=== PATIENT | male | born 1960 | race Caucasian/White ===

== ENCOUNTER 2018-09-11 10:45 | Outpatient (CLI) | payer OTHER, SELFPAY ==
[2018-09-11 13:36] LABS: Anion Gap 6.4 mmol/L (3-11); BUN 16 mg/dL (7-18); CO2 30.6 mmol/L (21.0-32.0); CREATININE 0.85 mg/dL (0.70-1.30); Calcium 8.9 mg/dL (8.5-10.1); Chloride 100 mmol/L (98-107); Cholesterol 222 mg/dL (50-200); Glucose 96 mg/dL (70-100); HDL Cholesterol 47 mg/dL (40-60); LDL CHOLESTEROL 156 mg/dL (<100); Potassium 4.9 mmol/L (3.5-5.1); Sodium 137 mmol/L (136-145); Triglyceride 143 mg/dL (30-150)
[2018-09-13 10:07] LABS: PSA, Screening 1.5 ng/ml (0-3.5)
== END 2018-09-11 11:05 ==
PROVIDERS: PCP Emergency Medicine; Visit Provider Emergency Medicine
DX: E78.5 Hyperlipidemia, unspecified (principal); J44.9 Chronic obstructive pulmonary disease, unspecified; Z12.5 Encounter for screening for malignant neoplasm of prostate; Z00.00 Encounter for general adult medical examination without abnormal findings
CPT/HCPCS: 36415; 80048; 80061; 83721; 84153

== ENCOUNTER 2019-11-11 07:00 | Outpatient (CLI) | payer SELFPAY ==
[2019-11-11 13:54] LABS: Anion Gap 7.2 mmol/L (3-11); BUN 18 mg/dL (7-18); CO2 30.8 mmol/L (21.0-32.0); CREATININE 0.81 mg/dL (0.70-1.30); Calcium 8.9 mg/dL (8.5-10.1); Calculated LDL 81 mg/dL (>130); Chloride 103 mmol/L (98-107); Cholesterol 152 mg/dL (<200); Glucose 99 mg/dL (74-106); HDL Cholesterol 47 mg/dL (40-60); Potassium 4.8 mmol/L (3.5-5.1); Sodium 141 mmol/L (136-145); Triglyceride 121 mg/dL (<150)
[2019-11-11 14:11] LABS: Hemoglobin A1C 5.9 % (3.8-5.6)
== END 2019-11-11 07:20 ==
PROVIDERS: PCP Emergency Medicine; Visit Provider Emergency Medicine
DX: I10 Essential (primary) hypertension (principal); E11.9 Type 2 diabetes mellitus without complications
CPT/HCPCS: 36415; 80048; 80061; 83036

== ENCOUNTER 2020-09-09 03:14 | Outpatient (CLI) | payer OTHER, SELFPAY ==
[2020-09-13 06:50] LABS: Patient Race White; SARS-CoV-2 RNA Undetected (Undetected); SARS-CoV-2 Specimen Source Nasal
== END 2020-09-09 03:34 ==
PROVIDERS: PCP Emergency Medicine; Visit Provider Nurse Practitioner Family
DX: Z11.59 Encounter for screening for other viral diseases (principal)
CPT/HCPCS: U0003

== ENCOUNTER 2022-01-13 03:36 | Outpatient (CLI) | payer OTHER, SELFPAY ==
[2022-01-13 14:48] LABS: ALT 30 U/L (16-63); AST 18 U/L (15-37); Albumin 4.3 g/dL (3.4-5.0); Alkaline Phosphatase 98 U/L (46-116); Anion Gap 8.1 mmol/L (3-11); BUN 18 mg/dL (7-18); Bilirubin, Total 0.4 mg/dL (0.2-1.0); CO2 28.9 mmol/L (21.0-32.0); CREATININE 0.9 mg/dL (0.70-1.30); Calculated LDL 88 mg/dL (<100); Chloride 104 mmol/L (98-107); Cholesterol 157 mg/dL (<200); Glucose 91 mg/dL (74-106); HDL Cholesterol 42 mg/dL (40-60); Potassium 4.8 mmol/L (3.5-5.1); Sodium 141 mmol/L (136-145); Total Protein 7.5 g/dL (6.4-8.2); Triglyceride 139 mg/dL (<150)
[2022-01-13 22:30] LABS: PSA, Screening 1.5 ng/mL (0.0-4.5)
[2022-01-16 10:28] LABS: HIV-1/2 Ag & Ab Screen Negative (Negative)
[2022-01-16 10:40] LABS: Hepatitis C Ab w Rflx HCV PCR Negative (Negative)
== END 2022-01-13 03:37 | disposition home or self-care (01) ==
LOC: LBO 03:36
PROVIDERS: PCP Family Medicine; Visit Provider Family Medicine
DX: E78.5 Hyperlipidemia, unspecified (principal); I10 Essential (primary) hypertension; Z11.59 Encounter for screening for other viral diseases; Z12.5 Encounter for screening for malignant neoplasm of prostate; Z11.4 Encounter for screening for human immunodeficiency virus [HIV]
CPT/HCPCS: 36415; 80053; 80061; 84153; 86803; 87389

== ENCOUNTER 2022-01-13 03:56 | Outpatient (CLI) | payer OTHER, SELFPAY ==
[2022-01-13] MEDS: Albuterol HFA 18 GM 200 PUFF INH IH (13:44)
[2022-01-13] MEDS: Inhaler, Assist Device 1 EACH MC (13:44)
== END 2022-01-13 03:57 | disposition home or self-care (01) ==
PROVIDERS: PCP Family Medicine; Visit Provider Family Medicine
DX: J44.9 Chronic obstructive pulmonary disease, unspecified (principal); F17.210 Nicotine dependence, cigarettes, uncomplicated; R94.2 Abnormal results of pulmonary function studies
CPT/HCPCS: 94060

== ENCOUNTER → 2022-03-10 01:10 | Outpatient (CLI) | payer OTHER, SELFPAY ==
--- NOTE | 2022-03-10 08:45 | DI.RAD_ITS ---
Exam(s) XR SHOULDER RT COMPLETE 2+V EXAM: XR SHOULDER RT COMPLETE 2+V CLINICAL HISTORY: right shoulder injury, work related, [id number], Y99.0. TECHNIQUE: 2D digital imaging was performed of the right shoulder. Five images were obtained. AP, Grashey, Y-view and axillary views were obtained. COMPARISON: No exams were available for comparison FINDINGS: BONES: No acute fracture is present. No bony destructive lesion is seen. JOINTS: No dislocation present. There are degenerative changes seen at the acromioclavicular joint. There is spurring of the inferior aspect of the acromion. This may impinge upon the rotator cuff. SOFT TISSUE: Normal. IMPRESSION: Degenerative changes of the right shoulder. No acute fracture or dislocation. DATA REPOSITORY: RADIATION DOSE DELIVERED:
== END ==
PROVIDERS: PCP Family Medicine; Visit Provider Family Medicine
DX: Y99.0 Civilian activity done for income or pay; M25.511 Pain in right shoulder; S49.80XA Other specified injuries of shoulder and upper arm, unspecified arm, initial encounter; M19.011 Primary osteoarthritis, right shoulder
CPT/HCPCS: 73030

== ENCOUNTER → 2022-04-28 00:13 | Outpatient (CLI) | payer OTHER, SELFPAY ==
--- OUTSIDE RECORDS SUMMARY | 2022-04-28 00:16 | XMS_ITS | Encounter Summary ---
:1960 Author Organization [facility] [place] [address] Care Team Providers Name Role Phone Chapincito Avalos DO Primary Care Provider Encounter Details Date Type Department Care Team Description 12/20/2020 External Results Internal Medicine at [facility] [address] [place] [address] Social History Tobacco Use Types Packs/Day Years Used Date Current Every Day Smoker 1 20 Smokeless Tobacco: Never Used Alcohol Use Standard Drinks/Week Comments Not Currently 0 (1 standard drink = 0.6 oz pure alcoho l) Sex Assigned at Date Recorded Not on file documented as of this encounter Plan of Treatment Not on filedocumented as of this encounter Procedures Procedure Name Priority Date/Time Associated Diagnosis Comme nts EXTERNAL LAB Routine 12/20/2020 Results for thi s HEMATOLOGY/COAG procedure ar e in the RESULTS PANEL results sectio n. documented in this encounter Results (ABNORMAL) Hematology / Coag External Results (12/20/2020) P athologist Signature POC INR 1.6 0.9 - 1.1 VISITING NURSE (EXTERNAL/A BN) Comment: [facility] Specimen (Source) Anatomical Location Collection Method / Collectio n Time Received Time / Laterality Volume 12/20/2020 Historical Provider HEMATOLOGY ORDERABLES Performing Organization Address City/State/ZIP Code Phon e Number VISITING NURSE documented in this encounter Visit Diagnoses Not on filedocumented in this encounter Care Teams Practice Director Relationship Specialty Start Date End Date Chapincito Avalos DO PCP - General Family Medicine 03/12/[address] [place] [address] documented as of this encounter
--- OUTSIDE RECORDS SUMMARY | 2022-04-28 00:16 | XMS_ITS | Encounter Summary ---
:1960 Author Organization [facility] Address [address] [place] [address] Care Team Providers Name Role Phone RobbieChapincito Primary Care Provider Encounter Details Date Type Department Care Team Description 01/10/2021 Hospital Encounter XRay at [facility] History of bilateral total h ip arthroplasty; [address] [place]; [place] [address] Pain of left lower extremity ; [phone] Polyethylene li ner wear following total hip arthroplasty requiring isolated polyethylene liner exchange, initial encounter Social History Tobacco Use Types Packs/Day Years Used Date Current Every Day Smoker 1 20 Smokeless Tobacco: Never Used Alcohol Use Standard Drinks/Week Comments Not Currently 0 (1 standard drink = 0.6 oz pure alcoho l) Sex Assigned at Date Recorded Not on file documented as of this encounter Medications at Time of Discharge Medication Sig Dispensed Refills Start Date End Date acetaminophen (Tylenol) 500 Take 2 tablets 0 11/22 mg Tablet by mouth every 8 hours. Continue the Tylenol around the clock for 10 days after surgery, (12/11/2020). Then may take if needed per package insert. Do not take more than 3,000 mg of Tylenol in 24 hours. hydroCHLOROthiazide Take 12.5 mg by 0 (Hydrodiuril) 12.5 mg Tablet mouth Daily at Noon. lisinopriL Take 10 mg by 0 (Prinivil;Zestril) 10 mg mouth Daily at Tablet Noon. pravastatin (Pravachol) 20 Take 20 mg by 0 2019 mg Tablet mouth daily. 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 amoxicillin-clavulanate Take 1 tablet by 4 tablet 0 2020 (Augmentin) 875-125 mg mouth 2 times Tablet daily. Take until gone. gabapentin (Neurontin) 300 Take 1 capsule 30 capsule 0 12/09 mg Capsule by mouth nightly. Take nightly before bed for sleep for 4 weeks after surgery. polyethylene glycoL Take 17 g by 0 12/09/2020 (Miralax) 17 gram Powder in mouth 2 times Packet daily. senna-docusate (Pericolace) Take 2 tablets 0 11/22 8.6-50 mg Tablet by mouth 2 times daily. Symbicort 160-4.5 INL 2 PFS PO BID 0 09/18/2020 mcg/actuation HFA Aerosol Inhaler albuteroL 90 mcg/actuation INL 1 TO 2 PFS 0 08/26 HFA Aerosol Inhaler PO Q 4 H PRN naproxen (EC NAPROSYN) 500 Take 1 tablet by 60 tablet 0 01/12/2021 mg Tablet, Delayed Release mouth 2 times (E.C.)Indications: Failure daily (with of left total hip meals) for 30 arthroplasty, sequela days. documented as of this encounter Plan of Treatment Not on filedocumented as of this encounter Procedures Procedure Name Priority Date/Time Associated Diagnosis Comme nts XR PELVIS AND HIP 2 Routine 01/10/2021 10:23 History of bilate ral Results for this VIEWS LEFT AM EDT total hip procedure are i n arthroplasty the results Debility section. 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 requiring isolated polyethylene liner exchange, initial encounter documented in this encounter Results XR Pelvis and Hip 2 Views Left (01/10/2021 10:23 AM EDT) Anatomical Region Laterality Modality Pelvis, Hip Left Digital Radiography Specimen (Source) Anatomical Location Collection Method / Collectio n Time Received Time / Laterality Volume Narrative 01/10/2021 1:05 PM EDT EXAMINATION: XR PELVIS AND HIP 2 VIEWS LEFT CLINICAL HISTORY: History of hip replace ment TECHNIQUE: 3 views of the pelvis and hips Lower pelvis and 2 views of left hip COMPARISON: Multiple radiographs since September 2020 . The most recent exam is December 01, 2020. FINDINGS: Bilateral total hip arthroplasties are p resent. The left is recently revised. Left Alignment: The prosthesis is unchanged i n alignment. Complication: There is no loosening or f racture. Right [included on one view] Alignment: The prosthesis is unchanged i n alignment. Complication: There is no loosening or f racture. Impression 1. ??Bilateral total hip arthroplasties. 2. ??The recently revised left total hip arthroplasty is unchanged and uncomplicated. Thank you for letting us participate in the care of this patient. For questions regarding this report, please contact e number below. ? Electronically signed by: Lainey Pena MD, [facility] ([phone]), at 01/10/2021 1:05 PM Procedure Note Lainey Pena MD - 01/10/2021Formatt ing of this note might be different from the original. EXAMINATION: XR PELVIS AND HIP 2 VIEWS L EFT CLINICAL HISTORY: History of hip replace ment TECHNIQUE: 3 views of the pelvis and hips Lower pelvis and 2 views of left hip COMPARISON: Multiple radiographs since September 2020 . The most recent exam is December 01, 2020. FINDINGS: Bilateral total hip arthroplasties are p resent. The left is recently revised. Left Alignment: The prosthesis is unchanged i n alignment. Complication: There is no loosening or f racture. Right [included on one view] Alignment: The prosthesis is unchanged i n alignment. Complication: There is no loosening or f racture. Impression 1. Bilateral total hip arthroplasties. 2. The recently revised left total hip a rthroplasty is unchanged and uncomplicated. Thank you for letting us participate in the care of this patient. For questions regarding this report, please contact e number below. 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
--- OUTSIDE RECORDS SUMMARY | 2022-04-28 00:16 | XMS_ITS | Encounter Summary ---
:1960 Author Organization [facility] [place] [address] Care Team Providers Name Role Phone Chapincito Avalos DO Primary Care Provider Encounter Details Date Type Department Care Team Description 12/23/2020 External Results Internal Medicine at [facility] [address] [place] [address] Social History Tobacco Use Types Packs/Day [...] Associated Diagnosis Comme nts EXTERNAL LAB Routine 12/23/2020 Results for thi s HEMATOLOGY/COAG procedure ar e in the RESULTS PANEL results sectio n. documented in this encounter Results (ABNORMAL) Hematology / Coag External Results (12/23/2020) P athologist Signature POC INR 2.4 0.9 - 1.1 VISITING NURSE (EXTERNAL/A BN) Comment: [facility] Specimen (Source) Anatomical Location Collection Method / Collectio n Time Received Time / Laterality Volume 12/23/2020 Historical Provider HEMATOLOGY ORDERABLES Performing Organization Address City/State/ZIP Code Phon e Number VISITING NURSE documented in this encounter Visit Diagnoses Not on filedocumented in this encounter Care Teams Gasoline Plant Operator Relationship Specialty Start Date End Date Chapincito Avalos DO PCP - General Family Medicine 03/12/[address] [place] [address] documented as of this encounter
--- OUTSIDE RECORDS SUMMARY | 2022-04-28 00:16 | XMS_ITS | Clinical Summary ---
:1960 Author Organization [facility] [place] [address] Care Team Providers Name Role Phone RobbieChapincito lin DO Primary Care Provider Allergies No known active allergies Medications Medication Sig Dispensed Refills Start Date End Date Status pravastatin (Pravachol) 20 Take 20 mg by 0 0 Active mg Tablet mouth daily. Symbicort 160-4.5 INL 2 PFS PO 0 09/18/2020 Active mcg/actuation HFA Aerosol BID Inhaler albuteroL 90 mcg/actuation INL 1 TO 2 0 08/26/2020 Active HFA Aerosol Inhaler PFS PO Q 4 H PRN hydroCHLOROthiazide Take 12.5 mg 0 Active (Hydrodiuril) 12.5 mg by mouth Tablet Daily at Noon. lisinopriL Take 10 mg by 0 Activ e (Prinivil;Zestril) 10 mg mouth Daily Tablet at Noon. amoxicillin-clavulanate Take 1 tablet 4 tablet 0 12/09/2020 Active (Augmentin) 875-125 mg by mouth 2 Tablet times daily. Take until gone. Additional Information Patient not taking. Reported on 12/30/2020 acetaminophen (Tylenol) 500 mg Take 2 tablets by mouth every 0 12/09/2020 Active Tablet 8 hours. Continue the Tylenol around the clock for 10 days after surgery, (12/11/2020). Then may take if needed per package insert. Do not take more than 3,000 mg of Tylenol in 24 hours. Additional Information Patient taking differently: 1,000 mg Oral EVERY 8 HOURS PRN, (No instructions reported), Reported on 01/10/2021 gabapentin (Neurontin) 300 Take 1 capsule by mouth 30 capsule 0 12/09/2020 Active mg Capsule nightly. Take nightly before bed for sleep for 4 weeks after surgery. Additional Information Patient not taking. Reported on 01/10/2021 polyethylene glycoL (Miralax) 17 Take 17 g by mouth 2 times 0 12/09/2020 Active gram Powder in Packet daily. Additional Information Patient not taking. Reported on 12/30/2020 senna-docusate (Pericolace) 8.6-50 Take 2 tablets by mouth 2 0 12/09/2020 Active mg Tablet times daily. Additional Information Patient not taking. Reported on 12/30/2020 HYDROmorphone (Dilaudid) 2 mg Take 1 tablet by 24 tablet 0 11/2020 Active TabletIndications: Failure of mouth every 6 hours left total hip arthroplasty, as needed for Pain sequela (acute post-op surgical pain). Additional Information Patient not taking. Reported on 01/10/2021 Active Problems Problem Noted Date DVT prophylaxis 12/09/2020 Postoperative anemia due to acute blood loss Aspiration pneumonia 12/08/2020 s/p left revision LISS (acetabular component revision) with Dr. Cedillo 12/01/2020 12/01/2020 Class 2 obesity with body mass index (BMI) of 37.0 to 37.9 in adult 11/26/2020 Overview: Body mass index is 37.11 kg/m??. HTN (hypertension) 11/26/2020 Smokes 11/26/2020 COPD (chronic obstructive pulmonary disease) Family History Medical History Relation Comments Diabetes Other Relation Status Comments Other Social History Tobacco Use Types Packs/Day Years Used Date Current Every Day Smoker 1 20 Smokeless Tobacco: Never Used Tobacco Cessation: Ready to Quit: Yes Alcohol Use Standard Drinks/Week Comments Not Currently 0 (1 standard drink = 0.6 oz pure alcoho l) Sex Assigned at Date Recorded Not on file Last Filed Vital Signs Vital Sign Reading Time Taken Comments Blood Pressure 124/57 01/10/2021 10:50 AM EDT Pulse 85 01/10/2021 10:50 AM EDT Temperature 36.7 ??C (98.1 ??F) 12/09/2020 8:05 AM EST Respiratory Rate 18 12/09/2020 8:05 AM EST Oxygen Saturation 97% 01/10/2021 10:50 AM EDT Inhaled Oxygen Concentration - - Weight 129.3 kg (285 lb) 01/10/2021 10:50 AM EDT report ed Height 188 cm (6' 2) 01/10/2021 10:50 AM EDT reported Body Mass Index 36.59 01/10/2021 10:50 AM EDT Plan of Treatment Health Maintenance Due Date Last Done Comments Covid-19 Vaccine (#1) 1965 Pneumococcal Vaccine: At-Risk 1966 5-64yrs (1 - PCV) HIV screen 1978 Hepatitis C Screening 1978 Tdap adult 1979 Tetanus vaccine 1979 Colonoscopy 2005 Zoster vaccine (1 of 2) 2010 Advance Directive 2015 Influenza (Flu) vaccine (1 of 1 - 06/22/2022 Influenza standard series) Diabetes Screening (HgbA1C or 12/04/2023 12/04/2020, 2020, Glucose) 12/02/2020, Additional history exists Medical Devices Implanted Type [facility] Device Shelf Model / Identifier Expiration Date Ser ial / Lot Boley C-Taper Head, +7.5 Offset Lfit Head, 28mm, +7.5 IMPLANTS Le ft: Hip 01/22/2023 [id number] / Implanted: Qty: 1 on 12/01/2020 by Alex Cedillo MD at [facility] / [id number] Advance Directives Latest Code Status on File Code Status Date Activated Date Inactivated Comments Attempt Cardiopulmonary Resuscitation - 12/01/2020 5:42 PM 021 1:31 PM Inpatient Code Status decision made by: Patient Care Teams Heating And Ventilating Worker Relationship Specialty Start Date End Date Chapincito Avalos DO PCP - General Family Medicine 03/12/[address] [place] [address]
--- OUTSIDE RECORDS SUMMARY | 2022-04-28 00:16 | XMS_ITS | Encounter Summary ---
:1960 Author Organization [facility] [place] [address] Care Team Providers Name Role Phone RobbieChapincito lin Primary Care Provider Reason for Referral Physical Therapy (Routine) - Specialty Diagnoses / Procedures Referred By Contact Refer red To Contact Physical Therapy Diagnoses History of total hip arthroplasty, left Alex Cedillo MD [facility] [place] [address] Referral ID Status Reason Start Date Expiration Date Visits V isits Requested Authorized [id number] Evaluate and 12/24/2020 06/22/2021 12 12 Treat Encounter Details Date Type Department Care Team Description 12/24/2020 Telephone Orthopaedics at [address] [address] Social History Tobacco Use Types Packs/Day Years Used Date Current Every Day Smoker 1 20 Smokeless Tobacco: Never Used Alcohol Use Standard Drinks/Week Comments Not Currently 0 (1 standard drink = 0.6 oz pure alcoho l) Sex Assigned at Date Recorded Not on file documented as of this encounter Miscellaneous Notes Telephone Encounter - Shayy Irizarry - 12/24/2020 2:11 PM EST Marisa called in from [facility] requesting an outpatient PT referral for Howard Perez. The pt would like the referral sent to [facility] in [place], [place] to start the scheduling process. Upon chart review it is noted the pt had a Left LISS revision with Dr. Cedillo on 12/01/20. The pt is on enhanced hip precautions. PT referral was generated and faxed to the requested location along with the operative note. Marisa Porras can be reached at [phone] ext. [phone] any questions or concerns. documented in this encounter Plan of Treatment Scheduled Referrals Name Type Priority Associated Diagnoses Order S chedule Referral to Outpatient Referral Routine s/p left revision Ord ered: Physical Therapy LISS (acetabular 12/25/19 21 component revision) with Dr. Cedillo 12/01/2020 documented as of this encounter Visit Diagnoses Diagnosis s/p left revision LSIS (acetabular compon ent revision) with Dr. Cedillo 12/01/2020 documented in this encounter Care Teams Logistics Specialist Relationship Specialty Start Date End Date Chapincito Avalos DO PCP - General Family Medicine 03/12/[address] [place] [address] [address] [place] [address] documented as of this encounter
--- OUTSIDE RECORDS SUMMARY | 2022-04-28 00:16 | XMS_ITS | Encounter Summary ---
:1960 Author Organization [facility] [place] [address] Care Team Providers Name Role Phone Chapincito Avalos DO Primary Care Provider Encounter Details Date Type Department Care Team Description 12/20/2020 Anti-Coag Telephone Internal Medicine at [facility] DVT prophylaxis Visit Silvana Sommers LPN [address] [place] [address] Social History Tobacco Use Types Packs/Day Years Used Date Current Every Day Smoker 1 20 Smokeless Tobacco: Never Used Alcohol Use Standard Drinks/Week Comments Not Currently 0 (1 standard drink = 0.6 oz pure alcoho l) Sex Assigned at Date Recorded Not on file documented as of this encounter Progress Notes Katie Reyes LPN - 12/20/2020 4:51 PM EST Anticoagulation Therapy Note: Indication: sp Left revision LISS (acetabular component revision) DVT prophylaxis Duration of treatment: 30 day therapy last dose 12/31/20 Range: 1.7-2.2 INR : 1.6 Monitored by: [facility]/ Mary Cedillo Drawn By: / [facility] [phone] Next INR Due:12/24 [facility] twice weekly INRs Ortho patient 12/20 INR slightly low today, spoke with Howard this afternoon, denies missed doses of warfarin this week. No changes in diet, health, or medications. Will give 4 % increase in warfarin dose . 12/16 INR in range today, spoke with this morning, denies missed doses of warfarin this week. No changes in diet, health, resumed Naproxen 500 mg Bid dosing per orthopedic dept yesterday. Will maintain current warfarin dose . 12/12 INR in range today but trending up , spoke with Howard this afternoon , denies missed doses of warfarin this week. No changes in diet, health, Reports currently taking 4000 mg total of Tylenol dailyalso reports taking Aleve, advised he should discontinue taking aleve until he has been jai by orthohe may resume this patient agrees with this . Will give 4 % current warfarin dose . 12/10 INR in range today, spoke with Howard this afternoon , denies missed doses of warfarin this week.No changes in diet, health, or medications. Will maintain current warfarin dose . Patient Contact Preference: [phone] (M) Message left on answering machine x E-Mail/fax [facility] [phone] x Spoke with patient / family member: Comment: Warfarin dose : x Increased Decreased Maintained Comment: Falls Risk Asseessment: Have you had any falls in the last month? NO How many times have you fallen? Conditions at time of fall? Refer to falls clinic for evaluation: Yes___ No___ Bleeding: Epistaxis Black tarry stools Gingival bleeding Abnormal bruising Hematuria Other: Hemoptysis x No bleeding / bruising reported Comment: Symptoms of recurring primary event: Chest Pain Dyspnea Palpitations Headache Dizziness Edema Confusion Slurred Speech Weakness Visual changes Tender / Red / Swollen Extremities x No symptoms reported Other: Comment: Recent medication changes: Include Prescription/OTC/Herbal Yes x No Comment Have you misssed any dose of Coumadin this past week? Yes x No Comment Dietary / Alcohol Changes: Yes x No Comment Any Illness/Cold Sx/ Diarrhea/ Constipation> 48 hours: Yes x No Comment: Any Significant Change Activity Level: Yes x No Comment: Upcoming Invasive Procedure Planned: Yes x No Comment: Travel Plans: Yes Travel precautions reviewed x No Comment: Patient understands and agrees with plan of care. documented in this encounter Plan of Treatment Not on filedocumented as of this encounter Visit Diagnoses Diagnosis DVT prophylaxis Encounter for long-term (current) use of anticoagulants documented in this encounter Care Teams Construction Driver Relationship Specialty Start Date End Date Chapincito Avalos DO PCP - General Family Medicine 03/12/[address] [place] [address] [address] [place] [address] documented as of this encounter
--- OUTSIDE RECORDS SUMMARY | 2022-04-28 00:16 | XMS_ITS | Encounter Summary ---
:1960 Author Organization [place] [address] Care Team Providers Name Role Phone RobbieChapincito Primary Care Provider Reason for Visit Reason Comments Post Op s/p left revision LISS (aceta bular component revision) with Dr. Cedillo 12/01/2020 Encounter Details Date Type Department Care Team Description 01/10/2021 Office Visit [place] [facility] Cedillo History of total hip [facility] MD Julio arthroplasty, [place] [address] CENTER [phone] ORTHOPAEDIC SURGERY [place] [address] Social History Tobacco Use Types Packs/Day Years Used Date Current Every Day Smoker 1 20 Smokeless Tobacco: Never Used Alcohol Use Standard Drinks/Week Comments Not Currently 0 (1 standard drink = 0.6 oz pure alcoho l) Sex Assigned at Date Recorded Not on file documented as of this encounter Last Filed Vital Signs Vital Sign Reading Time Taken Comments Blood Pressure 124/57 01/10/2021 10:50 AM EDT Pulse 85 01/10/2021 10:50 AM EDT Temperature - - Respiratory Rate - - Oxygen Saturation 97% 01/10/2021 10:50 AM EDT Inhaled Oxygen Concentration - - Weight 129.3 kg (285 lb) 01/10/2021 10:50 AM EDT report ed Height 188 cm (6' 2) 01/10/2021 10:50 AM EDT reported Body Mass Index 36.59 01/10/2021 10:50 AM EDT documented in this encounter Progress Notes Alex Cedillo MD - 01/10/2021 11:00 AM EDT Images from the original note were not included. Department of Orthopaedics Division of Adult Joint Reconstructive Surgery January 10, 2021 I had the pleasure of evaluating Howard Perez in clinic in conjunction with Dr. Vázquez. I have seen the patient and reviewed the history/physical and I agree with the details as written. The assessment andplan were formulated in discussion with me and I agree with them as documented. In brief is a pleasant 6-year-old gentleman seen in follow-up after a left hip revision. We converted a Sloan constrained liner to dual mobility. He still using a walker and ambulate. He still has some pain. I outlined that this was a pretty large surgery and he may have discomfort for quite some time. He also was not having significant preoperative pain he was just near catastrophic failure of his implant. At this juncture he talked about getting back to work over the next several months and I think this is reasonable. Once he feels comfortable returning to work I am okay with him returning. Otherwise we plan to see him back in a year with repeat x-rays. All questions were answered Alex Cedillo MD, MS [address] [facility], Division of Adult Reconstructive Industrial Tractor DriverSap Bw Architect of Orthopaedics Department of Orthopaedics [facility] [place] [id number] [email or web address] Rashi Vázquez MD - 01/10/2021 11:00 AM EDT Images from the original note were not included. Department of Orthopaedics Division of Adult Joint Reconstructive Surgery Chief Complaint: Chief Complaint Patient presents with ??? Post Op s/p left revision LISS (acetabular component revision) with Dr. Cedillo 12/01/2020 This patient was referred from [facility] Avalos Do [address] [place], [place] [address]y [address] [address] for evaluation of left hip arthroplasty. Previous office notes, operative reports, and any other available medical documentation were reviewed by me. ARTHROPLASTY HISTORY/PREVIOUS HIP SURGERY: 1. 12/01/20 L LISS acetabular revision ([place]tti) Subjective: Howard Perez is a 60 y.o. male who presents for f/u s/p L LISS acetabular revision. Patient reportshe has continued left buttock, thigh, groin pain, continues to ambulate with a walker. He is able toambulate short distances, furniture surfing when necessary. 1/2 weeks ago he stepped into a loaded, which concerned with the onset of his pain. He continues with working with physical therapy, havinghad [facility] come 2 times per week, starting outpatient therapy next week. 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 REVIEW OF SYSTEMS: Constitutional: Hedenies recent unintentional weight loss, fever, chills or malaise Eyes: He denies any recent changes in vision or dry eyes. ENT: He denies recent hearing loss, sore throat, or sinus pain. Cardiovascular: He denies any recent chest pain, palpitations, or shortness of breath. Respiratory: He denies any recent cough or wheezing. Gastrointestinal: He denies any recent difficulty swallowing, dyspepsia, constipation or diarrhea. Genitourinary: He denies any recent urinary incontinence. Skin: He denies any recent sores, wounds, or ulcers. Neurological: He denies any recent headaches, extremity numbness, or balance difficulty. Hematologic: He denies any recent easy bleeding or bruising. QUESTIONNAIRE RESPONSES: General Health, Prior Treatments, PreExisting Condition, Health Habits, About You 01/10/2021 PROMIS-10 General Health Fair PROMIS-10 Quality of Life Fair PROMIS-10 Physical Health Fair PROMIS-10 Mental Health Good PROMIS-10 Social Activity Good PROMIS-10 Everyday Activities A little PROMIS-10 Pain 4 PROMIS-10 Fatigue Mild PROMIS-10 Social Roles - PROMIS-10 Anxious or Depressed - PROMIS PHYSICAL SCORE (range 16-68) - PROMIS MENTAL SCORE (range 21-68) - HOOS JR Scores 49.86 LISS Grade 4 Alzheimers or dementia - Cirrohosis or liver disease - HIV/AIDS - Pain in more than one joint in legs - Back or neck pain - Heart attack - Heart failure - Unclog/bypass leg arteries - Stroke, blood clot, TIA - Asthma - Emphysema, chronic bronchities, or COPD - Take medication for lung disease - Stomach ulcers/peptic ulcer disease - Weight (lbs) - Height (feet) - Height (Inches) - BMI - Ever used tobacco products - Tobacco frequency - WHO - Tobacco Advice - Live Alone - Marital situation - Schooling - Combined Household Income - # People Supported - [place], , - Race - Health Literacy - Currently working - Not working because: - [facility] Response 01/10/2021 HOOS JR Scores 49.86 OSWESTRY DISABILITY INDEX - Spine [facility] Response 01/10/2021 Oswestry (LINDA) Score - HOOS JR Scores 49.86 ALLERGIES No Known Allergies SOCIAL HISTORY: reports that he has been smoking. He has a 20.00 pack-year smoking history. He has never used smokeless tobacco. He reports previous alcohol use. He reports previous drug use. 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 There is no significant family history of cardiac disease. SIGNIFICANT MEDICAL COMORBIDITIES: Patient Active Problem List Diagnosis Code ??? Class 2 obesity with body mass index (BMI) of 37.0 to 37.9 in adult E66.9, Z68.37 ??? HTN (hypertension) I10 ??? Smokes F17.200 ??? COPD (chronic obstructive pulmonary disease) J44.9 ??? s/p left revision LISS (acetabular component revision) with Dr. Cedillo 12/01/2020 Z96.642 ??? Postoperative anemia due to acute blood loss D62 ??? Aspiration pneumonia J69.0 ??? DVT prophylaxis Z29.9 Objective: BP 124/57 (BP Location (NBP): Right arm, Patient Position: Sitting, BP Cuff Sizes: Large Adult (32-43 cm)) Pulse 85 Ht 188 cm (6' 2) Comment: reported Wt 129.3 kg (285 lb) Comment: reported SpO2 97% BMI 36.59 kg/m?? General : alert, appears stated age and cooperative Gait: Antalgic. The patient is able to get up from a chair without the use of their arms. Eyes: Normal conjunctiva and eye lids. No jaundice noted. Respiratory: Normal respiratory effort. No audible wheezing or rhonchi. Abdomen: Pannus Skin: Well-healed posterior surgical scars. No open wounds, sores, ulcers, or plaques noted. I have made the following determinations: Hip Exam: Left Prior surgery on this joint:Yes Leg Length: Longer leg: equal Limb Length discrepancy: 0cm Motion: Flexion contracture: 0 Total degrees of Flexion: 115 Total degrees of Ext Rotation: 45 Total degrees of Internal Rotation: 25 Gait Abnormality: Antalgic Skin Integrity: Normal Pulses Palpable: Left PT: Yes Left DP: Yes Motor/Sensory: Left Distal Motor: Normal Distal Sensory: Normal Hip Abductors: 5 IMAGING: The following imaging studies were personally reviewed by me today. I reviewed these imaging studieswith the patient during their visit. When available, the official radiology reports were reviewed aswell. X-Ray: AP Pelvis and AP/Lat views of the left hip. The most recent images were compared to previous studies when available. Acetabular cup appears in similar position is in PACU comparison. 3 screws remain without areas of lucency surrounding them, no evidence of migration. Femoral component appears well fixed as well. LABORATORY: None new Assessment: Mr. Perez is a 60 y.o. year old male 1 month status post left acetabular component revision, with continued postoperative pain. Given the patient's's slowness to mobilize acutely postoperatively, thisis not to be unexpected. Plan: Okay to work February 03, patient will call if he needs a letter We will send email to [facility] regarding receipt of his implants. Follow-up 1 year with x-rays. Kalpesh Mane documented in this encounter Plan of Treatment Scheduled Orders Name Type Priority Associated Diagnoses Order S chedule XR Pelvis and Hip 2 Imaging Routine History of total hip Expected: 01/10/2022 Views Left arthroplasty, left (Approxim ate), Expires: 2021 documented as of this encounter Visit Diagnoses Diagnosis History of total hip arthroplasty, left documented in this encounter Care Teams Content Engineer Relationship Specialty Start Date End Date Chapincito Avalos DO PCP - General Family Medicine 03/12/[address] [place] [address] documented as of this encounter
--- OUTSIDE RECORDS SUMMARY | 2022-04-28 00:16 | XMS_ITS | Encounter Summary ---
:1960 Author Organization [facility] [place] [address] Care Team Providers Name Role Phone Robbie Chapincito KIM Primary Care Provider Encounter Details Date Type Department Care Team Description 12/23/2020 Anti-Coag Telephone Internal Medicine at [facility] DVT prophylaxis Visit Silvana Sommers LPN [address] [place] [address] Social History Tobacco Use Types Packs/Day Years Used Date Current Every Day Smoker 1 20 Smokeless Tobacco: Never Used Alcohol Use Standard Drinks/Week Comments Not Currently 0 (1 standard drink = 0.6 oz pure alcoho l) Sex Assigned at Date Recorded Not on file documented as of this encounter Progress Notes Katie Reyes LPN - 12/23/2020 2:21 PM EST Anticoagulation Therapy Note: Indication: sp Left revision LISS (acetabular component revision) DVT prophylaxis Duration of treatment: 30 day therapy last dose 12/31/20 Range: 1.7-2.2 INR : 2.4 Monitored by: [facility]/ Mary Cedillo Drawn By: / [facility] [phone] Next INR Due: Wednesday 12/27 Home health twice weekly INRs Ortho patient 12/23 INR elevated today, spoke with Howard this afternoon , denies missed doses of warfarin this week.No changes in diet, health, or medications. Will give 3.8 % decrease in warfarin dose . 12/20 INR slightly low today, spoke with [...] yesterday. Will maintain current warfarin dose . Patient Contact Preference: [phone] (M) Message left on answering machine x E-Mail/fax Home health [phone] x Spoke with patient / family member: Comment: Warfarin dose : Increased x Decreased Maintained Comment: Falls Risk Asseessment: Have [...] anticoagulants documented in this encounter Care Teams Museum Tour Guide Relationship Specialty Start Date End Date Chapincito Avalos DO PCP - General Family Medicine 03/12/19 [address] [place] [address] documented as of this encounter
--- OUTSIDE RECORDS SUMMARY | 2022-04-28 00:16 | XMS_ITS | Encounter Summary ---
:1960 Author Organization [facility] [place] [address] Care Team Providers Name Role Phone Robbie Chapincito KIM Primary Care Provider Encounter Details Date Type Department Care Team Description 01/03/2021 Anti-Coag Telephone Internal Medicine at [facility] DVT prophylaxis Visit Silvana Sommers LPN [address] [place] [address] Social History Tobacco Use Types Packs/Day Years Used Date Current Every Day Smoker 1 20 Smokeless Tobacco: Never Used Alcohol Use Standard Drinks/Week Comments Not Currently 0 (1 standard drink = 0.6 oz pure alcoho l) Sex Assigned at Date Recorded Not on file documented as of this encounter Progress Notes Katie Reyes LPN - 01/03/2021 1:11 PM EDT Anticoagulation Therapy Note: Indication: sp Left revision LISS (acetabular component revision) DVT prophylaxis Duration of treatment: 30 day therapy last dose 12/31/20 Range: 1.7-2.2 INR : 1.8 Monitored by: [facility]/ Ortho [facility]aritz[facility]tti Drawn By: / [facility] [phone] Next INR Due: Dc tracker 12/31 01/03 Tracker discontinued today therapy completed 12/31 12/30 INR in range today , spoke with Howard this afternoon , denies missed doses of warfarin this week. No changes in diet, health, or medications. Will maintain current warfarin dose with last dose to be taken tomorrow night patient understands and agrees with plan of care 12/27 INR in range today, spoke with Howard this afternoon , denies missed doses of warfarin this week.No changes in diet, health, or medications. Will maintain current warfarin dose . 3/ INR elevated today, spoke with Howard this afternoon , denies missed doses of warfarin this week.No changes in diet, health, or medications. Will give 3.8 % decrease in warfarin dose . Patient Contact Preference: [phone] (M) Message left on answering machine E-Mail/fax Spoke with patient / family member: Comment: Warfarin dose : Increased Decreased Maintained Comment: Falls Risk Asseessment: Have you had any falls in the last month? NO How many times have you fallen? Conditions at time of fall? Refer to falls clinic for evaluation: Yes___ No___ Bleeding: Epistaxis Black tarry stools Gingival bleeding Abnormal bruising Hematuria Other: Hemoptysis No bleeding / bruising reported Comment: Symptoms of recurring primary event: Chest Pain Dyspnea Palpitations Headache Dizziness Edema Confusion Slurred Speech Weakness Visual changes Tender / Red / Swollen Extremities No symptoms reported Other: Comment: Recent medication changes: Include Prescription/OTC/Herbal Yes No Comment Have you misssed any dose of Coumadin this past week? Yes No Comment Dietary / Alcohol Changes: Yes No Comment Any Illness/Cold Sx/ Diarrhea/ Constipation> 48 hours: Yes No Comment: Any Significant Change Activity Level: Yes No Comment: Upcoming Invasive Procedure Planned: Yes x No Comment: Travel Plans: Yes Travel precautions reviewed No Comment: documented in this encounter Plan of Treatment Not on filedocumented as of this encounter Visit Diagnoses Diagnosis DVT prophylaxis Encounter for long-term (current) use of anticoagulants documented in this encounter Care Teams Air Bag Stripper Relationship Specialty Start Date End Date Chapincito Avalos DO PCP - General Family Medicine 03/12/[address] [place] [address] documented as of this encounter
--- OUTSIDE RECORDS SUMMARY | 2022-04-28 00:16 | XMS_ITS | Encounter Summary ---
:1960 Author Organization [facility] [place] [address] Care Team Providers Name Role Phone Chap[facility] Avalos DO Primary Care Provider Encounter Details Date Type Department Care Team Description 12/27/2020 External Results Internal Medicine at [facility] [address] [place] [address] Social History Tobacco Use Types Packs/Day [...] Associated Diagnosis Comme nts EXTERNAL LAB Routine 12/27/2020 Results for thi s HEMATOLOGY/COAG procedure ar e in the RESULTS PANEL results sectio n. documented in this encounter Results Hematology / Coag External Results (12/27/2020) P athologist Signature POC INR 2.1 0.9 - 1.1 VISITING NURSE Comment: [facility] Specimen (Source) Anatomical Location Collection Method / Collectio n Time Received Time / Laterality Volume 12/27/2020 Historical Provider HEMATOLOGY ORDERABLES Performing Organization Address City/State/ZIP Code Phon e Number VISITING NURSE documented in this encounter Visit Diagnoses Not on filedocumented in this encounter Care Teams Community Development Officer Relationship Specialty Start Date End Date Chapincito Avalos DO PCP - General Family Medicine 03/12/[address] [place] [address] documented as of this encounter
--- OUTSIDE RECORDS SUMMARY | 2022-04-28 00:16 | XMS_ITS | Encounter Summary ---
:1960 Author Organization [facility] [place] [address] Care Team Providers Name Role Phone RobbieChapincito lin Primary Care Provider Reason for Visit Reason Onset Date Comments Medication Refill 12/13/2020 Encounter Details Date Type Department Care Team Description 12/13/2020 Refill Orthopaedics at [facility] Radha Crook Failure of left total [facility] Isabella Reynolds RN hip arthroplasty, [place] [address] sequela [phone] Social History Tobacco Use Types Packs/Day Years Used Date Current Every Day Smoker 1 20 Smokeless Tobacco: Never Used Alcohol Use Standard Drinks/Week Comments Not Currently 0 (1 standard drink = 0.6 oz pure alcoho l) Sex Assigned at Date Recorded Not on file documented as of this encounter Miscellaneous Notes Telephone Encounter - Radha Crook RN - 12/13/2020 3:54 PM EST Images from the original note were not included. Medication Refill Request Surgery/Injury/Provider: 12/01/20 Dr. Cedillo Left LISS Revision Medication being requested: hydromorphone 2mg Last refill or Original Rx: Query: Must be completed today: Yes Seen within 30 days (if no, than when): Follow Up: 01/10 Dr. Cedillo How is this medication being used currently: 2 tabs every 4 hours Pain level: 7/10 Bowel concerns: no concerns Other pain medications used and how: Tylenol 1000mg every 4 hours (He was informed that he needs to change this to every 8 hours for safety of his Liver) Gabapentin 300mg at bedtime Icing 3-4 times per day Medication Taper Plan: Patient is yet to achieve good pain control as he is still rating his pain above a 5/10. He was not sent home with any Naproxen (this will be discussed with Dr. Cedillo to see if he would like to add this medication). Otherwise, I am remise to push out his frequency too much at this time. Teaching done regarding: taking nonnarcotic pain medications, taking the least amount of opioid needed for the least amount of time for adequate pain management and tapering of opioids with verbalized understanding by the patient. New Prescription written for: Hydromorphone 2mg Requested Prescription to be sent electronically to [facility] [place], [place] (location). Prescription prepped and pended for Dr. Cedillo (provider) review. The patient knows how to contact orthopaedics if any further questions or concerns occur. documented in this encounter Plan of Treatment Not on filedocumented as of this encounter Visit Diagnoses Diagnosis Failure of left total hip arthroplasty, sequela documented in this encounter Care Teams Jewel Inserter Relationship Specialty Start Date End Date Chap[facility]ito Avalos DO PCP - General Family Medicine 03/12/[address] [place] [address] documented as of this encounter
--- OUTSIDE RECORDS SUMMARY | 2022-04-28 00:16 | XMS_ITS | Encounter Summary ---
:1960 Author Organization [facility] Address [address] [place] [address] Care Team Providers Name Role Phone [facility] Avalos DO Primary Care Provider Reason for Visit Reason Onset Date Comments Letter Request From Patient 01/11/2021 Encounter Details Date Type Department Care Team Description 01/11/2021 Telephone Orthopaedics at [facility] [place] Alex Coker Letter Request From [facility] [place] [address] [facility] [phone] ORTHOPAEDIC SURGERY [place], [place] [address] Social History Tobacco Use Types Packs/Day Years Used Date Current Every Day Smoker 1 20 Smokeless Tobacco: Never Used Alcohol Use Standard Drinks/Week Comments Not Currently 0 (1 standard drink = 0.6 oz pure alcoho l) Sex Assigned at Date Recorded Not on file documented as of this encounter Miscellaneous Notes Telephone Encounter - Sherry Grewal - 01/12/2021 6:30 AM EDT Letter created and faxed. Telephone Encounter - Nikki Hurley - 01/11/2021 2:01 PM EDT Provider last seen by? DR. ALEX COKER What type of letter is needed? 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 FEBRUARY 03, 2021 What restrictions do you need? NO RESTRICTIONS Would you like to sweet pickled fruit maker your letter, fax, mail, or myD-H? myD-H & fax to below To what address/fax#? [phone] To whose attention? DAVID HONEYCUTT Please also include time/date of appointments from Sunday, January 10, 2021 documented in this encounter Plan of Treatment Not on filedocumented as of this encounter Visit Diagnoses Not on filedocumented in this encounter Care Teams Leasing Property Manager Relationship Specialty Start Date End Date Chapincito Avalos DO PCP - General Family Medicine 03/12/19 [address] [place] [address] documented as of this encounter
--- OUTSIDE RECORDS SUMMARY | 2022-04-28 00:16 | XMS_ITS | Encounter Summary ---
:1960 Author Organization [facility] [place] [address] Care Team Providers Name Role Phone RobbieChapincito lin Primary Care Provider Reason for Visit Reason Onset Date Comments Letter for School/Work 12/13/2020 Encounter Details Date Type Department Care Team Description 12/13/2020 Telephone Orthopaedics at [facility] Alex Cedillo Letter for School/Work [facility] [place] [address] [facility] [phone] ORTHOPAEDIC SURGERY [place], [place] [address] Social History Tobacco Use Types Packs/Day Years Used Date Current Every Day Smoker 1 20 Smokeless Tobacco: Never Used Alcohol Use Standard Drinks/Week Comments Not Currently 0 (1 standard drink = 0.6 oz pure alcoho l) Sex Assigned at Date Recorded Not on file documented as of this encounter Miscellaneous Notes Telephone Encounter - Sherry Grewal - 12/14/2020 9:03 AM EST Letter created and faxed. Telephone Encounter - Melina Calvillo - 12/13/2020 3:25 PM EST Provider last seen by?JOHN PAUL What type of letter is needed? OUT OF WORK Return to work/school/sports, out of work/school/sports, other What do you want your start date to be?12/01/20 PT WOULD LIKE A LETTER CREATED SIMILAR TO THE ONE CREATED ON 11/11/20. HE WOULD LIKE IT STATING THAT HE HAD SURGERY ON 12/01/20 AND THAT HE IS TO BE OUT OF WORK UNTIL AT LEAST HIS NEXT APPT ON 01/10. Would you like to picket labor union your letter, fax, mail, or myD-H? FAXED no email please, only as a last option To what address/fax#?[phone] To whose attention?DAVID HONEYCUTT documented in this encounter Plan of Treatment Not on filedocumented as of this encounter Visit Diagnoses Not on filedocumented in this encounter Care Teams Multicultural Services Librarian Relationship Specialty Start Date End Date Chapincito Avalos DO PCP - General Family Medicine 03/12/[address] [place] [address] documented as of this encounter
--- OUTSIDE RECORDS SUMMARY | 2022-04-28 00:16 | XMS_ITS | Encounter Summary ---
:1960 Author Organization [facility] [place] [address] Care Team Providers Name Role Phone Robbie Chapnicito KIM Primary Care Provider Encounter Details Date Type Department Care Team Description 12/30/2020 Anti-Coag Telephone Internal Medicine at [facility] [address] [place] [address] Social History Tobacco Use Types Packs/Day Years Used Date Current Every Day Smoker 1 20 Smokeless Tobacco: Never Used Alcohol Use Standard Drinks/Week Comments Not Currently 0 (1 standard drink = 0.6 oz pure alcoho l) Sex Assigned at Date Recorded Not on file documented as of this encounter Progress Notes Katie Reyes LPN - 12/30/2020 1:34 PM EST Anticoagulation Therapy Note: Indication: sp Left revision LISS (acetabular component revision) DVT prophylaxis Duration of treatment: 30 day therapy last dose 12/31/20 Range: 1.7-2.2 INR : 1.8 Monitored by: [facility]/ Mary Cedillo [facility] [phone] Next INR Due: Dc tracker 12/31 Home health twice weekly INRs Ortho patient 12/30 INR in range today , spoke [...] in warfarin dose . Patient Contact Preference: [phone] (M) Message left on answering machine E-Mail/fax x Spoke with patient / family member: Comment: Warfarin dose : Increased Decreased x Maintained Comment: Falls Risk Asseessment: Have you [...] anticoagulants documented in this encounter Care Teams Career Guidance Counselor Relationship Specialty Start Date End Date Chapincito Avalos DO PCP - General Family Medicine 03/12/[address] [place] [address] documented as of this encounter
--- OUTSIDE RECORDS SUMMARY | 2022-04-28 00:16 | XMS_ITS | Encounter Summary ---
:1960 Author Organization [facility] [place] [address] Care Team Providers Name Role Phone RobbieChapincito lin Primary Care Provider Reason for Visit Reason Onset Date Comments Medication Refill 12/21/2020 Encounter Details Date Type Department Care Team Description 12/21/2020 Refill [facility]ed[facility] at [facility] Yaquelin Pryor, Failure of left total [facility] Isabella dietrich RN hip arthroplasty, [place] [address] sequela [phone] Social History Tobacco Use Types Packs/Day Years Used Date Current Every Day Smoker 1 20 Smokeless Tobacco: Never Used Alcohol Use Standard Drinks/Week Comments Not Currently 0 (1 standard drink = 0.6 oz pure alcoho l) Sex Assigned at Date Recorded Not on file documented as of this encounter Miscellaneous Notes Telephone Encounter - Yaquelin Pryor, RN - 12/21/2020 12:08 PM EST Medication Refill Request Surgery/Injury/Provider: s/p left revision LISS (acetabular component revision) with Dr. Cedillo 12/01/2020 Medication being requested: HYDROMORPHONE Last refill or Original Rx: 12/13/20 Query: Must be completed today: Filled Sold ID Written Drug QTY Days Prescriber Rx # Pharmacy * Refills Daily Dose Pymt Type BUFFET ATTENDANT 12/13/2020 1 12/13/2020 HYDROMORPHONE 2 MG TABLET 36.0 3 [place] MOS [id number] [facility] (1338) 0 Comm Ins [place] 12/09/2020 1 12/09/2020 HYDROMORPHONE 2 MG TABLET 40.0 Seen within 30 days (if no, than when): Follow Up: 01/10/21 How is this medication being used currently: Patient remains taking 2 tablets every 4 hours. Stated pain a level 6. Pain level: level 6 Patient states pain right now is directly at the hip. Pain in thigh has improved. Leg still swollen some but even that has gotten better. Bowel concerns: none Other pain medications used and how: Naprosyn 500mg bid added to regimen on 12/13/20 Tylenol patient had not been taking every 8 hours encouraged to do so. Medication Taper Plan: Patient will decrease to one tablet every 6 hours as needed for acute pain Teaching done regarding: taking nonnarcotic pain medications, taking the least amount of opioid needed for the least amount of time for adequate pain management and tapering of opioids with verbalized understanding by the patient. New Prescription written for: Hydromorphone 2mg tablet sig: one tablet every 6 hours as needed for acute pain dispense # 28 Requested Prescription to be sent electronically to [facility] Prescription prepped and pended for Teodoro UMAÑA review. The patient knows how to contact orthopaedics if any further questions or concerns occur. Yaquelin Pryor RN [facility] Ortho Team documented in this encounter Plan of Treatment Not on filedocumented as of this encounter Visit Diagnoses Diagnosis Failure of left total hip arthroplasty, sequela documented in this encounter Care Teams Carpenter Repairer Relationship Specialty Start Date End Date Chapincito Avalos DO PCP - General Family Medicine 03/12/[address] [place] [address] documented as of this encounter
--- OUTSIDE RECORDS SUMMARY | 2022-04-28 00:16 | XMS_ITS | Encounter Summary ---
:1960 Author Organization [facility] [place] [address] Care Team Providers Name Role Phone Chapincito Avalos DO Primary Care Provider Reason for Visit Reason Comments Medication Refill Encounter Details Date Type Department Care Team Description 01/09/2021 Refill Orthopaedics at [facility] Alex Cedillo, Failure of left total [facility] Isabella dietrich MD hip arthroplasty, [place] [address] [facility] sequela [phone] DR ORTHOPAEDIC SURG [place], [place] [address] (Wo rk) Social History Tobacco Use Types Packs/Day Years [...] sequela documented in this encounter Care Teams Joint Maker Machine Relationship Specialty Start Date End Date Chapincito Avalos DO PCP - General Family Medicine 03/12/[address] [place] [address] documented as of this encounter
--- OUTSIDE RECORDS SUMMARY | 2022-04-28 00:16 | XMS_ITS | Encounter Summary ---
:1960 Author Organization [facility] [place] [address] Care Team Providers Name Role Phone Robbie Chapincito KIM Primary Care Provider Encounter Details Date Type Department Care Team Description 12/27/2020 Anti-Coag Telephone Internal Medicine at [facility] [address] [place] [address] Social History Tobacco Use Types Packs/Day Years Used Date Current Every Day Smoker 1 20 Smokeless Tobacco: Never Used Alcohol Use Standard Drinks/Week Comments Not Currently 0 (1 standard drink = 0.6 oz pure alcoho l) Sex Assigned at Date Recorded Not on file documented as of this encounter Progress Notes Katie Reyes LPN - 12/27/2020 2:11 PM EST Anticoagulation Therapy Note: Indication: sp Left revision LISS (acetabular component revision) DVT prophylaxis Duration of treatment: 30 day therapy last dose 12/31/20 Range: 1.7-2.2 INR : 2.1 Monitored by: [facility]/ Mary Cedillo Drawn By: / Blaise [facility] [phone] Next INR Due: 12/30 Home health twice weekly INRs Ortho patient 12/27 INR in range today, spoke with Howard this afternoon , denies missed doses of warfarin this week.No changes in diet, health, or medications. Will maintain current warfarin dose . 12/23 INR elevated today, spoke with Howard [...] 4 % increase in warfarin dose . Patient Contact Preference: [phone] (M) Message left on answering machine x E-Mail/fax [facility] [phone] x Spoke with patient / family member: [...] anticoagulants documented in this encounter Care Teams Venetian Blind Tape Cutter Relationship Specialty Start Date End Date Chapincito Avalos DO PCP - General Family Medicine 03/12/[address] [place] [address] documented as of this encounter
--- OUTSIDE RECORDS SUMMARY | 2022-04-28 00:16 | XMS_ITS | Encounter Summary ---
:1960 Author Organization [facility] [place] [address] Care Team Providers Name Role Phone Chapincito Avalos DO Primary Care Provider Encounter Details Date Type Department Care Team Description 12/30/2020 External Results Internal Medicine at [facility] [address] [place] [address] Social History Tobacco Use Types Packs/Day [...] Associated Diagnosis Comme nts EXTERNAL LAB Routine 12/30/2020 Results for thi s HEMATOLOGY/COAG procedure ar e in the RESULTS PANEL results sectio n. documented in this encounter Results Hematology / Coag External Results (12/30/2020) P athologist Signature POC INR 1.8 0.9 - 1.1 VISITING NURSE Specimen (Source) Anatomical Location Collection Method / Collectio n Time Received Time / Laterality Volume 12/30/2020 Historical Provider HEMATOLOGY ORDERABLES Performing Organization Address City/State/ZIP Code Phon e Number VISITING NURSE documented in this encounter Visit Diagnoses Not on filedocumented in this encounter Care Teams Career Information Specialist Relationship Specialty Start Date End Date Chapincito Avalos DO PCP - General Family Medicine 03/12/[address] [place], [place] [id number] documented as of this encounter
--- OUTSIDE RECORDS SUMMARY | 2022-04-28 00:16 | XMS_ITS | Encounter Summary ---
:1960 Author Organization [facility] [place] [address] Care Team Providers Name Role Phone RobbieChapincito Primary Care Provider Reason for Visit Reason Comments Follow-up Encounter Details Date Type Department Care Team Description 12/31/2020 TH Visit Pain and Spine Paco Early, Low back p ain, non-specific; (TeleHealth) Center at [facility] Lumbar spondylosis; [facility] Medical History o f revision of total replacement of left hip joint [facility] [address] [place] [id number] [phone] Social History Tobacco Use Types Packs/Day Years Used Date Current Every Day Smoker 1 20 Smokeless Tobacco: Never Used Alcohol Use Standard Drinks/Week Comments Not Currently 0 (1 standard drink = 0.6 oz pure alcoho l) Sex Assigned at Date Recorded Not on file documented as of this encounter Last Filed Vital Signs Vital Sign Reading Time Taken Comments Blood Pressure - - Pulse - - Temperature - - Respiratory Rate - - Oxygen Saturation - - Inhaled Oxygen Concentration - - Weight 129.3 kg (285 lb) 12/30/2020 10:23 AM EST Height 188 cm (6' 2) 12/30/2020 10:23 AM EST Body Mass Index 36.59 12/30/2020 10:23 AM EST documented in this encounter Progress Notes Paco Early MD - 12/31/2020 11:00 AM EST Patient verbally consents to this telehealth visit and understands that it will be billed, similar to a clinic office visit. I provided care to the patient today via telehealth. The total time associated with this visit was 15 minutes. Chief Complaint Patient presents with ??? Follow-up Subjective: The patient returns for follow-up during PT treatment. He underwent revision left total hip arthroplasty on 12/01/2020. He has been making a good recovery from that procedure. He notes minimal left hip pain. He has been able to ambulate with a rolling walker and anticipates possible transition to cane or no device in the near future. Interestingly, since we last met in October, the primary symptoms of binding or ratcheting sensationin the right hip have resolved. He reports intermittent generalized low lumbosacral pain, but this has generally been at low level and has been well controlled. At present, the patient reports incisional left hip pain, 1/10 in intensity. He denies low back pain. I reviewed lumbosacral radiographic results with the patient. The study was completed after the lastvisit. It demonstrates disc space narrowing at L2-L3 and L4-L5, as well as multilevel degenerative facet arthropathy and endplate change. Clinical materials reviewed: 1. Operative note of Alex Cedillo MD, 12/01/2020. Patient underwent revision left total hip arthroplasty. Past Medical History: Diagnosis Date ??? COPD (chronic obstructive pulmonary disease) copd ??? High blood pressure ??? Motion sickness ??? Postoperative anemia due to acute blood loss 12/08/2020 Current Outpatient Medications on File Prior to Visit Medication Sig Dispense Refill ??? HYDROmorphone (Dilaudid) 2 mg Tablet Take 1 tablet by mouth every 6 hours as needed for Pain (acute post-op surgical pain). 24 tablet 0 ??? naproxen (EC NAPROSYN) 500 mg Tablet, Delayed Release (E.C.) Take 1 tablet by mouth 2 times daily (with meals) for 30 days. 60 tablet 0 ??? acetaminophen (Tylenol) 500 mg Tablet Take 2 tablets by mouth every 8 hours. Continue the Tylenol around the clock for 10 days after surgery, (12/11/2020). Then may take if needed per package insert. Do not take more than 3,000 mg of Tylenol in 24 hours. (Patient taking differently: Take 1,000 mg by mouth every 4 hours as needed. Continue the Tylenol around the clock for 10 days after surgery, (12/11/2020). Then may take if needed per package insert. Do not take more than 3,000 mg of Tylenol in 24hours.) ??? gabapentin (Neurontin) 300 mg Capsule Take 1 capsule by mouth nightly. Take nightly before bed for sleep for 4 weeks after surgery. 30 capsule 0 ??? warfarin (Coumadin) 5 mg Tablet Take 1 tablet by mouth daily for 30 days. You may need to break or combine pills to achieve the right dose. 45 tablet 0 ??? hydroCHLOROthiazide (Hydrodiuril) 12.5 mg Tablet Take 12.5 mg by mouth Daily at Noon. ??? lisinopriL (Prinivil;Zestril) 10 mg Tablet Take 10 mg by mouth Daily at Noon. ??? pravastatin (Pravachol) 20 mg Tablet Take 20 mg by mouth daily. ??? Symbicort 160-4.5 mcg/actuation HFA Aerosol Inhaler INL 2 PFS PO BID ??? albuteroL 90 mcg/actuation HFA Aerosol Inhaler INL 1 TO 2 PFS PO Q 4 H PRN ??? amoxicillin-clavulanate (Augmentin) 875-125 mg Tablet Take 1 tablet by mouth 2 times daily. Takeuntil gone. (Patient not taking: Reported on 12/30/2020) 4 tablet 0 ??? polyethylene glycoL (Miralax) 17 gram Powder in Packet Take 17 g by mouth 2 times daily. (Patient not taking: Reported on 12/30/2020) ??? senna-docusate (Pericolace) 8.6-50 mg Tablet Take 2 tablets by mouth 2 times daily. (Patient nottaking: Reported on 12/30/2020) No current facility-administered medications on file prior to visit. No Known Allergies Review of Systems: As above. Objective: Obese male in no apparent distress. Alert and oriented x3. Affect is appropriate. Assessment: Encounter Diagnoses Name Primary? Low back pain, non-specific ??? Lumbar spondylosis ??? History of revision of total replacement of left hip joint The patient is making an excellent recovery from revision left total hip arthroplasty just over one month ago. Low back pain symptoms are at low level and remain well controlled. The combination of PT treatment and revision total hip arthroplasty of the contralateral hip have led to resolution of right hip finding and ratcheting. The patient has been encouraged to continue to devote his energies to recovery from hip surgery. He may return for follow-up on an as-needed basis. Plan: 1. Follow-up here on an as-needed basis. Total time spent on date of encounter = 15 minutes. Paco Early MD, MS 12/31/2020 documented in this encounter Plan of Treatment Not on filedocumented as of this encounter Visit Diagnoses Diagnosis Low back pain, non-specific Lumbar spondylosis Lumbosacral spondylosis without myelopat hy History of revision of total replacement of left hip joint documented in this encounter Care Teams Machine Ii Cutter Relationship Specialty Start Date End Date Chapincito Avalos DO PCP - General Family Medicine 03/12/[address] [place] [address] documented as of this encounter
--- OUTSIDE RECORDS SUMMARY | 2022-04-28 00:16 | XMS_ITS | Encounter Summary ---
:1960 Author Organization [facility] [place] [address] Care Team Providers Name Role Phone Robbie Chapincito KIM Primary Care Provider Encounter Details Date Type Department Care Team Description 12/16/2020 Anti-Coag Telephone Internal Medicine at [facility] Reyes [facility] [address] [place] [address] Social History Tobacco Use Types Packs/Day Years Used Date Current Every Day Smoker 1 20 Smokeless Tobacco: Never Used Alcohol Use Standard Drinks/Week Comments Not Currently 0 (1 standard drink = 0.6 oz pure alcoho l) Sex Assigned at Date Recorded Not on file documented as of this encounter Progress Notes Katie Reyes LPN - 12/16/2020 12:46 PM EST Anticoagulation Therapy Note: Indication: sp Left revision LISS (acetabular component revision) DVT prophylaxis Duration of treatment: 30 day therapy last dose 12/31/20 Range: 1.7-2.2 INR : 2.1 Monitored by: [facility]/ Mary Cedillo Drawn By: / Blaise [facility] [phone] Next INR Due:12/16 [facility] twice weekly INRs Ortho patient 12/16 INR in range today, spoke with [...] medications. Will maintain current warfarin dose . 12/09 New patient referral today from orthopedic department for short term anticoagulation management. Was inpatient at [facility] from 12/01-12/09, sp Left revision LISS (acetabular component revision) on 12/01 . Patient required 02 therapy post op, Chest Xray revealed possible pneumonia/aspiration pneumonia. spital Medicine was consulted and a 5 day course of Augmentin was recommended. New medications on discharge; Augmentin 875-125 1 tablet BID ,x 2 days, Gabapentin 300 mg at Hs x 4 weeks, Dilaudid 2 mg tablet 1-2 tabs every 4 hr as needed for pain, Pericolace 2 tablets Bid as needed, Warfarin 5 mg as directed x 30 days, Tylenol 1000 mr every 8 hr round the clock x 10 days then as needed NTE 3000 mg as needed in 24 hr. Discontinued meds on discharge, Anaprox 220 mg Called and introduced patient to clinic, reviewed medication list, reports minimal Vit K in diet , denies alcohol use, minimal activity due to hip pain, ,denies any high risk behavior doses patient perDc instructions to tomorrow . Anticoagulation Patient Teaching Patient education provided and reviewed with patient related to diagnosis. Information provided listing risks/complications related to anticoagulation therapy. Contact telephone numbers provided including hours of clinic operation. Should pt have concerns after hours or on weekends, Pt understands he should call MD. Recommended use of pill box for warfarin to decrease risk of dosage error and to take warfarin in the evening. All questions answered for patient Patient Contact Preference: [phone] (M) Message left on answering machine x E-Mail/fax [employer] [phone] x Spoke with patient / family member: [...] Edema Confusion Slurred Speech Weakness Visual changes x Tender / Red / Swollen Extremities No symptoms reported Other: Comment: post op Recent medication changes: Include Prescription/OTC/Herbal Yes x [...] Associated Diagnosis Comme nts EXTERNAL LAB Routine 12/16/2020 Results for thi s HEMATOLOGY/COAG procedure ar e in the RESULTS PANEL results sectio n. documented in this encounter Results Hematology / Coag External Results (12/16/2020) P athologist Signature INR 2.10 VISITING NURSE Comment: VNA Specimen (Source) Anatomical Location Collection Method / Collectio n Time Received Time / Laterality Volume 12/16/2020 Historical Provider HEMATOLOGY ORDERABLES Performing Organization Address City/State/ZIP Code Phon e Number VISITING NURSE documented in this encounter Visit Diagnoses Diagnosis DVT prophylaxis Encounter for long-term (current) use of anticoagulants documented in this encounter Care Teams Sheather Relationship Specialty Start Date End Date Chapincito Avalos DO PCP - General Family Medicine 03/12/[address] [place] [address] documented as of this encounter
--- OUTSIDE RECORDS SUMMARY | 2022-04-28 00:17 | XMS_ITS | Encounter Summary ---
:1960 Author Organization [facility] [place] [address] Care Team Providers Name Role Phone RobbieChapincito Primary Care Provider Encounter Details Date Type Department Care Team Description 12/13/2020 Anti-Coag Telephone Internal Medicine at Janet Reyes DVT prophylaxis Visit Silvana Sommers LPN [address] [place] [address] Social History Tobacco Use Types Packs/Day Years Used Date Current Every Day Smoker 1 20 Smokeless Tobacco: Never Used Alcohol Use Standard Drinks/Week Comments Not Currently 0 (1 standard drink = 0.6 oz pure alcoho l) Sex Assigned at Date Recorded Not on file documented as of this encounter Progress Notes Katie Reyes LPN - 12/13/2020 2:45 PM EST Anticoagulation Therapy Note: Indication: sp Left revision LISS (acetabular component revision) DVT prophylaxis Duration of treatment: 30 day therapy last dose 12/31/20 Range: 1.7-2.2 INR : 2.1 Monitored by: [facility]/ Mary Cedillo [facility] [phone] Next INR Due:12/16 Home health twice weekly INRs Ortho patient 12/12 INR in range today but trending [...] short term anticoagulation management. Was inpatient at [facility] from 12/01-12/09, sp Left revision LISS (acetabular component revision) on 12/01 . Patient required 02 therapy post op, Chest Xray revealed possible pneumonia/aspiration pneumonia. [facility] and a 5 day [...] ,denies any high risk behavior doses patient perAr instructions to tomorrow . Anticoagulation Patient Teaching [...] questions answered for patient Patient Contact Preference: [phone] (M) Message left on answering machine x E-Mail/fax [employer] [phone] x Spoke with patient / family member: Comment: Warfarin dose : Increased x Decreased Maintained Comment: dosed to Falls Risk Asseessment: Have you had any [...] Associated Diagnosis Comme nts EXTERNAL LAB Routine 12/13/2020 Results for thi s HEMATOLOGY/COAG procedure ar e in the RESULTS PANEL results sectio n. documented in this encounter Results Hematology / Coag External Results (12/13/2020) P athologist Signature INR 2.20 VISITING NURSE Comment: [place] VNA Specimen (Source) Anatomical Location Collection Method / Collectio n Time Received Time / Laterality Volume 12/13/2020 Historical Provider HEMATOLOGY ORDERABLES Performing Organization Address City/State/ZIP Code Phon e Number VISITING NURSE documented in this encounter Visit Diagnoses Diagnosis DVT prophylaxis Encounter for long-term (current) use of anticoagulants documented in this encounter Care Teams Sorter Upholstery Parts Relationship Specialty Start Date End Date Chapincito Avalos DO PCP - General Family Medicine 03/12/[address] [place] [address] documented as of this encounter
--- OUTSIDE RECORDS SUMMARY | 2022-04-28 00:17 | XMS_ITS | Encounter Summary ---
:1960 Author Organization [facility] [place] [address] Care Team Providers Name Role Phone Robbie Chapincito Primary Care Provider Reason for Referral Consultation (Routine) - Closed Specialty Diagnoses / Procedures Referred By Contact Refer red To Contact Primary Care Diagnoses History of total hip arthroplasty, left Radha Helm APRN [facility] Internal Medicine [facility] D R [address] [place] [address] [place] [address] Referral ID Status Reason Start Date Expiration Date Visits V isits Requested Authorized [id number] Closed Assume 12/09/2020 12/09/2021 1 1 Subset of Care Reason for Visit Auth/Cert Specialty Diagnoses / Procedures Referred By Contact Refer red To Contact Diagnoses Failure of left total hip arthroplasty, sequela failed LISS, massive polywear Procedures PRO REVISE TOTAL HIP REPLACEMENT TOTAL HIP REVISION ARTHROPLASTY, COMPLETE (WRVU 30.28) Referral ID Status Reason Start Date Expiration Date Visits Requ ested Visits Authorized [id number] 1 1 Encounter Details Date Type Department Care Team Description 12/01/2020 - Hospital Encounter 3 Alex Resendiz sangel edge eft revision 12/09/2020 [place] Tao Kim MD LISS ([facility]abular [facility] component revision) [facility] DR with Dr. Mamadou Rivers ORTHOPAEDIC 12/01/2020 [place], [place] SURGERY [address] [place], [place] [phone] [id number] Social History Tobacco Use Types Packs/Day Years Used Date Current Every Day Smoker 1 20 Smokeless Tobacco: Never Used Alcohol Use Standard Drinks/Week Comments Not Currently 0 (1 standard drink = 0.6 oz pure alcoho l) Sex Assigned at Date Recorded Not on file documented as of this encounter Last Filed Vital Signs Vital Sign Reading Time Taken Comments Blood Pressure 146/70 12/09/2020 8:05 AM EST Pulse 69 12/01/2020 10:00 PM EST Temperature 36.7 ??C (98.1 ??F) 12/09/2020 8:05 AM EST Respiratory Rate 18 12/09/2020 8:05 AM EST Oxygen Saturation 96% 12/09/2020 8:05 AM EST Inhaled Oxygen Concentration - - Weight 131.1 kg (289 lb) 12/01/2020 1:52 PM EST Height 188 cm (6' 2) 12/01/2020 1:52 PM EST Body Mass Index 37.11 12/01/2020 1:52 PM EST documented in this encounter Discharge Summaries Connie Rosario MD - 12/09/2020 10:06 AM EST Discharge Summary Patient Name: Howard Perez Patient Age: 60 y.o. Language: Yi Race: White Ethnicity: Not nor Admit date: 12/01/2020 Discharge date and time: 12/09/2020 Attending Physician: Alex Cedillo MD Discharge Physician: Alex Cedillo MD Follow-up Recommendations for Providers: 1. Will need to f/u with PCP for referral for sleep study to assess for sleep apnea and to f/u on pneumonia. See discharge instructions for additional details. Future Appointments Date Time Provider Department Center 12/31/2020 11:00 AM Paco Early MD [facility] 01/10/2021 10:[address] [facility] DX ROOM [address] [facility] Rad 01/10/2021 11:00 AM Alex Cedillo MD [facility] Provider Contact Information: Alex Cedillo MD Orthopedics: [phone] After hours and weekends, call [facility] Fuel[facility], , and have the Orthopedic resident paged. Discharge Diagnoses (Hospital Problems) and Secondary Diagnoses (Chronic Problems): Active Hospital Problems Diagnosis ??? Postoperative anemia due to acute blood loss ??? Aspiration pneumonia ??? s/p left revision LISS (acetabular component revision) with Dr. Cedillo 12/01/2020 Resolved Hospital Problems No resolved problems to display. Active Non-Hospital Problems Diagnosis ??? Class 2 obesity with body mass index (BMI) of 37.0 to 37.9 in adult ??? HTN (hypertension) ??? Smokes ??? COPD (chronic obstructive pulmonary disease) Operations/Major Procedures: 12/01/2020 Surgeon(s) and Role: * Alex Cedillo MD - Primary * Jae Sprague PA - Physician Photoengraving Finisher * Madalyn Vuong MD - Resident * Mami Jo MD - Resident Procedure(s): LEFT TOTAL HIP REVISION ARTHROPLASTY, COMPLETE Intraoperative Findings: No gross evidence of infection. Profound metalosis throughout hip which wasdebrided. No posterior capsular structures intact. Scar and synovium sent to path. The femoral component was well fixed. The acetabular component was well fixed. The cup and head were revised. Hip was stable at the end of the case to 90o flexion, 45o internal rotation, 10o adduction. History of Presentation: Howard Perez is a 60 y.o. male who has been followed in the out-patient clinic with a history left total hip replacement and radiographic evidence of massive poly wear of his constrained liner with concern for catastrophic failure. A detailed conversation regarding the risks and benefits of hip revision surgery was had with the patient. The risks discussed included but were not limited to: bleeding (which may or may not require transfusion), infection, damage to nerves or blood vessels, deep venousthrombosis, pulmonary embolus, prosthetic failure, loosening, prosthetic fracture, femur or pelvic fracture, dislocation, leg- length inequality, persistent pain, need for future surgery, medical complic ations (including cardiac, respiratory and neurologic complications), anaesthetic complications, anddeath. Subsequent to this conversation, all of the patient???s questions were answered in great detail and informed consent was obtained for a left total hip arthroplasty revision. He received preoperative medical clearance and was felt optimized for surgery. Today, he identified the left hip as the correct operative side. ?? Hospital Course: The patient was admitted via Same Day Surgery for the above operation. DVT prophylaxis was: Warfarin(goal INR ~2) for 30 days . Patient began rehab on POD#1 for weight bearing as tolerated of left legand reinforcement of the enhanced LISS Precautions. The patient was voiding spontaneously without diff iculty. The left hip silver Mepilex dressing to remain in place 7 days, was inspected on POD#7 and was dry and intact and dressing was changed. Pain was well controlled with oral pain medications. Patient did have a bowel movement prior to discharge and was passing flatus and was taking a diet without difficulty. By POD#8 the patient was medically stable and was cleared for safe discharge to home per PT, with maximum services available to patient with VNA. Patient's brother also lived close byto brother, a phone call away per patient who was able to be accessed to help patient if needed for caregiver. Of note: On POD#1, the patient had an oxygen requirement. His lung sounds were coarse on expiration and he c/o feeling tight. He stated he uses his albuterol inhaler on average of twice daily. Scheduled Duonebs were started. On POD#5, he still had an oxygen requirement, was still getting scheduled Duonebs. He denied cough. Chest Xray revealed possible pneumonia/aspiration pneumonia. He remained afebrile and WBC was 5.8. Hospital Medicine was consulted and a 5 day course of Augmentin was recommended. On POD#7, he remained off oxygen for 24 hours keeping his 02 sat above 88%. He continued to work with physical therapy and a plan was made for discharge home with assistance on POD#8. Smoking cessationwas discussed and the patient stated he did not want to quit and declined referral to [place] [facility]. On POD#8, patient was evaluated by COMMUNITY LEADER for completion of workup of prior pneumonia and assurance that patient was not at risk for aspiration. This was deemed to be of low likelihood given patient had normal swallow study. Hospital Medicine Note 12/08/2020 Assessment: Howard Perez??is a 60 y.o.??male??who has been followed in the out-patient clinic with a history left??total hip replacement and radiographic evidence of massive poly wear of his constrained liner??s/p left hip replacement revision with hospital course complicated by aspiration episode and concern for aspiration pneumonia. He is being treated with Augmentin and is doing well. He is sating appropriately on room air with minimal cough and clear sputum, WBC is downtrending. He has no shortness of breath above baseline. Overall his condition is much improved. Please encourage smoking cessation and canconsider bronchodilators if wheezing becomes worse leading to respiratory distress or de-saturation. Recommendations: - continue Augmentin 875-125mg BID for a total 5 day course - encourage incentive spirometer - goal SpO2 >88% - encourage smoking cessation Raiza Mccarty MD Internal Medicine - PGY3 Medicine Consults #[id number] Attestation signed by Lauren Cheng MD at 12/08/2020 5:50 PM Attending Staff Consult Documentation ?? We have been asked to see this patient in consultation by Dr. Cedillo from Orthopedics Seen on 12/08 Please see 's note for details of the patient history of presentation and data. ??I have discussed, reviewed and agree with the documented history with ROS, social and family history, medicationlist, physical findings, labs/studies, Assessment and Plan of care. ??I have examined the patient myself and reviewed all labs and studies personally. ?? Additions to the history, physical, assessment and plan include the following: ?? Given history aspiration would consider speech consult Clinically much improved. Cough better and breathing back to baseline Vital Signs at Discharge: Weight: Wt Readings from Last 1 Encounters: 12/01/20 131.1 kg (289 lb) Height: Ht Readings from Last 1 Encounters: 12/01/20 188 cm (6' 2) HC: HC Readings from Last 1 Encounters: No data found for HC BMI: Body mass index is 37.11 kg/m??. Last value Range last 24 hrs Temperature Temp: 36.7 ??C (98.1 ??F) Temp: [36.5 ??C (97.7 ??F)-36.9 ??C (98.4 ??F)] Heart Rate Heart Rate: 69 Heart Rate: -- Blood Pressure BP: 146/70 BP: (105-146)/(53-72) Respiratory Rate Resp: 18 Resp: [16-20] SpO2 SpO2: 96 % SpO2: [89 %-100 %] Functional and Cognitive Status: Patient mobilizing with walker and stand-by assistance, cognitivelyintact at baseline mental status at time of discharge. Important Lab Data: Last 3 wbc, hgb, hct plt Recent Labs 12/06/20 1325 12/04/20 0244 12/03/20 0252 WBC 5.8 6.7 6.5 HGB 10.9* 10.6* 11.9* HCT 33.8* 33.2* 37.1* PLATELET 221 149 143* Last 3 Lytes Recent Labs 12/04/20 0244 12/03/20 0252 12/02/20 0350 NA 135 134* 137 K 4.5 4.5 4.7 CL 101 101 103 CO2 27 28 26 BUN 23* 19 21* CREATININE 0.76* 0.67* 0.94 Last Ca, Mg, Phos Recent Labs 12/04/20 0244 CALCIUM 8.7 Last 3 Coags Recent Labs 12/09/20 0319 12/08/20 1022 12/07/20 0321 PT 19.2* 18.1* 15.6* INR 1.7 1.6 1.4 Studies: XRay Chest PA & Lateral (Generic) Result Date: 12/06/2020 EXAMINATION: XR CHEST PA AND LATERAL (GENERIC) CLINICAL HISTORY: Persistent oxygen requirement, diminished lung sounds left. PPD smoker, s/p left ILSS revision 12/01/2020. TECHNIQUE: PA and lateral viewsof the chest COMPARISON: PA and lateral chest radiographs dated 09/05/2004 FINDINGS: Hazy, patchy opa cification at the medial right lung base with mild hilar fullness. The left lung is clear. No pleural effusions or pneumothoraces. The trachea is midline. The cardiomediastinal silhouette is within normal limits. Bilateral arthritic changes of the glenohumeral joints, left greater than right. Surgicalscrews and plate are noted at the caudal cervical spine. 1. Patchy right lower lobe airspace opacity, which the proper clinical setting could represent pneumonia or aspiration. 2. Followup PA and lateral radiographs within the Radiology Department are recommended 4-6 weeks posttreatment to document resolution. I have personally reviewed the image(s) and theresident's interpretation and agree with the findings, Jae Diane DO at 12/06/2020 10:53 AM Thank you for letting us participate in the care of this patient. For questions regarding this report, please contact the number below. ay Pelvis (Generic) Result Date: 12/01/2020 EXAMINATION: XR PELVIS (GENERIC) CLINICAL HISTORY: s/p left LISS revision (acetabular component only), in pacu TECHNIQUE: 1 views of the pelvis COMPARISON: 09/23/2020 FINDINGS: Post revision of LEFT total hip arthroplasty, with revision of the acetabular component. No radiographic evidence of complication. Stable appearance of RIGHT total hip arthroplasty, as visualized. Post revision of LEFT total hip arthroplasty, with revision of the acetabular component. No radiographic evidence of complication. Stable appearance of RIGHT total hip arthroplasty, as visualized. Thank you for letting us participate in the care of this patient. For questions regarding this report, please contact the number below. DOC: TELEMETRY STRIPS Result Date: 12/01/2020 Ordered by an unspecified provider. Pending Studies and Lab Data at Discharge: Specimens removed during surgery: Order Name Source Comment Collection Info Order Time SPECIMEN TO PATHOLOGY ? failed LISS, massive polywear Scar and synovium, left hip. other No 12/01/2020 4:12 PM Time specimen removed from patient: 4:12 PM ? Number of tissue samples (in container) 1 ? Biospecimen to store? No ? Transfusions: No Discharge Conditions/Prognosis: Stable, awake, and alert. Mobilizing as noted above, pain controlledon oral medications. Discharge to: Home with VNA Updated Allergies/ADRs: No Known Allergies Immunizations Given this Hospitalization: There is no immunization history on file for this patient. Discharge Medications: Your Medications New Medications Dose Details amoxicillin-clavulanate 875-125 mg Tab Commonly known as: Augmentin Take 1 tablet by mouth 2 times daily. Take until gone. 1 tablet Quantity: 4 tablet Refills: 0 gabapentin 300 mg Cap Commonly known as: Neurontin Take 1 capsule by mouth nightly. Take nightly before bed for sleep for 4 weeks after surgery. 300 mg Quantity: 30 capsule Refills: 0 HYDROmorphone 2 mg Tab Commonly known as: Dilaudid Take 1-2 tablets by mouth every 4 hours as needed for Pain (acute post-op surgical pain). 2-4 mg Quantity: 40 tablet Refills: 0 polyethylene glycoL 17 gram Pwpk Commonly known as: Miralax Take 17 g by mouth 2 times daily. 17 g Refills: 0 senna-docusate 8.6-50 mg Tab Commonly known as: Pericolace Take 2 tablets by mouth 2 times daily. 2 tablet Refills: 0 warfarin 5 mg Tab Commonly known as: Coumadin Take 1 tablet by mouth daily for 30 days. You may need to break or combine pills to achieve the right dose. 5 mg Quantity: 45 tablet Refills: 0 Continued medications with new dosing Dose Details acetaminophen 500 mg Tab Commonly known as: Tylenol Take 2 tablets by mouth every 8 hours. Continue the Tylenol around the clock for 10 days after surgery, (12/11/2020). Then may take if needed per package insert. Do not take more than 3,000 mg of Tylenol in 24 hours. What changed: ?? when to take this ?? additional instructions 1,000 mg Refills: 0 Continued medications, unchanged Dose Details albuteroL 90 mcg/actuation Hfaa INL 1 TO 2 PFS PO Q 4 H PRN Refills: 0 hydroCHLOROthiazide 12.5 mg Tab Commonly known as: Hydrodiuril Take 12.5 mg by mouth Daily at Noon. 12.5 mg Refills: 0 lisinopriL 10 mg Tab Commonly known as: Prinivil;Zestril Take 10 mg by mouth Daily at Noon. 10 mg Refills: 0 pravastatin 20 mg Tab Commonly known as: Pravachol Take 20 mg by mouth daily. 20 mg Refills: 0 Symbicort 160-4.5 mcg/actuation Hfaa INL 2 PFS PO BID Generic drug: budesonide-formoteroL Refills: 0 STOPPED Medications naproxen sodium 220 mg Tab Commonly known as: ANAPROX Smoking Status at Discharge: Social History Tobacco Use Smoking Status Current Every Day Smoker ??? Packs/day: 1.00 ??? Years: 20.00 ??? Pack years: 20.00 Smokeless Tobacco Never Used Instructions for Rehab Providers or PCP: See below. Instructions Given to Patient at Discharge: Patient Instructions Activity: 1. Your weight-bearing status is - weight bearing as tolerated of left leg. 2. Remember to use a walker at all times for balance and protection. 3. Remember your hip precautions: Enhanced: DO NOT flex the operative leg more than 90 degrees. DO NOT cross your legs. USE a raised seating / toilet seat. Use a pillow or the Abduction pillow between your legs to remind you not to cross your legs. Anticoagulation follow-up: You are being discharged home on Coumadin??, see below for instructions. Coumadin?? (warfarin) Management upon Discharge Reason for anticoagulation therapy: DVT (blood clot) prevention after Orthopedic surgery. Your Coumadin?? (warfarin) dosing instruction upon discharge is: - Day of discharge (12/09/20): Take 7.5 mg (1.5 of the 5mg pills) at 5 PM. Your next INR is scheduled on: 12/10/2020. This will be checked by the Visiting Nurse.. It is very important that you have your PT/INR checked regularly as your dose may change based on your lab values, at least twice per week (usually every Sunday and ). INR Goal: 1.7-2.2 Expected duration of treatment: 30 days (last day = 12/31/2020) - After your dose on 12/31/2020, stop the Coumadin??. Provider/Team responsible for ongoing outpatient anticoagulation management: - Provider/Team/Clinic: Orth[facility] Coumadin Clinic ([facility]) - - If you have not received a call from your provider, by 4pm, after having your INR drawn, please callthe [facility] Nurse at [phone] for further dose instructions. If it is after 5pm or on the weekends, the [facility] Orth[facility] Resident (Luis) generation technologist will be managing your dosing (please call [phone] and ask for them to be paged). Warfarin (Coumadin??) should be taken at the same time every day, usually at 5pm. The following table shows your most recent INR results and Coumadin?? doses: Date Notes INR Coumadin?? dose 12/01 day of operation 2:20 pm 7.5 mg given 2/ POD#1 1.1 5mg 2/ POD#2 1.1 7.5 mg 2/13 POD#3 1.1 7.5 mg 2/14 POD#4 1.2 7.5 mg 2/15 POD#5 1.3 10 mg 2/16 POD#6 1.4 10 mg 2/17 POD#7 1.6 10 mg 2/18 DC POD#8 1.7 7.5 mg If your INR level is ever above 3.5 you should not participate in aggressive Physical therapy exercises - you can mobilize/ambulate. This will decrease the possibility of more bleeding into your joint.Once your INR is less than 3.5 you can resume Physical therapy. One of the Orthopedic nurses will call you with further instructions as needed. Warfarin Education that was reviewed with you in the hospital: (please see your warfarin (Coumadin??) reference sheet for more information) ? Diet and medications can affect your INR ? Maintaining a diet with a consistent amount of vitamin K containing foods is important to keep your INR in range ? Avoid major changes in dietary habits ? Do not take or discontinue any prescription or avmx-dcp-ksvsjzx medications without asking your doctor or pharmacist ? Inform all your doctors, pharmacists and other healthcare providers that you take warfarin ? Warfarin increases your risk of bleeding If you experience any of these signs or symptoms of bleeding or blood clot please seek immediate medical attention: ?? Increased pain, swelling or sudden shortness of breath ?? Severe headache ?? Dizziness ?? Unusual bleeding or bruising ?? Changes in urine or bowel movement color ?? Coughing or spitting up blood or nosebleeds that do not stop or occur more often Diet: Resume your usual home diet but increase your intake of fluids and fiber while you are on narcotic pain meds to prevent constipation. Driving: None until you are cleared to do so by your Orthopedic surgeon. You should not drive while you are on narcotic pain meds as they can affect your judgment and reaction time. Call your surgeon with any questions/concerns. Medications: 1. The pain medication you are on can cause constipation so increase your intake of fluids and fiberwhile you are on them. The stool softener, Pericolace, that has been prescribed can also be taken tofacilitate a bowel movement. You can also take an inuh-oug-wpkakdh medication, Miralax if needed to combat constipation. 2. If you need a renewal on your narcotic pain medication, you need to give the Orthopedic clinic enough time to process your request. This can take up to three days, so plan accordingly. 3. Continue acetaminophen (Tylenol) 1,000mg every 8 hours around the clock until 12/11/2020 (for ten days after your surgery). This can be effective in controlling pain along with your other medications. After that you can take Tylenol as needed per package insert. Do not take more than 3,000mg of aceta minophen in a 24 hour period. 4. You have been discharged on a short acting narcotic, Dilaudid. You will be on this medication fora limited period of time only. Take only enough pain medication to control your pain. As your pain lessens, taper down and off this medication as tolerated. 5. You are being discharged on gabapentin (Neurontin), a non-narcotic medication that will help withyour pain at night and allow you to sleep better. Take this at night for the next 4 weeks. 6. You were prescribed Lidoderm patches in the hospital to help reduce pain. You may purchase a similar item over the counter (Salonpas 4%) and use per package insert. 7. After surgery, you required oxygen and the chest xray was suggestive of pneumonia. You were started on a 5 day course of the antibiotic, Augmentin. Take the full 5 days of this medication. Shower (internal sutures): 1. You can shower but remember your activity limitations and always have a chair available for balance and protection. DO NOT submerge the dressing/incision. 2. (Mepilex) Do not let water run over the operative dressing. If it becomes wet lightly pat the dressing dry. DO NOT submerge the incision. When this operative dressing is removed you can let water gently run over the incision. Wound (Mepilex): 1. You do NOT have any external mouna or sutures in place. Your sutures are internal and will be absorbed over time. 2. You have a regular Mepilex dressing in place. This may be changed every 2-3 days and as needed. If there is no drainage you can leave the incision open to air or cover it with a light dressing for comfort. 3. If you have lots of drainage when you get home, remove the Mepilex dressing and replace it with dry sterile gauze. Continue with daily dressing changes (and as needed) until the drainage stops, thenremove the dressing and leave the incision open to air or lightly covered. Misc: Remember that ICE and elevation are very important after surgery to help decrease swelling andcontrol pain. Use ICE for 20-30 minutes at a time and keep your leg elevated as much as possible. Smoking Cessation: - Smoking impairs wound healing and can increase your risk of infection. If you are a smoker, you need to quit smoking today to help you recover after surgery and encourage your healing. - You should contact your PCP to assist you with setting up a cessation program and helping you to step down the amount of nicotine in you are getting through patches to help achieve a smoke-free lifestyle. You can also call local [place] or [place] quit lines for additional assistance. [place] Quit Line: 3-971-FESC-NOW Online at [employer] [place] Quit Line: 0-963-BJUS-NOW Online at [employer] Call your doctor ([phone]) if you develop: 1. Fever greater than 100.5 2. Severe nausea or vomiting 3. Increasing pain that is not controlled by pain medications 4. Increasing redness, swelling, or drainage from incisions 5. Change in sensation FOLLOW-UP APPOINTMENTS: 1. Because you had an oxygen requirement after surgery, especially when sleeping, you will need to follow-up with your Primary Care Provider for a sleep study to assess whether you have sleep apnea. You also need to follow-up with your PCP because you had an aspiration pneumonia, 2. You will have follow-up appointments at [facility] as indicated below in Future Appointment and Orders. 3. You will need to have x-rays prior to your follow-up appointment on 01/10/2021. Please come to Radiology, desk , 1 hour BEFORE that appointment for these x-rays. Future Appointments Date Time Provider Department Center 12/31/2020 11:00 AM Paco Early MD [facility] 01/10/2021 10:[address] [facility] DX ROOM [address] [facility] [facility] 01/10/2021 11:00 AM Alex Cedillo MD [facility] [address] [place] [address] If you have questions or concerns: Sunday through Sunday, 8 AM - 5 PM, please call Dr. Alex Cedillo MD's office at . If it is after 5 PM, the weekend, or holidays, please call and ask to speak with the Orthopedic resident on-call. General Instructions None Future Appointments and Orders Future Appointments and Orders Future Appointments Provider Department Dept Phone 12/31/2020 11:00 AM Paco Early MD [facility] Arrive at: [facility]D [phone] 01/10/2021 10:[address] [facility] DX ROOM 6 XRay at [facility] Arrive at: [facility] 3T [phone] Please go to [facility] ([place] Location). 01/10/2021 11:00 AM Alex Cedillo MD Orthopaedics at [facility] Arrive at: [employer] [facility] [phone] Future Orders Complete By Expires Referral for Anticoagulation Monitoring [YIG209 Custom] As directed Process Instructions: If no progress note charted, please enter Clinical details in comments. Scheduling Instructions: Questions: Risk Factors: My question or request is: Coumadin s/p Left revision LISS 12/01/2020 Referral to Home Health - at DISCHARGE [SRL2152 CPT(R)] As directed Process Instructions: Scheduling Instructions: Comments: DOCUMENTATION FOR VNA SERVICES (INCLUDING PATIENTS WITH MEDICARE COVERAGE BEING DISCHARGED HOME WITH VNA SERVICES AND/OR HOSPICE SERVICES) PATIENT'S LOCATION: Howard Perez Discharge to own home: [address] [place] [id number] Galley Boy's Name: self/patient In discussion with the attending physician, it is certified that this patient is under their care and that they, or a nurse practitioner, clinical nurse specialist or physician's assistant professor of history who is working directly with them, had a face to face encounter that meets the physician face to face encounter re quirements with this patient on 12/09/2020 The encounter with the patient was in whole, or in part, for the following medical condition, whichis the primary reason for home health care services: s/p revision left LISS (acetabular component revision). In discussion with the primary medical team, it is certified that, based on their findings, the indicated services are medically necessary and appropriate for home health services. HOME HEALTH AGENCY: [facility] [employer] [facility]. PHONE: [phone] FAX: [phone] Long Term(SN) eval if indicated on admission visit 1. Draw PT/INR as follows: ( Point of care testing is acceptable) Week of discharge: PER MD/PHARMACIST/PA ORDERS Thereafter, PT/INR: every Sunday and PT/INR results to be called and faxed as follows: Sun-Sun, 8 am - 5 pm, Anticoagulation (Coumadin) clinic @ [facility] ; Fax: After 5 pm Sun-Sun OR Sat/Sun: if the PT/INR is drawn on the weekend, call the results to the Orthopedic Resident generation technologist at [phone] for Coumadin dosing Do not lift the edge of the mepilex dressing to observe the incision; this dressing needs to stay inplace until 7 days after surgery. ?? Activity: WBAT LLE, Posterior hip precautions with an abduction pillow while in bed Closure: Resorbable sutures Dressing: Mepiex x 7 days Anticoagulation: Warfarin (goal INR ~2) for 30 days Continue PT rehab for balance, endurance, joint mobility, ROM, Strength, LISS protocol FOR MEDICARE ONLY: (please delete this section if not Medicare) In discussion with the attending physician, it is certified that the clinical findings support that this patient is homebound ;i.e. absences from home require considerable and taxing effort due to:requires assistance of another to navigate community surfaces. Please note that any additional orders needs or changes will need to be obtained from this patient'sPCP: Chapincito Avalos DO [address] [place] [address] All A agencies which cover patient's residence area have been reviewed, either verbally or in writing, and patient/family have chosen the indicated home health agency. Questions: Agency name and contact information: [facility] Patient location post discharge: home What services are requested: Physical Therapy Occupational Therapy Home Health Aide Start date: Responsible MD post discharge contact info: Primary Care Provider: Chapincito Avalos DO [phone] Discharge References/Attachments SMOKING: STOPPING ([place]UGUESE) COPD: GENERAL INFO ([place]E) SLEEP APNEA ([place]) SLEEP STUDIES ([place]E) documented in this encounter Discharge Instructions Patient Connie Cobb MD - 12/01/2020 3:44 PM EST Activity: 1. Your weight-bearing status is - weight bearing as tolerated of left leg. 2. Remember to use a walker at all times for balance and protection. 3. Remember your hip precautions: Enhanced: DO NOT flex the operative leg more than 90 degrees. DO NOT cross your legs. USE a raised seating / toilet seat. Use a pillow or the Abduction pillow between your legs to remind you not to cross your legs. Anticoagulation follow-up: You are being discharged home on Coumadin??, see below for instructions. Coumadin?? (warfarin) Management upon Discharge Reason for anticoagulation therapy: DVT (blood clot) prevention after Orthopedic surgery. Your Coumadin?? (warfarin) dosing instruction upon discharge is: - Day of discharge (12/09/20): Take 7.5 mg (1.5 of the 5mg pills) at 5 PM. Your next INR is scheduled on: 12/10/2020. This will be checked by the Visiting Nurse.. It is very important that you have your PT/INR checked regularly as your dose may change based on your lab values, at least twice per week (usually every Sunday and ). INR Goal: 1.7-2.2 Expected duration of treatment: 30 days (last day = 12/31/2020) - After your dose on 12/31/2020, stop the Coumadin??. Provider/Team responsible for ongoing outpatient anticoagulation management: - Provider/Team/Clinic: Orthopedic Coumadin Clinic ([facility]) - - If you have not received a call from your provider, by 4pm, after having your INR drawn, please callthe [facility] Nurse at [phone] for further dose instructions. If it is after 5pm or on the weekends, the [facility]opedic Resident (Luis) generation technologist will be managing your dosing (please call [phone] and ask for them to be paged). Warfarin (Coumadin??) should be taken at the same time every day, usually at 5pm. The following table shows your most recent INR results and Coumadin?? doses: Date Notes INR Coumadin?? dose 12/01 day of operation 2:20 pm 7.5 mg given 2/ POD#1 1.1 5mg 2/12 POD#2 1.1 7.5 mg 2/13 POD#3 1.1 7.5 mg 2/14 POD#4 1.2 7.5 mg 2/15 POD#5 1.3 10 mg 2/16 POD#6 1.4 10 mg 2/17 POD#7 1.6 10 mg 2/18 DC POD#8 1.7 7.5 mg If your INR level is ever above 3.5 you should not participate in aggressive Physical therapy exercises - you can mobilize/ambulate. This will decrease the possibility of more bleeding into your joint.Once your INR is less than 3.5 you can resume Physical therapy. One of the Orthopedic nurses will call you with further instructions as needed. Warfarin Education that was reviewed with you in the hospital: (please see your warfarin (Coumadin??) reference sheet for more information) ? Diet and medications can affect your INR ? Maintaining a diet with a consistent amount of vitamin K containing foods is important to keep your INR in range ? Avoid major changes in dietary habits ? Do not take or discontinue any prescription or uhbv-bbg-ghgpzge medications without asking your doctor or pharmacist ? Inform all your doctors, pharmacists and other healthcare providers that you take warfarin ? Warfarin increases your risk of bleeding If you experience any of these signs or symptoms of bleeding or blood clot please seek immediate medical attention: ?? Increased pain, swelling or sudden shortness of breath ?? Severe headache ?? Dizziness ?? Unusual bleeding or bruising ?? Changes in urine or bowel movement color ?? Coughing or spitting up blood or nosebleeds that do not stop or occur more often Diet: Resume your usual home diet but increase your intake of fluids and fiber while you are on narcotic pain meds to prevent constipation. Driving: None until you are cleared to do so by your Orthopedic surgeon. You should not drive while you are on narcotic pain meds as they can affect your judgment and reaction time. Call your surgeon with any questions/concerns. Medications: 1. The pain medication you are on can cause constipation so increase your intake of fluids and fiberwhile you are on them. The stool softener, Pericolace, that has been prescribed can also be taken tofacilitate a bowel movement. You can also take an gtiy-lks-qrptfkl medication, Miralax if needed to combat constipation. 2. If you need a renewal on your narcotic pain medication, you need to give the Orthopedic clinic enough time to process your request. This can take up to three days, so plan accordingly. 3. Continue acetaminophen (Tylenol) 1,000mg every 8 hours around the clock until 12/11/2020 (for ten days after your surgery). This can be effective in controlling pain along with your other medications. After that you can take Tylenol as needed per package insert. Do not take more than 3,000mg of aceta minophen in a 24 hour period. 4. You have been discharged on a short acting narcotic, Dilaudid. You will be on this medication fora limited period of time only. Take only enough pain medication to control your pain. As your pain lessens, taper down and off this medication as tolerated. 5. You are being discharged on gabapentin (Neurontin), a non-narcotic medication that will help withyour pain at night and allow you to sleep better. Take this at night for the next 4 weeks. 6. You were prescribed Lidoderm patches in the hospital to help reduce pain. You may purchase a similar item over the counter (Salonpas 4%) and use per package insert. 7. After surgery, you required oxygen and the chest xray was suggestive of pneumonia. You were started on a 5 day course of the antibiotic, Augmentin. Take the full 5 days of this medication. Shower (internal sutures): 1. You can shower but remember your activity limitations and always have a chair available for balance and protection. DO NOT submerge the dressing/incision. 2. (Mepilex) Do not let water run over the operative dressing. If it becomes wet lightly pat the dressing dry. DO NOT submerge the incision. When this operative dressing is removed you can let water gently run over the incision. Wound (Mepilex): 1. You do NOT have any external mouna or sutures in place. Your sutures are internal and will be absorbed over time. 2. You have a regular Mepilex dressing in place. This may be changed every 2-3 days and as needed. If there is no drainage you can leave the incision open to air or cover it with a light dressing for comfort. 3. If you have lots of drainage when you get home, remove the Mepilex dressing and replace it with dry sterile gauze. Continue with daily dressing changes (and as needed) until the drainage stops, thenremove the dressing and leave the incision open to air or lightly covered. Misc: Remember that ICE and elevation are very important after surgery to help decrease swelling andcontrol pain. Use ICE for 20-30 minutes at a time and keep your leg elevated as much as possible. Smoking Cessation: - Smoking impairs wound healing and can increase your risk of infection. If you are a smoker, you need to quit smoking today to help you recover after surgery and encourage your healing. - You should contact your PCP to assist you with setting up a cessation program and helping you to step down the amount of nicotine in you are getting through patches to help achieve a smoke-free lifestyle. You can also call local [place] or [place] quit lines for additional assistance. [place] Quit Line: 8-130-HMAR-NOW Online at [employer] [place] Quit Line: 1-796-UXIG-NOW Online at [employer]org Call your doctor ([phone]) if you develop: 1. Fever greater than 100.5 2. Severe nausea or vomiting 3. Increasing pain that is not controlled by pain medications 4. Increasing redness, swelling, or drainage from incisions 5. Change in sensation FOLLOW-UP APPOINTMENTS: 1. Because you had an oxygen requirement after surgery, especially when sleeping, you will need to follow-up with your Primary Care Provider for a sleep study to assess whether you have sleep apnea. You also need to follow-up with your PCP because you had an aspiration pneumonia, 2. You will have follow-up appointments at [facility] as indicated below in Future Appointment and Orders. 3. You will need to have x-rays prior to your follow-up appointment on 01/10/2021. Please come to Radiology, desk 3T, 1 hour BEFORE that appointment for these x-rays. Future Appointments Date Time Provider Department Center 12/31/2020 11:00 AM Paco Early MD [facility] 01/10/2021 10:[address] [facility] DX ROOM [address] [facility] Rad 01/10/2021 11:00 AM Alex Cedillo MD [facility] [address] [place] [address] If you have questions or concerns: Sunday through Sunday, 8 AM - 5 PM, please call Dr. Alex Cedillo MD's office at . If it is after 5 PM, the weekend, or holidays, please call and ask to speak with the Orthopedic resident on-call. AttachmentsThe following attachments cannot be sent through Care Everywhere. SMOKING: STOPPING ([place]UGUESE)COPD: GENERAL INFO ([place]UESE)SLEEP APNEA ([place]UESE) SLEEP STUDIES ([place]UESE)documented in this encounter Medications at Time of Discharge [...] by 0 2019 mg Tablet mouth daily. amoxicillin-clavulanate Take 1 tablet by 4 tablet [...] Aerosol Inhaler PO Q 4 H PRN warfarin (Coumadin) 5 mg Take 1 tablet by 45 tablet 0 12/0901/08/2021 Tablet mouth daily for 30 days. You may need to break or combine pills to achieve the right dose. HYDROmorphone (Dilaudid) 2 Take 1-2 tablets 40 tablet 0 12/13/2020 mg Tablet by mouth every 4 hours as needed for Pain (acute post-op surgical pain). documented as of this encounter Progress Notes German Morgan, CHRONIC CONDITION NURSE - 12/09/2020 11:25 AM EST Physical Therapy Note Treatment Number PT: 5 Patient profile: Howard Perez??is a 60 y.o.??male??s/p revision left LISS (acetabular component revision) on 12/02/20.?? Interval History: per ortho note 12/09/20 NAEON. On room air during the day, breathing back to near baseline when evaluated by medicine team. Insurance denied rehab. Overall progressing well. He denies numbnes/tingling in his LLE. No chest pain, shortness of breath, nausea/vomiting, palpitations. INR 1.7. Social History: Pt lives alone in a 1 level home with 1-2 steps to enter. 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 He does not use a device at baseline. He drives. He reports he does not have anyone who can assist upon d/c. Precautions/Special Considerations: ?? WBAT L LE ?? Enhanced/Posterior Total Hip Precautions: 1. No hip flexion past 90 degrees. 2. No internal rotation of hip (toes turned in) 3. No adduction of hip past midline (crossing legs) 4. Abduction pillow in supine. 5. Ice affected hip 20 mins/hour 6. Encourage therex program 3x/day for affected hip Mobility and Positioning Recommendations: ?? OOB to chair with 1 assist, walker and cues for THP's ?? Ambulate 3-4x/daily with nursing with rolling walker and CG assist x 1 ?? Please encourage up to chair for meal times as able. Subjective: I'll carry my cell phone wherever I go... I only have one step to get into my house Objective: Patient seen for physical therapy and demonstrated the following: ??? Pain: o Pt did not rate pain. [place] scale 3/10 ??? Vital Signs: o On RA, SpO2 >92% ?? Bed Mobility: NT, pt agreeing to sleep in a recliner chair ??? Transfers: Sit to Stand: supervision , rolling walker Stand to Sit: supervision, rolling walker ??? Gait: Distance: 50ft Device used: rolling walker Level of assist: supervision Gait mechanics: Decr gt speed, uneven step length (favoring RLE), decreased single stance time (L), poor toe clearance (which improved with verbal cuing and demonstrations) ??? Stairs: 8 platform step. No cues required ??? Seated balance: Sitting Static: good, Sitting Dynamic: good ??? Standing balance: Standing Static: good with walker Standing Dynamic / Gait: Good with walker ??? Hip precautions: Pt able to state 3/3 hip precautions, did not violate precautions during transfers or gait training. Provided handout stating precautions ??? Education: Suggested placing chairs throughout the house in case pt needs to sit, that he carry his cell phone. Pt's brother present for session. Told pt in the event of a fall to immediately call an ambulance and not move. Patient status, treatment, and mobility recommendations discussed with nursing. Pt left supine in bed with call aragon within reach, bed alarm on and all needs met following visit. Assessment: Pt seen today for continued physical therapy treatment and assessment. Pt presented to physical therapy today with decreased pain and willing to participate. Pt unable to go discharge to rehab, so today's session focusing on compensatory strategies to maximize safety at home. Pt will be alone all day except for phone calls from family and weekend visits possibly. Pt however did better with his hip precautions today. Pt agrees to not sleep in his bed r/t hip precautions until pt can master this task with the VNA PT. Pt continues to demonstrate multiple gait deviations, most interestinglydecreased ankle dorsiflexion during terminal swing. Discharge Recommendations: Based on the current findings, Anticipated Discharge Disposition (PT): home with assist, home with home health when medically ready for hospital discharge. Consult Recommendations: No other consults recommended at this time. Equipment needs: TBD, anticipate d/c to rehab Physical Therapy Goals: To be achieved by 12/07/20: ?? 1. Pt will demonstrate independence with all precautions without cues. ONGOING 2. Pt. to perform bed mobility independently. ONGOING 3. Pt. to perform sit to stand and bed to chair transfers with modified independence using LRD. ONGOING 4. Pt. to ambulate 300 feet with modified independence using a LRD. ONGOING 5. Pt. to ambulate up/down 2 step/stairs using one rail and LRD with modified independence. ONGOING 6. Family or caregiver to demonstrate understanding of therapeutic interventions to support the careof the patient. ONGOING Plan: Therapy Frequency (PT): 3-5 times/wk Total Minutes, Physical Therapy: [phone] (GT)). German Morgan, CHRONIC CONDITION NURSE Pager: [phone] Physical Therapy Inpatient Rehabilitation Department Huyen Hastings OTA - 12/09/2020 11:25 AM EST Occupational Therapy Treatment Note Occupational Therapy Treatment Note Treatment Number OT: 5 Patient Dx: Per MD:??Howard Perez??is a 60 y.o.??male??1 Day Post-Op??s/p revision left LISS (acetabular component revision).??Hb today consistent with expected post-operative cute blood loss anemia.? Past Medical History ? Past Medical History: Diagnosis Date ??? COPD (chronic obstructive pulmonary disease) ? copd ??? High blood pressure ? Motion sickness ? Past Surgical History ? Past Surgical History: Procedure Laterality Date ??? HIP SURGERY Bilateral 2000 ??? JOINT REPLACEMENT ? hip ? Social History: Patient lives??alone in a house. Home Setup:??Pt reports 1 CARROLL. Pt has a shower stall ~6 inch threshold and a high toilet.?? 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 Pt independent prior to admission with all ADL and IADL routines.? Precautions/Special Considerations:??Enhanced hip precautions; no IR of hip, no hip flexion past 90 degrees, and no adduction of hip past midline,??WBAT LLE, ABD pillow in supine,??at risk for falls,??supplemental oxygen? Interval History: Per MD note 12/09/20 NAEON. On room air during the day, breathing back to near baseline when evaluated by medicine team. Insurance denied rehab. Overall progressing well. He denies numbnes/tingling in his LLE. No chest pain, shortness of breath, nausea/vomiting, palpitations. INR 1.7. S: I'll make sure my phone is in my pocket! O: Patient seen for skilled OT treatment, and demonstrated the following: Cognition: ??? Behavior / Mood: alert and cooperative ??? Alert and oriented to: person, place, time and situation ??? Follows commands: multi step and 100% of the time ??? Attention: WFL ??? Safety awareness: WFL, fully aware of deficits and good safety precautions ??? Able to recall and maintain precautions throughout tx session Functional Mobility: o Sit <> stand: supervision using FWW o Ambulation: ?? Pt ambulated recliner > bathroom > ~50' supervision using FWW ?? Educated pt on safety awareness and importance of having various chairs strategically placed around his home so he is able to sit PRN Self Care: o Grooming/Hygiene: ?? Pt demonstrated ability to perform oral care standing sink side w/ supervision using FWW o Dressing: ?? Pt demonstrated ability to don pants using LH marine operations coordinator w/ supervision; Pt able to stand using FWW and hike pants over hips as well as tie waist w/ supervision ?? min A to doff precious ?? Supervision to don Tshrit ?? Pt declined to doff this institution's applications project manager socks; ?? Pt able to don bilateral shoes using various AE (dressing stick, LH marine operations coordinator, shoehorn) w/ supervision however required assist to velcro bilateral shoes. Educated pt on benefits of using slip on shoes at home. Pt agreeable to plan o Bathing: ?? Pt stood sink side using FWW to wash face o Toileting Hygiene ?? Anticipate independent; Provided pt w/ 2 urinals for d/c home ?? Kitchen task: ?? Pt educated on safety awareness and using FWW while performing meal preps. Encouraged pt to placea chair in the kitchen to use for seated resting breaks while preparing meals/kitchen duties. Endurance:pt tolerated OT session on RA Pain: pt reported 6/10 pain during mobility Education: Pt/family/caregiver education ongoing regarding: Role of occupational therapy/rehabilitation, Transfers, Assistive device/technique, Adaptive equipment training, ADL, Breathing exercises, Positioning, Safety, Precautions/Protocol, Functional Mobility, Activity pacing/Energy conservation, Home Program, Balance, Recommendations, Family training and Discharge planning. Staff Communication: Patient status, treatment, and mobility recommendations discussed with nursing/other staff. ASSESSMENT: Pt seen for Occupational Therapy interventions. Pt tolerated OT session well today and appears to have good insight into his abilities and limitations and demonstrated good safety awarenessthroughout tx session. Pt's brother present for entire tx session and appears to be a good support system for Howard. Pt would benefit from d/c home w/ assist from his family and home services (VNA, OT, PT). Pt will benefit from ongoing therapeutic interventions to achieve pt's and therapy goals Anticipated Discharge Disposition (OT): home with assist, home with home health, home with outpatient therapy services(home VNA/PT/OT) Equipment Recommendations: none Daily schedule / Staff Recommendations: ?? Utilize upright chair position using bed features or transfer to recliner chair as appropriate with??min Ax1, ambulate as tolerated ?? Encourage participation in ADL's by providing set up A on tray table and physical assist only as needed?? Occupational Therapy Goals: To be achieved by??12/13/20. 1. Pt will be conditional independent for LB dressing routines with AE as needed at seated/standing levels MET 2. Pt will be conditional independent for toileting routine at ambulatory level 3. Pt will be conditional independent for simple snack prep at ambulatory level 4. Pt will be able to stand for 8 minutes to perform sink level grooming task with LRAD??MET Total Minutes, Occupational Therapy: 32(schm x 2) OT: Therapy Frequency (OT): 2-4 times/wk Pager: [phone] [address] Occupational Therapy Rehabilitation Department Ruby Gamboa RN - 12/09/2020 11:10 AM EST Patient discharged to home with [facility] services. IV removed, site benign. My assessment remains unchanged from my previous assessment. Patient denies chest pain and shortness of breath. Discussed pain management with patient, pain tolerable. Patient medicated prior to discharge. Patient has all belongings. Patient received discharge summary. All questions answered. Patient encouraged to call with questions or concerns. Patient discharged to home with family. Discharge Summary was faxed to [facility]. Denisa Dixon SLP - 12/09/2020 10:02 AM EST Speech Therapy Bedside Swallow Evaluation Patient Profile: Howard Perez is a 60 y.o. male admitted on 12/01/2020 for revision of left LISS (acetabular component revision). Post-op course complicated by pneumonia and brief increased oxygen requirement. COMMUNITY LEADER consulted on day of d/c to assess swallow function. Prior Level of Swallow Function: Pt reports consuming regular diet consistency at baseline, denies hx of dysphagia or GERD. No prior COMMUNITY LEADER intervention or assessment per eD review. Subjective: Pt up to chair, preparing for d/c. RN has no concerns for swallow function, pt has been tolerating regular diet consistency. Objective: Pt seen for evaluation today. Pain: pt denies pain Respiratory Status: Room air Vision: WFL per pt Hearing: WFL Current Diet: Regular diet Feeding Status: Pt is independent Dependent for Oral Care? No Cognitive-Linguistic Status: alert, oriented to time, person, place and situation Follows Commands: Follows single step commands Positioning: Pt up to chair Oral / Laryngeal Mechanism Clinical Assessment: ?? Lingual: adequate lingual ROM, strength ?? Labial / Buccal: symmetric retraction, adequate lip closure ?? Velar: symmetric elevation ?? Sensation: appears intact ?? Vocal fold function and airway protection: phonates well, cough is strong ?? Speech Intelligibility: clear for conversation length utterance ?? Mucosa: adequate ?? Dentition: present and adequate Bolus Presentation(s) ?? Thin liquid via straw, sequential sips ?? Regular solid Oral Preparatory Phase ?? Mastication: intact ?? Oral Transit: intact ?? Bolus Cohesion: intact ?? Labial Seal / Loss: negative ?? Oral Stasis: negative Pharyngeal Phase ?? Laryngeal Elevation: present, appears timely ?? Vocal quality change: negative ?? Cough / throat clear: negative ?? Pt. complaint of food getting stuck: negative ?? Fatigue across trials: No ?? Respiratory rate and respiratory swallow pattern: coordinated Esophageal Phase ?? Appears to be WFL, No overt clinical s/s of esophageal phase dysphagia noted during this evaluation. Education: Patient educated on results and recommendations, and verbalized understanding. Patient status, treatment and swallow recommendations were discussed with nursing. Assessment: Pt presents with essentially normal appearing oropharyngeal swallow function. No indication for further COMMUNITY LEADER intervention, or diet modification. This was relayed to pt and team. Diagnosis: normal appearing oropharyngeal swallow Recommendations: Diet: Regular solids, Thin liquids PO medications: whole with sip of liquid Aspiration precautions: Upright position during meals and for at least 30 mins following Excellent oral care No further COMMUNITY LEADER intervention is warranted while hospitalized. and Do not anticipate need from COMMUNITY LEADER services in discharge location. Plan: Therapy Frequency (COMMUNITY LEADER Eval): evaluation only Pt./family are in agreement with treatment plan. Total Minutes (Speech Language Pathology): 18 Thank you for this consult with this patient. Please feel free to page me with any questions or concerns. Denisa Yanez MS, [facility]-COMMUNITY LEADER Inpatient Speech Pathologist Pager #[phone] Mami Jo MD - 12/09/2020 6:25 AM EST ORTHOPAEDIC SURGERY INPATIENT PROGRESS NOTE Patient Name: Howard Perez Age: 60 y.o. Surgery/Issue: Left Revision Total Hip Arthroplasty Attending: Dr. Cedillo Date of surgery: 12/01/2020 SUBJECTIVE / INTERVAL HISTORY: NAEON. On room air during the day, breathing back to near baseline when evaluated by medicine team. Insurance denied rehab. Overall progressing well. He denies numbnes/tingling in his LLE. No chest pain, shortness of breath, nausea/vomiting, palpitations. INR 1.7. FOCUSED REVIEW OF SYSTEMS: as above. Active Hospital Problems Diagnosis ??? Postoperative anemia due to acute blood loss ??? Aspiration pneumonia ??? s/p left revision LISS (acetabular component revision) with Dr. Cedillo 12/01/2020 Resolved Hospital Problems No resolved problems to display. Active Non-Hospital Problems Diagnosis ??? Class 2 obesity with body mass index (BMI) of 37.0 to 37.9 in adult ??? HTN (hypertension) ??? Smokes ??? COPD (chronic obstructive pulmonary disease) MEDICATIONS: ??? amoxicillin-clavulanate (Augmentin) 875-125 mg per tablet 1 tablet ??? hydroCHLOROthiazide (Hydrodiuril) tablet 12.5 mg ??? lisinopriL (Prinivil;Zestril) tablet 10 mg ??? atorvastatin (Lipitor) tablet 10 mg ??? budesonide-formoteroL (SYMBICORT) 160-4.5 mcg/actuation inhaler 2 Inhalation ??? sodium chloride 0.9 % (flush) flush 5 mL ??? sodium chloride 0.9 % (flush) flush 5-20 mL ??? lidocaine (Xylocaine) 1% (10 mg/mL) injection 3 mg ??? polyethylene glycoL (Miralax) packet 17 g ??? senna-docusate (Pericolace) 8.6-50 mg per tablet 2 tablet ??? bisacodyl EC (Dulcolax) tablet 10 mg ??? bisacodyL (Dulcolax) suppository 10 mg ??? celecoxib (CeleBREX) capsule 200 mg ??? pantoprazole EC (Protonix) tablet 20 mg ??? multivitamin with minerals (THERA-M) tablet 1 tablet ??? HYDROmorphone (Dilaudid) tablet 2-4 mg ??? lidocaine (Lidoderm) 5% topical patch 3 patch AND lidocaine (Lidoderm) topical patch REMOVAL ??? acetaminophen (Tylenol) tablet 1,000 mg ??? nicotine polacrilex (COMMIT) lozenge 4 mg ??? nicotine polacrilex (NICORETTE) gum 2 mg ??? nicotine (NICODERM CQ) 21 mg/24 hr patch 21 mg AND nicotine (NICODERM CQ) 21 mg/24 hr patch Patch Verification AND nicotine (NICODERM CQ) 21 mg/24 hr patch Patch Removal ??? ipratropium-albuteroL (DUONEB) 0.5 mg-3 mg(2.5 mg base)/3 mL nebulizer solution 3 mL ??? calcium carbonate (Tums) chewable tablet 500-1,000 mg ??? warfarin (COUMADIN) daily order reminder ??? albuteroL (PROVENTIL) nebulizer solution 2.5 mg ??? BUpivacaine (pf) (Marcaine) (2.5 mg/mL) 0.25% injection ??? povidone-iodine 5 % ophthalmic solution ??? cloNIDine (pf) (Duraclon) (100 mcg/mL) Epidural injection ??? ketorolac (Toradol) (30 mg/mL) injection ??? [COMPLETED] gabapentin (Neurontin) capsule 600 mg FOLLOWED BY gabapentin (Neurontin) mg OBJECTIVE: Temp: [36.5 ??C (97.7 ??F)-36.9 ??C (98.4 ??F)] Resp: [16-20] BP: (105-140)/(53-72) Intake/Output Summary (Last 24 hours) at 12/09/2020 0625 Last data filed at 12/09/2020 0401 Gross per 24 hour Intake 2054 ml Output 1340 ml Net 714 ml Body mass index is 37.11 kg/m??. PE: General: NAD, awake/alert CV: RRR assessed peripherally Resp: Breathing comfortably on 2L NC LLE: Mepilex dressing c/d/i. Motor intact to EHL, FHL, TA, ankle flexion/extension. Sensation intactin foot/calf/thigh. Brisk capillary refill distally. Lab Results Component Value Date NA 135 12/04/2020 K 4.5 12/04/2020 CL 101 12/04/2020 CO2 27 12/04/2020 BUN 23 (H) 12/04/2020 CREATININE 0.76 (L) 12/04/2020 GLUCOSE 118 12/04/2020 CALCIUM 8.7 12/04/2020 Lab Results Component Value Date WBC 5.8 12/06/2020 HGB 10.9 (L) 12/06/2020 HCT 33.8 (L) 12/06/2020 MCV 94.4 (H) 12/06/2020 PLATELET 221 12/06/2020 Lab Results Component Value Date INR 1.7 12/09/2020 Imaging: No new ASSESSMENT / PLAN: Howard Perez is a 60 y.o. male 8 Days Post-Op s/p revision left LISS (acetabular component revision). Hb consistent with expected post- operative acute blood loss anemia. On 5 days of Augmentin for possible aspiration PNA. Patient has had some dispo issues with respect to rehab which has been denied by insurance. Plan to have physical therapy see the patient at 10 AM today with his brother in attendance. If patient does well, then plan to DC home with maximum services.Discussed this plan with the patient and he is very comfortable with this. He notes he lives on a single floor and feels that he is capable of doing his activities of daily living safely at home. Patient will need follow-up for a sleep study as well as follow-up with pneumonia as an outpatient. Activity: WBAT LLE, Posterior hip precautions with an abduction pillow while in bed Closure: Resorbable sutures Dressing: Mepiex x 7 days Drain: none Anticoagulation: PEPPER Study and Warfarin (goal INR ~2) for 30 days Antibiotics: periop ancef Consults: PT/OT Dispo: per PT Follow-up: 01/[address] Mamadou Jo MD 12/09/2020 Future Appointments Date Time Provider Department Center 12/31/2020 11:00 AM Paco Early MD [facility] [place] 01/10/2021 10:[address] [facility] DX ROOM [address] [facility] Rad 01/10/2021 11:00 AM Alex Cedillo MD [place] [facility] [place] Ruby Gamboa RN - 12/08/2020 6:02 PM EST OUTCOME EVALUATION NOTE: OUTCOME SUMMARY: Patient progressing towards d/c goals appropriately at this time. Patient's pain adequately controlled with scheduled and PRN medications, see MAR for medications given. VSS on RA, intermittent SaO2 desat with activity, see chart. Dressing to left hip C/D/I. Pillow abduction used while in bed in placeof abduction pillow due to patient request. PIV intact. Blanching redness to sacrum, scattered grafting scars throughout. Tolerating regular diet well. Voiding adequate amounts in urinal and bathroom. LBM 12/08. Plan moving forward is possible d/c to home tomorrow based on PT assessment. Will continue to monitor and help patient reach d/c goals. PLAN MOVING FORWARD: Pain control Mobilize D/C planning for tomorrow INDIVIDUALIZED FALL PREVENTION: Patient is currently a high risk to Fall. Patient educated on bed/chair alarm, demonstrates proper use of call aragon and verbalizes understanding of fall preventions implemented. Patient-specific fall risk factors per assessment: [current deficits]: PIV, Weakness, Pain, Medications, Hospital Environment, Impaired Mobility, Recent Surgery Assistance [level of assistance required for transfers and ambulation]: SBA with FWW Supervision [direct monitoring required during toileting and ADLs]: Minimal assistance with ADL's Surveillance [continuous indirect monitoring]: Jer, Purposeful Rounding, Nurse Knowledge Exchangeat Bedside, Bed Alarm Set Rosa Magaña RN - 12/08/2020 5:14 PM EST This author reviewed a list of Home Health Agencies/DME vendors which serve their preferred geographic area. Affiliations were reviewed with them and they were educated about their right to choose where referrals are placed. Patient requests referral to [facility]. PHONE: [phone] FAX: [phone] Expected date of discharge: 12/08/2020 Pepe Perez MSW - 12/08/2020 4:38 PM EST DIGITAL OPERATIONS ANALYST attempted to contact pts brother Juan ([phone]) in efforts to coordinate Juan's visit for caregiver training, ideally 1000 tomorrow morning. No response, VM left with request to return writerscall. Invoice Classification Clerk also attempted to contact pts mother Bailey but that number has been disconnected. Betsy Garland, PT - 12/08/2020 4:00 PM EST Physical Therapy Note Treatment Number PT: 4 ?? Patient profile: Howard Perez??is a 60 y.o.??male??s/p revision left LISS (acetabular component revision) on 12/02/20.? Interval History: Per ortho note 12/06/20 NAEON.??Awaiting rehab. On 1L MT overnight.?? He denies numbnes/tingling in his L LE. No chest pain, shortness of breath, nausea/vomiting, palpitations.?? Pain controlled but present. Notes it is overall improving since surgery.?? INR 1.2??yesterday,??coumadin (PEPPER trial, goal INR 2-3). ?? Social History: Pt lives alone in a 1 level home with 1-2 steps to enter. 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 ??He does not use a device at baseline. ??He drives. He reports he does not have anyone who can assist upon d/c. ? Precautions/Special Considerations: ?? WBAT L LE ?? Enhanced/Posterior Total Hip Precautions:?? 1. No hip flexion past 90 degrees. 2. No internal rotation of hip (toes turned in) 3. No adduction of hip past midline (crossing legs) 4. Abduction pillow in supine. 5. Ice affected hip 20 mins/hour 6. Encourage therex program 3x/day for affected hip ?? Mobility and Positioning Recommendations: ?OOB to chair with 1 assist, walker and cues for THP's ?? Ambulate 3-4x/daily with nursing with rolling walker and CG assist x 1 ?? Please encourage up to chair for meal times as able. ?? Subjective: I only have 1 step. I don't need help in. My brother is busy. He can't stay. ?? Objective: Patient seen for physical therapy and demonstrated the following: ? Pain: ? 5/10 at rest; 7/10 with mob ? Vital Signs: ? 94% on RA with mobility; HR 101 ? Bed Mobility: Supine to sit from flat bed with min assist for L LE; pt using leg telecommunicator. Cues for technique to maintain hip precautions. Sit to Supine to flat bed: mod assist for L LE; cues for precautions. Mod assist to reposition shoulders and LEs once in supine to straighten out in bed. ? Transfers: Sit to Stand: Min assist from EOB to rolling walker. On second stand pt required CG assist to walker; cues for L LE placement to maintain precautions. Stand to Sit: CGA, rolling walker ? Gait: Distance: 150ft Device used: rolling walker Level of assist: CG assist x 1 Gait mechanics: Decr gt speed, uneven step length, decreased single stance time (L) ? Stairs: Up and own 1 4 ich step with R rail and cane in left hand with cg assist x 1. Performed step x 2 times. Cues for technique. ? alance: Sitting: good Standing: good with walker support ?? Hip precautions: Pt able to state hip precautions. He requires occasional cues during bed mobility and transfers. ?? Education: ??Reviewed hip precautions, safety, pacing, bed mobility technique and stair technique. Educated that he may want ot sleep in recliner initially as bed mobility is difficult at this time. Patient status, treatment, and mobility recommendations discussed with nursing and PHARMACIST Pt left in bedside chair. ?? Assessment: Pt seen today for continued physical therapy treatment and assessment. Pt continues to require cues for safety and hip precautions today with mobility He was able to ambulate and perform a step today with 1 hands on assist for safety. Pt unable to perform supine <-> sit transfers to/from a flat bed without assist. He will benefit from frequent walks daily with nursing. Will continueto educate on precautions and progress functional strength and mobility while here in the hospital. Discharge Recommendations: At current level of function demonstrated today, pt would continue to benefit from PT in a rehab setting. If he were to d/c home would recommend 14/05 for safety and cueing for precautions. Pt is at risk to fall and at risk of hip dislocation from failing to maintain precautions. ?? Consult Recommendations: OT in place ?? Equipment needs: TBD; rolling walker ?? Physical Therapy Goals: To be achieved??by 12/07/20: ?? 1. Pt will demonstrate independence with all precautions without cues. ONGOING 2. Pt. to perform bed mobility??independently. ONGOING 3. Pt. to perform??sit to stand and bed to chair??transfers with modified independence??using LRD. ONGOING 4. Pt. to ambulate??300??feet with modified independence?using a LRD. ONGOING 5. Pt. to ambulate up/down??2??step/stairs ??using ??one rail??and LRD??with modified independence. ONGOING 6. Family or caregiver to demonstrate understanding of therapeutic interventions to support the careof the patient. ONGOING ?? Plan: Therapy Frequency (PT): 3-5 times/wk ?? Total Minutes, Physical Therapy: 35mins (te-f).?? [phone] ?? Betsy Garland, PT Pager: [phone] Physical Therapy Inpatient Rehabilitation Department Cassidy Valentin OT - 12/08/2020 3:26 PM EST Occupational Therapy Treatment Note Occupational Therapy Treatment Note Treatment Number OT: 4 Patient Dx: Per MD:??Howard Perez??is a 60 y.o.??male??1 Day Post-Op??s/p revision left LISS (acetabular component revision).??Hb today consistent with expected post-operative cute blood loss anemia.? Past Medical History ? Past Medical History: Diagnosis Date ??? COPD (chronic obstructive pulmonary disease) ? copd ??? High blood pressure ? Motion sickness ? Past Surgical History ? Past Surgical History: Procedure Laterality Date ??? HIP SURGERY Bilateral 2000 ??? JOINT REPLACEMENT ? hip ? Social History: Patient lives??alone in a house. Home Setup:??Pt reports 1 CARROLL. Pt has a shower stall ~6 inch threshold and a high toilet.?? 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 Pt independent prior to admission with all ADL and IADL routines.? Precautions/Special Considerations:??Enhanced hip precautions; no IR of hip, no hip flexion past 90 degrees, and no adduction of hip past midline,??WBAT LLE, ABD pillow in supine,??at risk for falls,??supplemental oxygen?? Interval History: non-significant S: At least I'm moving better! O: Patient seen for skilled OT treatment, and demonstrated the following: Cognition: ??? Behavior / Mood: alert and cooperative ??? Alert and oriented to: person, place, time and situation ??? Follows commands: 1 step, 100% of the time and requires increased time ??? Attention: WFL ??? Safety awareness: WFL and fully aware of deficits Functional Mobility: o Supine to sit: CGA with constant cues for safety with HOB elevated ~45 degrees o Sit <> stand: CGA using FWW; elevated bed and cues for sequencing o Pt left with PT to participate in ambulating around unit at end of session Self Care: o Pt reeducated on hip precautions; able to recall, but benefited from reiteration and examples for incorporating strategies into daily activities o Pt participated in donning socks using marine operations coordinator, sock aid and dressing stick o Pt requiring cues for sequencing and able to thread pants with use of marine operations coordinator and don socks with sock aid while sitting EOB o Pt donned shoes with incidental support to assist initially with use of shoe horn o Pt required min A for velcro shoes o Pt CGA to hike pants in standing position ?? Endurance:pt tolerated OT session on RA Pain: pt reported stiffness vs. Pain; Did not rate Education: Pt/family/caregiver education ongoing regarding: Role of occupational therapy/rehabilitation, Transfers, Assistive device/technique, Positioning, Safety, Precautions/Protocol, Functional Mobility, Balance, Recommendations and Discharge planning. Staff Communication: Patient status, treatment, and mobility recommendations discussed with nursing/other staff. ASSESSMENT: Pt seen for Occupational Therapy interventions. Pt seen for OT services. Pt participatedin transfer OOB to EOB and worked on ADL retaining. Pt continues to require incidental support. Pt requires CGA for transfers and noted with heavy reliance on UEs with FWW. Pt would not be safe to return home. Pt lives alone and is significantly below baseline; recommend Pt discharge to an inpatient rehab facility to maximize function prior to returning home. Pt is at high risk for falls. Pt will benefit from discharge to an acute inpatient rehab facility to maximize function.?? Pt will benefit fromongoing therapeutic interventions to achieve pt's and therapy goals Anticipated Discharge Disposition (OT): inpatient rehabilitation facility Equipment Recommendations: TBD at rehab Daily schedule / Staff Recommendations: ?? Utilize upright chair position using bed features or transfer to recliner chair as appropriate with??min Ax1, ambulate as tolerated ?? Encourage participation in ADL's by providing set up A on tray table and physical assist only as needed Occupational Therapy Goals: To be achieved by??12/13/20. 1. Pt will be conditional independent for LB dressing routines with AE as needed at seated/standing levels 2. Pt will be conditional independent for toileting routine at ambulatory level 3. Pt will be conditional independent for simple snack prep at ambulatory level 4. Pt will be able to stand for 8 minutes to perform sink level grooming task with LRAD?? All goals in progress Total Minutes, Occupational Therapy: 29(2 SC) OT: Therapy Frequency (OT): 2-4 times/wk Pager: [phone] Cassidy Valentin OT Occupational Therapy Rehabilitation Department Mami Jo MD - 12/08/2020 6:48 AM EST ORTHOPAEDIC SURGERY INPATIENT PROGRESS NOTE Patient Name: Howard Perez Age: 60 y.o. Surgery/Issue: Left Revision Total Hip Arthroplasty Attending: Dr. Cedillo Date of surgery: 12/01/2020 SUBJECTIVE / INTERVAL HISTORY: NAEON. On room air. Insurance denied rehab, plan for [id number] today. Overall progressing well. INR pending today. He denies numbnes/tingling in his LLE. No chest pain, shortness of breath, nausea/vomiting, palpitations. FOCUSED REVIEW OF SYSTEMS: as above. Active Hospital Problems Diagnosis ??? s/p left revision LISS (acetabular component revision) with Dr. Cedillo 12/01/2020 Resolved Hospital Problems No resolved problems to display. Active Non-Hospital Problems Diagnosis ??? Obesity (BMI 30-39.9) ??? HTN (hypertension) ??? Smokes ??? COPD (chronic obstructive pulmonary disease) MEDICATIONS: ??? amoxicillin-clavulanate (Augmentin) 875-125 mg per tablet 1 tablet ??? hydroCHLOROthiazide (Hydrodiuril) tablet 12.5 mg ??? lisinopriL (Prinivil;Zestril) tablet 10 mg ??? atorvastatin (Lipitor) tablet 10 mg ??? budesonide-formoteroL (SYMBICORT) 160-4.5 mcg/actuation inhaler 2 Inhalation ??? sodium chloride 0.9 % (flush) flush 5 mL ??? sodium chloride 0.9 % (flush) flush 5-20 mL ??? lidocaine (Xylocaine) 1% (10 mg/mL) injection 3 mg ??? polyethylene glycoL (Miralax) packet 17 g ??? senna-docusate (Pericolace) 8.6-50 mg per tablet 2 tablet ??? bisacodyl EC (Dulcolax) tablet 10 mg ??? bisacodyL (Dulcolax) suppository 10 mg ??? celecoxib (CeleBREX) capsule 200 mg ??? pantoprazole EC (Protonix) tablet 20 mg ??? multivitamin with minerals (THERA-M) tablet 1 tablet ??? HYDROmorphone (Dilaudid) tablet 2-4 mg ??? lidocaine (Lidoderm) 5% topical patch 3 patch AND lidocaine (Lidoderm) topical patch REMOVAL ??? acetaminophen (Tylenol) tablet 1,000 mg ??? nicotine polacrilex (COMMIT) lozenge 4 mg ??? nicotine polacrilex (NICORETTE) gum 2 mg ??? nicotine (NICODERM CQ) 21 mg/24 hr patch 21 mg AND nicotine (NICODERM CQ) 21 mg/24 hr patch Patch Verification AND nicotine (NICODERM CQ) 21 mg/24 hr patch Patch Removal ??? ipratropium-albuteroL (DUONEB) 0.5 mg-3 mg(2.5 mg base)/3 mL nebulizer solution 3 mL ??? calcium carbonate (Tums) chewable tablet 500-1,000 mg ??? warfarin (COUMADIN) daily order reminder ??? albuteroL (PROVENTIL) nebulizer solution 2.5 mg ??? BUpivacaine (pf) (Marcaine) (2.5 mg/mL) 0.25% injection ??? povidone-iodine 5 % ophthalmic solution ??? cloNIDine (pf) (Duraclon) (100 mcg/mL) Epidural injection ??? ketorolac (Toradol) (30 mg/mL) injection ??? [COMPLETED] gabapentin (Neurontin) capsule 600 mg FOLLOWED BY gabapentin (Neurontin) [id number] mg ??? sodium chloride 0.9% infusion ??? sodium chloride 0.9% Stopped (12/02/20 1133) OBJECTIVE: Temp: [36.4 ??C (97.5 ??F)-36.8 ??C (98.2 ??F)] Resp: [14-18] BP: (104-127)/(60-78) Intake/Output Summary (Last 24 hours) at 12/08/2020 0638 Last data filed at 12/08/2020 0323 Gross per 24 hour Intake 1210 ml Output 1400 ml Net -190 ml Body mass index is 37.11 kg/m??. PE: General: NAD, awake/alert CV: RRR assessed peripherally Resp: Breathing comfortably on 1L NC LLE: Mepilex dressing c/d/i. Motor intact to EHL, FHL, TA, ankle flexion/extension. Sensation intactin foot/calf/thigh. Brisk capillary refill distally. 2+ DP. Lab Results Component Value Date NA 135 12/04/2020 K 4.5 12/04/2020 CL 101 12/04/2020 CO2 27 12/04/2020 BUN 23 (H) 12/04/2020 CREATININE 0.76 (L) 12/04/2020 GLUCOSE 118 12/04/2020 CALCIUM 8.7 12/04/2020 Lab Results Component Value Date WBC 5.8 12/06/2020 HGB 10.9 (L) 12/06/2020 HCT 33.8 (L) 12/06/2020 MCV 94.4 (H) 12/06/2020 PLATELET 221 12/06/2020 Lab Results Component Value Date INR 1.4 12/07/2020 Imaging: No new ASSESSMENT / PLAN: Howard Perez is a 60 y.o. male 7 Days Post-Op s/p revision left LISS (acetabular component revision). Hb consistent with expected post- operative acute blood loss anemia. On 5 days of Augmentin for possible aspiration PNA. Awaiting rehab. Plan to continue mobilizing as able. Medically ready for rehab DC pending bed availability and [id number] today. Metal ion levels (Co, Cr) still pending. Activity: WBAT LLE, Posterior hip precautions with an abduction pillow while in bed Closure: Resorbable sutures Dressing: Mepiex x 7 days Drain: none Anticoagulation: PEPPER Study and Warfarin (goal INR ~2) for 30 days Antibiotics: periop ancef Consults: PT/OT Dispo: per PT Follow-up: 01/[address] Mamadou Jo MD 12/08/2020 Future Appointments Date Time Provider Department Center 12/31/2020 11:00 AM Paco Early MD [facility] 01/10/2021 10:[address] [facility] DX ROOM [address] [facility] Rad 01/10/2021 11:00 AM Alex Cedillo MD [facility] [address] [place] [address] Dimitrios Alba RN - 12/07/2020 6:59 PM EST Problem: Patient Care Overview Goal: Plan of Care Review Outcome: Ongoing (Interventions Implemented as Appropriate) OUTCOME EVALUATION NOTE: OUTCOME SUMMARY: Pt progressing appropriately towards d/c goals at this time. Pt has been aox4 with stable VS this shift. Pt has not reported SOB but has used supplemental O2 intermittently for low saturations. Dropletprecautions continued through he shift, expiring tonight. Pt has reported adequate pain management with scheduled and PRN medications, see DEC. Pt has been OOB tot he toilet. 1 BM and voiding adequallyin the urinal. D/c expected 12/08, will continue to monitor. PLAN MOVING FORWARD: Pain control, PT, mobilize, droplet precautions, dc planning INDIVIDUALIZED FALL PREVENTION INTERVENTIONS: Patient-specific fall risk factors per assessment: [current deficits]: Generalized weakness, pain medications, hospitalization and double room. Assistance [level of assistance required for transfers and ambulation]: OOB with walker and 1 assist Supervision [direct monitoring required during toileting and ADLs]: SBA Surveillance [continuous indirect monitoring]: Masimo, safety checks and nurse knowledge sign-off. Patient-specific fall prevention interventions for sensory deficits provided, if applicable: No CPG GOAL OUTCOME EVALUATION: Rosa Givens RN - 12/07/2020 3:38 PM EST OFFICE OF CARE MANAGEMENT Primary Special Educator Follow-up Note S/O: Discussed plan of care with Primary team and Nursing to assess continuing care and discharge needs. LOS: 6 days Primary Insurance: [employer]NA Secondary Insurance: N/A DECISION MAKER:self Pt continues to require hospitalization for: persistent O2 requirement overnight, On 5 days of Augmentin for possible aspiration PNA, droplet precautions. Current referrals in place: [facility] ([facility]) [address] [place] [address] [phone] This case was denied. The MD can call [phone] to schedule a peer to peer review. Per to peer phone call completed this am by ortho team, awaiting on final determination on appeal status from [facility]. A: Discharge plan Inpatient rehabilitation facility vs home with VNA pending hospital course, progress with PT/OT and insurance authorization appeal status. P:Primary Special Educator to follow with team and family to assist with discharge needs when patient ready for discharge. Rosa Givens RN,M Nurse Primary Special Educator Pager [phone] Mami Jo MD - 12/07/2020 6:11 AM EST ORTHOPAEDIC SURGERY INPATIENT PROGRESS NOTE Patient Name: Howard Perez Age: 60 y.o. Surgery/Issue: Left Revision Total Hip Arthroplasty Attending: Dr. Cedillo Date of surgery: 12/01/2020 SUBJECTIVE / INTERVAL HISTORY: NAEON. Medicine consulted yesterday for persistent O2 requirement. On 5 days of Augmentin for possible aspiration PNA. Was on 3L for a period overnight, now on RA. Awaiting rehab. On 1L NC overnight. He denies numbnes/tingling in his LLE. No chest pain, shortness of breath, nausea/vomiting, palpitations. Pain controlled and notes he feels he has turned a big corner with respect to pain and mobilizing. INR 1.4 yesterday, coumadin (PEPPER trial, goal INR 2-3). FOCUSED REVIEW OF SYSTEMS: as above. Active Hospital Problems Diagnosis ??? s/p left revision LISS (acetabular component revision) with Dr. Cedillo 12/01/2020 Resolved Hospital Problems No resolved problems to display. Active Non-Hospital Problems Diagnosis ??? Obesity (BMI 30-39.9) ??? HTN (hypertension) ??? Smokes ??? COPD (chronic obstructive pulmonary disease) MEDICATIONS: ??? amoxicillin-clavulanate (Augmentin) 875-125 mg per tablet 1 tablet ??? hydroCHLOROthiazide (Hydrodiuril) tablet 12.5 mg ??? lisinopriL (Prinivil;Zestril) tablet 10 mg ??? atorvastatin (Lipitor) tablet 10 mg ??? budesonide-formoteroL (SYMBICORT) 160-4.5 mcg/actuation inhaler 2 Inhalation ??? sodium chloride 0.9 % (flush) flush 5 mL ??? sodium chloride 0.9 % (flush) flush 5-20 mL ??? lidocaine (Xylocaine) 1% (10 mg/mL) injection 3 mg ??? polyethylene glycoL (Miralax) packet 17 g ??? senna-docusate (Pericolace) 8.6-50 mg per tablet 2 tablet ??? bisacodyl EC (Dulcolax) tablet 10 mg ??? bisacodyL (Dulcolax) suppository 10 mg ??? celecoxib (CeleBREX) capsule 200 mg ??? pantoprazole EC (Protonix) tablet 20 mg ??? multivitamin with minerals (THERA-M) tablet 1 tablet ??? HYDROmorphone (Dilaudid) tablet 2-4 mg ??? lidocaine (Lidoderm) 5% topical patch 3 patch AND lidocaine (Lidoderm) topical patch REMOVAL ??? acetaminophen (Tylenol) tablet 1,000 mg ??? nicotine polacrilex (COMMIT) lozenge 4 mg ??? nicotine polacrilex (NICORETTE) gum 2 mg ??? nicotine (NICODERM CQ) 21 mg/24 hr patch 21 mg AND nicotine (NICODERM CQ) 21 mg/24 hr patch Patch Verification AND nicotine (NICODERM CQ) 21 mg/24 hr patch Patch Removal ??? ipratropium-albuteroL (DUONEB) 0.5 mg-3 mg(2.5 mg base)/3 mL nebulizer solution 3 mL ??? calcium carbonate (Tums) chewable tablet 500-1,000 mg ??? warfarin (COUMADIN) daily order reminder ??? albuteroL (PROVENTIL) nebulizer solution 2.5 mg ??? BUpivacaine (pf) (Marcaine) (2.5 mg/mL) 0.25% injection ??? povidone-iodine 5 % ophthalmic solution ??? cloNIDine (pf) (Duraclon) (100 mcg/mL) Epidural injection ??? ketorolac (Toradol) (30 mg/mL) injection ??? [COMPLETED] gabapentin (Neurontin) capsule 600 mg FOLLOWED BY gabapentin (Neurontin) aezsfic124 mg ??? sodium chloride 0.9% infusion ??? sodium chloride 0.9% Stopped (12/02/20 1133) OBJECTIVE: Temp: [36.5 ??C (97.7 ??F)-36.8 ??C (98.2 ??F)] Resp: [12-20] BP: (107-142)/(60-74) Intake/Output Summary (Last 24 hours) at 12/07/2020 0611 Last data filed at 12/07/2020 0426 Gross per 24 hour Intake 720 ml Output 1350 ml Net -630 ml Body mass index is 37.11 kg/m??. PE: General: NAD, awake/alert CV: RRR assessed peripherally Resp: Breathing comfortably on 1L NC LLE: Mepilex dressing c/d/i. Motor intact to EHL, FHL, TA, ankle flexion/extension. Sensation intactin foot/calf/thigh. Brisk capillary refill distally. 2+ DP. Lab Results Component Value Date NA 135 12/04/2020 K 4.5 12/04/2020 CL 101 12/04/2020 CO2 27 12/04/2020 BUN 23 (H) 12/04/2020 CREATININE 0.76 (L) 12/04/2020 GLUCOSE 118 12/04/2020 CALCIUM 8.7 12/04/2020 Lab Results Component Value Date WBC 5.8 12/06/2020 HGB 10.9 (L) 12/06/2020 HCT 33.8 (L) 12/06/2020 MCV 94.4 (H) 12/06/2020 PLATELET 221 12/06/2020 Lab Results Component Value Date INR 1.4 12/07/2020 Imaging: No new ASSESSMENT / PLAN: Howard Perez is a 60 y.o. male 6 Days Post-Op s/p revision left LISS (acetabular component revision). Hb consistent with expected post- operative acute blood loss anemia. On 5 days of Augmentin for possible aspiration PNA. Awaiting rehab. Plan to continue mobilizing. Medically ready for rehab DC pending bed availability. Metal ion levels (Co, Cr) still pending. Activity: WBAT LLE, Posterior hip precautions with an abduction pillow while in bed Closure: Resorbable sutures Dressing: Mepiex x 7 days Drain: none Anticoagulation: PEPPER Study and Warfarin (goal INR ~2) for 30 days Antibiotics: periop ancef Consults: PT/OT Dispo: per PT Follow-up: 01/[address] Mamadou Jo MD 12/07/2020 Future Appointments Date Time Provider Department Center 12/31/2020 11:00 AM Paco Early MD [facility] 01/10/2021 10:[address] [facility] DX ROOM [address] [facility] Rad 01/10/2021 11:00 AM Alex Cedillo MD [facility] [address] [place] [address] Satnam Stinson RN - 12/06/2020 11:30 PM EST Transferred care of patient to [facility] at 23:30. VS remain stable and pain 6/10. On 1L NC. Patient placed on droplet precautions at beginning of shift due to concern for pneumonia. All patients belongings were transferred with him to his new room in [facility]. Patient was transferred to a private kurt to droplet precautions. Patient has silver dressing to left hip which is noted to be C/D/I. Abductor pillow remains in place for advanced hip precautions. Huyen Bacon OTA - 12/06/2020 11:47 AM EST Occupational Therapy Treatment Note Occupational Therapy Treatment Note Treatment Number OT: 3 Patient Dx: Per MD:??Howard Perez??is a 60 y.o.??male??1 Day Post-Op??s/p revision left LISS (acetabular component revision).??Hb today consistent with expected post-operative cute blood loss anemia.? Past Medical History ? Past Medical History: Diagnosis Date ??? COPD (chronic obstructive pulmonary disease) ? copd ??? High blood pressure ? Motion sickness ? Past Surgical History ? Past Surgical History: Procedure Laterality Date ??? HIP SURGERY Bilateral 2000 ??? JOINT REPLACEMENT ? hip ? Social History: Patient lives??alone in a house. Home Setup:??Pt reports 1 CARROLL. Pt has a shower stall ~6 inch threshold and a high toilet.?? 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 Pt independent prior to admission with all ADL and IADL routines.? Precautions/Special Considerations:??Enhanced hip precautions; no IR of hip, no hip flexion past 90 degrees, and no adduction of hip past midline,??WBAT LLE, ABD pillow in supine,??at risk for falls,??supplemental oxygen?? Interval History: Per MD note 12/06/20 [facility]. Awaiting rehab. On 1L NC overnight. He denies numbnes/tingling in his LLE. No chest pain, shortness of breath, nausea/vomiting, palpitations. Pain controlled but present. Notes it is overall improving since surgery. INR 1.2 yesterday, coumadin (PEPPER trial, goal INR 2-3). S: At least I'm moving better! O: Patient seen for skilled OT treatment, and demonstrated the following: Cognition: ??? Behavior / Mood: alert and cooperative ??? Alert and oriented to: person, place, time and situation ??? Follows commands: 1 step, 100% of the time and requires increased time ??? Attention: WFL ??? Safety awareness: WFL and fully aware of deficits Functional Mobility: o Supine to sit: CGA; Once sitting EOB, pt demonstrated good static sit balance ~5 min o Sit to supine: CGA for trunk requiring mod A to swing BLE onto stretcher o Sit <> stand: CGA using FWW o Ambulation: pt ambulated ~20' CGA using FWW Self Care: o Grooming/Hygiene:pt deferred all ADL tasks 2' going for xray ?? Endurance:pt tolerated OT session on RA Pain: pt reported stiffness vs. Pain; Did not rate Education: Pt/family/caregiver education ongoing regarding: Role of occupational therapy/rehabilitation, Transfers, Assistive device/technique, Positioning, Safety, Precautions/Protocol, Functional Mobility, Balance, Recommendations and Discharge planning. Staff Communication: Patient status, treatment, and mobility recommendations discussed with nursing/other staff. ASSESSMENT: Pt seen for Occupational Therapy interventions. Pt tolerated OT session well today and demonstrating increased activity tolerance then previous OT session. Session limited today due to pt going down for xray. Pt will benefit from discharge to an acute inpatient rehab facility to maximize function.?? Pt will benefit from ongoing therapeutic interventions to achieve pt's and therapy goals Anticipated Discharge Disposition (OT): inpatient rehabilitation facility Equipment Recommendations: TBD at rehab Daily schedule / Staff Recommendations: ?? Utilize upright chair position using bed features or transfer to recliner chair as appropriate with??min Ax1, ambulate as tolerated ?? Encourage participation in ADL's by providing set up A on tray table and physical assist only as needed Occupational Therapy Goals: To be achieved by??12/13/20. 1. Pt will be conditional independent for LB dressing routines with AE as needed at seated/standing levels 2. Pt will be conditional independent for toileting routine at ambulatory level 3. Pt will be conditional independent for simple snack prep at ambulatory level 4. Pt will be able to stand for 8 minutes to perform sink level grooming task with LRAD??Paritally MET Total Minutes, Occupational Therapy: 10(schm x 1 ) OT: Therapy Frequency (OT): 2-4 times/wk Pager: [phone] [address] Occupational Therapy Rehabilitation Department German Morgan CHRONIC CONDITION NURSE - 12/06/2020 11:39 AM EST Physical Therapy Note Treatment Number PT: 3 Patient profile: Howard Perez??is a 60 y.o.??male??s/p revision left LISS (acetabular component revision) on 12/02/20.?? Interval History: per ortho note 12/06/20 [facility]. Awaiting rehab. On 1L NC overnight. He denies numbnes/tingling in his LLE. No chest pain, shortness of breath, nausea/vomiting, palpitations. Pain controlled but present. Notes it is overall improving since surgery. INR 1.2 yesterday, coumadin (PEPPER trial, goal INR 2-3). Social History: Pt lives alone in a 1 level home with 1-2 steps to enter. 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 He does not use a device at baseline. He drives. He reports he does not have anyone who can assist upon d/c. Precautions/Special Considerations: ?? WBAT L LE ?? Enhanced/Posterior Total Hip Precautions: 1. No hip flexion past 90 degrees. 2. No internal rotation of hip (toes turned in) 3. No adduction of hip past midline (crossing legs) 4. Abduction pillow in supine. 5. Ice affected hip 20 mins/hour 6. Encourage therex program 3x/day for affected hip Mobility and Positioning Recommendations: ?? OOB to chair with 1 assist, walker and cues for THP's ?? Ambulate 3-4x/daily with nursing with rolling walker and CG assist x 1 ?? Please encourage up to chair for meal times as able. Subjective: It dosen't hurt as much as it has been ... later Okay, now it hurts Objective: Patient seen for physical therapy and demonstrated the following: ??? Pain: o Pt did not rate pain. Hurtado Ga scale ranging from 3-7/10 ??? Vital Signs: o Requires 2L NC for SpO2 92%. HR in 90's ?? Bed Mobility: Short Sitting>supine: HOB elevated 45*, pt also raised the height of the bed. CGA with increased time Scooting: Pt used UEs on bedrails to scoot self up in bed independently ??? Transfers: Sit to Stand: CGA, rolling walker Stand to Sit: CGA, rolling walker ??? Gait: Distance: 150ft Device used: rolling walker Level of assist: CGA Gait mechanics: Decr gt speed, uneven step length (favoring RLE), decreased single stance time (L), poor toe clearance (which improved with verbal cuing and demonstrations) ??? Stairs: NA ??? Seated balance: Sitting Static: good, sat at EOB independently Sitting Dynamic: good ??? Standing balance: Standing Static: good with walker Standing Dynamic / Gait: Good with walker ??? Hip precautions: Pt able to state 3/3 hip precautions ??? Therex: o Reinforced positioning and RICE. ??? Education: patient has been educated on Bed mobility, Transfers, Assistive device/technique, Safety , Precautions/protocol, Gait , Activity pacing/Energy conservation, Home program, Role of therapyand Discharge planning and verbalizes and demonstrates understanding. Patient status, treatment, and mobility recommendations discussed with nursing. Pt left supine in bed with call aragon within reach, bed alarm on and all needs met following visit. Assessment: Pt seen today for continued physical therapy treatment and assessment. Pt presented to physical therapy today with improved pain, but still significant up to 7/10 after a short functional task. Pt's recollection of his hip precautions improving. Pt's bed mobility however remains an issue as he requires maximum use of hospital bed features in order to complete the task without violating his hip precautions. Pt would not be able to maintain his hip precautions getting in/out of bed if the pt were at home with a standard bed. Pt's ability to tolerate ambulating further distances is improving, however with multiple gait deviations, which became more apparent the further the pt walked. Pt is functioning below his baseline and lives alone, therefore recommend d/c to inpatient rehabilitationwhen medically stable. Pt will benefit from ongoing physical therapy to address the above impairments and facilitate return to PLOF. Discharge Recommendations: Based on the current findings, Anticipated Discharge Disposition (PT): inpatient rehabilitation facility when medically ready for hospital discharge. Consult Recommendations: No other consults recommended at this time. Equipment needs: TBD, anticipate d/c to rehab Physical Therapy Goals: To be achieved by 12/07/20: ?? 1. Pt will demonstrate independence with all precautions without cues. ONGOING 2. Pt. to perform bed mobility independently. ONGOING 3. Pt. to perform sit to stand and bed to chair transfers with modified independence using LRD. ONGOING 4. Pt. to ambulate 300 feet with modified independence using a LRD. ONGOING 5. Pt. to ambulate up/down 2 step/stairs using one rail and LRD with modified independence. ONGOING 6. Family or caregiver to demonstrate understanding of therapeutic interventions to support the careof the patient. ONGOING Plan: Therapy Frequency (PT): 3-5 times/wk Total Minutes, Physical Therapy: 24(TEF, GT ([phone])). German Morgan, CHRONIC CONDITION NURSE Pager: [phone] Physical Therapy Inpatient Rehabilitation Department Read, Olivia M, RN - 12/06/2020 8:12 AM EST Office of Care Management - Discharge Planning - RN/CM Service: [facility] e[facility]DH [facility]. [facility] Patient plan of care discussed with Team and Nursing to assessment for continuing care and dischargeneeds. Hospital Day 5 days Inpatient status. Admission order reviewed. Present on Admission: ??? s/p left revision LISS (acetabular component revision) with Dr. Cedillo 12/01/2020 Per Provider team note - 12/06/2020: Mami Jo MD PT recommending rehab. Plan to continue mobilizing. Medically ready for rehab DC pending bed availability. Metal ion levels (Co, Cr) still pending. Decision Maker: self Ongoing Issues: per provider team: Remains medically ready for discharge to rehab today Referral to DIGITAL OPERATIONS ANALYST: none noted Discharge planning/referrals: 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 Pending [employer] Prior authorization COVID testing - pending information from facility to times needed Pending final word on facility opening ~~~~~~~~~~~~~~~~~~~~~~~~~~~~~~~~~~~~~~~~~~~~~~~~~~~~~~~~~~~~~~~~~~~~~~ Mala [address] [address] RN/CM has spoken with patient - he is amenable to going to [facility] and is aware of pending [employer] Prior authorization process with his health insurance. COVID testing - within 24-48 hours ~~~~~~~~~~~~~~~~~~~~~~~~~~~~~~~~~~~~~~~~~~~~~~~~~~~~~~~~~~~~~~~~~~~~~~~~~~ Insurance: Primary Insurance on file: [employer] Secondary Insurance on file: n/a Barriers: Prior auth for [employer] Family Concerns: none per patient Anticipated discharge date: 12/06/2020 Anticipated Transportation needs BLS ambulance; states he can not get out of bed without assist Ambulance transportation is medically necessary at discharge related to: Unable to tolerate seated position for time needed to transport. I have discussed Medicare/Private Insurance reimbursement guidelines for ambulance transport. Patient verbalized understanding of their potential financial obligation and agree with ambulance transport. COVID-19 testing: (or needs for repeated COVID testing for placement): NEEDS COVID TESTING FOR ADMISSION - Pending times as per SNF's request PLAN: Will continue to monitor progress, follow for continuity of care and assist with discharge planning while hospitalized Elmer Herrera) GIORGI Marinelli RN/CM - Cellphone: [phone] Pager: [phone] Covering Service RN/CM Mami Jo MD - 12/06/2020 6:34 AM EST ORTHOPAEDIC SURGERY INPATIENT PROGRESS NOTE Patient Name: Howard Perez Age: 60 y.o. Surgery/Issue: Left Revision Total Hip Arthroplasty Attending: Dr. Cedillo Date of surgery: 12/01/2020 SUBJECTIVE / INTERVAL HISTORY: NAEON. Awaiting rehab. On 1L NC overnight. He denies numbnes/tingling in his LLE. No chest pain, shortness of breath, nausea/vomiting, palpitations. Pain controlled but present. Notes it is overall improving since surgery. INR 1.2 yesterday, coumadin (PEPPER trial, goal INR 2-3). FOCUSED REVIEW OF SYSTEMS: as above. Active Hospital Problems Diagnosis ??? s/p left revision LISS (acetabular component revision) with Dr. Cedillo 12/01/2020 Resolved Hospital Problems No resolved problems to display. Active Non-Hospital Problems Diagnosis ??? Obesity (BMI 30-39.9) ??? HTN (hypertension) ??? Smokes ??? COPD (chronic obstructive pulmonary disease) MEDICATIONS: ??? hydroCHLOROthiazide (Hydrodiuril) tablet 12.5 mg ??? lisinopriL (Prinivil;Zestril) tablet 10 mg ??? atorvastatin (Lipitor) tablet 10 mg ??? budesonide-formoteroL (SYMBICORT) 160-4.5 mcg/actuation inhaler 2 Inhalation ??? sodium chloride 0.9 % (flush) flush 5 mL ??? sodium chloride 0.9 % (flush) flush 5-20 mL ??? lidocaine (Xylocaine) 1% (10 mg/mL) injection 3 mg ??? polyethylene glycoL (Miralax) packet 17 g ??? senna-docusate (Pericolace) 8.6-50 mg per tablet 2 tablet ??? bisacodyl EC (Dulcolax) tablet 10 mg ??? bisacodyL (Dulcolax) suppository 10 mg ??? celecoxib (CeleBREX) capsule 200 mg ??? pantoprazole EC (Protonix) tablet 20 mg ??? multivitamin with minerals (THERA-M) tablet 1 tablet ??? HYDROmorphone (Dilaudid) tablet 2-4 mg ??? lidocaine (Lidoderm) 5% topical patch 3 patch AND lidocaine (Lidoderm) topical patch REMOVAL ??? acetaminophen (Tylenol) tablet 1,000 mg ??? nicotine polacrilex (COMMIT) lozenge 4 mg ??? nicotine polacrilex (NICORETTE) gum 2 mg ??? nicotine (NICODERM CQ) 21 mg/24 hr patch 21 mg AND nicotine (NICODERM CQ) 21 mg/24 hr patch Patch Verification AND nicotine (NICODERM CQ) 21 mg/24 hr patch Patch Removal ??? ipratropium-albuteroL (DUONEB) 0.5 mg-3 mg(2.5 mg base)/3 mL nebulizer solution 3 mL ??? calcium carbonate (Tums) chewable tablet 500-1,000 mg ??? warfarin (COUMADIN) daily order reminder ??? albuteroL (PROVENTIL) nebulizer solution 2.5 mg ??? BUpivacaine (pf) (Marcaine) (2.5 mg/mL) 0.25% injection ??? povidone-iodine 5 % ophthalmic solution ??? cloNIDine (pf) (Duraclon) (100 mcg/mL) Epidural injection ??? ketorolac (Toradol) (30 mg/mL) injection ??? [COMPLETED] gabapentin (Neurontin) capsule 600 mg FOLLOWED BY gabapentin (Neurontin) [id number] mg ??? sodium chloride 0.9% infusion ??? sodium chloride 0.9% Stopped (12/02/20 1133) OBJECTIVE: Temp: [36.5 ??C (97.7 ??F)-36.7 ??C (98.1 ??F)] Resp: [14-16] BP: (120-145)/(56-72) Intake/Output Summary (Last 24 hours) at 12/06/2020 0634 Last data filed at 12/06/2020 0555 Gross per 24 hour Intake 480 ml Output 1050 ml Net -570 ml Body mass index is 37.11 kg/m??. PE: General: NAD, awake/alert CV: RRR assessed peripherally Resp: Breathing comfortably on 1L NC LLE: Mepilex dressing c/d/i. Motor intact to EHL, FHL, TA, ankle flexion/extension. Sensation intactin foot/calf/thigh. Brisk capillary refill distally. 2+ DP. Lab Results Component Value Date NA 135 12/04/2020 K 4.5 12/04/2020 CL 101 12/04/2020 CO2 27 12/04/2020 BUN 23 (H) 12/04/2020 CREATININE 0.76 (L) 12/04/2020 GLUCOSE 118 12/04/2020 CALCIUM 8.7 12/04/2020 Lab Results Component Value Date WBC 6.7 12/04/2020 HGB 10.6 (L) 12/04/2020 HCT 33.2 (L) 12/04/2020 MCV 96.8 (H) 12/04/2020 PLATELET 149 12/04/2020 Lab Results Component Value Date INR 1.2 12/05/2020 Imaging: No new ASSESSMENT / PLAN: Howard Perez is a 60 y.o. male 5 Days Post-Op s/p revision left LISS (acetabular component revision). Hb consistent with expected post- operative cute blood loss anemia. Will f/up AM INR today. Pharmacy dosing warfarin. Will need close monitoring as ramping up to goal INR. PT recommending rehab. Plan to continue mobilizing. Medically ready for rehab DC pending bed availability. Metal ion levels (Co, Cr) still pending. Activity: WBAT LLE, Posterior hip precautions with an abduction pillow while in bed Closure: Resorbable sutures Dressing: Mepiex x 7 days Drain: none Anticoagulation: PEPPER Study and Warfarin (goal INR ~2) for 30 days Antibiotics: periop ancef Consults: PT/OT Dispo: per PT Follow-up: 01/[address] Mamadou Jo MD 12/06/2020 Future Appointments Date Time Provider Department Center 12/31/2020 11:00 AM Paco Early MD [facility] 01/10/2021 10:[address] [facility] DX ROOM [address] [facility] Rad 01/10/2021 11:00 AM Alex Cedillo MD [place] [place] Satnam Harrell RN - 12/06/2020 4:59 AM EST OUTCOME EVALUATION NOTE: OUTCOME SUMMARY: Patient was A/O x4, VSS throughout shift on 1L NC. Inspiratory and expiratory wheezes auscultated, duonebs and IS encouraged. Pain 7/10 throughout shift. Voiding in urinal. Silver dressing to left hip remains C/D/I. Sleeping between care Will continue to monitor. PLAN MOVING FORWARD: Pain control Mobilize D/c planning INDIVIDUALIZED FALL PREVENTION: Patient-specific fall risk factors per assessment: [current deficits]: Hospital environment, generalized weakness Assistance [level of assistance required for transfers and ambulation]: 1 assist with FWW Supervision [direct monitoring required during toileting and ADLs]: hands on assist with ADL's Surveillance [continuous indirect monitoring]: Masimo, safety checks, hourly rounds, Q4 vitals, NKE Patient-specific fall prevention interventions for sensory deficits provided, if applicable: N/A Connie Rosario MD - 12/05/2020 6:41 AM EST ORTHOPAEDIC SURGERY INPATIENT PROGRESS NOTE Patient Name: Howard Perez Age: 60 y.o. Surgery/Issue: Left Revision Total Hip Arthroplasty Attending: Dr. Cedillo Date of surgery: 12/01/2020 SUBJECTIVE / INTERVAL HISTORY: NAEON. PT rec rehab. On 1L NC most of yesterday, weaned early AM to RA. He denies numbnes/tingling in his LLE. No chest pain, shortness of breath, nausea/vomiting, palpitations. Voiding. Tolerating PO. Hgb 10.6 yesterday, AM labs pending. INR 1.1 yesterday, was given 7.5mg coumadin (PEPPER trial, goalINR 2-3). AM INR pending. Co, Cr levels still pending. FOCUSED REVIEW OF SYSTEMS: as above. Active Hospital Problems Diagnosis ??? s/p left revision LISS (acetabular component revision) with Dr. Cedillo 12/01/2020 Resolved Hospital Problems No resolved problems to display. Active Non-Hospital Problems Diagnosis ??? Obesity (BMI 30-39.9) ??? HTN (hypertension) ??? Smokes ??? COPD (chronic obstructive pulmonary disease) MEDICATIONS: ??? hydroCHLOROthiazide (Hydrodiuril) tablet 12.5 mg ??? lisinopriL (Prinivil;Zestril) tablet 10 mg ??? atorvastatin (Lipitor) tablet 10 mg ??? budesonide-formoteroL (SYMBICORT) 160-4.5 mcg/actuation inhaler 2 Inhalation ??? sodium chloride 0.9 % (flush) flush 5 mL ??? sodium chloride 0.9 % (flush) flush 5-20 mL ??? lidocaine (Xylocaine) 1% (10 mg/mL) injection 3 mg ??? polyethylene glycoL (Miralax) packet 17 g ??? senna-docusate (Pericolace) 8.6-50 mg per tablet 2 tablet ??? bisacodyl EC (Dulcolax) tablet 10 mg ??? bisacodyL (Dulcolax) suppository 10 mg ??? celecoxib (CeleBREX) capsule 200 mg ??? pantoprazole EC (Protonix) tablet 20 mg ??? multivitamin with minerals (THERA-M) tablet 1 tablet ??? HYDROmorphone (Dilaudid) tablet 2-4 mg ??? lidocaine (Lidoderm) 5% topical patch 3 patch AND lidocaine (Lidoderm) topical patch REMOVAL ??? acetaminophen (Tylenol) tablet 1,000 mg ??? nicotine polacrilex (COMMIT) lozenge 4 mg ??? nicotine polacrilex (NICORETTE) gum 2 mg ??? nicotine (NICODERM CQ) 21 mg/24 hr patch 21 mg AND nicotine (NICODERM CQ) 21 mg/24 hr patch Patch Verification AND nicotine (NICODERM CQ) 21 mg/24 hr patch Patch Removal ??? ipratropium-albuteroL (DUONEB) 0.5 mg-3 mg(2.5 mg base)/3 mL nebulizer solution 3 mL ??? calcium carbonate (Tums) chewable tablet 500-1,000 mg ??? warfarin (COUMADIN) daily order reminder ??? albuteroL (PROVENTIL) nebulizer solution 2.5 mg ??? BUpivacaine (pf) (Marcaine) (2.5 mg/mL) 0.25% injection ??? povidone-iodine 5 % ophthalmic solution ??? cloNIDine (pf) (Duraclon) (100 mcg/mL) Epidural injection ??? ketorolac (Toradol) (30 mg/mL) injection ??? [COMPLETED] gabapentin (Neurontin) capsule 600 mg FOLLOWED BY gabapentin (Neurontin) [id number] mg ??? sodium chloride 0.9% infusion ??? sodium chloride 0.9% Stopped (12/02/20 1133) OBJECTIVE: Temp: [36.4 ??C (97.6 ??F)-37.2 ??C (99 ??F)] Resp: [12-19] BP: (115-146)/(58-65) Intake/Output Summary (Last 24 hours) at 12/05/2020 0641 Last data filed at 12/05/2020 0458 Gross per 24 hour Intake 1550 ml Output 852 ml Net 698 ml Body mass index is 37.11 kg/m??. PE: General: NAD, awake/alert CV: RRR assessed peripherally Resp: Breathing comfortably on 1L NC LLE: Mepilex dressing c/d/i. Motor intact to EHL, FHL, TA, ankle flexion/extension. Sensation intactin foot/calf/thigh. Brisk capillary refill distally. 2+ DP. Lab Results Component Value Date NA 135 12/04/2020 K 4.5 12/04/2020 CL 101 12/04/2020 CO2 27 12/04/2020 BUN 23 (H) 12/04/2020 CREATININE 0.76 (L) 12/04/2020 GLUCOSE 118 12/04/2020 CALCIUM 8.7 12/04/2020 Lab Results Component Value Date WBC 6.7 12/04/2020 HGB 10.6 (L) 12/04/2020 HCT 33.2 (L) 12/04/2020 MCV 96.8 (H) 12/04/2020 PLATELET 149 12/04/2020 Lab Results Component Value Date INR 1.1 12/04/2020 Imaging: XR Pelvis 12/01/20 S/p revision L LISS. Components well positioned. The left hip is reduced. There is no evidence of intra-op fracture. R LISS unchanged in appearance. ASSESSMENT / PLAN: Howard Perez is a 60 y.o. male 4 Days Post-Op s/p revision left LISS (acetabular component revision). Hb consistent with expected post- operative cute blood loss anemia. Will f/up AM INR and CBC. Pharmacy dosing warfarin. PT recommending rehab. Plan to continue mobilizing. Medically ready for rehab DC pending bed availability. Metal ion levels (Co, Cr) still pending. Activity: WBAT LLE, Posterior hip precautions with an abduction pillow while in bed Closure: Resorbable sutures Dressing: Mepiex x 7 days Drain: none Anticoagulation: PEPPER Study and Warfarin (goal INR ~2) for 30 days Antibiotics: periop ancef Consults: PT/OT Dispo: per PT Follow-up: 01/[address] Mamadou Rosario MD 12/05/2020 Future Appointments Date Time Provider Department Center 12/31/2020 11:00 AM Paco Early MD [facility] [place] 01/10/2021 10:[address] [facility] DX ROOM [address] [facility] Rad 01/10/2021 11:00 AM Alex Cedillo MD [facility] [place] Lesia Villarreal, RN - 12/04/2020 3:50 PM EST OUTCOME EVALUATION NOTE: OUTCOME SUMMARY: VSS on 1L NC. Pain well controlled w/ current regimen. Pt motivated to reach rehab goals, makes planw/ staff around PRN main med schedule for ambulation. Took 3 walks today. All scheduled bowel meds given. BM after scheduled and PRN bowel meds today. No neurovascular changes. Utilizing urinal to void. Utilizing call aragon appropriately. PLAN MOVING FORWARD: Pain control, continue to mobilize, bowel regimen, ambulate INDIVIDUALIZED FALL PREVENTION INTERVENTIONS: Patient-specific fall risk factors per assessment: [current deficits]: Generalized weakness, pain, environment Assistance [level of assistance required for transfers and ambulation]: 1A FWW Supervision [direct monitoring required during toileting and ADLs]: standby Surveillance [continuous indirect monitoring]: Masimo, bed/chair alarm Patient-specific fall prevention interventions for sensory deficits provided, if applicable: [X] N/A Marilou Penny, PT - 12/04/2020 2:11 PM EST Physical Therapy Note Treatment Number PT: 2 Patient profile: Howard Perez??is a 60 y.o.??male??s/p revision left LISS (acetabular component revision) on 12/02/20.?? Interval History: KARL Social History: Pt lives alone in a 1 level home with 1-2 steps to enter. 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 He does not use a device at baseline. He drives. He reports he does not have anyone who can assist upon d/c. Precautions/Special Considerations: ?? WBAT L LE ?? Enhanced/Posterior Total Hip Precautions: 1. No hip flexion past 90 degrees. 2. No internal rotation of hip (toes turned in) 3. No adduction of hip past midline (crossing legs) 4. Abduction pillow in supine. 5. Ice affected hip 20 mins/hour 6. Encourage therex program 3x/day for affected hip Mobility and Positioning Recommendations: ?? OOB to chair with 1 assist, walker and cues for THP's ?? Ambulate 3-4x/daily with nursing with rolling walker and CG assist x 1 ?? Please encourage up to chair for meal times as able. Subjective: I'll go on another walk tonight. Objective: Patient seen for physical therapy and demonstrated the following: ??? Pain: It hurts, L hip, does not rate ??? Vital Signs: SpO2 88-91% on RA, 95% on 1L O2. HR 80-90bpm ?? Mental Status: alert, oriented, cooperative ?? Safety Awareness: WFL ?? Command followin% of the time ?? Attention: WFL ?? Bed Mobility: Supine to Sit: supervision, increased time required and HOB raised ~45 degrees Sit to Supine: supervision Scooting: Pt used UEs on bedrails to scoot self up in bed independently ??? Transfers: Sit to Stand: supervision, rolling walker Stand to Sit: supervision, rolling walker Bed to Chair: NA ??? Gait: Distance: 100ft Device used: rolling walker Level of assist: supervision Gait mechanics: Antalgic gait with decreased gait speed and rei, decreased B step length. Distance limited by hip pain and fatigue. ??? Stairs: NA ??? Seated balance: Sitting Static: good, sat at EOB independently Sitting Dynamic: good ??? Standing balance: Standing Static: good with walker Standing Dynamic / Gait: Good with walker ??? Hip precautions: pt independently recalled 2/3 posterior hip precautions but required verbal cues to identify no hip adduction past midline) ??? Therex: provided pt with written post-op handout with pictures of precautions and exercises. Therapist demonstrated the following: ankle pumps, gluteal sets, adductor sets, quadriceps sets, hamstring sets, supine heel slides, LAQs. Pt verbalized understanding and performed one rep of each but was too sore to complete entire program at this time ??? Education: patient has been educated on Bed mobility, Transfers, Assistive device/technique, Safety , Precautions/protocol, Gait , Activity pacing/Energy conservation, Home program, Role of therapyand Discharge planning and verbalizes and demonstrates understanding. Patient status, treatment, and mobility recommendations discussed with nursing. Pt left supine in bed with call aragon within reach, bed alarm on and all needs met following visit. Assessment: Pt seen today for physical therapy treatment # 2. Session focused on functional mobility, gait, therex and education. Pt is progressing well toward functional goals and required less assistance for bed mobility, transfers and ambulation compared to initial evaluation. Pt is functioning below his baseline and lives alone, therefore recommend d/c to inpatient rehabilitation when medically stable. Pt will benefit from ongoing physical therapy to address the above impairments and facilitate return to PLOF. Discharge Recommendations: Based on the current findings, Anticipated Discharge Disposition (PT): inpatient rehabilitation facility when medically ready for hospital discharge. Consult Recommendations: No other consults recommended at this time. Equipment needs: TBD, anticipate d/c to rehab Physical Therapy Goals: To be achieved by 12/07/20: ?? 1. Pt will demonstrate independence with all precautions without cues. ONGOING 2. Pt. to perform bed mobility independently. ONGOING 3. Pt. to perform sit to stand and bed to chair transfers with modified independence using LRD. ONGOING 4. Pt. to ambulate 300 feet with modified independence using a LRD. ONGOING 5. Pt. to ambulate up/down 2 step/stairs using one rail and LRD with modified independence. ONGOING 6. Family or caregiver to demonstrate understanding of therapeutic interventions to support the careof the patient. ONGOING Plan: Therapy Frequency (PT): 3-5 times/wk Time IN / OUT: [id number] Total Minutes, Physical Therapy: 20(TEFx1). Marilou Novak PT DPT 12/04/2020 Pager: [phone] Physical Therapy Inpatient Rehabilitation Department Madyson Ibarra RN - 12/04/2020 9:32 AM EST No bed offers. Will follow up on Sunday. MADYSON IBARRA RN Hastings Huyen SommersEMMETT - 12/03/2020 1:18 PM EST Occupational Therapy Treatment Note Occupational Therapy Treatment Note Treatment Number OT: 2 Patient Dx: Per MD: Howard Perez??is a 60 y.o.??male??1 Day Post-Op??s/p revision left LISS (acetabular component revision).??Hb today consistent with expected post-operative cute blood loss anemia.? Past Medical History Past Medical History: Diagnosis Date ??? COPD (chronic obstructive pulmonary disease) ? copd ??? High blood pressure ? Motion sickness ? Past Surgical History Past Surgical History: Procedure Laterality Date ??? HIP SURGERY Bilateral 2000 ??? JOINT REPLACEMENT ? hip ? Social History: Patient lives alone in a house. Home Setup: Pt reports 1 CARROLL. Pt has a shower stall ~6 inch threshold and a high toilet. 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 Pt independent prior to admission with all ADL and IADL routines. ?? Precautions/Special Considerations: Enhanced hip precautions; no IR of hip, no hip flexion past 90 degrees, and no adduction of hip past midline, WBAT LLE, ABD pillow in supine, at risk for falls, supplemental oxygen Interval History: Per MD note 12/03/20 PARTH. Pain improved from yesterday and worked with PT. PT rec rehab. On 1L NC. He denies numbnes/tingling in his LLE. No chest pain, shortness of breath, nausea/vomiting, palpitations. Voiding. Tolerating PO. Hb 11.9. INR 1.1. S: I sleep on my side. That's going to be hard to do re: no crossing legs O: Patient seen for skilled OT treatment, and demonstrated the following: Cognition: ??? Behavior / Mood: alert and cooperative ??? Alert and oriented to: person, place, time and situation ??? Follows commands: 1 step, 100% of the time and requires increased time ??? Attention: WFL ??? Safety awareness: WFL, fully aware of deficits and good safety precautions Functional Mobility: o Supine to sit: ?? supervision given extra time to complete task ?? Once seated EOB, pt demonstrated good static and dynamic seated balance w/ supervision o Sit to stand: CGA of 2 using FWW o Stand to sit: Min A of 1 using FWW requiring cues for safe hand placement and to controlled descend vs. plopping o Ambulation: pt ambulated bed > bathroom > 70' > recliner CGA using FWW Self Care: o Grooming/Hygiene: ?? After set up and standing sink side using FWW, pt performed oral care w/ CGA; Pt required multimodal cues for safe placement of FWW and to stand within FWW o Dressing: ?? Max A to readjust socks while seated EOB: Pt has been educated and provided LH AE to maintain precautions o Bathing: pt stood sink side using FWW to wash and dry face w/ CGA ?? Endurance:pt tolerated OT session on RA Pain: pt reported 6/10 at rest; Pt reported 9/10 pain after mobility; RN aware Education: Pt/family/caregiver education ongoing regarding: Role of occupational therapy/rehabilitation, Transfers, Assistive device/technique, Adaptive equipment training, ADL, Positioning, Safety, Precautions/Protocol, Functional Mobility, Activity pacing/Energy conservation, Home Program, Balance, R ecommendations and Discharge planning. Staff Communication: Patient status, treatment, and mobility recommendations discussed with nursing/other staff. ASSESSMENT: Pt seen for Occupational Therapy interventions. Pt tolerated OT session well today and is making great progress towards his OT goals. Pt continues to present as alert and oriented x4 and highly motivated for therapy. Pt demonstrated ability to perform 2 simple ADL tasks standing sink side then ambulated ~70' CGA using FWW. Pt will benefit from discharge to an acute inpatient rehab facility to maximize function. Pt will benefit from ongoing therapeutic interventions to achieve pt's and therapy goals Anticipated Discharge Disposition (OT): inpatient rehabilitation facility Equipment Recommendations: TBD at rehab Daily schedule / Staff Recommendations: ?? Utilize upright chair position using bed features or transfer to recliner chair as appropriate with min Ax1, ambulate as tolerated ?? Encourage participation in ADL's by providing set up A on tray table and physical assist only as needed Occupational Therapy Goals: To be achieved by 12/13/20. 1. Pt will be conditional independent for LB dressing routines with AE as needed at seated/standing levels 2. Pt will be conditional independent for toileting routine at ambulatory level 3. Pt will be conditional independent for simple snack prep at ambulatory level 4. Pt will be able to stand for 8 minutes to perform sink level grooming task with LRAD??Paritally MET Total Minutes, Occupational Therapy: 25(schm x 2 ) OT: Therapy Frequency (OT): 2-4 times/wk Pager: [phone] [place] Occupational Therapy Rehabilitation Department Rosa Magaña RN - 12/03/2020 1:16 PM EST This author met with patient today re expanding inpatient rehabilitation facility search, informed that there is no bed offer from facilities referrals originally were sent to. Patient was in agreementto expand the search to: ?? [facility] ([facility]) [address] [place] [address] [facility]) [address] [place] [address] RS please submit referral [facility] supporting documentation. Bridget Godwin RN - 12/03/2020 7:30 AM EST 0730 Assumed care of pt. O2 maintained at 1.5L NC, lungs with exp and insp wheezes present. Pupils 2mm with PERRLA present. Ag mep to L hip CDI. AM meds administered including pain meds, see MAR. Will continue to monitor. 0900 Care assumed by GIORGI Lara, report given. Mami Pino MD - 12/03/2020 6:45 AM EST ORTHOPAEDIC SURGERY INPATIENT PROGRESS NOTE Patient Name: Howard Perez Age: 60 y.o. Surgery/Issue: Left Revision Total Hip Arthroplasty Attending: Dr. Cedillo Date of surgery: 12/01/2020 SUBJECTIVE / INTERVAL HISTORY: PARTH. Pain improved from yesterday and worked with PT. PT rec rehab. On 1L NC. He denies numbnes/tingling in his LLE. No chest pain, shortness of breath, nausea/vomiting, palpitations. Voiding. Tolerating PO. Hb 11.9. INR 1.1. FOCUSED REVIEW OF SYSTEMS: as above. Active Hospital Problems Diagnosis ??? s/p left revision LISS (acetabular component revision) with Dr. Cedillo 12/01/2020 Resolved Hospital Problems No resolved problems to display. Active Non-Hospital Problems Diagnosis ??? Obesity (BMI 30-39.9) ??? HTN (hypertension) ??? Smokes ??? COPD (chronic obstructive pulmonary disease) MEDICATIONS: ??? hydroCHLOROthiazide (Hydrodiuril) tablet 12.5 mg ??? lisinopriL (Prinivil;Zestril) tablet 10 mg ??? atorvastatin (Lipitor) tablet 10 mg ??? budesonide-formoteroL (SYMBICORT) 160-4.5 mcg/actuation inhaler 2 Inhalation ??? sodium chloride 0.9 % (flush) flush 5 mL ??? sodium chloride 0.9 % (flush) flush 5-20 mL ??? lidocaine (Xylocaine) 1% (10 mg/mL) injection 3 mg ??? polyethylene glycoL (Miralax) packet 17 g ??? senna-docusate (Pericolace) 8.6-50 mg per tablet 2 tablet ??? bisacodyl EC (Dulcolax) tablet 10 mg ??? bisacodyL (Dulcolax) suppository 10 mg ??? celecoxib (CeleBREX) capsule 200 mg ??? pantoprazole EC (Protonix) tablet 20 mg ??? multivitamin with minerals (THERA-M) tablet 1 tablet ??? HYDROmorphone (Dilaudid) tablet 2-4 mg ??? lidocaine (Lidoderm) 5% topical patch 3 patch AND lidocaine (Lidoderm) topical patch REMOVAL ??? acetaminophen (Tylenol) tablet 1,000 mg ??? nicotine polacrilex (COMMIT) lozenge 4 mg ??? nicotine polacrilex (NICORETTE) gum 2 mg ??? nicotine (NICODERM CQ) 21 mg/24 hr patch 21 mg AND nicotine (NICODERM CQ) 21 mg/24 hr patch Patch Verification AND nicotine (NICODERM CQ) 21 mg/24 hr patch Patch Removal ??? ipratropium-albuteroL (DUONEB) 0.5 mg-3 mg(2.5 mg base)/3 mL nebulizer solution 3 mL ??? calcium carbonate (Tums) chewable tablet 500-1,000 mg ??? warfarin (COUMADIN) daily order reminder ??? albuteroL (PROVENTIL) nebulizer solution 2.5 mg ??? BUpivacaine (pf) (Marcaine) (2.5 mg/mL) 0.25% injection ??? povidone-iodine 5 % ophthalmic solution ??? cloNIDine (pf) (Duraclon) (100 mcg/mL) Epidural injection ??? ketorolac (Toradol) (30 mg/mL) injection ??? [COMPLETED] gabapentin (Neurontin) capsule 600 mg FOLLOWED BY gabapentin (Neurontin) [id number] mg ??? sodium chloride 0.9% infusion ??? sodium chloride 0.9% Stopped (12/02/20 1133) OBJECTIVE: Temp: [36.4 ??C (97.5 ??F)-37.1 ??C (98.8 ??F)] Resp: [18-20] BP: (106-140)/(58-74) Intake/Output Summary (Last 24 hours) at 12/03/2020 0645 Last data filed at 12/03/2020 0309 Gross per 24 hour Intake 2800 ml Output 1150 ml Net 1650 ml Body mass index is 37.11 kg/m??. PE: General: NAD, awake/alert CV: RRR assessed peripherally Resp: Breathing comfortably on RA LLE: Mepilex dressing c/d/i. Motor intact to EHL, FHL, TA, ankle flexion/extension. Sensation intactin foot/calf/thigh. Brisk capillary refill distally. 2+ DP. Lab Results Component Value Date NA 134 (L) 12/03/2020 K 4.5 12/03/2020 CL 101 12/03/2020 CO2 28 12/03/2020 BUN 19 12/03/2020 CREATININE 0.67 (L) 12/03/2020 GLUCOSE 123 12/03/2020 CALCIUM 9.0 12/03/2020 Lab Results Component Value Date WBC 6.5 12/03/2020 HGB 11.9 (L) 12/03/2020 HCT 37.1 (L) 12/03/2020 MCV 96.4 (H) 12/03/2020 PLATELET 143 (L) 12/03/2020 Lab Results Component Value Date INR 1.1 12/03/2020 Imaging: XR Pelvis 12/01/20 S/p revision L LISS. Components well positioned. The left hip is reduced. There is no evidence of intra-op fracture. R LISS unchanged in appearance. ASSESSMENT / PLAN: Howard Perez is a 60 y.o. male 2 Days Post-Op s/p revision left LISS (acetabular component revision). Hb consistent with expected post- operative cute blood loss anemia. Pain controlled. PT recommending rehab. Plan to continue mobilizing. Will obtain Co-Cr levels today as he did not have these done as an outpatient. Activity: WBAT LLE, Posterior hip precautions with an abduction pillow while in bed Closure: Resorbable sutures Dressing: Mepiex x 7 days Drain: none Anticoagulation: PEPPER Study and Warfarin (goal INR ~2) for 30 days Antibiotics: periop ancef Consults: PT/OT Dispo: per PT Follow-up: 01/[address] Mamadou Jo MD 12/03/2020 Future Appointments Date Time Provider Department Center 12/31/2020 11:00 AM Paco Early MD [facility] [place] 01/10/2021 10:[address] [facility] DX ROOM [address] [facility] Rad 01/10/2021 11:00 AM Alex Cedillo MD [place] [facility] [place] Tanesha Rod RN - 12/02/2020 6:39 PM EST OUTCOME EVALUATION NOTE: OUTCOME SUMMARY: Vital stable no complaints of chest pain or SOB. Pain controlled with PRN Dilaudid, one time dose given for some uncontrolled pain mid day. Patient resting between care. On and off 1L of O2 throughout day. Lungs coarse, albuterol neb given with some relief. Voiding small amounts in urinal. Worked withPT and OT. Up to chair following hip precautions. Will continue to monitor. PLAN MOVING FORWARD: Pain management, Rehab placement INDIVIDUALIZED FALL PREVENTION INTERVENTIONS: Patient-specific fall risk factors per assessment: [current deficits]: IV, Weakness, Surgery Assistance [level of assistance required for transfers and ambulation]: 1 assist walker Supervision [direct monitoring required during toileting and ADLs]: Hands on Surveillance [continuous indirect monitoring]: MARC Randle, hourly rounding Patient-specific fall prevention interventions for sensory deficits provided, if applicable: [X] N/A CPG GOAL OUTCOME EVALUATION: Betsy Garland PT - 12/02/2020 11:16 AM EST Physical Therapy Evaluation Patient profile: Howard Perez is a 60 y.o. male 1 Day Post-Op s/p revision left LISS (acetabular component revision). Patient with the following active problems: Past Medical History: Diagnosis Date ??? COPD (chronic obstructive pulmonary disease) copd ??? High blood pressure ??? Motion sickness Past Surgical History: Procedure Laterality Date ??? HIP SURGERY Bilateral 2000 ??? JOINT REPLACEMENT hip Social History: Pt lives alone in a 1 level home with 1-2 steps to enter. 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 He does not use a device at baseline. He drives. He reports he does not have anyone who can assist upon d/c. Precautions/Special Considerations: ?? WBAT L LE ?? Enhanced/Posterior Total Hip Precautions: 1. No hip flexion past 90 degrees. 2. No internal rotation of hip (toes turned in) 3. No adduction of hip past midline (crossing legs) 4. Abduction pillow in supine. 5. Ice affected hip 20 mins/hour 6. Encourage therex program 3x/day for affected hip Mobility and Positioning Recommendations: ?? OOB to chair with 1 assist, walker and cues for THP's ?? Ambulate 3-4x/daily with nursing with rolling walker and CG assist x 1 ?? Please encourage up to chair for meal times as able. Subjective: ??? I am hurting. I remember that I could not bend from my first hip 20 years ago.?? Objective: Pt seen for evaluation today on . Pt in bed at start of session; in chair at end ofsession. Pain: Number Location At rest 05/31; medicated at start of session L hip With activity 05/31 L hip Vital Signs: At Rest With Activity SpO2 (2L); did trial RA but desats; smokes 1ppd baseline 93% on RA 86% on RA with amb; 91-92% once placed back on 2L BP 126/94 mmHg 124/86 seated EOB; 134/72 after ambulation. HR 72bpm 90's Incentive Spirometer: 1500mL Mental Status: alert, oriented to person, place, and time Skin: L hip incision intact Musculoskeletal: ROM: R hip to 90 degrees secondary precautions Strength: L knee ext 4-/5; hip flex 3-/5 Sensation: intact Bed Mobility: Supine to Sit: min assist for L LE; cues for technique; HOB elevated Sit to Supine: not assessed Transfers: Sit to Stand: min assist x 1 to rolling walker; cues for technique/p[recautions/hand placement Stand to Sit: cg assist; cues Bed to Chair: cg assist with rolling walker Gait: Distance: 80 ft Device used: rolling walker Level of assist: CG assist x 1 Gait mechanics: decreased stance L LE; close rei Stairs: not assessed Balance: Sitting Static: good Sitting Dynamic: good Standing Static: fair with walker Standing Dynamic / Gait: Fair with walker Education: Patient has been educated on Bed mobility, Transfers, Assistive device/technique, Exercise, Positioning, Safety , Precautions/protocol, Gait , Role of therapy and Discharge planning and needs reinforcement. understanding. Patient status, treatment, and mobility recommendations discussed with nursing. Assessment: Howard Perez was seen today for physical therapy evaluation. Pt presents with pain, impaired ROM, impaired strength, impaired balance, new O2 requirement, impaired transfers, impaired gait, impaired activity tolerance and new total hip precautions. Pt tolerated short walk in the hallway today but limited by pain. He requires frequent cues to maintain hip precautions. He lives alone and is at high risk to break his hip precautions. Pt would benefit from a short rehab stay prior to d/c home alone to regain independence with mobility and precautions. Pt will benefit from frequent walks with nursing. Placed pt back on 2L O2 as he dropped into mid 80's on RA with activity as he is a smoker at baseline. The pt would benefit from skilled therapy services while in the hospital to maximize functional abilities. Discharge Recommendations: Based on the current findings, Anticipated Discharge Disposition (PT): inpatient rehabilitation facility when medically ready for hospital discharge. Consult Recommendations: OT in place Equipment needs: TBD; owns rolling walker, ? Raised toilet seat. TBD at rehab Goals: To be achieved by 12/07/20: 1. Pt will demonstrate independence with all precautions without cues. 2. Pt. to perform bed mobility independently. 3. Pt. to perform sit to stand and bed to chair transfers with modified independence using LRD. 4. Pt. to ambulate 300 feet with modified independence using a LRD. 5. Pt. to ambulate up/down 2 step/stairs using one rail and LRD with modified independence. 6. Family or caregiver to demonstrate understanding of therapeutic interventions to support the careof the patient. Plan: Therapy Frequency (PT): 3-5 times/wk for therapy including balance training, bed mobility training, gait training, patient/family education, stair training, strengthening and transfer training. Patient/family understand and agree with plan as stated above. 2017 PT Evaluation Code Rationale: ?? Diagnosis & Pertinent Co-Morbidities, personal factors, and present illness affecting Plan ofCare: (see above); Additional personal factors or co- morbidities that impact plan: ?? Total # of Factors: 0 1-2 3+ x ?? Examination of body system impairments, functional limitations and behaviors, and/or participation restrictions. Addressing 1-2 elements Addressing 3 + elements Addressing 4 + elements x ?? Clinical presentation: See assessment above. Stable/Uncomplicated Evolving/Fluctuating Symptoms Unstable/Unpredictable x ?? Clinical decision making of moderate complexity based on pt's functional performance as outlined in this evaluation. Time IN/OUT: Total time: 43 evaluation BETSY GARLAND, PT Pager: [phone] Physical Therapy Inpatient Rehabilitation Department Cassidy Valentin, OT - 12/02/2020 10:04 AM EST Occupational Therapy Evaluation Patient profile: Per MD: Howard Perez is a 60 y.o. male 1 Day Post-Op s/p revision left LISS (acetabular component revision). Hb today consistent with expected post-operative cute blood loss anemia. ?? Past Medical History: Diagnosis Date ??? COPD (chronic obstructive pulmonary disease) copd ??? High blood pressure ??? Motion sickness Past Surgical History: Procedure Laterality Date ??? HIP SURGERY Bilateral 2000 ??? JOINT REPLACEMENT hip Social History: Patient lives alone in a house. Home Setup: Pt reports 1 CARROLL. Pt has a shower stall ~6 inch threshold and a high toilet. 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 Pt independent prior to admission with all ADL and IADL routines. Precautions/Special Considerations: Enhanced hip precautions; no IR of hip, no hip flexion past 90 degrees, and no adduction of hip past midline, WBAT LLE, ABD pillow in supine, at risk for falls, supplemental oxygen Subjective: I think last time they didn't want me to bend past 60 degrees Objective: Seen today for OT evaluation. Cognitive Status/Behavior: ?? Behavior / Mood: cooperative and lethargic ?? Alert and oriented to: person, place, time and situation ?? Follows commands: 2 step and 100% of the time ?? Attention: WFL ?? Safety awareness: decreased insight into deficits and impact of precautions on returning home Vision & Perception: ?? WNL/WFL Communication: WFL Range of motion, strength, coordination: Hand dominance: left Bilateral UEs are within functional limitations LE limitations: Please see PT note Sensation: Pt denied any parasthesias Activities of Daily Living: Self-feeding: Indepndent at seated level Grooming: Independent at seated level after setup Dressing: Pt issued long handled shoe horn, marine operations coordinator, sock aid and provided verbal instructions. Bathing: Did not assess Toileting: Transfer: Recommend one person min A with FWW Hygiene: Anticipate min A at this time for perianal hygiene Functional Mobility: Supine to sit: Min A with cues for maintaining precautions Sit to stand: Min A Ambulation: CGA with FWW ~80 ft with FWW Stand to sit: CGA with cues for hand placement Sit to supine: Did not assess Balance: Sitting balance: Good Standing balance: Good Vitals: At Rest With Activity SpO2 96% 2L/min and 93% on RA 88% RA and 90 on 2L/min via NC Heart Rate 70's 90's Blood Pressure 126/94 134/72 Pain: 8/10; Pt medicated just prior to therapist arrival Skin: Incision site covered with bandage CDI Education: patient have been educated on Role of occupational therapy/rehabilitation, Transfers, Assistive device/technique, Adaptive equipment training, ADL, Safety, Precautions/Protocol, Functional Mobility, Activity pacing/Energy conservation, Home Program, Home Management, Balance, Recommendationsand Discharge planning and verbalize and needs reinforcement. understanding. Patient status, treatment, and mobility recommendations discussed with nursing. Assessment: Pt has been seen for occupational therapy evaluation. Howard Perez presents with the following performance skill deficits and client factors: increased pain, decreased activity tolerance, decreased sitting/standing balance, precautions/bracing, compromised mobility status and skin integrity. These performance deficits have led to activity limitations and participation restrictions in thefollowing areas of occupation: dressing, bathing, toileting, transfers/mobility, rest/sleep, home management, work, leisure, driving, community mobility and social participation. Pt seen for OT evaluation in conjunction with PT services. Pt participated in ADL and transfers with cues to maintain precautions with one person assistance. Pt currently below baseline. Pt will benefit from discharge to an acute inpatient rehab facility to maximize function. Pt would benefit from further inpatient OT interventions to address performance deficits and maximize participation and independence with occupationsof daily living. Equipment needs at discharge: TBD Anticipated Discharge Disposition (OT): inpatient rehabilitation facility Other Recommendations: ?? Utilize upright chair position using bed features or transfer to recliner chair as appropriate with min Ax1, ambulate as tolerated ?? Encourage participation in ADL's by providing set up A on tray table and physical assist only as needed Other Recommendations: No other consults recommended at this time Goals: To be achieved by 12/13/20. 1. Pt will be conditional independent for LB dressing routines with AE as needed at seated/standing levels 2. Pt will be conditional independent for toileting routine at ambulatory level 3. Pt will be conditional independent for simple snack prep at ambulatory level 4. Pt will be able to stand for 8 minutes to perform sink level grooming task with LRAD?? Plan: OT: Therapy Frequency (OT): 2-4 times/wk Planned OT interventions: Role of occupational therapy/rehabilitation, Transfers, Assistive device/technique, Adaptive equipment training, ADL, Exercise, Breathing exercises, Positioning, Safety, Precautions/Protocol, Functional Mobility, Activity pacing/Energy conservation, Home Program, Home Management, Balance, Recommendations, Family training and Discharge planning. Total Minutes, Occupational Therapy: 43(1 mod complexity evaluation ) 2017 OT Evaluation Code Rationale: ?? Diagnosis & Pertinent Co-Morbidities affecting Plan of Care: see PMHx ?? Occupational Profile & Client History: Brief Expanded Extensive x ?? Assessment of Occupational Performance: 1-3 performance deficits 3-5 performance deficits x 5 + performance deficits ?? Clinical Decision Making: Low Moderate High x Clinical decision making of moderate complexity using standardized patient assessment instrument andmeasurable assessment of functional outcome. Pager: [phone] Cassidy Valentin OT 12/02/2020 Occupational Therapy Rehabilitation Department Mami Jo MD - 12/02/2020 6:37 AM EST ORTHOPAEDIC SURGERY INPATIENT PROGRESS NOTE Patient Name: Howard Perez Age: 60 y.o. Surgery/Issue: Left Revision Total Hip Arthroplasty Attending: Dr. Cedillo Date of surgery: 12/01/2020 SUBJECTIVE / INTERVAL HISTORY: NAEON. Patient noting significant pain in hip but otherwise he is doing well. He denies numbnes/tingling in his LLE. No chest pain, shortness of breath, nausea/vomiting, palpitations. Voiding. FOCUSED REVIEW OF SYSTEMS: as above. Active Hospital Problems Diagnosis ??? s/p left revision LISS (acetabular component revision) with Dr. Ceidllo 12/01/2020 Resolved Hospital Problems No resolved problems to display. Active Non-Hospital Problems Diagnosis ??? Obesity (BMI 30-39.9) ??? HTN (hypertension) ??? Smokes ??? COPD (chronic obstructive pulmonary disease) MEDICATIONS: ??? hydroCHLOROthiazide (Hydrodiuril) tablet 12.5 mg ??? lisinopriL (Prinivil;Zestril) tablet 10 mg ??? atorvastatin (Lipitor) tablet 10 mg ??? budesonide-formoteroL (SYMBICORT) 160-4.5 mcg/actuation inhaler 2 Inhalation ??? sodium chloride 0.9 % (flush) flush 5 mL ??? sodium chloride 0.9 % (flush) flush 5-20 mL ??? lidocaine (Xylocaine) 1% (10 mg/mL) injection 3 mg ??? polyethylene glycoL (Miralax) packet 17 g ??? senna-docusate (Pericolace) 8.6-50 mg per tablet 2 tablet ??? bisacodyl EC (Dulcolax) tablet 10 mg ??? bisacodyL (Dulcolax) suppository 10 mg ??? celecoxib (CeleBREX) capsule 200 mg ??? pantoprazole EC (Protonix) tablet 20 mg ??? multivitamin with minerals (THERA-M) tablet 1 tablet ??? warfarin (Coumadin) tablet 5 mg ??? warfarin (COUMADIN) daily order reminder ??? albuteroL (PROVENTIL) nebulizer solution 2.5 mg ??? BUpivacaine (pf) (Marcaine) (2.5 mg/mL) 0.25% injection ??? povidone-iodine 5 % ophthalmic solution ??? cloNIDine (pf) (Duraclon) (100 mcg/mL) Epidural injection ??? ketorolac (Toradol) (30 mg/mL) injection ??? acetaminophen (Tylenol) tablet 1,000 mg ??? gabapentin (Neurontin) capsule 600 mg FOLLOWED BY [START ON 12/03/2020] gabapentin (Neurontin) capsule 300 mg ??? sodium chloride 0.9% infusion ??? ceFAZolin (Ancef) 2 g in dextrose 5% 100 mL infusion ??? oxyCODONE (Roxicodone) tablet 5 mg OR oxyCODONE (Roxicodone) tablet 10 mg ??? sodium chloride 0.9% 1,000 mL (12/01/20 8630) OBJECTIVE: Temp: [36 ??C (96.8 ??F)-36.8 ??C (98.2 ??F)] Heart Rate: [62-85] Resp: [12-18] BP: (98-162)/(54-88) Intake/Output Summary (Last 24 hours) at 12/02/2020 0637 Last data filed at 12/02/2020 0532 Gross per 24 hour Intake 1660 ml Output 700 ml Net 960 ml Body mass index is 37.11 kg/m??. PE: General: NAD, awake/alert CV: RRR assessed peripherally Resp: Breathing comfortably on RA LLE: In hip abduction pillow. Mepilex dressing c/d/i. Motor intact to EHL, FHL, TA, ankle flexion/extension. Sensation intact in foot/calf/thigh. Brisk capillary refill distally. 2+ DP. Lab Results Component Value Date NA 137 12/02/2020 K 4.7 12/02/2020 CL 103 12/02/2020 CO2 26 12/02/2020 BUN 21 (H) 12/02/2020 CREATININE 0.94 12/02/2020 GLUCOSE 132 12/02/2020 CALCIUM 8.2 (L) 12/02/2020 Lab Results Component Value Date WBC 8.9 12/02/2020 HGB 13.0 (L) 12/02/2020 HCT 40.4 (L) 12/02/2020 MCV 95.3 (H) 12/02/2020 PLATELET 180 12/02/2020 Lab Results Component Value Date INR 1.1 12/02/2020 Imaging: XR Pelvis 12/01/20 S/p revision L LISS. Components well positioned. The left hip is reduced. There is no evidence of intra-op fracture. R LISS unchanged in appearance. ASSESSMENT / PLAN: Howard Perez is a 60 y.o. male 1 Day Post-Op s/p revision left LISS (acetabular component revision). Hb today consistent with expected post-operative cute blood loss anemia. Has not received toradol so discussed administration of this with nursing and also switched to dilaudid to see if has better response. Discussed baseline COPD and avoidance of significant narcotic medication doses particularly in evening prior to sleep. Plan for PT/OT and possible d/c later today. Activity: WBAT LLE, Posterior hip precautions with an abduction pillow while in bed Closure: Resorbable sutures Dressing: Mepiex x 7 days Drain: none Anticoagulation: PEPPER Study and Warfarin (goal INR ~2) for 30 days Antibiotics: periop ancef Consults: PT/OT Dispo: per PT Follow-up: 01/[address] Mamadou Jo MD 12/02/2020 Future Appointments Date Time Provider Department Center 12/31/2020 11:00 AM Paco Early MD [facility] 01/10/2021 10:[address] [facility] DX ROOM [address] [facility] Rad 01/10/2021 11:00 AM Alex Cedillo MD [facility] [place] Shahla Crowder RN - 12/02/2020 12:05 AM EST Pt arrived to the unit from the PACU. Pt denies any chest pain, SOB, nausea, numbness or tingling. Dressing to left hip cdi. Abductor pillow between legs. VSS, on 2L NC. Pt oriented to the room and call aragon. Will continue to monitor. Shahla Crowder RN Christopher Dia RN - 12/01/2020 11:36 PM EST 2129- Received report from Ora RAND 2345- Pt awake Nelson Cannon MD - 12/01/2020 10:00 PM EST ORTHOPAEDIC SURGERY INPATIENT PROGRESS NOTE Patient Name: Howard Perez Age: 60 y.o. Surgery/Issue: Left Revision Total Hip Arthroplasty Attending: Dr. Cedillo Date of surgery: 12/01/2020 SUBJECTIVE / INTERVAL HISTORY: Patient complaining of 8/10 hip pain at POC, received 10 mg oxycodone immediately prior to exam. Otherwise he is doing well. He denies numbnes/tingling in his LLE. No chest pain, shortness of breath, na usea/vomiting, palpitations. UOP adequate. FOCUSED REVIEW OF SYSTEMS: as above. Active Hospital Problems Diagnosis ??? s/p left revision LISS (acetabular component revision) with Dr. Cedillo 12/01/2020 Resolved Hospital Problems No resolved problems to display. Active Non-Hospital Problems Diagnosis ??? Obesity (BMI 30-39.9) ??? HTN (hypertension) ??? Smokes ??? COPD (chronic obstructive pulmonary disease) MEDICATIONS: ??? hydroCHLOROthiazide (Hydrodiuril) tablet 12.5 mg ??? lisinopriL (Prinivil;Zestril) tablet 10 mg ??? atorvastatin (Lipitor) tablet 10 mg ??? budesonide-formoteroL (SYMBICORT) 160-4.5 mcg/actuation inhaler 2 Inhalation ??? sodium chloride 0.9 % (flush) flush 5 mL ??? sodium chloride 0.9 % (flush) flush 5-20 mL ??? lidocaine (Xylocaine) 1% (10 mg/mL) injection 3 mg ??? polyethylene glycoL (Miralax) packet 17 g ??? senna-docusate (Pericolace) 8.6-50 mg per tablet 2 tablet ??? bisacodyl EC (Dulcolax) tablet 10 mg ??? bisacodyL (Dulcolax) suppository 10 mg ??? celecoxib (CeleBREX) capsule 200 mg ??? pantoprazole EC (Protonix) tablet 20 mg ??? [START ON 12/03/2020] warfarin (Coumadin) tablet 5 mg ??? multivitamin with minerals (THERA-M) tablet 1 tablet ??? warfarin (COUMADIN) daily order reminder ??? albuteroL (PROVENTIL) nebulizer solution 2.5 mg ??? BUpivacaine (pf) (Marcaine) (2.5 mg/mL) 0.25% injection ??? povidone-iodine 5 % ophthalmic solution ??? cloNIDine (pf) (Duraclon) (100 mcg/mL) Epidural injection ??? ketorolac (Toradol) (30 mg/mL) injection ??? acetaminophen (Tylenol) tablet 1,000 mg ??? gabapentin (Neurontin) capsule 600 mg FOLLOWED BY [START ON 12/03/2020] gabapentin (Neurontin) capsule 300 mg ??? sodium chloride 0.9% infusion ??? ceFAZolin (Ancef) 2 g in dextrose 5% 100 mL infusion ??? oxyCODONE (Roxicodone) tablet 5 mg OR oxyCODONE (Roxicodone) tablet 10 mg ??? sodium chloride 0.9% 1,000 mL (12/01/20 2330) OBJECTIVE: Temp: [36 ??C (96.8 ??F)-36.8 ??C (98.2 ??F)] Heart Rate: [62-85] Resp: [12-18] BP: (98-162)/(54-88) Intake/Output Summary (Last 24 hours) at 12/02/2020 0129 Last data filed at 12/01/2020 2330 Gross per 24 hour Intake 1660 ml Output 400 ml Net 1260 ml Body mass index is 37.11 kg/m??. PE: General: NAD, awake/alert CV: RRR assessed peripherally Resp: Breathing comfortably on RA LLE: In hip abduction pillow. Mepilex dressing c/d/i. Motor intact to EHL, FHL, TA, ankle flexion/extension. Sensation intact in foot/calf/thigh. Brisk capillary refill distally. Lab Results Component Value Date NA 141 11/26/2020 K 4.3 11/26/2020 CL 103 11/26/2020 CO2 28 11/26/2020 BUN 14 11/26/2020 CREATININE 0.72 (L) 11/26/2020 GLUCOSE 126 11/26/2020 CALCIUM 9.7 11/26/2020 Lab Results Component Value Date WBC 5.7 11/26/2020 HGB 16.8 (H) 11/26/2020 HCT 51.4 (H) 11/26/2020 MCV 95.0 (H) 11/26/2020 PLATELET 210 11/26/2020 Lab Results Component Value Date INR 1.0 11/26/2020 Imaging: XR Pelvis 12/01/20 S/p revision L LISS. Components well positioned. The left hip is reduced. There is no evidence of intra-op fracture. R LISS unchanged in appearance. ASSESSMENT / PLAN: Howard Perez is a 60 y.o. male 1 Day Post-Op s/p revision left LISS. -Patient progressing well -Will work on multimodal pain control, recently received PO pain meds -Plan to work with PT/OT tomorrow Activity: WBAT LLE, Posterior hip precautions with an abduction pillow while in bed Closure: Resorbable sutures Dressing: Mepiex x 7 days Drain: none Anticoagulation: PEPPER Study and Warfarin (goal INR ~2) for 30 days Antibiotics: periop ancef Consults: PT/OT Dispo: per PT Follow-up: 01/[address] Mamadou Abdalla MD 12/02/2020 Future Appointments Date Time Provider Department Center 12/31/2020 11:00 AM Paco Early MD [facility] 01/10/2021 10:[address] [facility] DX ROOM [address] [facility] Rad 01/10/2021 11:00 AM Alex Cedillo MD [facility] [place] Ora Silva RN - 12/01/2020 7:18 PM EST Hand off received from Lauren Gutierrez RN. care assumed Lauren Gutierrez RN - 12/01/2020 6:41 PM EST 1820:Received Pt from OR awake and alert. VSS. Abductor pillow in place as ordered. Pt endorses numbness remains present form spinal block given and denies any discomfort. documented in this encounter H&P Notes Mami Jo MD - 12/01/2020 2:43 PM EST The patient was seen and examined in the pre-operative same day area. The patient's history and physical exam have been reviewed and completed. There has been no interval change from that of the pre-operative history and physical exam performed by Dr. Garcia (in e-) within the last 30 days. CV: RRR, no m/r/g Resp: CTAB, noted mild expiratory wheezes LLE exam: Sensation intact to light touch in Saphenous/Sural/LFC/Femoral/MP/LP/T/DP/SP distributions Motor intact to ankle flexion/extension, EHL/FHL/TA Brisk capillary refill distally 2+ DP pulse Plan to proceed to the OR with Mamadou Cedillo for revision left LISS. documented in this encounter Miscellaneous Notes Plan of Care - Martine Gaston RN - 12/09/2020 3:42 AM EST OUTCOME EVALUATION NOTE: OUTCOME SUMMARY: Pt A/Ox4, VSS on 2L NC while sleeping, RA when awake. Neurovascular checks remain unchanged. Left hip dressing in place, c/d/i. Pillow x [address] Pt's pain adequately controlled, see MAR for given medications. Pt denies chest pain, shortness of breath, nausea, new numbness or tingling. LBM 2/17. Pt pleasant and cooperative throughout shift, sleeping between care. Will continue to monitor. PLAN MOVING FORWARD: Pain control Enhanced hip precautions Neurovascular checks q4h Mobilize RA when awake Pulmonary toileting D/c planning INDIVIDUALIZED FALL PREVENTION INTERVENTIONS: Pt is currently a high risk to fall. Patient educated on bed/chair alarm, demonstrates proper use of call aragon and verbalizes understanding of fall preventions implemented. Patient-specific fall risk factors per assessment: [current deficits]: oxygen tubing, weakness, enhanced hip precautions, incision, Pain, IV Sites, Hospital environment, medications. Assistance [level of assistance required for transfers and ambulation]: Hands on, SBA- 1 assist w/ FWW Supervision [direct monitoring required during toileting and ADLs]: Eyes on, minimal assistance withADLs Surveillance [continuous indirect monitoring]: Masimo, bed alarm Patient-specific fall prevention interventions for sensory deficits provided, if applicable: [X] N/A Consult Note - Raiza Mccarty MD - 12/08/2020 12:55 PM EST Medicine Consults Progress Note Consult Team/Pager: [phone] ID: Howard Perez??is a 60 y.o.??male??who has been followed in the out-patient clinic with a history left??total hip replacement and radiographic evidence of massive poly wear of his constrained liner s/pleft hip replacement revision with hospital course complicated by aspiration episode and concern foraspiration pneumonia improving on Augmentin. 24 Hour Events/Subjective: - doing well, no complaints - Sating well on room air - slight cough with clear sputum - no shortness of breath above baseline Ins/Outs: Intake/Output Summary (Last 24 hours) at 12/08/2020 1256 Last data filed at 12/08/2020 1246 Gross per 24 hour Intake 1560 ml Output 1325 ml Net 235 ml Weights: Admit weight: 131.09 kg Patient Vitals for the past 168 hrs: Weight 12/01/20 1352 131.1 kg (289 lb) Physical Exam: Gen: NAD, A&Ox3, breathing comfortably on RA HEENT: PERRLA, EOMI, sclera anicteric, OP clear, MMM CVS: RRR with normal S1/S2, no appreciable m/r/g; JVD to ~7cm Pulm: CTA b/l, breathing non-labored with good air movement, no crackles/rhonchi or wheeze Abd: NABS, soft, NT, ND, no abnormal masses or pulsations Ext: WWP, no edema, no clubbing, no cyanosis. Chest/Back: no spinal tenderness, no CVAT Skin: Intact with no rashes, petechiae, or ecchymoses Neuro: CN 2-12 grossly intact; no focal deficits grossly noted. Strength - 5/5 upper and lower extremities. Sensation to light touch intact. DTR's 2+, symmetrical. BL downgoing Babinski. Cerebellar testing - neg. Labs: Recent Labs 12/06/20 1325 12/04/20 0244 12/03/20 0252 WBC 5.8 6.7 6.5 HGB 10.9* 10.6* 11.9* HCT 33.8* 33.2* 37.1* PLATELET 221 149 143* Recent Labs 12/04/20 0244 12/03/20 0252 12/02/20 0350 NA 135 134* 137 K 4.5 4.5 4.7 CL 101 101 103 CO2 27 28 26 BUN 23* 19 21* CREATININE 0.76* 0.67* 0.94 No results for input(s): AST, ALT, ALKPHOS, BILITOT, BILIDIR in the last 168 hours. Recent Labs 12/04/20 0244 12/03/20 0252 12/02/20 0350 CALCIUM 8.7 9.0 8.2* Recent Labs 12/08/20 1022 12/07/20 0321 12/06/20 1308 INR 1.6 1.4 1.3 PT 18.1* 15.6* 14.6* No results for input(s): CK, TROPONINT in the last 168 hours. No results for input(s): POCGLU in the last 168 hours. Microbiology: Microbiology Results (Last 30 days) Procedure Component Value Units Date/Time COVID-19 PCR [[id number]] Collected: 12/06/20 1103 Lab Status: Final result Specimen: Nasopharyngeal Swab Updated: 12/06/20 1424 Rapid SARS-CoV-2 RNA Not Detected Comment: This result should be interpreted in combination with the clinical observations, patient history and epidemiological information. For testing of asymptomatic individuals, assay performance characteristics and clinical utility have not been evaluated. Testing for SARS-CoV-2 (Severe acute respiratory syndrome coronavirus 2, formerly known as 2019 novel coronavirus or 2019-nCoV) to aid in the diagnosis of COVID-19 is performed using the Simplexa COVID-19 Direct Assay by [employer] as authorized by the FDA issued Emergency Use Authorization (EUA). This assay is intended for In-vitro Diagnostic (IVD) use with nasopharyngeal swabs collected from individuals meeting the CDC criteria for testing. The assay is performed based on the instructions for use and additional guidance provided by the FDA. Testing is performed in the Microbiology Laboratory within the Department of Pathology and Laboratory Medicine at [facility], certified under the Clinical Laboratory Improvement Amendments of 1988 (CLIA), 42 U.S.C. section 263a, to perform high complexity tests. Assay performance has been verified according to clinical laboratory regulatory requirements. Test results are provided above. A result of Not Detected indicates that the viral RNA target is not present but does not preclude SARS-CoV-2 infection. False negative results may occur if a specimen is improperly collected, transported or handled; if amplification inhibitors are present; or if inadequate numbers of viral particles are present in the specimen. A result of Detected suggests a current or recent infection and the patient is presumed to be infected. Positive and negative predictive values for this test are highly dependent on disease prevalence. A result of Invalid indicates the inability to conclusively determine the presence or absence of SARS-CoV-2 RNA in the sample which can be due to a variety of factors. Recollection is recommended in the case of an invalid result. CDC COVID-19 criteria for testing on human specimens and clinical management guidance information are available at the CDC Coronavirus Disease 2019 (COVID-19) webpage under Information for Healthcare Professionals (https://www.cdc.gov/coronavirus/2019-ncov/hcp/index.html). Additional information about this and other EUA tests can be found in provider and patient fact sheets at the following FDA website: https://www.fda.gov/medical-devices/qwwcxwlzchv-ibwqccd-2509-intpu-68-dmzhxdwca- naf-nkyfbrqkrnpalj-vvmsjcc-devices/tgshi-yswgaoeenoi-jrfx SARS-CoV-2 Source OVER SHORT AND DAMAGE CLERK Swab COVID-19 PCR [[id number]] Collected: 11/28/20 1413 Lab Status: Final result Specimen: Nasopharyngeal Swab Updated: 11/29/20 1741 SARS-CoV-2 RNA Not Detected Comment: This result should be interpreted in combination with the clinical observations, patient history and epidemiological information in making a final diagnosis. For testing of asymptomatic individuals, assay performance characteristics and clinical utility have not been evaluated. Testing for SARS-CoV-2 (Severe acute respiratory syndrome coronavirus 2, formerly known as 2019 novel coronavirus or 2019-nCoV) to aid in the diagnosis of COVID-19 is performed using the [employer] RealTime SARS-CoV-2 Assay as authorized by the FDA Emergency Use Authorization (EUA). This EUA assay is intended for In-vitro Diagnostic (IVD) use with respiratory specimens such as nasopharyngeal swabs collected from individuals during the acute phase of infection. This assay is performed based on the instructions for use provided by [employer] and additional guidance provided by CDC and FDA. Testing is performed in the Clinical Genomics and [facility] Technology Laboratory within the Department of Pathology and Laboratory Medicine at [facility], certified under the Clinical Laboratory Improvement Amendments of 1988 (CLIA), 42 U.S.C. 263a, to perform high complexity tests. Assay performance has been verified according to clinical laboratory regulatory requirements for use with specimens collected from individuals suspected of COVID-19. Test results are provided above. A result of ???Not Detected?? indicates that the viral RNA target is not present above the limit of detection, but does not preclude SARS-CoV-2 infection. False negative results may occur if a specimen is improperly collected, transported or handled; if amplification inhibitors are present; or if inadequate numbers of viral particles are present in the specimen. When a diagnostic test is negative, the possibility of a false negative result should be considered in the context of a patient???s recent exposures and the presence of clinical signs and symptoms consistent with COVID-19. A result of ???Detected?? indicates that RNA from SARS-CoV-2 was detected and the patient is infected. As required or requested by public health authorities, positive specimens may be sent for additional testing. Positive and negative predictive values for this test are highly dependent on disease prevalence. A result of ???Invalid?? indicates that neither the viral RNA targets nor the internal control target was detected. An invalid result suggests the presence of inhibitors. Recollection and re-testing is recommended in the case of an invalid result. CDC COVID-19 criteria for testing on human specimens and clinical management guidance information are available at the CDC Coronavirus Disease 2019 (COVID-19) webpage under ???Information for Healthcare Professionals?? (https://www.cdc.gov/coronavirus/2019-ncov/hcp/index.html) Additional information about this and other EUA tests can be found in provider and patient fact sheets at the following FDA website: https://www.fda.gov/medical-devices/wsblglswlrj-ejfvfuy-5443-pjxxc-40-ewcghyvsb- zjc-wsvlkbtrjfjbxf-czgcksx-devices/serlq-zetimqygmxc-atnb SARS-Cov-2 RNA Source OVER SHORT AND DAMAGE CLERK Swab Diagnostic Studies: Results for orders placed or performed during the hospital encounter of 12/01/20 XR Pelvis (Generic) (Exam End: 12/01/2020 6:41 PM) Impression Post revision of LEFT total hip arthroplasty, with revision of the acetabular component. No radiographic evidence of complication. Stable appearance of RIGHT total hip arthroplasty, as visualized. Thank you for letting us participate in the care of this patient. For questions regarding this report, please contact the number below. Chest PA & Lateral (Generic) (Exam End: 12/06/2020 10:31 AM) Impression 1. Patchy right lower lobe airspace opacity, which the proper clinical setting could represent pneumonia or aspiration. 2. Followup PA and lateral radiographs within the Radiology Department are recommended 4-6 weeks posttreatment to document resolution. I have personally reviewed the image(s) and the resident's interpretation and agree with the findings, Jae Diane DO at 12/06/2020 10:53 AM Thank you for letting us participate in the care of this patient. For questions regarding this report, please contact the number below. Electronically signed by: Jae Diane DOOr[facility] ([phone]), at 12/06/2020 10:53 AM Inpatient Medications: Scheduled Meds: ??? amoxicillin-clavulanate 1 tablet Oral BID ??? hydroCHLOROthiazide 12.5 mg Oral Daily at Noon ??? lisinopriL 10 mg Oral Daily at Noon ??? atorvastatin 10 mg Oral QPM ??? budesonide-formoteroL 2 Inhalation Inhalation BID ??? sodium chloride 0.9 % (flush) 5 mL Intravenous BID ??? polyethylene glycoL 17 g Oral BID ??? senna-docusate 2 tablet Oral BID ??? celecoxib 200 mg Oral BID ??? pantoprazole EC 20 mg Oral Daily ??? multivitamin with minerals 1 tablet Oral Daily ??? lidocaine 3 patch Transdermal Q24H And ??? lidocaine 1 patch Transdermal Q24H ??? acetaminophen 1,000 mg Oral Q6H CAROLYN ??? nicotine 1 patch Transdermal Daily And ??? Patch Verification 1 patch Transdermal BID And ??? nicotine 1 patch Transdermal Daily ??? ipratropium-albuteroL 3 mL Nebulization Q4H CAROLYN ??? warfarin (COUMADIN) daily order reminder Oral Q24H ??? gabapentin 300 mg Oral Nightly Continuous Infusions: PRN Meds: sodium chloride 0.9 % (flush), lidocaine, bisacodyl EC, bisacodyL, HYDROmorphone, nicotine polacrilex, nicotine polacrilex, calcium carbonate, albuteroL, BUpivacaine (pf), povidone-iodine, cloNIDine, ketorolac Assessment: Howard Perez??is a 60 y.o.??male??who has been followed in the out-patient clinic with a history left??total hip replacement and radiographic evidence of massive poly wear of his constrained liner s/pleft hip replacement revision with hospital course complicated by aspiration episode and concern foraspiration pneumonia. He is being treated with Augmentin and is doing well. He is sating appropriately on room air with minimal cough and clear sputum, WBC is downtrending. He has no shortness of breath above baseline. Overall his condition is much improved. Please encourage smoking cessation and can consider bronchodilators if wheezing becomes worse leading to respiratory distress or de-saturation. ?? Recommendations: - continue Augmentin 875-125mg BID for a total 5 day course - encourage incentive spirometer - goal SpO2 >88% - encourage smoking cessation Raiza Mccarty MD Internal Medicine - PGY3 Medicine Consults #[id number] Recommendations discussed with primary treating team. Medicine Consult service will continue to follow. X Recommendations are above. Medicine Consult service will sign off. If clinical changes occur or new questions arise, page [phone]. Case discussed with Dr. Cheng Associated attestation - Lauren Cheng MD - 12/08/2020 5:50 PM EST Attending Staff Consult Documentation We have been asked to see this patient in consultation by Dr. Cedillo from Orthopedics Seen on 12/08 Please see 's note for details of the patient history of presentation and data. I have discussed, reviewed and agree with the documented history with ROS, social and family history, medication list, physical findings, labs/studies, Assessment and Plan of care. I have examined the patient myselfand reviewed all labs and studies personally. Additions to the history, physical, assessment and plan include the following: Given history aspiration would consider speech consult Clinically much improved. Cough better and breathing back to baseline Plan of Care - Reji Ventura RN - 12/08/2020 2:11 AM EST Howard's pain has been well controled with his pain regimen. Has been up with SBA. Has been on RA throughout the night. Has been sleeping between care with call light and personal items within reach. Problem: Adult Behavioral Health Plan of Care Goal: Plan of Care Review Outcome: Ongoing (Interventions Implemented as Appropriate) Flowsheets (Taken 12/08/2020 021) Plan of Care Reviewed With: patient Progress: improving Goal: Patient-Specific Goal (Individualization) Outcome: Ongoing (Interventions Implemented as Appropriate) Plan of Care - Wood Dolan RN - 12/06/2020 6:51 PM EST OUTCOME EVALUATION NOTE: ?? OUTCOME SUMMARY: ?? Patient A&O x 4, VSS. Patient voiding adequately into urinal. Ambulated in the olmedo today, tolerated well. Chest xray today, oral atx started for possible pneumonia. Silver mepilex to L hip CDI. Patients pain adequately controlled, see MAR for medications given. Patient denies chest pain, shortness of breath, numbness or tingling. Resting comfortably between care. Will continue to monitor and help patient reach d/c goals. ? PLAN MOVING FORWARD: ?? Pain control Mobilize D/c planning ?? INDIVIDUALIZED FALL PREVENTION: Patient is currently a high risk to Fall. Patient educated on bed/chair alarm, demonstrates proper use of call aragon and verbalizes understanding of fall preventions implemented. Patient-specific fall risk factors per assessment: [current deficits]: IV Sites, Pain, Medications, Hospital Environment. ?? Assistance [level of assistance required for transfers and ambulation]: 1xA FWW ?? Supervision [direct monitoring required during toileting and ADLs]: Hands on ?? Surveillance [continuous indirect monitoring]: Bed alarm, Masimo, Purposeful Rounding, Bedside Report ?? Patient-specific fall prevention interventions for sensory deficits provided, if applicable: [X] N/A Consult Note - Kulwinder Suarez III, MD - 12/06/2020 12:46 PM EST Medicine Consult Initial Note Date of Admission: 12/01/2020 ( Hospital Day 5 days ) Responsible Attending: Alex Cedillo MD PCP: Chapincito Avalos DO PCP#: [phone] Reason for Consult concern for pneumonia History of Present Illness: Howard Perez is a 60 y.o. male with a hx of COPD, HTN, Obesity who has been followed in the out-patient clinic with a history left??total hip replacement and radiographic evidence of massive poly wearof his constrained liner s/p left hip replacement revision. Present on Admission: ??? s/p left revision LISS (acetabular component revision) with Dr. Cedillo 12/01/2020 No notes on file The patient had a left hip revision surgery. Since his surgery he has had an on and off hypoxemia. Intermittently on RA and 1NC. Had a CXR on 12/06 showing a patchy right lower lobe airspace opacity. WBC has been stable in the 6s last in 12/04/2020. No labs since 12/04/2020. ROS: ?? GENERAL ?? HEENT ?? COR ?? PULM x All negative x All negative x?? All negative ?? All negative ?? Weight loss ?? Headache Chest Pain ?? Non-productive cough ?? Weight gain ?? Vision change ?? Palpitations ??x Productive cough ?? Fevers ?? Sinus congestion ?? Orthopnea ?? Wheezing ?? Chills ?? Hoarseness ?? Leg edema ?? Hemoptysis ?? Night sweats ?? Epistaxis ?? Paroxysmal nocturnal dyspnea ?? Pleuritic pain ?? Fatigue ? Syncope ?? SOB ? Claudication ?? GARZA ? MSK ?? RENAL ?? ENDO ?? GI x All negative x All negative x All negative x All negative ?? Arthralgias ?? Frequency ?? Heat intolerance ?? Blood in stool ?? Myalgias ?? Urgency ?? Cold intolerance ?? Dysphagia ?? Weakness ?? Hematuria ?? Polydipsia ?? Odynophagia ?? Stiffness ?? Flank pain ?? Polyphagia ?? Abdominal discomfort ? Dysuria ?? Cushingoid ?? Constipation ? Foamy urine ? Diarrhea ? Discharge ? Nausea/Vomiting ? LYMPH ?? SKIN ?? NEURO ?? PSYCH x All negative x All negative x All negative x All negative ?? Swollen nodes ?? Rash ?? Seizures ?? Depressed affect ?? Tender nodes ?? Ulcers ?? Tremors ?? Occupational stress ?? Diffuse nodes ?? Bruising ?? Spasticity ?? Anxiety ?? Local nodes ?? Tanned skin ?? Focal weakness ?? Insomnia ?? Night sweats ?? Telangiectasias ?? Diplopia ? Paresthesias ? Dizziness ? Past Medical History: Past Medical History: Diagnosis Date ??? COPD (chronic obstructive pulmonary disease) copd ??? High blood pressure ??? Motion sickness Past Surgical History: Past Surgical History: Procedure Laterality Date ??? HIP SURGERY Bilateral 2000 ??? JOINT REPLACEMENT hip Medications: No current facility-administered medications on file prior to encounter. Current Outpatient Medications on File Prior to Encounter Medication Sig Dispense Refill ??? pravastatin (Pravachol) 20 mg Tablet Take 20 mg by mouth daily. ??? Symbicort 160-4.5 mcg/actuation HFA Aerosol Inhaler INL 2 PFS PO BID ??? albuteroL 90 mcg/actuation HFA Aerosol Inhaler INL 1 TO 2 PFS PO Q 4 H PRN Allergies: No Known Allergies Family History: Family History Problem Relation Age of Onset ??? Diabetes Other Social History: Social History Socioeconomic History ??? Marital status: Spouse name: Not on file ??? Number of children: Not on file ??? Years of education: Not on file ??? Highest education level: Not on file Occupational History ??? Not on file Tobacco Use ??? Smoking status: Current Every Day Smoker Packs/day: 1.00 Years: 20.00 Pack years: 20.00 ??? Smokeless tobacco: Never Used Substance and Sexual Activity ??? Alcohol use: Not Currently ??? Drug use: Not Currently ??? Sexual activity: Not on file Other Topics Concern ??? Not on file Social History Narrative ??? Not on file Social Determinants of Health Financial Resource Strain: ??? Difficulty of Paying Living Expenses: Not on file Food Insecurity: ??? Worried About Running Out of Food in the Last Year: Not on file ??? Ran Out of Food in the Last Year: Not on file Transportation Needs: ??? Lack of Transportation (Medical): Not on file ??? Lack of Transportation (Non-Medical): Not on file Physical Activity: ??? Days of Exercise per Week: Not on file ??? Minutes of Exercise per Session: Not on file Physical Exam: Vitals: Patient Vitals for the past 24 hrs: Temp Heart Rate From SP02 Resp BP SpO2 O2 Flow Rate (L/min) O2 Device 12/05/202009 36.7 ??C (98.1 ??F) 81 bpm 16 136/63 91 % 1 L/min NC 12/06/20 0007 36.7 ??C (98.1 ??F) 73 bpm 16 139/56 93 % 1 L/min NC 12/06/20 0414 36.6 ??C (97.9 ??F) 71 bpm 14 120/61 98 % 1 L/min NC 12/06/20 0732 36.7 ??C (98.1 ??F) 78 bpm 14 115/60 91 % -- -- 12/06/20 0900 -- -- -- -- -- 1 L/min NC 12/06/20 1151 36.8 ??C (98.2 ??F) 82 bpm 20 107/74 93 % -- NC General: alert, conversant male appears in NAD HEENT:PERRLA, EOMI, visual fox intact,, MMM + pink Neck: Supple, normal ROM, no JVD appreciated Heart: RRR, normal S1 and S2; no m/r/g apparent Lungs: No increased WOB; CTAB, no rhonchi/wheezes/rales Abdomen: Soft, NT, ND, no bruits, no rebound or guarding, no organomegaly Extremities: Full ROM; no cyanosis, edema, or clubbing; pulses 2+ bilaterally Neuro: AOx3, non-focal, CN II-XII intact Skin: Warm, dry; no rashes or lesions Pertinent labs: None in the last 48 hours CXR: 1. Patchy right lower lobe airspace opacity, which the proper clinical setting Other: Assessment: Howard Perez is a 60 y.o. male who has been followed in the out-patient clinic with a history left??total hip replacement and radiographic evidence of massive poly wear of his constrained liner s/p left hip replacement revision. The patient endorses a hx of aspirating PO intake at times. No fevers, although we don't have labs in 2 days so it's unclear whether his WBC is increasing or stable. RLL opacity on CXR and new hypoxemia. It's possible he has an aspiration PNA especially given his recent surgery vs being just some atelectasis from not immobilization. Wouldn't be unreasonable to treat with a short course of abx. Recommendation: -CBC today -Start 5 day course of Augmentin 875-125mg BID -Encourage incentive spirometer usage -Aim for Spo2 above 88% Kulwinder Suarez MD Internal Medicine, PGY-3 Medicine Consults, [phone] x Recommendations discussed with primary treating team. Medicine Consult service will continue to follow. Recommendations are above. Medicine Consult service will sign off. If clinical changes occur or newquestions arise, page [phone]. Patient discussed and seen with Dr. Cheng Associated attestation - Lauren Cheng MD - 12/07/2020 10:05 AM EST Attending Staff New Consult Documentation We have been asked to see this patient in consultation by Dr. Cedillo from Orthopedics Seen on 12/[address] Suarez's note for details of the patient history of presentation and data. I have discussed, reviewed and agree with the documented history with ROS, social and family history, medicationlist, physical findings, labs/studies, Assessment and Plan of care. I have examined the patient myself and reviewed all labs and studies personally. Additions to the history, physical, assessment and plan include the following: Given history aspiration would consider speech consult Unclear whether pneumonitis or pneumonia but a short course antibiotics is very reasonable No signs/symptoms of pulmonary embolus on exam Continue incentive spirometry Plan of Care - Wood Dolan RN - 12/05/2020 7:05 PM EST OUTCOME EVALUATION NOTE: OUTCOME SUMMARY: Patient A&O x 4, VSS. Patient voiding adequately into urinal. Ambulated in the [place] x2. Patienteducated on importance of nebulizer treatments. Silver mepilex to L hip CDI. Patients pain adequately controlled, see MAR for medications given. Patient denies chest pain, shortness of breath, numbnessor tingling.Resting comfortably between care. Will continue to monitor and help patient reach d/c goals. PLAN MOVING FORWARD: Pain control Mobilize D/c planning INDIVIDUALIZED FALL PREVENTION: Patient is currently a high risk to Fall. Patient educated on bed/chair alarm, demonstrates proper use of call aragon and verbalizes understanding of fall preventions implemented. Patient-specific fall risk factors per assessment: [current deficits]: IV Sites, Pain, Medications, Hospital Environment. Assistance [level of assistance required for transfers and ambulation]: 1xA FWW Supervision [direct monitoring required during toileting and ADLs]: Hands on Surveillance [continuous indirect monitoring]: Bed alarm, Masimo, Purposeful Rounding, Bedside Report Patient-specific fall prevention interventions for sensory deficits provided, if applicable: [X] N/A Plan of Care - Rosy Ricardo RN - 12/05/2020 4:03 AM EST OUTCOME EVALUATION NOTE: ?? OUTCOME SUMMARY: ?? Patient progressing towards d/c goals appropriately at this time. Patient's pain adequately controlled with scheduled pain medications and PRN, see MAR for medications given.??Patient is alert and oriented x 4, TRIBAL, VSS, denies numbness and tingling. ??Sleeping between care overnight. ??Silver dressing to LLE remains clean, dry and intact. ??Utilizing 1 L NC overnight. ??Patient refused 2/3 nebulizertreatments. ??Voiding adequately, utilizing urinal at bedside. Up to the bathroom for BM. ?No acute events overnight. Eager to d/c to rehab for further recovery. ??Will continue to monitor and help patient reach d/c goals.? PLAN MOVING FORWARD: ?? Pain control Mobilize PT/ OT D/c planning ?? INDIVIDUALIZED FALL PREVENTION: Patient is currently a??high??risk to Fall. Patient educated on bed/chair alarm, demonstrates proper use of call aragon and verbalizes understanding of fall preventions implemented. ?? Patient-specific fall risk factors per assessment: [current deficits]:?Generalized weakness, impaired mobility, Pain, Medications, Hospital Environment. ? Assistance [level of assistance required for transfers and ambulation]:?Enhanced hip precautions,2 assist with FWW ?? Supervision [direct monitoring required during toileting and ADLs]:?Hands on?with ADL's, independent with urinal ?? Surveillance [continuous indirect monitoring]:?Masimo, Purposeful Rounding, Nurse Knowledge Exchange ?? Patient-specific fall prevention interventions for sensory deficits provided, if applicable:?Yes-glasses ?? Plan of Care - Rosy Ricardo RN - 12/04/2020 4:48 AM EST OUTCOME EVALUATION NOTE: ?? OUTCOME SUMMARY: ?? Patient progressing towards d/c goals appropriately at this time. Patient's pain adequately controlled with scheduled pain medications and PRN, see MAR for medications given. Patient is alert and oriented x 4, TRIBAL, VSS, denies numbness and tingling. Sleeping between care overnight. Silver dressing to LLE remains clean, dry and intact. Utilizing 1.5 L NC overnight. Patient refused nebulizer treatments. Voiding adequately, utilizing urinal at bedside. No acute events overnight. Eager to d/c to rehab for further recovery. Will continue to monitor and help patient reach d/c goals. ?? PLAN MOVING FORWARD: ?? Pain control Mobilize PT/ OT D/c planning ?? INDIVIDUALIZED FALL PREVENTION: Patient is currently a high risk to Fall. Patient educated on bed/chair alarm, demonstrates proper use of call aragon and verbalizes understanding of fall preventions implemented. Patient-specific fall risk factors per assessment: [current deficits]: Generalized weakness, impaired mobility, Pain, Medications, Hospital Environment. ?? Assistance [level of assistance required for transfers and ambulation]: Enhanced hip precautions, 2 assist with FWW ?? Supervision [direct monitoring required during toileting and ADLs]: Hands on with ADL's, independentwith urinal ?? Surveillance [continuous indirect monitoring]: Masimo, Purposeful Rounding, Nurse Knowledge Exchange ?? Patient-specific fall prevention interventions for sensory deficits provided, if applicable: Yes- glasses ? Plan of Care - Shy Sam RN - 12/03/2020 6:54 PM EST OUTCOME EVALUATION NOTE: OUTCOME SUMMARY: Patient A&O, VSS throughout shift. Held HCTZ for BP parameters this afternoon. Worked with OT this morning and got to chair for a few hours. Pain to left hip moderately controlled with PRN and scheduled meds, see MAR. Silver mepilex to hip CDI, denies numbness or tingling, +pulses. Walked in hallway at end of shift. Awaiting rehab bed, hopeful for d/c tomorrow. PLAN MOVING FORWARD: Discharge when rehab bed available Pain control Neurovascular checks INDIVIDUALIZED FALL PREVENTION INTERVENTIONS: Patient-specific fall risk factors per assessment: [current deficits]: Weakness, hospital environment, pain and narcotics Assistance [level of assistance required for transfers and ambulation]: 1 assist with walker Supervision [direct monitoring required during toileting and ADLs]: Some tasks independent, set up Surveillance [continuous indirect monitoring]: Masimo, bed/chair alarm, purposeful rounding Patient-specific fall prevention interventions for sensory deficits provided, if applicable: [X] Yes CPG GOAL OUTCOME EVALUATION: Plan of Care - Rosy Ricardo RN - 12/03/2020 4:49 AM EST OUTCOME EVALUATION NOTE: OUTCOME SUMMARY: Patient progressing towards d/c goals appropriately at this time. Patient's pain adequately controlled with scheduled pain medications and PRN, see MAR for medications given. Patient is alert and oriented x 4, TRIBAL, VSS. Sleeping between care overnight. Silver dressing to LLE remains clean, dry and intact. Utilizing 1.5 L NC overnight. Patient refused 2/3 nebulizer treatments. Voiding adequately, utilizing urinal at bedside. Endorses some numbness and tingling in hip area, but not elsewhere. No acuteevents overnight. Will continue to monitor and help patient reach d/c goals. PLAN MOVING FORWARD: Pain control Mobilize PT/ OT D/c planning INDIVIDUALIZED FALL PREVENTION: Patient is currently a high risk to Fall. Patient educated on bed/chair alarm, demonstrates proper use of call aragon and verbalizes understanding of fall preventions implemented. Patient-specific fall risk factors per assessment: [current deficits]: Generalized weakness, impaired mobility, Pain, Medications, Hospital Environment. Assistance [level of assistance required for transfers and ambulation]: Enhanced hip precautions, 2 assist with FWW Supervision [direct monitoring required during toileting and ADLs]: Hands on with ADL's, independentwith urinal Surveillance [continuous indirect monitoring]: Masimo, Purposeful Rounding, Nurse Knowledge Exchange Patient-specific fall prevention interventions for sensory deficits provided, if applicable: Yes- glasses CPG GOAL OUTCOME EVALUATION: Initial Assessments - Rosa Givens RN - 12/02/2020 11:33 AM EST Office of Care Management Initial Assessment Rosa Givens RN reviewed record and discussed patient with Care Team. Source of Information: IDDR, chart review, interviewing patient. Introduced self/reviewed role; services accepted. Reason for Hospitalization: <principal problem not specified> S/p Left Revision Total Hip Arthroplasty Past Medical History: Diagnosis Date ??? COPD (chronic obstructive pulmonary disease) copd ??? High blood pressure ??? Motion sickness Hospitalizations Within the Past 30 Days: no [facility] admits in last 30 days. Anticipated Length Of Stay (If known): 2-3 days Current Decision-Making Capacity: Patient is A&Ox4, full capacity Advance Care Planning: Attempt Cardiopulmonary Resuscitation - Inpatient Not in EPIC. Current Coping/Education/Information Needs: Current coping questions and concerns have been addressed. 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 Home Environment: house, 2 level, able to stay on first floor, [address] [facility] [address] Social & Family Supports/Community Resources: lives alone, brother lives nearby, 10-15 miles from patient's house, can assist with errands. Extended Emergency Contact Information Primary Emergency Contact: ChrisJavier [place], [place] Relation: Mother Secondary Emergency Contact: No,One Relation: None Behavioral Health History: none reported. Substance Use/Abuse: Tobacco Use ??? Smoking status: Current Every Day Smoker ? Packs/day: 1.00 ? Years: 20.00 ? Pack years: 20.00 ??? Smokeless tobacco: Never Used Substance and Sexual Activity ??? Alcohol use: Not Currently ??? Drug use: Not Currently Health/Prescription Coverage: Primary Insurance: AETNA Secondary Insurance: N/A Prescription Coverage: Yes Preferred Pharmacy: [id number] AT [facility] & [address] [address] Other: none Primary Care Provider: Chapincito Avalos DO [phone] Patient/Caregiver Goals of Treatment: return to previous level of function Potential Needs for Transition of Care: Discussed with patient and family levels of rehab including SNF, swing, acute and VNA home health care also discussed. Discussed need to accept first bed available when patient is medically ready. Rehab/SNF: referrals sent Home Health: tbd Transportation: car vs ambulance Other: none Anticipated Barriers to Discharge/Special Considerations: none vs anticipated barriers to arise as hospitalization continues. Assessment: patient is s/p Left Revision Total Hip Arthroplasty, very independent at baseline, will benefit from inpatient rehabilitation stay to regain strength and mobility after the hip revision surgery, will place referrals. Based on discussions with the multi-disciplinary healthcare team, the patient would benefit from inpatient level of care at discharge. ?? I have met with the patient to discuss discharge planning needs. I have provided the [facility], Officeof Care Management letter from the Truck Caterer pertaining to rehab referrals. I have also provided a letter describing our affiliations within the [facility] and educated them about their right to choose where referrals are. ?? Provided patient with [facility] Star Quality Rating for SNF, LTAC and/or IRF hand out. ?? I reviewed the different levels of rehab including SNF, swing, acute and LTAC with the patient. ?? The patient has been provided a list of facilities within their preferred geographic area. ?? I have requested that the patient provide at least three choices for referral. ?? The patient have requested referrals to: ?? 1. [facility] [address] [place] [address] ?? [phone] ?? 2. [facility] [address] [place] [id number] P: [phone] F: [phone] 08/23 No Access to [place] ?? 3. [facility] ([facility] [place] [address] ?? PHONE: [phone] FAX: [phone] ? Expected date of discharge: 12/03/2020 Note routed to Hydraulic Specialist who will communicate referrals to facilities and provide any required information. Plan: A member of the Care Management team will continue to monitor progress, follow for continuity of care and assist with transition of care planning. Rosa Givens, RN, [facility] Nurse Primary Special Educator Pager [phone] [facility] Plan of Care - Shahla Crowder RN - 12/02/2020 1:11 AM EST OUTCOME EVALUATION NOTE: OUTCOME SUMMARY: Patient resting comfortably between care. Pain controlled with scheduled and PRN medications, see MAR. NS running at 100mL/hr. Dressing to L hip cdi. Abductor pillow between legs for advanced hip precautions. Pt voiding into the urinal with PVR's. Pt remains on 2L NC. VSS. Will continue to monitor andhelp patient reach d/c goals. PLAN MOVING FORWARD: Pain control Mobilize D/c planning INDIVIDUALIZED FALL PREVENTION: Patient is currently a high risk to Fall. Patient educated on bed/chair alarm, demonstrates proper use of call aragon and verbalizes understanding of fall preventions implemented. Patient-specific fall risk factors per assessment: [current deficits]: Pain, Medications, Hospital Environment. Assistance [level of assistance required for transfers and ambulation]: not OOB yet Supervision [direct monitoring required during toileting and ADLs]: eyes on with ADL's Surveillance [continuous indirect monitoring]: Francisca Randleful Rounding, Nurse Knowledge Exchange Op Note - Alex Cedillo MD - 12/01/2020 4:02 PM EST [facility] Operative Note Patient Name: Howard Perez : [id number] MR#: [id number] Case Date: 12/01/2020 Surgeon: Surgeon(s) and Role: * Alex Cedillo MD - Primary * Jae Sprague PA - Physician Photoengraving Finisher * Mami Jo MD - Resident Preoperative diagnosis: failed LISS, massive polywear Postoperative diagnosis: failed LISS, massive polywear Procedure(s) (LRB): TOTAL HIP REVISION ARTHROPLASTY, COMPLETE (WRVU 30.28) (Left) Anesthesia: Spinal IVF: 1000ml of crystaloid Estimated Blood Loss: 400ml Urine Output: No theodore Drains: none Specimens removed during surgery: Order Name Source Comment Collection Info Order Time SPECIMEN TO PATHOLOGY failed LISS, massive polywear Scar and synovium, left hip. other No 12/01/2020 4:12 PM Time specimen removed from patient: 4:12 PM Number of tissue samples (in container) 1 Biospecimen to store? No Surgical Closure: Primary Closure - skin incision is completely closed without any wires, allyssa, drains or other devices Complications: None apparent Indications for the Procedure: Mr. Perez is a 60 y.o. year old male who has been followed in the out-patient clinic with a historyleft total hip replacement and radiographic evidence of massive poly wear of his constrained liner with concern for catastrophic failure. A detailed conversation regarding the risks and benefits of hiprevision surgery was had with the patient. The risks discussed included but were not limited to: bleeding (which may or may not require transfusion), infection, damage to nerves or blood vessels, deep venous thrombosis, pulmonary embolus, prosthetic failure, loosening, prosthetic fracture, femur or pelvic fracture, dislocation, leg-length inequality, persistent pain, need for future surgery, medical complications (including cardiac, respiratory and neurologic complications), anaesthetic complications, and . Subsequent to this conversation, all of the patient???s questions were answered in great detail and informed consent was obtained for a left total hip arthroplasty revision. He received preoperative medical clearance and was felt optimized for surgery. Today, he identified the left hip asthe correct operative side. Implants: Acetabulum: Arnaldo Tritanium 70mm multihole Femoral Stem: Retained Liner: Arnaldo MDM I Femoral Head: 28+7.5 in MDM head Intraoperative Findings: No gross evidence of infection. Profound metalosis throughout hip which wasdebrided. No posterior capsular structures intact. Scar and synovium sent to path. The femoral component was well fixed. The acetabular component was well fixed. The cup and head were revised. Hip was stable at the end of the case to 90o flexion, 45o internal rotation, 10o adduction. Procedure: The patient was met in the pre-operative holding area where the appropriate site was marked, 24 hourupdate completed, and the pre-operative checklist completed. He was then brought to the operating room on a stretcher where the above anesthetic was administered. He was transferred to the operating table where he was then transitioned to the lateral decubitus position with the operative leg up. The hips were held in place with well padded hip positioners. An axillary roll was placed and all bony prominences were well padded. The non-operative leg had a venodyne in place. The operative leg was then prepped with chlorhexidine scrub followed by alcohol and DuraPrep. Once the prep was dry the leg was draped in a sterile fashion. A clinical time-out was held confirming the correct patient name, MRN, , planned procedure, site,antibiotic start time and agent, and outline of any surgical concerns. All in attendance were in agreement to proceed. Weight based dosing of tranexamic acid was administered prior to making an incision. Surgical Approach: A posterior approach to the hip was then undertaken. The skin was infiltrated with 10cc of 0.25% marcaine plain. The old scar was excised. The subcutaneous tissue was dissected sharply. Hemostasis was maintained using the electrocautery. The fascia overlying the gluteus braden and IT band was identified and incised in-line with it's fibers. The decussation of the gluteus braden and TFL muscle fibers were then split bluntly. Full thickness flaps of IT band were created anterior and posterior. The sciatic nerve was identified and protected throughout the case. A charnely bow retractor was then placed to retract the fascia taking caution to protect the nerve posteriorly. None of the posterior capsules were healed and this was all opened in the back of the hip joint. We could see directly into the joint and the prosthesis. There is no hip fluid for aspiration. The subcutaneous tissues and muscle was then infiltrated with a combination of 0.25% marcaine with epi, 50mcg of clonidine and 30mg of toradol. A total of 50cc was used throughout the case. There was significant staining of the tissue with black debris with the appearance of metallosis. This was throughout the undersurface of the IT band and down to the joint. This was extensively debrided. An extensive synovectomy was performed posterior and anterior to adequately identify the prosthesis. The scar and synovium was sent to pathology for analysis. A plane deep to the abductors was createdwith a caldwell elevator and a retractor was placed anteriorly. Once the capsule was opened the prosthesis was identified. The capsule and scar was released off the bone and the hip with then atraumatically dislocated. The femoral head was then removed using a bone tamp and a mallet. The head was easily removed and there was no gross evidence of trunion corrosion. The trunion was then cleaned with a dry lap. The femoral stem was inspected and noted to be well fixed. We continued the synovectomy anterior to create a pocket for the femoral stem. The femoral stem was then placed anterior to the acetabulum andheld there with a retractor. A second retractor was placed in the obturator foramen. We continued our synovectomy circumferentially around the cup to fully expose it. At that point the locking ring was disengaged and the liner was removed from the acetabular socket using a 1/2 inch osteotome and mallet. The screws within the socket were removed. The acetabular component was noted to be well fixed to the bone. I then placed a 51 mm guide within the acetabular component. Using the Nasseo EZ out first with a small blade then with a big blade I was able to create interface between the bone and the implant. I ultimately was able to remove the implant with minimal bone loss from the acetabulum. The socket was then irrigated. I sequentially reamed up to 68 mm with good hemispherical contact. At that point I placed a 70 mm multihole cup using the Sputnik to aid in cup anteversion and abduction. Due to the history of his previous anterior dislocations I attempted to dial in less anteversion than his previous cup. The cup was impacted and noted to seat fully. Multiple screws were then placed with good purchase.The socket was then irrigated and the metal liner was inserted and noted to seat fully and engage the locking mechanism. The socket was then irrigated and a trial head was placed. The hip was brought through a full range of motion and found to be stable. Clinically leg lenghts felt symmetric. Satisfied, the trials they were then removed. The femoral head was impacted onto a cleaned and dried gregory taper and noted to seat fully. The femoral head was then reduced into the acetabulum. Closure: The wound was copiously irrigated. The remaining pericapsular injection was infiltrated. The IT bandfascia was tacked together with a 0 Vicryl then over sewn with a #2 running barbed suture. The woundwas irrigated again and the deep tissues were closed using a 0 vicryl. A 2-0 vicryl was used to close the subcutaneous layer. The skin was closed with a running monocryl and skin glue was used as biologic sealant. A sterile Mepilex Ag dressing was applied to the wound. The needle, sponge and instrument counts were correct at the end of the procedure. The patient was then transferred back to the stretcher where a venodyne was placed on the operative leg. An abduction pillow was placed. Attestation: Case Date: 12/01/2020 I was present and I participated during the entire procedure (does not need to include opening and closing). ALEX CEDILLO MD 12/01/2020 Post-operative Plan: (avoid IV narcotics) ?? 5-10 mg Oxycodone Q 4 hours po PRN ?? for breakthrough pain 15 mg Toradol iv or im q 6 hours (max 4 doses) ?? 1000mg Tylenol po??? q8 hour ?? 600 mg Neurontin po qhs for 2 days followed by 300 mg Neurontin po qhs for 4 weeks (for insomnia) ?? Celebrex 200 mg po q 12 hours while in house with transition to Naprosyn 500mg bid at discharge ?? Protonix 20mg qd x 2 weeks (or other PPI) ?? Zofran 4 mg po/iv q 8 hours PRN nausea ?? AP Pelvis in PACU ?? Perioperative prophylactic antibiotics for the next 24 hours ?? Weight bearing status of operative extremity: Weight bearing as tolerated Posterior hip precautions with an abduction pillow while in bed ?? Wound closure: Subcuticular absorbable suture with skin glue ?? Dressing changes: Mepilex Silver (Do not change for 7 days then a dry sterile dressing). Prineo skin glue to fall off on it's own. ?? Follow-up Plan: As scheduled prior to surgery (approx. 5 weeks with x-rays) ?? Anticoagulation: Warfarin (goal INR ~2) for 30 days and PEPPER ?? Any possible barriers to discharge: None ?? Plan for hospital stay: Standard ?? Anticipated Length of Stay: 1-2 days Implant Summary: Implant Name Type Inv. Item Serial No. Burial Vault Maker Lot No. LRB No. Used Action Trident II Tritanium Multihole Acetabular Shell, 70mm, I IMPLANTS [id number] Left 1 Implanted Arnaldo 6.5mm Low Profile Hex Screw IMPLANTS [id number] Left 1 Implanted Arnaldo 6.5mm Low Profile Hex Screw 25mm IMPLANTS 2PA Left 1 Implanted Arnaldo 6.5mm Low Profile Hex Screw 30mm IMPLANTS [id number] Left 1 Implanted Spencer 6.5mm Low Profile Hex Screw 15mm IMPLANTS [id number] Left 1 Implanted Spencer 6.5mm Low Profile Hex Screw 15mm IMPLANTS [id number] Left 1 Implanted Spencer MDM Liner Cementless, 54mm, I IMPLANTS [id number] Left 1 Implanted Spencer Protestant ADM/MDM X3 Insert for ADM/MDM, 28, 28/60, 54I IMPLANTS [id number] Left 1 Implanted 1 Implanted documented in this encounter Plan of Treatment Scheduled Referrals Name Type Priority Associated Order Schedule Diagnoses Referral for Outpatient Routine s/p left revision Ordered: Anticoagulation Referral LISS (acetabular Monitoring component revision) with Dr. Cedillo 12/01/2020 documented as of this encounter Procedures Procedure Name Priority Date/Time Associated Comments Diagnosis HC VENIPUNCTURE Routine 12/09/2020 3:19 AM Result s for this EST procedure are i n the results section. HC VENIPUNCTURE Routine 12/08/2020 10:22 Results for this AM EST procedure are i n the results section. HC VENIPUNCTURE Routine 12/07/2020 3:21 AM Result s for this EST procedure are i n the results section. HEMOGRAM STAT 12/06/2020 1:25 PM Results f or this EST procedure are i n the results section. DIFFERENTIAL, STAT 12/06/2020 1:25 PM Results for this AUTOMATED EST procedure are i n the results section. HC VENIPUNCTURE STAT 12/06/2020 1:25 PM EST HC VENIPUNCTURE STAT 12/06/2020 1:08 PM Result s for this EST procedure are i n the results section. RAPID COVID-19 PCR Routine 12/06/2020 11:03 Resul ts for this ([facility]) AM EST procedure are in the results section. XR CHEST PA AND Routine 12/06/2020 10:31 Results for this LATERAL AM EST procedure are i n the results section. HC VENIPUNCTURE Routine 12/05/2020 8:50 AM Result s for this EST procedure are i n the results section. HEMOGRAM Routine 12/04/2020 2:44 AM Results f or this EST procedure are i n the results section. DIFFERENTIAL, Routine 12/04/2020 2:44 AM Results for this AUTOMATED EST procedure are i n the results section. HC PROTHROMBIN TIME Routine 12/04/2020 2:44 AM Re sults for this EST procedure are i n the results section. HC VENIPUNCTURE Routine 12/04/2020 2:44 AM EST BASIC METABOLIC PANEL Routine 12/04/2020 2:44 AM Results for this (NON-FASTING) EST procedure are in the results section. HC PCH COBALT, SERUM Routine 12/03/2020 8:25 AM R esults for this EST procedure are i n the results section. HC PCH CHROMIUM LEVEL Routine 12/03/2020 8:25 AM Results for this SERUM EST procedure are i n the results section. HEMOGRAM Routine 12/03/2020 2:52 AM Results f or this EST procedure are i n the results section. DIFFERENTIAL, Routine 12/03/2020 2:52 AM Results for this AUTOMATED EST procedure are i n the results section. HC PROTHROMBIN TIME Routine 12/03/2020 2:52 AM Re sults for this EST procedure are i n the results section. HC CBC,PLT & AUTO Routine 12/03/2020 2:52 AM DIFF EST BASIC METABOLIC PANEL Routine 12/03/2020 2:52 AM Results for this (NON-FASTING) EST procedure are in the results section. HEMOGRAM Routine 12/02/2020 3:50 AM Results f or this EST procedure are i n the results section. DIFFERENTIAL, Routine 12/02/2020 3:50 AM Results for this AUTOMATED EST procedure are i n the results section. HC PROTHROMBIN TIME Routine 12/02/2020 3:50 AM Re sults for this EST procedure are i n the results section. HC VENIPUNCTURE Routine 12/02/2020 3:50 AM EST BASIC METABOLIC PANEL Routine 12/02/2020 3:50 AM Results for this (NON-FASTING) EST procedure are in the results section. XR PELVIS Routine 12/01/2020 6:41 PM Results f or this EST procedure are i n the results section. SURGICAL PATHOLOGY Routine 12/01/2020 4:12 PM Res ults for this REPORT EST procedure are i n the results section. SPECIMEN TO PATHOLOGY Routine 12/01/2020 4:12 PM Results for this EST procedure are i n the results section. @TOTAL HIP REVISION Yes 12/01/2020 3:34 PM failed LISS, mas sive ARTHROPLASTY, EST polywear COMPLETE (WRVU 30.28) TOTAL HIP REVISION Routine 12/01/2020 1:33 PM ARTHROPLASTY, EST COMPLETE IMPLANTABLE DEVICES 12/01/2020 12:00 Resu lts for this SCAN AM EST procedure are i n the results section. documented in this encounter Results (ABNORMAL) Prothrombin Time (12/09/2020 3:19 AM EST) P athologist Signature PT 19.2 (H) 9.4 - 12.5 [facility] LABORATORY INR 1.7 [facility] LABORATORY Comment: An INR <2.0 indicates adequate procoagul ant activity for hemostasis in most patients without underlying bleeding dis orders, though the INR may not adequately reflect hemostatic capacity i n patients with liver disease and synthetic impairment. The recommended ta rget INR range for therapeutic anticoagulation is 2.0 ? 3.0 for most applications, though lower and higher ranges may be appropriate depending on c linical circumstances. Specimen Anatomical Collection Method Collection Time Receive d Time (Source) Location / / Volume Laterality Blood specimen 12/09/2020 3:19 AM 021 4:44 (specimen) EST AM EST Resulting Agency Comment Spec In Lab Alex Cedillo MD HEMATOLOGY ORDERABLES Performing Organization Address City/State/[place] [address] (ABNORMAL) Prothrombin Time (12/08/2020 10:22 AM EST) P athologist Signature PT 18.1 (H) 9.4 - 12.5 [facility] LABORATORY INR 1.6 [facility] LABORATORY Comment: An INR <2.0 indicates adequate procoagul ant activity for hemostasis in most patients without underlying bleeding dis orders, though the INR may not adequately reflect hemostatic capacity i n patients with liver disease and synthetic impairment. The recommended ta rget INR range for therapeutic anticoagulation is 2.0 ? 3.0 for most applications, though lower and higher ranges may be appropriate depending on c linical circumstances. Specimen Anatomical Collection Method Collection Time Receive d Time (Source) Location / / Volume Laterality Blood specimen 12/08/2020 10:22 1 (specimen) AM EST 10:32 AM EST Resulting Agency Comment Spec In Lab Alex Cedillo MD HEMATOLOGY ORDERABLES Performing Organization Address City/State/[place] [address] (ABNORMAL) Prothrombin Time (12/07/2020 3:21 AM EST) P athologist Signature PT 15.6 (H) 9.4 - 12.5 [facility] LABORATORY INR 1.4 [facility] LABORATORY Comment: An INR <2.0 indicates adequate procoagul ant activity for hemostasis in most patients without underlying bleeding dis orders, though the INR may not adequately reflect hemostatic capacity i n patients with liver disease and synthetic impairment. The recommended ta rget INR range for therapeutic anticoagulation is 2.0 ? 3.0 for most applications, though lower and higher ranges may be appropriate depending on c linical circumstances. Specimen Anatomical Collection Method Collection Time Receive d Time (Source) Location / / Volume Laterality Blood specimen 12/07/2020 3:21 AM 021 3:46 (specimen) EST AM EST Resulting Agency Comment Spec In Lab Alex Cedillo MD HEMATOLOGY ORDERABLES Performing Organization Address City/State/ZIP Code Phon e Number [address] (ABNORMAL) Differential, Automated (12/06/2020 1:25 PM EST) Pathjefferson health gist Method Time Signature Neutrophils % 75.6 % [facility] LABORATORY Neutr Abs (ANC) 4.41 1.70 - [facility] 6.10 [facility] x10(3)/[facility] LABORATORY Lymphocytes % 10.5 % [facility] LABORATORY Lymphocytes Abs 0.6 (L) 0.9 - 3.2 [facility] x10(3)/[facility] LABORATORY Monocytes % 9.9 % [facility] LABORATORY Monocyte Abs 0.6 0.3 - 0.9 [facility] x10(3)/[facility] LABORATORY Eosinophils % 3.1 % [facility] LABORATORY Eosinophils Abs 0.2 0.0 - 0.4 [facility] x10(3)/[facility] LABORATORY Basophils % 0.7 % [facility] LABORATORY Basophils Abs 0.0 0.0 - 0.1 [facility] x10(3)/[facility] LABORATORY Immature Gran % 0.20 % [facility] LABORATORY Comment: Immature granulocytes(IG's)percentage an d absolute count will include metamyelocytes, myelocytes, and promyelo cytes. Blood smears from CBCs yielding IG's will be scanned manually for concor dance. If this scan disagrees with the automated IG or if promyelocytes are not ed, a manual differential will be performed. Fadia Gran Abs 0.01 0.00 - 0.04 x10(3)/[facility] LABORATORY Specimen Anatomical Collection Method Collection Time Receive d Time (Source) Location / / Volume Laterality Blood specimen 12/06/2020 1:25 PM 021 1:51 (specimen) EST PM EST Resulting Agency Comment Spec In Lab Radha Helm APRN HEMATOLOGY ORDERABLES Performing Organization Address City/State/[place] [address] (ABNORMAL) Hemogram (12/06/2020 1:25 PM EST) Analysis Performed At Patho logist Time Signature WBC 5.8 4.0 - 9.5 [facility] x10(3)/[facility] LABORATORY RBC 3.58 (L) 4.58 - [facility] 5.54 [facility] x10(6)/[facility] LABORATORY Hemoglobin 10.9 (L) 13.7 - [facility] 16.[facility] g[facility]/dL [facility] LAB[facility]ORY Hematocrit 33.8 (L) 40.5 - [facility] 48.5 % [facility] LABORATORY MCV 94.4 (H) 82.9 - [facility] 93.1 fL [facility] LABORATORY MCH 30.4 27.5 - [facility] 32.1 pg [facility] LABORATORY MCHC 32.2 32.0 - [facility] 35.7 gm/dL [facility] LABORATORY Platelets 221 145 - 357 [facility] x10(3)/[facility] LABORATORY RDWSD 48.1 (H) 36.0 - [facility] 45.[address] [facility] LABORATORY RDWCV 13.8 11.4 - [facility] 13.8 % [facility] LABORATORY MPV 9.4 7.6 - 12.9 [facility] LABORATORY nRBC % Auto 0.0 % [facility] LABORATORY nRBC Abs Auto 0.000 0.000 - [facility] 0.000 [facility] x10(3)/[facility] LABORATORY Specimen Anatomical Collection Method Collection Time Receive d Time (Source) Location / / Volume Laterality Blood specimen 12/06/2020 1:25 PM 021 1:51 (specimen) EST PM EST Resulting Agency Comment Spec In Lab Radha Helm APRN HEMATOLOGY ORDERABLES Performing Organization Address City/[facility] Code Phon e Number [address] (ABNORMAL) Prothrombin Time (12/06/2020 1:08 PM EST) P athologist Signature PT 14.6 (H) 9.4 - 12.5 [facility] LABORATORY INR 1.3 [facility] LABORATORY Comment: An INR <2.0 indicates adequate procoagul ant activity for hemostasis in most patients without underlying bleeding dis orders, though the INR may not adequately reflect hemostatic capacity i n patients with liver disease and synthetic impairment. The recommended ta rget INR range for therapeutic anticoagulation is 2.0 ? 3.0 for most applications, though lower and higher ranges may be appropriate depending on c linical circumstances. Specimen Anatomical Collection Method Collection Time Receive d Time (Source) Location / / Volume Laterality Blood specimen 12/06/2020 1:08 PM 021 1:39 (specimen) EST PM EST Resulting Agency Comment Spec In Lab Radha Helm APRN HEMATOLOGY ORDERABLES Performing Organization Address City/[facility]/ZIP Code Phon e Number [address] COVID-19 PCR (12/06/2020 11:03 AM EST) Patholo gist Method Time Signature SARS-CoV-2 Not Detected Not Detected [facility] RNA PCR [facility] LABORATORY Comment: This result should be interpreted in com bination with the clinical observations, patient history and epidem iological information. For testing of asymptomatic individuals, assay performa nce characteristics and clinical utility have not been evaluated. Testing for SARS-CoV-2 (Severe acute respiratory syndrome coronavirus 2, form erly known as 2019 novel coronavirus or 2019-nCoV) to aid in the diagnosis of CO VID-19 is performed using the Simplexa COVID-19 Direct Assay by [employer] nails as authorized by the FDA issued Emergency Use Authorization (EUA). This assay is intended for In-vitro Diagnostic (IVD) use with nasopharyngeal swabs collected from individuals meeting the CDC criteria for testing. e assay is performed based on the instructions for use and additional guid ance provided by the FDA. Testing is performed in the Microbiology Laboratory within the Department of Pathology and Laboratory Medicine at [facility], certified under the Clinical Laboratory Improvement Amendmen ts of 1988 (CLIA), 42 U.S.C. section 263a, to perform high complexity tests. Assay performance has been verified according to clinical laboratory regulat ory requirements. Test results are provided above. A resul t of Not Detected indicates that the viral RNA target is not present but does not preclude SARS-CoV-2 infection. False negative results may occur if a sp ecimen is improperly collected, transported or handled; if amplification inhibitors are present; or if inadequate numbers of viral particles ar e present in the specimen. A result of Detected suggests a current or recent infection and the patient is presumed to be infected. Positive and negative pr edictive values for this test are highly dependent on disease prevalence. A result of Invalid indicates the inability to conclusively determine the presence or absence of SARS-CoV-2 RNA in the sample which can be due to a vari ety of factors. Recollection is recommended in the case of an invalid re sult. CDC COVID-19 criteria for testing on hum an specimens and clinical management guidance information are available at e CDC Coronavirus Disease 2019 (COVID-19) webpage under Information fo r Healthcare Professionals (https://www.cdc.gov/coronavirus/2019-nc ov/hcp/index.html). Additional information about this and ot her EUA tests can be found in provider and patient fact sheets at the following FDA website: https://www.fda.gov/medical-devices/yxabgoraljs-tpnlgsi-9078-xkbaa-65-iuemuvylw- ldx-mrgjupwpisznyj-dkewlip-devices/stlgr-hdrbcgrodtv-ssoj SARS-CoV-2 Source OVER SHORT AND DAMAGE CLERK Swab [facility] LABORATORY Specimen (Source) Anatomical Collection Method Collection Time Re ceived Time Location / / Volume Laterality Nasopharyngeal swab 12/06/2020 11:03 0202/2021 (specimen) AM EST 11:59 AM EST Comment: Symptoms->Surveillance Resulting Agency Comment Spec In Lab Radha Helm APRN MICROBIOLOGY - GENERAL ORDER ACE Performing Organization Address City/State/[place] [address] XR Chest PA & Lateral (Generic) (12/06/2020 10:31 AM EST) Anatomical Region Laterality Modality Chest N/A Digital Radiography Specimen (Source) Anatomical Location Collection Method / Collectio n Time Received Time / Laterality Volume Impressions 12/06/2020 10:53 AM EST 1. ??Patchy right lower lobe airspace op acity, which the proper clinical setting could represent pneumonia or aspiration. 2. ??Followup PA and lateral radiographs within the Radiology Department are recommended 4-6 weeks posttreatment to d ocument resolution. I have personally reviewed the image(s) and the resident's interpretation and agree with the findings, Isabella Sarmiento at 12/06/2020 10:53 AM Thank you for letting us participate in the care of this patient. For questions regarding this report, please contact e number below. ? Narrative 12/06/2020 10:53 AM EST EXAMINATION: XR CHEST PA AND LATERAL (GENERIC) CLINICAL HISTORY: Persistent oxygen requ irement, diminished lung sounds left. 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 TECHNIQUE: PA and lateral views of the c hest COMPARISON: PA and lateral chest radiogr aphs dated 09/05/2004 FINDINGS: Hazy, patchy opacification at the medial right lung base with mild hilar fullness. ??The left lung is clear. No p leural effusions or pneumothoraces. The trachea is midline. The cardiomedias tinal silhouette is within normal limits. 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 Surgical screws and plate are noted at t he caudal cervical spine. Procedure Note Jae Diane DO - 12/06/2020Formatti ng of this note might be different from the original. EXAMINATION: XR CHEST PA AND LATERAL (GE NERIC) CLINICAL HISTORY: Persistent oxygen requ irement, diminished lung sounds left. 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 TECHNIQUE: PA and lateral views of the c hest COMPARISON: PA and lateral chest radiogr aphs dated 09/05/2004 FINDINGS: Hazy, patchy opacification at the medial right lung base with mild hilar fullness. The left lung is clear. No ple ural effusions or pneumothoraces. The trachea is midline. The cardiomedias tinal silhouette is within normal limits. 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 Surgical screws and plate are noted at t he caudal cervical spine. IMPRESSION 1. Patchy right lower lobe airspace opac ity, which the proper clinical setting could represent pneumonia or aspiration. 2. Followup PA and lateral radiographs w ithin the Radiology Department are recommended 4-6 weeks posttreatment to d ocument resolution. I have personally reviewed the image(s) and the resident's interpretation and agree with the findings, Isabella Sarmiento at 12/06/2020 10:53 AM Thank you for letting us participate in the care of this patient. For questions regarding this report, please contact e number below. Radha Helm APRN IMG DX ORDERABLES (ABNORMAL) Prothrombin Time (12/05/2020 8:50 AM EST) P athologist Signature PT 13.6 (H) 9.4 - 12.5 [facility] LABORATORY INR 1.2 [facility] LABORATORY Comment: An INR <2.0 indicates adequate procoagul ant activity for hemostasis in most patients without underlying bleeding dis orders, though the INR may not adequately reflect hemostatic capacity i n patients with liver disease and synthetic impairment. The recommended ta rget INR range for therapeutic anticoagulation is 2.0 ? 3.0 for most applications, though lower and higher ranges may be appropriate depending on c linical circumstances. Specimen Anatomical Collection Method Collection Time Receive d Time (Source) Location / / Volume Laterality Blood specimen 12/05/2020 8:50 AM 021 8:56 (specimen) EST AM EST Resulting Agency Comment Spec In Lab Alex Cedillo MD HEMATOLOGY ORDERABLES Performing Organization Address City/State/[place] [address] Differential, Automated (12/04/2020 2:44 AM EST) athologist Signature Neutrophils % 70.8 % [facility] LABORATORY Neutr Abs (ANC) 4.75 1.70 - [facility] 6.10 [facility] x10(3)/[facility] LABORATORY Lymphocytes % 15.3 % [facility] LABORATORY Lymphocytes Abs 1.0 0.9 - 3.2 [facility] x10(3)/[facility] LABORATORY Monocytes % 11.2 % [facility] LABORATORY Monocyte Abs 0.8 0.3 - 0.9 [facility] x10(3)/[facility] LABORATORY Eosinophils % 1.9 % [facility] LABORATORY Eosinophils Abs 0.1 0.0 - 0.4 [facility] x10(3)/[facility] LABORATORY Basophils % 0.4 % [facility] LABORATORY Basophils Abs 0.0 0.0 - 0.1 [facility] x10(3)/[facility] LABORATORY Immature Gran % 0.40 % [facility] LABORATORY Comment: Immature granulocytes(IG's)percentage an d absolute count will include metamyelocytes, myelocytes, and promyelo cytes. Blood smears from CBCs yielding IG's will be scanned manually for conctameka danurbano. If this scan disagrees with the automated IG or if promyelocytes are not ed, a manual differential will be performed. Fadia Gran Abs 0.03 0.00 - 0.04 x10(3)/[facility] LABORATORY Specimen Anatomical Collection Method Collection Time Receive d Time (Source) Location / / Volume Laterality Blood specimen 12/04/2020 2:44 AM 021 3:05 (specimen) EST AM EST Resulting Agency Comment Spec In Lab Mami Jo MD HEMATOLOGY ORDERABLES Performing Organization Address City/State/[place] [address] (ABNORMAL) Hemogram (12/04/2020 2:44 AM EST) Analysis Performed At Patho logist Time Signature WBC 6.7 4.0 - 9.5 [facility] x10(3)/[facility] LABORATORY RBC 3.43 (L) 4.58 - [facility] 5.54 [facility] x10(6)/[facility] LABORATORY Hemoglobin 10.6 (L) 13.7 - [facility] 16.5 gm/dL [facility] LABORATORY Hematocrit 33.2 (L) 40.5 - [facility] % [facility] MCV 96.8 (H) 82.9 - [facility] 93.[address] [facility] LABORATORY MCH 30.9 27.5 - [facility] 32.1 pg [facility] LAB[facility]ATORY MCHC 31.9 (L) 32.0 - [facility] 35.[facility] gm/dL [facility] LABORATORY Platelets 149 145 - 357 [facility] x10(3)/[facility] LABORATORY RDWSD 47.9 (H) 36.0 - [facility] 45.[address] [facility] LABORATORY RDWCV 13.5 11.4 - [facility] 13.8 % [facility] LABORATORY MPV 9.7 7.6 - 12.9 [facility] LABORATORY nRBC % Auto 0.0 % [facility] LABORATORY nRBC Abs Auto 0.000 0.000 - [facility] 0.000 [facility] x10(3)/[facility] LABORATORY Specimen Anatomical Collection Method Collection Time Receive d Time (Source) Location / / Volume Laterality Blood specimen 12/04/2020 2:44 AM 021 3:05 (specimen) EST AM EST Resulting Agency Comment Spec In Lab Mami Jo MD HEMATOLOGY ORDERABLES Performing Organization Address City/[facility]/[place] [address] (ABNORMAL) Prothrombin Time (12/04/2020 2:44 AM EST) P athologist Signature PT 12.9 (H) 9.4 - 12.5 [facility] LABORATORY INR 1.1 [facility] LABORATORY Comment: An INR <2.0 indicates adequate procoagul ant activity for hemostasis in most patients without underlying bleeding dis orders, though the INR may not adequately reflect hemostatic capacity i n patients with liver disease and synthetic impairment. The recommended ta rget INR range for therapeutic anticoagulation is 2.0 ? 3.0 for most applications, though lower and higher ranges may be appropriate depending on c linical circumstances. Specimen Anatomical Collection Method Collection Time Receive d Time (Source) Location / / Volume Laterality Blood specimen 12/04/2020 2:44 AM 021 3:05 (specimen) EST AM EST Resulting Agency Comment Spec In Lab Alex Cedillo MD HEMATOLOGY ORDERABLES Performing Organization Address City/State/[place] [address] (ABNORMAL) Basic Metabolic Panel (non-fasting) (12/04/2020 2:44 AM EST) P athologist Signature Glucose Lvl 118 65 - 199 [facility] mg/dL [facility] LABORATORY Comment: Diabetes: >=200 mg/dL plus symp toms BUN 23 (H) 10 - 20 mg/dL [facility] LABORATORY Creatinine 0.76 (L) 0.80 - 1.50 mg/dL [facility] LABORATORY Sodium 135 135 - 145 mmol/L [facility] LABORATORY Potassium 4.5 3.5 - 5.0 mmol/L [facility] LABORATORY Comment: Please note: ??Patients with WBC >100,00 0 may have falsely elevated Potassium levels. ??For accurate Potassium quantif ication in these patients send serum separator tube (gold top) for subsequent determinations. ??Contact the Clinical Chemistry Laboratory if there are any qu estions. Chloride 101 98 - 107 mmol/L [facility] LABORATORY CO2 27 22 - 31 mmol/L [facility] LABORATORY Anion Gap 7 5 - 15 mmol/L [facility] LABORATORY Calcium 8.7 8.5 - 10.5 mg/dL [facility] LABORATORY Estimated GFR 99 >=60 mL/min/1.73 m?? [facility] LABORATORY Comment: This patient? s estimated glomerular filtration rate (eGFR) is between 99 mL/min/1.73 m2 (patients with less muscl e mass per kg body weight) and 115 mL/min/1.73 m2 (patients with more muscl e mass per kg body weight) as determined by the CKD-EPI equation. Asse ssment of eGFR is not appropriate when creatinine concentrations are rapidly ch anging. For clinical decisions where creatinine clearance will affect therapy , a 24-hour urine creatinine clearance may be advised. Assignment of CKD stage 1 ? 5 for patients with an eGFR near the transition point between stages may be based on cli nical assessment of muscle mass and symptoms in addition to eGFR. Specimen Anatomical Collection Method Collection Time Receive d Time (Source) Location / / Volume Laterality Blood specimen 12/04/2020 2:44 AM 021 3:06 (specimen) EST AM EST Resulting Agency Comment Spec In Lab Alex Cedillo MD CHEMISTRY ORDERABLES Performing Organization Address City/State/[place] [address] [facility] [address] Chromium level (12/03/2020 8:25 AM EST) P athologist Signature Chromium 0.3 <0.3 ng/mL [facility] LABORATORY Comment: ADDITIONAL INFORMATIO N This test was developed and its performa nce characteristics determined by [facility] in a manner co nsistent with CLIA requirements. This test has not been erin ared or approved by the U.S. Food and Drug Administration. Test Performed by: [facility] [address] [facility] [place] [address] Rn Clinical Research: Pavel Richards M.D. Ph. D.; CLIA# [id number] Specimen Anatomical Collection Method Collection Time Receive d Time (Source) Location / / Volume Laterality Blood specimen 12/03/2020 8:25 AM 021 (specimen) EST 11:54 AM EST Resulting Agency Comment Spec In Lab Alex Cedillo MD CHEMISTRY ORDERABLES Performing Organization Address City/State/[place] [address] [facility] [address] Dodson Lvl (12/03/2020 8:25 AM EST) P athologist Signature Dodson Lvl 0.2 ng/mL [facility] LABORATORY Comment: REFERENCE VALUE------ 0.0-0.9 <10 (MoM implant) ADDITIONAL INFORMATIO N This test was developed and its performa nce characteristics determined by [facility] in a manner co nsistent with CLIA requirements. This test has not been erin ared or approved by the U.S. Food and Drug Administration. Test Performed by: [facility] [facility] [address] [place] [address] Rn Clinical Research: Pavel Richards M.D. Ph. D.; CLIA# [id number] Specimen Anatomical Collection Method Collection Time Receive d Time (Source) Location / / Volume Laterality Blood specimen 12/03/2020 8:25 AM 021 (specimen) EST 11:54 AM EST Resulting Agency Comment Spec In Lab Alex Cedillo MD CHEMISTRY ORDERABLES Performing Organization Address City/State/[place] [address] Differential, Automated (12/03/2020 2:52 AM EST) athologist Signature Neutrophils % 73.6 % [facility] LABORATORY Neutr Abs (ANC) 4.81 1.70 - [facility] 6.10 [facility] x10(3)/[facility] LABORATORY Lymphocytes % 13.9 % [facility] LABORATORY Lymphocytes Abs 0.9 0.9 - 3.2 [facility] x10(3)/[facility] LABORATORY Monocytes % 10.6 % [facility] LABORATORY Monocyte Abs 0.7 0.3 - 0.9 [facility] x10(3)/[facility] LABORATORY Eosinophils % 1.4 % [facility] LABORATORY Eosinophils Abs 0.1 0.0 - 0.4 [facility] x10(3)/[facility] LABORATORY Basophils % 0.3 % [facility] LABORATORY Basophils Abs 0.0 0.0 - 0.1 [facility] x10(3)/[facility] LABORATORY Immature Gran % 0.20 % [facility] LABORATORY Comment: Immature granulocytes(IG's)percentage an d absolute count will include metamyelocytes, myelocytes, and promyelo cytes. Blood smears from CBCs yielding IG's will be scanned manually for concor dance. If this scan disagrees with the automated IG or if promyelocytes are not ed, a manual differential will be performed. Fadia Gran Abs 0.01 0.00 - 0.04 x10(3)/[facility] LABORATORY Specimen Anatomical Collection Method Collection Time Receive d Time (Source) Location / / Volume Laterality Blood specimen 12/03/2020 2:52 AM 021 3:06 (specimen) EST AM EST Resulting Agency Comment Spec In Lab Mami Jo MD HEMATOLOGY ORDERABLES Performing Organization Address City/State/[place] [address] (ABNORMAL) Hemogram (12/03/2020 2:52 AM EST) Analysis Performed At Patho logist Time Signature WBC 6.5 4.0 - 9.5 [facility] x10(3)/[facility] LABORATORY RBC 3.85 (L) 4.58 - [facility] 5.54 [facility] x10(6)/[facility] LABORATORY Hemoglobin 11.9 (L) 13.7 - [facility]/dL [facility] Hematocrit 37.1 (L) 40.5 - [facility] MCV 96.4 (H) 82.9 - [facility] [facility] LABORATORY MCH 30.9 27.5 - [facility] pg [facility] LAB[facility] MCHC 32.1 32.0 - [facility] 35.7 gm/dL [facility] LABOR[facility]ORY Platelets 143 (L) 145 - 357 [facility] x10(3)/[facility] LABORATORY RDWSD 47.3 (H) 36.0 - [facility] [facility] LABORATORY RDWCV 13.2 11.4 - [facility] 13.8 % [facility] LABORATORY MPV 9.4 7.6 - 12.9 [facility] LABORATORY nRBC % Auto 0.0 % [facility] LABORATORY nRBC Abs Auto 0.000 0.000 - [facility] 0.000 [facility] x10(3)/[facility] LABORATORY Specimen Anatomical Collection Method Collection Time Receive d Time (Source) Location / / Volume Laterality Blood specimen 12/03/2020 2:52 AM 021 3:06 (specimen) EST AM EST Resulting Agency Comment Spec In Lab Mami Jo MD HEMATOLOGY ORDERABLES Performing Organization Address City/State/[place] [address] (ABNORMAL) Prothrombin Time (12/03/2020 2:52 AM EST) P athologist Signature PT 12.9 (H) 9.4 - 12.5 [facility] LABORATORY INR 1.1 [facility] LABORATORY Comment: An INR <2.0 indicates adequate procoagul ant activity for hemostasis in most patients without underlying bleeding dis orders, though the INR may not adequately reflect hemostatic capacity i n patients with liver disease and synthetic impairment. The recommended ta rget INR range for therapeutic anticoagulation is 2.0 ? 3.0 for most applications, though lower and higher ranges may be appropriate depending on c linical circumstances. Specimen Anatomical Collection Method Collection Time Receive d Time (Source) Location / / Volume Laterality Blood specimen 12/03/2020 2:52 AM 021 3:06 (specimen) EST AM EST Resulting Agency Comment Spec In Lab Alex Cedillo MD HEMATOLOGY ORDERABLES Performing Organization Address City/State/ZIP Code Phon e Number [place] [id number] Drive (ABNORMAL) Basic Metabolic Panel (non-fasting) (12/03/2020 2:52 AM EST) athologist Signature Glucose Lvl 123 65 - 199 [facility] mg/dL [facility] LAB[facility]ORY Comment: Diabetes: >=200 mg/dL plus symp toms BUN 19 10 - 20 mg/dL [facility] LABORATORY Creatinine 0.67 (L) 0.80 - 1.50 mg/dL [facility] LABORATORY Sodium 134 (L) 135 - 145 mmol/L [facility] LABORATORY Potassium 4.5 3.5 - 5.0 mmol/L [facility] LABORATORY Comment: Please note: ??Patients with WBC >100,00 0 may have falsely elevated Potassium levels. ??For accurate Potassium quantif ication in these patients send serum separator tube (gold top) for subsequent determinations. ??Contact the Clinical Chemistry Laboratory if there are any qu estions. Chloride 101 98 - 107 mmol/L [facility] LABORATORY CO2 28 22 - 31 mmol/L [facility] LABORATORY Anion Gap 5 5 - 15 mmol/L [facility] LABORATORY Calcium 9.0 8.5 - 10.5 mg/dL [facility] LABORATORY Estimated GFR 104 >=60 mL/min/1.73 m?? [facility] LABORATORY Comment: This patient? s estimated glomerular filtration rate (eGFR) is between 104 mL/min/1.73 m2 (patients with less muscl e mass per kg body weight) and 121 mL/min/1.73 m2 (patients with more muscl e mass per kg body weight) as determined by the CKD-EPI equation. Asse ssment of eGFR is not appropriate when creatinine concentrations are rapidly ch anging. For clinical decisions where creatinine clearance will affect therapy , a 24-hour urine creatinine clearance may be advised. Assignment of CKD stage 1 ? 5 for patients with an eGFR near the transition point between stages may be based on cli nical assessment of muscle mass and symptoms in addition to eGFR. Specimen Anatomical Collection Method Collection Time Receive d Time (Source) Location / / Volume Laterality Blood specimen 12/03/2020 2:52 AM 021 3:07 (specimen) EST AM EST Resulting Agency Comment Spec In Lab Alex Cedillo MD CHEMISTRY ORDERABLES Performing Organization Address City/State/[place] [address] (ABNORMAL) Differential, Automated (12/02/2020 3:50 AM EST) [facility] gist Method Time Signature Neutrophils % 81.6 % [facility] LABORATORY Neutr Abs (ANC) 7.28 (H) 1.70 - [facility] 6.10 [facility] x10(3)/[facility] LABORATORY Lymphocytes % 10.1 % [facility] LABORATORY Lymphocytes Abs 0.9 0.9 - 3.2 [facility] x10(3)/[facility] LABORATORY Monocytes % 6.8 % [facility] LABORATORY Monocyte Abs 0.6 0.3 - 0.9 [facility] x10(3)/[facility] LABORATORY Eosinophils % 0.9 % [facility] LABORATORY Eosinophils Abs 0.1 0.0 - 0.4 [facility] x10(3)/[facility] LABORATORY Basophils % 0.3 % [facility] LABORATORY Basophils Abs 0.0 0.0 - 0.1 [facility] LABORATORY Immature Gran % 0.30 % [facility] LABORATORY Comment: Immature granulocytes(IG's)percentage an d absolute count will include metamyelocytes, myelocytes, and promyelo cytes. Blood smears from CBCs yielding IG's will be scanned manually for concor dance. If this scan disagrees with the automated IG or if promyelocytes are not ed, a manual differential will be performed. Fadia Gran Abs 0.03 0.00 - 0.04 x10(3)/[facility] LABORATORY Specimen Anatomical Collection Method Collection Time Receive d Time (Source) Location / / Volume Laterality Blood specimen 12/02/2020 3:50 AM 021 4:25 (specimen) EST AM EST Resulting Agency Comment Spec In Lab Mami Jo MD HEMATOLOGY ORDERABLES Performing Organization Address City/State/[place] [address] (ABNORMAL) Hemogram (12/02/2020 3:50 AM EST) Analysis Performed At Patho logist Time Signature WBC 8.9 4.0 - 9.5 [facility] x10(3)/[facility] LABORATORY RBC 4.24 (L) 4.58 - [facility] 5.54 [facility] x10(6)/[facility] LABORATORY Hemoglobin 13.0 (L) 13.7 - [facility]m/dL [facility] LAB[facility]ORY Hematocrit 40.4 (L) 40.5 - [facility] 48.5 % [facility] LABORATORY MCV 95.3 (H) 82.9 - [facility] 93.[address] [facility] LABORATORY MCH 30.7 27.5 - [facility] 32.1 pg [facility] LABORATORY MCHC 32.2 32.0 - [facility] 35.7 gm/dL [facility] LABORATORY Platelets 180 145 - 357 [facility] x10(3)/[facility] LABORATORY RDWSD 47.0 (H) 36.0 - [facility] 45.[address] [facility] LABORATORY RDWCV 13.2 11.4 - [facility] 13.8 % [facility] LABORATORY MPV 9.7 7.6 - 12.9 [facility] LABORATORY nRBC % Auto 0.0 % [facility] LABORATORY nRBC Abs Auto 0.000 0.000 - [facility] 0.000 [facility] x10(3)/[facility] LABORATORY Specimen Anatomical Collection Method Collection Time Receive d Time (Source) Location / / Volume Laterality Blood specimen 12/02/2020 3:50 AM 021 4:25 (specimen) EST AM EST Resulting Agency Comment Spec In Lab Mami Jo MD HEMATOLOGY ORDERABLES Performing Organization Address City/[facility]/ZIP Code Phon e Number [address] Prothrombin Time (12/02/2020 3:50 AM EST) P athologist Signature PT 12.5 9.4 - 12.5 [facility] LABORATORY INR 1.1 [facility] LABORATORY Comment: An INR <2.0 indicates adequate procoagul ant activity for hemostasis in most patients without underlying bleeding dis orders, though the INR may not adequately reflect hemostatic capacity i n patients with liver disease and synthetic impairment. The recommended ta rget INR range for therapeutic anticoagulation is 2.0 ? 3.0 for most applications, though lower and higher ranges may be appropriate depending on c linical circumstances. Specimen Anatomical Collection Method Collection Time Receive d Time (Source) Location / / Volume Laterality Blood specimen 12/02/2020 3:50 AM 021 4:25 (specimen) EST AM EST Resulting Agency Comment Spec In Lab Alex Cedillo MD HEMATOLOGY ORDERABLES Performing Organization Address City/[facility]/[place] [address] (ABNORMAL) Basic Metabolic Panel (non-fasting) (12/02/2020 3:50 AM EST) P athologist Signature Glucose Lvl 132 65 - 199 [facility] mg/dL [facility] LAB[facility]ORY Comment: Diabetes: >=200 mg/dL plus symp toms BUN 21 (H) 10 - 20 mg/dL [facility] LABORATORY Creatinine 0.94 0.80 - 1.50 mg/dL [facility] LABORATORY Sodium 137 135 - 145 mmol/L [facility] LABORATORY Potassium 4.7 3.5 - 5.0 mmol/L [facility] LABORATORY Comment: Please note: ??Patients with WBC >100,00 0 may have falsely elevated Potassium levels. ??For accurate Potassium quantif ication in these patients send serum separator tube (gold top) for subsequent determinations. ??Contact the Clinical Chemistry Laboratory if there are any qu estions. Chloride 103 98 - 107 mmol/L [facility] LABORATORY CO2 26 22 - 31 mmol/L [facility] LABORATORY Anion Gap 8 5 - 15 mmol/L [facility] LABORATORY Calcium 8.2 (L) 8.5 - 10.5 mg/dL [facility] LABORATORY Estimated GFR 88 >=60 mL/min/1.73 m?? [facility] LABOR[facility]ORY Comment: This patient? s estimated glomerular filtration rate (eGFR) is between 88 mL/min/1.73 m2 (patients with less muscl e mass per kg body weight) and 102 mL/min/1.73 m2 (patients with more muscl e mass per kg body weight) as determined by the CKD-EPI equation. Asse ssment of eGFR is not appropriate when creatinine concentrations are rapidly ch anging. For clinical decisions where creatinine clearance will affect therapy , a 24-hour urine creatinine clearance may be advised. Assignment of CKD stage 1 ? 5 for patients with an eGFR near the transition point between stages may be based on cli nical assessment of muscle mass and symptoms in addition to eGFR. Specimen Anatomical Collection Method Collection Time Receive d Time (Source) Location / / Volume Laterality Blood specimen 12/02/2020 3:50 AM 021 4:25 (specimen) EST AM EST Resulting Agency Comment Spec In Lab Alex Cedillo MD CHEMISTRY ORDERABLES Performing Organization Address City/State/[place] [address] XR Pelvis (Generic) (12/01/2020 6:41 PM EST) Anatomical Region Laterality Modality Pelvis N/A Digital Radiography Specimen (Source) Anatomical Location Collection Method / Collectio n Time Received Time / Laterality Volume Impressions 12/01/2020 6:43 PM EST Post revision of LEFT total hip arthroplasty, with revision of the acetabular component. No radiographic evidence of complication . Stable appearance of RIGHT total hip art hroplasty, as visualized. Thank you for letting us participate in the care of this patient. For questions regarding this report, please contact e number below. ? Narrative 12/01/2020 6:43 PM EST EXAMINATION: XR PELVIS (GENERIC) CLINICAL HISTORY: s/p left LISS revision (acetabular component only), in pacu TECHNIQUE: 1 views of the pelvis COMPARISON: 09/23/2020 FINDINGS: Post revision of LEFT total hip arthropl asty, with revision of the acetabular component. No radiographic evidence of complication . Stable appearance of RIGHT total hip art hroplasty, as visualized. Procedure Note Jono Rivero MD - 12/01/2020Form atting of this note might be different from the original. EXAMINATION: XR PELVIS (GENERIC) CLINICAL HISTORY: s/p left LISS revision (acetabular component only), in pacu TECHNIQUE: 1 views of the pelvis COMPARISON: 09/23/2020 FINDINGS: Post revision of LEFT total hip arthropl asty, with revision of the acetabular component. No radiographic evidence of complication . Stable appearance of RIGHT total hip art hroplasty, as visualized. IMPRESSION Post revision of LEFT total hip arthropl asty, with revision of the acetabular component. No radiographic evidence of complication . Stable appearance of RIGHT total hip art hroplasty, as visualized. Thank you for letting us participate in the care of this patient. For questions regarding this report, please contact e number below. Alex Cedillo MD IMG DX ORDERABLES Surgical Pathology Report (12/01/2020 4:12 PM EST) Component Value Ref Test Analysis Performed At [facility] gist Range Method Time Signature Surgical [id number] ? Location: 3WST; 0305; [facility] Report The signing pathologist has (i) examined the relevant preparation(s) for the [facility] specimen(s) and (ii) rendered or confirmed the diagnosis(es) . HOSPITAL LABORATORY . ?Surgic al Pathology DIAGNOSIS A - Soft tissue, scar and synovium, left hip, excision - Synovium with papillary hy perplasia and prominent prosthetic wear debris reaction. - Fibrosis, hyalinization, and focal necrosis. Electronically signed by: ??Argenis Angulo MD Verified: ??12/10/2020 ?Pathologist Performed at: ??-[facility], [place], [place] SPECIMEN(S) SUBMITTED A - Soft tissue, scar and synovium, left hip, excision CLINICAL INFORMATION Failed LISS, massive polywear SPECIMEN PROCESSING A - Labeled/Fixative: Scar and synovium left hip, formalin. Quantity/Size: Fragments, aggregating 5.7 x 4.5 x 2.3 cm. Tissue Description: Irregular, nielson-quintanilla soft to rubbery tiss ues. Sections/Processing: [employer] sections in 4 cassettes labeled A1-A4. ??pps Specimen (Source) Anatomical Collection Method Collection Time Re ceived Time Location / / Volume Laterality 12/01/2020 4:12 PM EST Alex Cedillo MD PATHOLOGY/CYTOLOGY ORDERABLE S Performing Organization Address City/State/[place] [address] Specimen to Pathology (12/01/2020 4:12 PM EST) Specimen Anatomical Collection Method Collection Time Receive d Time (Source) Location / / Volume Laterality AP Specimen 12/01/2020 4:12 PM 4:12 EST PM EST Narrative [facility] LABORAT ORY - 12/01/2020 4:12 PM EST Specimen requisition ordered. ??Separate Pathology report to follow Alex Cedillo MD PATHOLOGY/CYTOLOGY ORDERABLE S Performing Organization Address City/State/[place] [address] SCAN DOC: IMPLANTABLE DEVICES (12/01/2020 12:00 AM EST) Narrative 12/01/2020 12:00 AM EST This result has an attachment that is no t available. Ordered by an unspecified provider. Scanning Provider MEDIA MGR SCAN EXT ORDR/RSLT documented in this encounter Visit Diagnoses Diagnosis s/p left revision LISS (acetabular compon ent revision) with Dr. Cedillo 12/01/2020 Postoperative anemia due to acute blood loss Acute posthemorrhagic anemia Aspiration pneumonia Pneumonitis due to inhalation of food or vomitus documented in this encounter Admitting Diagnoses Diagnosis History of total hip arthroplasty, left documented in this encounter Administered Medications Inactive Administered Medications - up to 3 most recent administrations Medication Order MAR Action Action Date Dose Rate Site acetaminophen (Tylenol) tablet Given 12/01/2020 2:20 PM EST 1,00 0 mg 1,000 mg 1,000 mg, Oral, ONCE, 1 dose, On Sun12/01/20 at 1415, Administer on arrival in Same Day Program, Day of Surgery (Day of Procedure), Routine acetaminophen (Tylenol) tablet 1,000 mg Given 12/02/2020 5:10 AM EST 1,000 mg 1,000 mg, Oral, EVERY 8 HOURS SCHEDULED, First dose on Sun12/01/20 at 2200, Until Discontinued, Maximum dose of acetaminophen is 4000 mg from all sources in 24 hours. When ordered for pain, acetaminophen should be given even when other ordered pain medications are indicated. , Routine Given 12/02/2020 12:57 AM EST 1,000 mg acetaminophen (Tylenol) tablet 1,000 mg Given 12/09/2020 5:53 AM EST 1,000 mg 1,000 mg, Oral, EVERY 6 HOURS SCHEDULED, First dose (after last modification) on Mercedes 12/02/20 at 1200, Until Discontinued, Maximum dose of acetaminophen is 4000 mg from all sources in 24 hours. When ordered for pain, acetaminophen should be given even when other ordered pain medications are indicated. , Routine Given 12/08/2020 11:49 PM EST 1,000 mg Given 12/08/2020 5:17 PM EST 1,000 mg amoxicillin-clavulanate (Augmentin) 875-125 Given 11/22 8:10 AM EST 1 tablet mg per tablet 1 tablet 1 tablet, Oral, 2 TIMES DAILY, 10 doses, First dose on Sun12/06/20 at 0800, Last dose on Sun12/10/20 at 2000, Routine Given 12/08/2020 7:45 PM EST 1 tablet Given 12/08/2020 7:51 AM EST 1 tablet atorvastatin (Lipitor) tablet 10 mg Given 12/08/2020 5:17 PM EST 10 mg 10 mg, Oral, EVERY EVENING, First dose on Mercedes 12/02/20 at 1700, Until Discontinued Given 12/07/2020 5:07 PM EST 10 mg Given 12/06/2020 4:35 PM EST 10 mg bisacodyL (Dulcolax) suppository 10 mg Given 12/04/2020 2:39 PM EST 10 mg 10 mg, Rectal, DAILY PRN, Starting on Mercedes 12/02/20 at 0037, Until Mercedes 12/09/20 at 1326, Constipation, Administer if needed per patient's routine or if no bowel movement within 48 hours to achieve: (1) One bowel movement every 48 hours, AND (2) without straining. If multiple PRN bowel medications ordered, start with lactulose, then oral bisacodyl, then bisacodyl suppository. Multiple medications may be given concomitantly for constipation., Routine bisacodyl EC (Dulcolax) tablet 10 mg Given 12/04/2020 9:36 AM EST 10 mg 10 mg, Oral, 2 TIMES DAILY PRN, Starting on Mercedes 12/02/20 at 0037, Until Mercedes 12/09/20 at 1326, Constipation, DO NOT CRUSH OR OPEN Administer if needed per patient's routine or if no bowel movement within 48 hours to achieve: (1) One bowel movement every 48 hours, AND (2) without straining. If multiple PRN bowel medications ordered, start with lactulose, then oral bisacodyl, then bisacodyl suppository. Multiple medications may be given concomitantly for constipation., Routine budesonide-formoteroL (SYMBICORT) Given 12/09/2020 9:32 AM EST 2 Inhalation 160-4.5 mcg/actuation inhaler 2 Inhalation 2 Inhalation, Inhalation, 2 TIMES DAILY, First dose on Sun12/02/20 at 0130, Until Discontinued, Routine Given 12/08/2020 9:30 PM EST 2 Inhalation Given 12/08/2020 9:51 AM EST 2 Inhalation calcium carbonate (Tums) chewable tablet Given 12/04/2020 12 :30 PM EST 1,000 mg 500-1,000 mg 500-1,000 mg, Oral, EVERY 4 HOURS PRN, Starting on Sun12/02/20 at 1048, Until Sun12/09/20 at 1326, Heartburn, Give 500 mg (1 tablet) for mild to moderate heartburn. Give 1,000 mg (2 tablets) for severe heartburn., Routine Given 12/02/2020 8:12 PM EST 500 mg Given 12/02/2020 4:14 PM EST 1,000 mg ceFAZolin (Ancef) 2 g in dextrose 5% Given 12/02/2020 11:31 AM EST 2 g 200 mL/hr 100 mL infusion 2 g, Intravenous, EVERY 8 HOURS, 3 doses, First dose on Sun12/01/20 at 2000, Last dose on Sun12/02/20 at 1200, Administer over 30 Minutes, Adjust to 4 hours from intraoperative dose. * Beta-lactam based antibiotics (eg. Ampicillin, Cefazolin, Aztreonam) should be administered within 4 hours of the preceding intraoperative dose. * Vancomycin, Fluoroquinolones, Clindamycin, Gentamicin, and Metronidazole should be administered within 8 hours of the preceding intraoperative dose., Recovery (Recovery-Hospital Unit), Indication for (Active or Suspected): Prophylaxis Given 12/02/2020 3:14 AM EST 2 g 200 mL/hr Given 12/01/2020 7:57 PM EST 2 g 200 mL/hr celecoxib (CeleBREX) capsule 200 mg Given 12/09/2020 9:32 AM EST 200 mg 200 mg, Oral, 2 TIMES DAILY, First dose on Sun12/02/20 at 0900, Until Discontinued, Routine Given 12/08/2020 9:30 PM EST 200 mg Given 12/08/2020 9:51 AM EST 200 mg celecoxib (CeleBREX) capsule 400 mg Given 12/01/2020 2:19 PM EST 400 mg 400 mg, Oral, ONCE, 1 dose, On Sun12/01/20 at 1415, Administer on arrival to Same Day Program, Day of Surgery (Day of Procedure), Routine gabapentin (Neurontin) capsule 300 mg Given 12/08/2020 9:30 PM EST 300 mg 300 mg, Oral, NIGHTLY, First dose on Sun12/03/20 at 2100, Until Discontinued, Routine Given 12/07/2020 8:24 PM EST 300 mg Given 12/06/2020 8:43 PM EST 300 mg gabapentin (Neurontin) capsule 600 mg Given 12/01/2020 2:20 PM EST 600 mg 600 mg, Oral, ONCE, 1 dose, On Sun12/01/20 at 1415, Administer on arrival in Same Day Program, Day of Surgery (Day of Procedure), Routine gabapentin (Neurontin) capsule 600 mg Given 12/02/2020 8:11 PM EST 600 mg 600 mg, Oral, NIGHTLY, 2 doses, First dose on Sun12/01/20 at 2100, Last dose on Sun12/02/20 at 2100, Routine Given 12/01/2020 8:50 PM EST 600 mg hydroCHLOROthiazide (Hydrodiuril) tablet Given 12/08/2020 11:42 AM EST 12.5 mg 12.5 mg 12.5 mg, Oral, DAILY AT NOON, First dose on Sun12/02/20 at 1200, Until Discontinued, Hold for SBP <130, Routine Given 12/07/2020 12:05 PM EST 12.5 mg Given 12/05/2020 11:36 AM EST 12.5 mg HYDROmorphone (Dilaudid) (2 mg/mL) Given 12/01/2020 11:12 PM EST 0.4 mg multi-dose injection solution 0.2-0.4 mg 0.2-0.4 mg, Intravenous, EVERY 5 MIN PRN, Starting on Sun12/01/20 at 1809, Until Sun12/01/20 at 2353, Pain, Give 0.2 mg every 5 minutes PRN for mild to moderate pain (1-5) Give 0.4 mg every 5 minutes PRN for moderate to severe pain (6-10). Hold for respiratory rate less than 10 per minute. Maximum dose 2 mg over one hour. If multiple pain medications are ordered, start with hydromorphone or morphine and use fentanyl for breakthrough pain., PACU Recovery, Routine Given 12/01/2020 11:00 PM EST 0.4 mg Given 12/01/2020 8:23 PM EST 0.2 mg HYDROmorphone (Dilaudid) tablet 2 mg Given 12/02/2020 3:47 PM EST 2 mg 2 mg, Oral, ONCE, 1 dose, On Sun12/02/20 at 1630, One time extra dose, STAT HYDROmorphone (Dilaudid) tablet 2-4 mg Given 12/09/2020 9:32 AM EST 4 mg 2-4 mg, Oral, EVERY 4 HOURS PRN, Starting on Sun12/02/20 at 0830, Until Sun12/09/20 at 1326, Pain, 2mg for mild - moderate pain 1-6 OR 4mg for severe pain 7-10, Routine Given 12/09/2020 3:57 AM EST 4 mg Given 12/08/2020 11:49 PM EST 4 mg ipratropium-albuteroL (DUONEB) 0.5 mg-3 mg(2.5 Given 0 12/01/2020 2:39 PM EST 3 mLs mg base)/3 mL nebulizer solution 3 mL 3 mL, Nebulization, ONCE, 1 dose, On Sun12/01/20 at 1500, Routine ipratropium-albuteroL (DUONEB) 0.5 mg-3 mg(2.5 Given 0 12/09/2020 8:10 AM EST 3 mLs mg base)/3 mL nebulizer solution 3 mL 3 mL, Nebulization, EVERY 4 HOURS SCHEDULED, First dose on Sun12/02/20 at 1100, Until Discontinued, Routine Given 12/09/2020 3:57 AM EST 3 mLs Given 12/08/2020 11:49 PM EST 3 mLs ketorolac (Toradol) (15 mg/mL) injection 15 Given 12/01/2020 10:58 PM EST 15 mg mg 15 mg, Intravenous, EVERY 6 HOURS PRN, Starting on Sun12/01/20 at 2255, Until Sun12/02/20 at 0036, Pain, Routine lactated ringers infusion New Bag 12/01/2020 5:01 PM EST 1,000 mL, at 100 mL/hr, Intravenous, CONTINUOUS, Starting on Sun12/01/20 at 1415, Until Sun12/01/20 at 2353, Day of Surgery (Day of Procedure) New Bag 12/01/2020 2:22 PM EST 1,000 mLs 100 mL/hr lidocaine (Lidoderm) 5% Patch Applied 12/09/2020 8:09 AM 3 patches 15- Thigh topical patch 3 patch EST Anterior (Left) 3 patch, Transdermal, EVERY 24 HOURS, First dose on Sun12/02/20 at 0745, Until Discontinued, Apply patch(es) for 12 hours, and then remove for 12 hours., Routine Patch Applied 12/08/2020 7:51 AM EST 3 patches 15- Thigh Anterior (Left) Patch Applied 12/07/2020 9:20 AM EST 3 patches 15- Thigh Anterior (Left) lidocaine (Lidoderm) topical patch REMOV AL Transdermal, EVERY 24 HOURS, First dose on Sun12/02/20 at 1900, Until Discontinued, Remove lidocaine 5 %(700 mg/patch) patch lidocaine (Xylocaine) 1% (10 mg/mL) injection 3 Given 12/01/2020 2:22 PM EST 3 mg mg 3 mg (0.3 mL), Subcutaneous, ONCE PRN, 1 dose, Starting on Sun12/01/20 at 1347, Until Sun12/01/20 at 1422, for discomfort with PIV insertion, Day of Surgery (Day of Procedure), Routine lisinopriL (Prinivil;Zestril) tablet 10 mg Given 12/08/2020 11:42 AM EST 10 mg 10 mg, Oral, DAILY AT NOON, First dose on Sun12/02/20 at 1200, Until Discontinued, Hold for SBP <120, Routine Given 12/07/2020 12:06 PM EST 10 mg Given 12/05/2020 11:36 AM EST 10 mg multivitamin with minerals (THERA-M) tablet Given 11/22 9:32 AM EST 1 tablet 1 tablet 1 tablet, Oral, DAILY, First dose on Sun12/02/20 at 0900, Until Discontinued, Routine Given 12/08/2020 9:51 AM EST 1 tablet Given 12/07/2020 9:22 AM EST 1 tablet nicotine (NICODERM CQ) Patch Applied 12/04/2020 9:35 AM 21 mg 04- Shoulder 21 mg/24 hr patch 21 mg EST (Right) 21 mg (1 patch), Transdermal, DAILY, First dose on Sun12/02/20 at 0930, Until Discontinued, Apply new patch to nonhairy, clean, dry skin on the upper body or upper outer arm; each patch should be applied to a different site , Routine Patch Applied 12/03/2020 7:51 AM EST 21 mg 04- Shoulder (Right) Patch Applied 12/02/2020 9:20 AM EST 21 mg 03- Shoulder (Left) nicotine (NICODERM CQ) 21 mg/24 hr patch Patch Removal Transdermal, DAILY, First dose on 10/11 at 0815, Until Discontinued, Remove nicotine 21 mg/24 hr patch nicotine (NICODERM CQ) 21 mg/24 hr patch Patch Verification Transdermal, 2 TIMES DAILY, First dose o n Sun12/02/20 at 2015, Until Discontinued, Verify nicotine 21 mg/24 hr patch nicotine polacrilex (COMMIT) lozenge 4 m g 4 mg, Buccal, EVERY 2 HOURS PRN, Startin g on Sun12/02/20 at 0814, Until Sun12/09/20 at 1326, Smoking cessation, Do not chew or swallow. Pl parker in mouth and allow to slowly dissolve., Routine nicotine polacrilex (NICORETTE) gum 2 mg 2 mg, Buccal, EVERY 2 HOURS PRN, Startin g on Sun12/02/20 at 0814, Until Sun12/09/20 at 1326, Smoking cessation, Chew gum slo wly. Do not swallow. Maximum of 48 mg/day., Routine oxyCODONE (Roxicodone) tablet 10 mg Given 12/02/2020 5:10 AM EST 10 mg 10 mg, Oral, EVERY 4 HOURS PRN, Starting on Sun12/01/20 at 1836, Until Sun12/02/20 at 0643, Pain, severe pain (7-10), Routine Given 12/01/2020 8:49 PM EST 10 mg oxyCODONE (Roxicodone) tablet 5 mg Given 12/02/2020 12:57 AM EST 5 mg 5 mg, Oral, EVERY 4 HOURS PRN, Starting on Sun12/01/20 at 1836, Until Sun12/02/20 at 0643, Pain, mild to moderate pain (1-6), May give an additional 5 mg in 30 minutes once if pain not relieved., Routine pantoprazole EC (Protonix) tablet 20 mg Given 12/09/2020 9:32 AM EST 20 mg 20 mg, Oral, DAILY, First dose on Sun12/02/20 at 0900, Until Discontinued, DO NOT CRUSH OR OPEN, Routine Given 12/08/2020 9:51 AM EST 20 mg Given 12/07/2020 9:21 AM EST 20 mg polyethylene glycoL (Miralax) packet 17 g Given 12/09/2020 9:31 AM EST 17 g 17 g, Oral, 2 TIMES DAILY, First dose on Sun12/02/20 at 0130, Until Discontinued, Routine Given 12/08/2020 9:30 PM EST 17 g Given 12/08/2020 9:51 AM EST 17 g senna-docusate (Pericolace) 8.6-50 mg per Given 2020 9:31 AM EST 2 tablets tablet 2 tablet 2 tablet, Oral, 2 TIMES DAILY, First dose on Sun12/02/20 at 0130, Until Discontinued, Routine Given 12/08/2020 9:30 PM EST 2 tablets Given 12/08/2020 9:51 AM EST 2 tablets sodium chloride 0.9 % (flush) flush 5 mL Given 12/09/2020 9:32 AM EST 5 mLs 5 mL, Intravenous, 2 TIMES DAILY, First dose on Sun12/02/20 at 0130, Until Discontinued, Recovery (Recovery-Hospital Unit), Routine Given 12/08/2020 9:30 PM EST 5 mLs Given 12/08/2020 9:53 AM EST 5 mLs sodium chloride 0.9% infusion New Bag 12/01/2020 11:30 PM EST 1,000 mLs 100 mL/hr 1,000 mL, at 100 mL/hr, Intravenous, CONTINUOUS, Starting on Sun12/01/20 at 1845, Until Sun12/08/20 at 1047, Recovery (Recovery-Hospital Unit) warfarin (COUMADIN) daily order reminder Oral, EVERY 24 HOURS, First dose on Mercedes 12/02/20 at 1400, Until Discontinued, If the daily warfarin order has not been placed , contact the Provider to confirm that the order will be written, the dose is held or discontinue d. warfarin (Coumadin) tablet 10 mg Given 12/06/2020 4:35 PM EST 10 mg 10 mg, Oral, ONCE, 1 dose, On Sun12/06/20 at 1700, DO NOT SPLIT, CRUSH OR OPEN, Routine warfarin (Coumadin) tablet 10 mg Given 12/07/2020 5:07 PM EST 10 mg 10 mg, Oral, ONCE, 1 dose, On Sun12/07/20 at 1700, DO NOT SPLIT, CRUSH OR OPEN, Routine warfarin (Coumadin) tablet 10 mg Given 12/08/2020 5:17 PM EST 10 mg 10 mg, Oral, ONCE, 1 dose, On Sun12/08/20 at 1700, DO NOT SPLIT, CRUSH OR OPEN, Routine warfarin (Coumadin) tablet 10 mg 10 mg, Oral, ONCE, 1 dose, On Sun 1 at 1700, DO NOT SPLIT, CRUSH OR OPEN, Routine warfarin (Coumadin) tablet 5 mg Given 12/02/2020 4:13 PM EST 5 mg 5 mg, Oral, ONCE, 1 dose, On Sun12/02/20 at 1700, DO NOT SPLIT, CRUSH OR OPEN, Routine warfarin (Coumadin) tablet 7.5 mg Given 12/01/2020 2:20 PM EST 7.5 mg 7.5 mg, Oral, ONCE, 1 dose, On Sun12/01/20 at 1415, DO NOT SPLIT, CRUSH OR OPEN, Day of Surgery (Day of Procedure), STAT warfarin (Coumadin) tablet 7.5 mg Given 12/03/2020 4:30 PM EST 7.5 mg 7.5 mg, Oral, ONCE, 1 dose, On Sun12/03/20 at 1700, DO NOT SPLIT, CRUSH OR OPEN, Routine warfarin (Coumadin) tablet 7.5 mg Given 12/04/2020 5:42 PM EST 7.5 mg 7.5 mg, Oral, ONCE, 1 dose, On 12/04/20 at 1730, DO NOT SPLIT, CRUSH OR OPEN, STAT warfarin (Coumadin) tablet 7.5 mg Given 12/05/2020 5:44 PM EST 7.5 mg 7.5 mg, Oral, ONCE, 1 dose, On 12/05/20 at 1700, DO NOT SPLIT, CRUSH OR OPEN, Routine documented in this encounter Active and Recently Administered Medications Times are shown in EST. Scheduled Medication Order 12/07/2020 12/08/2020 12/09/2020 acetaminophen (Tylenol) tablet 1,000 mg 0502 (Given - Provider: Reji Ventura RN)1206 (Given - Provider: Dimitrios Alba RN)1806 (Given - Provider: Dimitrios Alba RN)2329 (Given - Provider: Reji Ventura RN) 0520 (Given - Provider: Reji Ventura RN)1142 (Given - Provider: Larissa Hartley RN)1717 (Given - Provider: Larissa Hartley RN)2349 (Given - Provider: Martine Gaston RN) 0553 (Given - Provider: Martine Gaston RN) 1,000 mg, Oral, EVERY 6 HOURS SCHEDULED, First dose (after last modification) on Mercedes 12/02/20 at 1200, Until Discontinued, Maximum dose of acetaminophen is 4000 mg from all sources in 24 hours. When orde red for pain, acetaminophen should be gi lisa even when other ordered pain medications are indicated. , Routine amoxicillin-clavulanate (Augmentin) 875-125 mg per tab let 1 tablet 0921 (Given - Provider: Dimitrios Alba RN)2023 (Given - Provider: Reji Ventura RN) 0751 (Given - Provider: Ruby Ceballos RN)1945 (Given - Provider: Martine Gaston RN) 0810 (Given - Provider: Ruby Chase lt, RN) 1 tablet, Oral, 2 TIMES DAILY, 10 doses, First dose on Sun12/06/20 at 0800, Last dose on Sun12/10/20 at 2000, Routine atorvastatin (Lipitor) tablet 10 mg 1706 (Given - Provider: Dimitrios Alba RN) 171 (Given - Provider: Larissa Hartley, GIORGI) 10 mg, Oral, EVERY EVENING, First dose o n Mercedes 12/02/20 at 1700, Until Discontinued budesonide-formoteroL (SYMBICORT) 160-4.5 mcg/actuatio n inhaler 2 Inhalation 919 (Given - Provider: Dimitrios Alba RN)2027 (Given - Provider: Reji Ventura RN) 950 (Given - Provider: Ruby Chase lt, RN)2129 (Given - Provider: Martine Gaston RN) 09 (Given - Provider: Ruby Chase lt, RN) 2 Inhalation, Inhalation, 2 TIMES DAILY, First dose on Sun12/02/20 at 0130, Until Discontinued, Routine celecoxib (CeleBREX) capsule 200 mg 920 (Given - Prov ider: Dimitrios Alba RN)2023 (Given - Provider: Reji Ventura RN) 09 (Given - Provider: Ruby Ceballos RN)2129 (Given - Provider: Martine Gaston RN) 09 (Given - Provider: Ruby Ceballos RN) 200 mg, Oral, 2 TIMES DAILY, First dose on Sun12/02/20 at 0900, Until Discontinued, Routine gabapentin (Neurontin) capsule 300 mg 2023 (Given - Pr ovider: Reji Ventura RN) 2129 (Given - Provider: Martine Gaston RN) 300 mg, Oral, NIGHTLY, First dose on Sun12/03/20 at 2100, Until Discontinued, Routine hydroCHLOROthiazide (Hydrodiuril) tablet 12.5 mg 1205 (Given - Provider: Dimitrios Alba RN) 1142 (Given - Provider: Larissa Hartley, GIORGI) 12.5 mg, Oral, DAILY AT NOON, First dose on Sun12/02/20 at 1200, Until Discontinued, Hold for SBP <130, Routine ipratropium-albuteroL (DUONEB) 0.5 mg-3 mg(2.5 mg base)/3 mL nebulizer solution 3 mL 0448 (Given - Provider: Jes Smith N)0921 (Given - Provider: Dimitrios Alba RN)1206 (Given - Provider: Dimitrios Alba RN)1707 (Given - Provider: Dimitrios Alba RN)2024 (Given - Provider: Reji Ventura RN) 0321 (Given - Provider: Reji Ventura RN)0751 (Given - Provider: Ruby Ceballos RN)1143 (Given - Provider: Larissa Hartley RN)1543 (Given - Provider: Ruby Ceballos, GIORGI)1946 (Given - Provider: Martine Gaston, GIORGI) 0357 (Given - Provider: Martine Gaston RN)0810 (Given - Provider: Ruyb Ceballos RN) 3 mL, Nebulization, EVERY 4 HOURS SCHEDU LED, First dose on Sun12/02/20 at 1100, Until Discontinued, Routine 2329 (Given - Provider: Reji Ventura RN) 2349 (Given - Provider: Martine Gaston RN) lidocaine (Lidoderm) 5% topical patch 3 patch(Linked G roup 1) 0920 (Patch Applied - Provider: Dimitrios Alba RN) 0751 (Patch Applied - Provider: Ruby Ceballos RN) 0809 (Patch Applied - Provider: Ruby Ceballos RN) 3 patch, Transdermal, EVERY 24 HOURS, Fi rst dose on Sun12/02/20 at 0745, Until Discontinued, Apply patch(es) for 12 hours, and then remove for 12 hours., Routine lidocaine (Lidoderm) topical patch REMOVAL(Linked Grou p 1) 1900 (Patch Not Removed (add comment) - Provider: Dimitrios Alba RN - Comment: no present) 1900 (Patch Removed - Provider: Ruby Ceballos RN) Transdermal, EVERY 24 HOURS, First dose on Sun12/02/20 at 1900, Until Discontinued, Remove lidocaine 5 %(700 mg/patch) patch lisinopriL (Prinivil;Zestril) tablet 10 mg 1206 (Given - Provider: Dimitrios Alba RN) 1142 (Given - Provider: Larissa Hartley RN) 10 mg, Oral, DAILY AT NOON, First dose o n Sun12/02/20 at 1200, Until Discontinued, Hold for SBP <120, Routine multivitamin with minerals (THERA-M) tablet 1 tablet 0 922 (Given - Provider: Dimitrios Alba RN) 0951 (Given - Provider: Ruby Ceballos RN) 0932 ( Given - Provider: Ruby Ceballos RN) 1 tablet, Oral, DAILY, First dose on Sun12/02/20 at 0900, Until Discontinued, Routine nicotine (NICODERM CQ) 21 mg/24 hr patch 21 mg(Linked Group 2) 0900 (Not Given - Provider: Dimitrios Alba RN - Reason: Patient/family refused) 0951 (Not Given - Provider: Ruby Ceballos RN - Reason: Patient/family refused) 0900 (Not Given - Provider: Ruby Ceballos RN - Reason: Patient/family refused) 21 mg (1 patch), Transdermal, DAILY, Fir st dose on Sun12/02/20 at 0930, Until Discontinued, Apply new patch to nonhairy, clean, dry skin on the upper body or upper outer arm; each patch should be applied to a different site , Routine nicotine (NICODERM CQ) 21 mg/24 hr patch Patch Removal (Linked Group 2) 0900 (Patch Not Removed (add comment) - Provider: Dimitrios lAba RN - Comment: not present) 0900 (Patch Not Removed (add comment) - Provider: Ruby Ceballos RN - Comment: Patch never applied) 0900 (Patch Not Removed (add comment) - Provider: Ruby Ceballos RN - Comment: Patch never applied) Transdermal, DAILY, First dose on 10/11 at 0815, Until Discontinued, Remove nicotine 21 mg/24 hr patch nicotine (NICODERM CQ) 21 mg/24 hr patch Patch Verific ation(Linked Group 2) 0900 (Patch Not Verified (add comment) - Provider: Dimitrios Alba RN - Comment: not present)2100 (Patch (dose and location) verified - Provider: Reji Ventura RN) 0900 (Patch Not Verified (add comment) - Provider: Ruby Ceballos RN - Comment: Patch never applied)2130 (Patch Not Verified (add comment) - Provider: Martine Gatson RN - Comment: not present upon assessent) 899 (Patch Not Verified (add comment) - Provider: Ruby Ceballos RN - Comment: Patch never applied) Transdermal, 2 TIMES DAILY, First dose o n Mercedes 12/02/20 at 2015, Until Discontinued, Verify nicotine 21 mg/24 hr patch pantoprazole EC (Protonix) tablet 20 mg 920 (Given - Provider: Dimitrios Alba RN) 950 (Given - Provider: Ruby Ceballos RN) 931 ( Given - Provider: Ruby Ceballos RN) 20 mg, Oral, DAILY, First dose on Mercedes 09/11 at 0900, Until Discontinued, DO NOT CRUSH OR OPEN, Routine polyethylene glycoL (Miralax) packet 17 g 899 (Not Gi lisa - Provider: Dimitrios Alba RN - Reason: See comment - Comment: recent large bm)2023 (Given - Provider: Reji Venutra RN) 950 (Given - Provider: Ruby Chase lt, RN)2129 (Given - Provider: Martine Gaston RN) 31 (Given - Provider: Ruby Ceballos RN) 17 g, Oral, 2 TIMES DAILY, First dose on Mercedes 12/02/20 at 0130, Until Discontinued, Routine senna-docusate (Pericolace) 8.6-50 mg per tablet 2 tab let 920 (Given - Provider: Dimitrios Alba RN)2023 (Given - Provider: Reji Ventura RN) 950 (Given - Provider: Ruby Ceballos RN)2129 (Given - Provider: Martine Gaston, GIORGI) 31 (Given - Provider: Ruby Chase lt, RN) 2 tablet, Oral, 2 TIMES DAILY, First dos e on Mercedes 12/02/20 at 0130, Until Discontinued, Routine sodium chloride 0.9 % (flush) flush 5 mL 921 (Given - Provider: Dimitrios Alba RN)2026 (Given - Provider: Reji Ventura RN) 0953 (Given - Provider: Ruby Ceballos, GIORGI)2130 (Given - Provider: Martine Gaston, GIORGI) 0932 (Given - Provider: Ruby Ceballos, GIORGI) 5 mL, Intravenous, 2 TIMES DAILY, First dose on Mercedes 12/02/20 at 0130, Until Discontinued, Recovery (Recovery-Hospital Unit), Routine warfarin (COUMADIN) daily order reminder 1400 (Dose co nfirmed - Provider: Dimitrios Alba RN) 1400 (Dose confirmed - Provider: Jes Ramirez) Oral, EVERY 24 HOURS, First dose on Mercedes 12/02/20 at 1400, Until Discontinued, If the daily warfarin order has not been placed, contact the Provider to confirm that the order will be written, the dose is held or discontinued. warfarin (Coumadin) tablet 10 mg (COMPLETED) 1706 (Giv en - Provider: Dimitrios Alba RN) 10 mg, Oral, ONCE, 1 dose, Sun12/07/20 a t 1700, DO NOT SPLIT, CRUSH OR OPEN, Routine warfarin (Coumadin) tablet 10 mg (COMPLETED) 1716 (Given - Provider: Larissa Hartley RN) 10 mg, Oral, ONCE, 1 dose, Sun12/08/20 a t 1700, DO NOT SPLIT, CRUSH OR OPEN, Routine warfarin (Coumadin) tablet 10 mg 10 mg, Oral, ONCE, 1 dose, Sun12/09/20 a t 1700, DO NOT SPLIT, CRUSH OR OPEN, Routine PRN Medication Order 12/07/2020 12/08/2020 12/09/2020 albuteroL (PROVENTIL) nebulizer solution 2.5 mg 2.5 mg, Nebulization, EVERY 6 HOURS PRN, Starting Sun12/01/20 at 1916, Until Sun12/09/20 at 1326, Wheezing, Routine bisacodyL (Dulcolax) suppository 10 mg 10 mg, Rectal, DAILY PRN, Starting Sun at 0037, Until Mercedes 12/09/20 at 1326, Constipation, Administer if needed per patient's routine or if no bowel movement within 48 hours to achieve: (1) One meka wel movement every 48 hours, AND (2) wit hout straining. If multiple PRN bowel medications ordered, start with lactulose, then oral bisacodyl, then bisacodyl suppository. Multiple medications may be given concomitantly for constipation., Routine bisacodyl EC (Dulcolax) tablet 10 mg 10 mg, Oral, 2 TIMES DAILY PRN, Starting Mercedes 12/02/20 at 0037, Until Mercedes 12/09/20 at 1326, Constipation, DO NOT CRUSH OR OPEN Administer if needed per patient's routine or if no bowel movement within 48 hours to achieve: (1) One bowel movem ent every 48 hours, AND (2) without straining. If multiple PRN bowel medications ordered, start with lactulose, then oral bisacodyl, then bisacodyl suppository. M ultiple medications may be given concomitantly for constipation. , Routine calcium carbonate (Tums) chewable tablet 500-1,000 mg 500-1,000 mg, Oral, EVERY 4 HOURS PRN, S tarting Mercedes 12/02/20 at 1048, Until Mercedes 12/09/20 at 1326, Heartburn, Give 500 mg (1 tablet) for mild to moderate heartburn. Give 1,000 mg (2 tablets) for severe heartburn., Routine HYDROmorphone (Dilaudid) tablet 2-4 mg 0045 (Given - P rovider: Reji Ventura RN)0448 (Given - Provider: Reji Ventura RN)0922 (Given - Provider: Dimitrios Alba RN)1346 (Given - Provider: Dimitrios Alba RN)1806 (Given - Provider: Dimitrios Alba RN) 0321 (Given - Provider: Jes Smith)0751 (Given - Provider: Ruby Ceballos, GIORGI)1144 (Given - Provider: Larissa Hartley RN)1544 (Given - Provider: Ruby Ceballos RN)1946 (Given - Provider: Martine Gaston, GIORGI) 0357 (Given - Provider: Martine Gaston RN)0932 (Given - Provider: Ruby Ceballos RN) 2-4 mg, Oral, EVERY 4 HOURS PRN, Startin g Mercedes 12/02/20 at 0830, Until Mercedes 12/09/20 at 1326, Pain, 2mg for mild - moderate pain 1-6 OR 4mg for severe pain 7-10, Routine 220 (Given - Provider: Reji Ventura, RN) 234 (Given - Provider: Martine Gaston RN) lidocaine (Xylocaine) 1% (10 mg/mL) injection 3 mg 3 mg (0.3 mL), Subcutaneous, ONCE PRN, 1 dose, Starting Mercedes 12/02/20 at 0037, Until Mercedes 12/09/20 at 1326, for discomfort with PIV insertion, Recovery (Recovery-Hospital Unit), Routine nicotine polacrilex (COMMIT) lozenge 4 mg 4 mg, Buccal, EVERY 2 HOURS PRN, Startin g Mercedes 12/02/20 at 0814, Until Mercedes 12/09/20 at 1326, Smoking cessation, Do not chew or swallow. Place in mouth and allow to slowly dissolve., Routine nicotine polacrilex (NICORETTE) gum 2 mg 2 mg, Buccal, EVERY 2 HOURS PRN, Startin g Mercedes 12/02/20 at 0814, Until Mercedes 12/09/20 at 1326, Smoking cessation, Chew gum slowly. Do not swallow. Maximum of 48 mg/day., Routine sodium chloride 0.9 % (flush) flush 5-20 mL 5-20 mL, Intravenous, EVERY 1 MIN PRN, S tarting Mercedes 12/02/20 at 0037, Until Mercedes 12/09/20 at 1326, flush, Flush pertains to all indwelling lines. Flush per protocol found in the job aid using the link prov ided on this medication record., Recovery (Recovery-Hospital Uni t), Routine Linked Groups Order Group 1: lidocaine (Lidoderm) 5% topical patch 3 patchJump to med 3 patch, Transdermal, EVERY 24 HOURS, Fi rst dose on Mercedes 12/02/20 at 0745, Until Discontinued
Apply patch(es) for 12 hours, and then remove for 12 hours.
Routine And lidocaine (Lidoderm) topical patch REMOVALJump to med Transdermal, EVERY 24 HOURS, First dose on Mercedes 12/02/20 at 1900, Until Discontinued
Remove lidocaine 5 %(700 mg/patch) patch
Group 2: nicotine (NICODERM CQ) 21 mg/24 hr patch 21 mgJump to med 21 mg (1 patch), Transdermal, DAILY, Fir st dose on Sun12/02/20 at 0930, Until Discontinued
Apply new patch to nonhairy, clean, dry skin on the upper body or upper outer arm; each patch should be applied to a different site
Routine And nicotine (NICODERM CQ) 21 mg/24 hr patch Patch VerificationJump to med Transdermal, 2 TIMES DAILY, First dose o n Mercedes 12/02/20 at 2015, Until Discontinued
Verify nicotine 21 mg/24 hr patch
And nicotine (NICODERM CQ) 21 mg/24 hr patch Patch RemovalJump to med Transdermal, DAILY, First dose on 10/11 at 0815, Until Discontinued
Remove nicotine 21 mg/24 hr patch
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
--- OUTSIDE RECORDS SUMMARY | 2022-04-28 00:17 | XMS_ITS | Encounter Summary ---
:1960 [place] [address] Care Team Providers Name Role Phone Chapincito Avalos DO Primary Care Provider Reason for Visit Reason Onset Date Comments Results 11/30/2020 covid 19 negative Encounter Details Date Type Department Care Team Description 11/30/2020 Telephone [facility] Maria Elena Ramires Resu lts (covid 19 [facility] RN negative) [place] [id number] Social History Tobacco Use Types Packs/Day Years Used Date Current Every Day Smoker 1 20 Smokeless Tobacco: Never Used Alcohol Use Standard Drinks/Week Comments Not Currently 0 (1 standard drink = 0.6 oz pure alcoho l) Sex Assigned at Date Recorded Not on file documented as of this encounter Miscellaneous Notes Telephone Encounter - Maria Elena Ramires RN - 11/30/2020 8:44 AM EST Called patient to advise of Negative Covid 19 test results. Testing was requested for asymptomatic reasons. All questions from patient have been addressed. 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
--- OUTSIDE RECORDS SUMMARY | 2022-04-28 00:17 | XMS_ITS | Encounter Summary ---
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 HEMOGRAM Routine 11/26/2020 12:44 History of bilateral Res ults for this PM EST total hip procedure are i n arthroplasty the results Debility section. 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 requiring isolated polyethylene liner exchange, initial encounter DIFFERENTIAL, Routine 11/26/2020 12:44 History of bilateral Re sults for this AUTOMATED PM EST total hip procedure are i n arthroplasty the results Debility section. 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 requiring isolated polyethylene liner exchange, initial encounter HC ABO-MICROTITER Routine 11/26/2020 12:44 History of bilatera l PM EST total hip arthroplasty Debility 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 requiring isolated polyethylene liner exchange, initial encounter ABO/RH TYPING Routine 11/26/2020 12:44 History of bilateral Re sults for this PM EST total hip procedure are i n arthroplasty the results Debility section. 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 requiring isolated polyethylene liner exchange, initial encounter HC PARTIAL Routine 11/26/2020 12:44 History of bilateral Res ults for this THROMBOPLASTIN TIME PM EST total hip procedur e are in arthroplasty the results Debility section. 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 requiring isolated polyethylene liner exchange, initial encounter HC PROTHROMBIN TIME Routine 11/26/2020 12:44 History of bilate ral Results for this PM EST total hip procedure are i n arthroplasty the results Debility section. 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 requiring isolated polyethylene liner exchange, initial encounter HC CBC,PLT & AUTO DIFF Routine 11/26/2020 12:44 History of caitlin ateral PM EST total hip arthroplasty Debility 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 requiring isolated polyethylene liner exchange, initial encounter ANTIBODY SCREEN Routine 11/26/2020 12:44 History of bilateral Results for this PM EST total hip procedure are i n arthroplasty the results Debility section. 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 requiring isolated polyethylene liner exchange, initial encounter HC VENIPUNCTURE Routine 11/26/2020 12:44 History of bilateral Results for this PM EST total hip procedure are i n arthroplasty the results Debility section. 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 requiring isolated polyethylene liner exchange, initial encounter HC ALBUMIN, SERUM Routine 11/26/2020 12:44 History of bilatera l Results for this PM EST total hip procedure are i n arthroplasty the results Debility section. 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 requiring isolated polyethylene liner exchange, initial encounter BASIC METABOLIC PANEL Routine 11/26/2020 12:44 History of bila teral Results for this (NON-FASTING) PM EST total hip procedure are in arthroplasty the results Debility section. 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 requiring isolated polyethylene liner exchange, initial encounter documented in this encounter Results ABORH Recheck Status (11/26/2020 12:44 PM EST) [facility] Method Time Signature ABORH Type Completed [facility] LABORATORY Specimen Anatomical Collection Method Collection Time Receive d Time (Source) Location / / Volume Laterality Blood specimen 11/26/2020 12:44 1 (specimen) PM EST 12:49 PM EST Resulting Agency Comment Spec In Lab Alex Cedillo MD BLOOD BANK ORDERABLES Performing Organization Address City/[facility]/ZIP Code Phon e Number [address] Antibody screen (11/26/2020 12:44 PM EST) [facility] Method [place] Signature Ab Screen Negative [facility] LABORATORY Expires at 12/04/2020 [facility] [id number] on: [facility] LABORATORY Specimen Anatomical Collection Method Collection Time Receive d Time (Source) Location / / Volume Laterality Blood specimen 11/26/2020 12:44 1 (specimen) PM EST 12:49 PM EST Resulting Agency Comment Spec In Lab Alex Cedillo MD BLOOD BANK ORDERABLES Performing Organization Address City/[facility]/ZIP Code Phon e Number [address] ABO/Rh Typing (11/26/2020 12:44 PM EST) P athologist Signature ABORh Type O Pos [facility] LABORATORY Specimen Anatomical Collection Method Collection Time Receive d Time (Source) Location / / Volume Laterality Blood specimen 11/26/2020 12:44 1 (specimen) PM EST 12:49 PM EST Resulting Agency Comment Spec In Lab Alex Cedillo MD BLOOD BANK ORDERABLES Performing Organization Address City/[facility] Phon e Number [address] Differential, Automated (11/26/2020 12:44 PM EST) P athologist Signature Neutrophils % 74.4 % [facility] LABORATORY Neutr Abs (ANC) 4.23 1.70 - [facility] 6.10 [facility] x10(3)/[facility] LABORATORY Lymphocytes % 17.4 % [facility] LABORATORY Lymphocytes Abs 1.0 0.9 - 3.2 [facility] x10(3)/[facility] LABORATORY Monocytes % 6.2 % [facility] LABORATORY Monocyte Abs 0.4 0.3 - 0.9 [facility] x10(3)/[facility] LABORATORY Eosinophils % 0.9 % [facility] LABORATORY Eosinophils Abs 0.0 0.0 - 0.4 [facility] x10(3)/[facility] LABORATORY Basophils % 0.7 % [facility] LABORATORY Basophils Abs 0.0 0.0 - 0.1 [facility] x10(3)/[facility] LABORATORY Immature Gran % 0.40 % [facility] LABORATORY Comment: Immature granulocytes(IG's)percentage an d absolute count will include metamyelocytes, myelocytes, and promyelo cytes. Blood smears from CBCs yielding IG's will be scanned manually for concor dance. If this scan disagrees with the automated IG or if promyelocytes are not ed, a manual differential will be performed. Fadia Gran Abs 0.02 0.00 - 0.04 x10(3)/[facility] MAR Y [facility] LABORATORY Specimen Anatomical Collection Method Collection Time Receive d Time (Source) Location / / Volume Laterality Blood specimen 11/26/2020 12:44 1 1:09 (specimen) PM EST PM EST Resulting Agency Comment Spec In Lab Alex Cedillo MD HEMATOLOGY ORDERABLES Performing Organization Address City/State/ZIP [place] [address] (ABNORMAL) Hemogram (11/26/2020 12:44 PM EST) Analysis Performed At Patho logist Time Signature WBC 5.7 4.0 - 9.5 [facility] x10(3)/[facility] LABORATORY RBC 5.41 4.58 - [facility] 5.54 [facility] x10(6)/[facility] LABORATORY Hemoglobin 16.8 (H) 13.7 - [facility] [place] 16.5 gm/dL [facility] LABORATORY Hematocrit 51.4 (H) 40.5 - [facility] [place] 48.5 % [facility] LABORATORY MCV 95.0 (H) 82.9 - [place] [place] 93.1 [facility] LABORATORY MCH 31.1 27.5 - [facility] [place] 32.1 pg [facility] LABORATORY MCHC 32.7 32.0 - [facility] [place] 35.7 gm/dL [facility] LABORATORY Platelets 210 145 - 357 [facility] x10(3)/[facility] LABORATORY RDWSD 47.0 (H) 36.0 - [facility] [place] 45.0 [facility] LABORATORY RDWCV 13.4 11.4 - [facility] 13.8 % [facility] LABORATORY MPV 9.4 7.6 - 12.9 [facility] LABORATORY nRBC % Auto 0.0 % [facility] LABORATORY nRBC Abs Auto 0.000 0.000 - [facility] 0.000 [facility] x10(3)/[facility] LABORATORY Specimen Anatomical Collection Method Collection Time Receive d Time (Source) Location / / Volume Laterality Blood specimen 11/26/2020 12:44 1:09 (specimen) PM EST PM EST Resulting Agency Comment Spec In Lab Alex Cedillo MD HEMATOLOGY ORDERABLES Performing Organization Address City/State/[place] [address] (ABNORMAL) Basic Metabolic Panel (non-fasting) (11/26/2020 12:44 PM EST) P athologist Signature Glucose Lvl 126 65 - 199 [facility] mg/dL [facility] LABORATORY Comment: Diabetes: >=200 mg/dL plus symp toms BUN 14 10 - 20 mg/dL [facility] LABORATORY Creatinine 0.72 (L) 0.80 - 1.50 mg/dL [facility] LABORATORY Sodium 141 135 - 145 mmol/L [facility] LABORATORY Potassium 4.3 3.5 - 5.0 mmol/L [facility] LABORATORY Comment: Please note: ??Patients with WBC >100,00 0 may have falsely elevated Potassium levels. ??For accurate Potassium quantif ication in these patients send serum separator tube (gold top) for subsequent determinations. ??Contact the Clinical Chemistry Laboratory if there are any qu estions. Chloride 103 98 - 107 mmol/L [facility] LABORATORY CO2 28 22 - 31 mmol/L [facility] LABORATORY Anion Gap 10 5 - 15 mmol/L [facility] LABORATORY Calcium 9.7 8.5 - 10.5 mg/dL [facility] LABORATORY Estimated GFR 101 >=60 mL/min/1.73 m?? [facility] LABORATORY Comment: This patient? s estimated glomerular filtration rate (eGFR) is between 101 mL/min/1.73 m2 (patients with less muscl e mass per kg body weight) and 118 mL/min/1.73 m2 (patients with more muscl e [...] Location / / Volume Laterality Blood specimen 11/26/2020 12:44 1 1:09 (specimen) PM EST PM EST Resulting Agency Comment Spec In Lab Alex Cedillo MD CHEMISTRY ORDERABLES Performing Organization Address City/State/ZIP [place] [address] Prothrombin Time (11/26/2020 12:44 PM EST) P athologist Signature PT 11.5 9.4 - 12.5 [facility] LABORATORY INR 1.0 [facility] LABORATORY Comment: An INR <2.0 indicates [...] Location / / Volume Laterality Blood specimen 11/26/2020 12:44 1 1:09 (specimen) PM EST PM EST Resulting Agency Comment Spec In Lab Alex Cedillo MD HEMATOLOGY ORDERABLES Performing Organization Address City/[facility]/ZIP [facility] [address] APTT (11/26/2020 12:44 PM EST) athologist Signature PTT 33 25 - 37 sec [facility] LABORATORY Comment: The PTT is NOT appropriate for heparin m onitoring. Use the Anti-Xa level for heparin monitoring (HEP UFH) or LMWH mon itoring (HEP LMW). A PTT less than 37 seconds generally indicates adequate hem ostasis. Specimen Anatomical Collection Method Collection Time Receive d Time (Source) Location / / Volume Laterality Blood specimen 11/26/2020 12:44 1 1:09 (specimen) PM EST PM EST Resulting Agency Comment Spec In Lab Alex Cedillo MD HEMATOLOGY ORDERABLES Performing Organization Address [facility] [place] [address] Albumin Level (11/26/2020 12:44 PM EST) athologist Signature Albumin 4.7 3.2 - 5.2 [facility] gm/dL [facility] LABORATORY Specimen Anatomical Collection Method Collection Time Receive d Time (Source) Location / / Volume Laterality Blood specimen 11/26/2020 12:44 1 1:09 (specimen) PM EST PM EST Resulting Agency Comment Spec In Lab Alex Cedillo MD CHEMISTRY ORDERABLES Performing Organization Address City/[facility] [place] [address] Protein, total (11/26/2020 12:44 PM EST) P athologist Signature Total Protein 7.4 6.1 - 8.0 [facility] [place] gm/dL [facility] LABORATORY Specimen Anatomical Collection Method Collection Time Receive d Time (Source) Location / / Volume Laterality Blood specimen 11/26/2020 12:44 1:09 (specimen) PM EST PM EST Resulting Agency Comment Spec In Lab Alex Cedillo MD CHEMISTRY ORDERABLES Performing Organization Address City/State/Z[place] [address] documented in this encounter Visit Diagnoses Diagnosis History of bilateral total hip arthropla sty Debility Debility, unspecified 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 requiring isolated polyethylene liner exchange, initial enc ounter documented in this encounter Care Teams Lead Technical Architect Relationship Specialty Start Date End Date Chapincito Avalos DO PCP - General Family Medicine 03/12/[address] [place] [address] documented as of this encounter
--- OUTSIDE RECORDS SUMMARY | 2022-04-28 00:17 | XMS_ITS | Encounter Summary ---
:1960 [place] [address] Care Team Providers Name Role Phone RobbieChapincito lin Primary Care Provider Encounter Details Date Type Department Care Team Description 11/15/2020 [facility]phone [facility] [place] [phone] Social History Tobacco Use Types Packs/Day Years Used Date Current Every Day Smoker 1 Smokeless Tobacco: Never Used Alcohol Use Standard Drinks/Week Comments Not Currently 0 (1 standard drink = 0.6 oz pure alcoho l) Sex Assigned at Date Recorded Not on file documented as of this encounter Miscellaneous Notes Telephone Encounter - Landy Olmos - 11/15/2020 12:51 PM EST 1. ASK: TRAVEL ???Have you travelled outside of [place] ([place], [place], [place], [place], [place], [place]) in the past 14 days??? 2. ASK: EXPOSURE Have you been in contact with anyone suspected or confirmed to have COVID-19 in the past 14 days??? 3. ASK: SYMPTOMS Do you have any new or worsening symptoms on this list that are not related to another medical condition? Fever or chills ?? Cough ?? Shortness of breath or difficulty breathing ?? Fatigue ?? Muscle or body aches ?? Headache ?? Loss of taste or smell ?? Sore throat ?? Congestion or runny nose ?? Nausea or vomiting ?? Diarrhea If 'Yes' to any of the questions above Transfer patient to the Covid-19 Hotline Number ([phone]) for further instructions. If 'No' to all of the questions above Is this the first test for Covid 19 No, Nov, neg,[facility] If no, please list date of previous test, result, and type of test (Molecular, Antigen, Antibody or unknown): Resides in Nursing/senior care or other residential setting No Employee or Household Member of Employee No Healthcare Worker No Telephone call placed/received to schedule Covid 19 testing with patient. Ordering provider: Dr. Cedillo Testing Facility: [facility] Date of Testin/7 Time of Testin:00am Symptoms: No Give directions to testing facility. All passengers in the vehicle MUST wear a mask. Leave dogs/petsat home or have them crated/behind a net. documented in this encounter Plan of Treatment Not on filedocumented as of this encounter Visit Diagnoses Not on filedocumented in this encounter Care Teams Tire Sorter Relationship Specialty Start Date End Date Chapincito Avalos DO PCP - General Family Medicine 03/12/[address] [place] [address] documented as of this encounter
--- OUTSIDE RECORDS SUMMARY | 2022-04-28 00:17 | XMS_ITS | Encounter Summary ---
:1960 Author Organization [facility] [place] [address] Care Team Providers Name Role Phone Chapincito Avalos DO Primary Care Provider Reason for Visit Reason Comments Pre-op Exam Right LISS REV DOS: 12/01/20 Encounter Details Date Type Department Care Team Description 11/26/2020 Office Visit Orthopaedics at [facility] [place], Preop examination; [facility] Faizan Andre MD Failure of left total hip arthroplasty, sequela; [facility] [place] [address] CENTER [phone] ORTHOPAEDIC SURGERY [place] [id number] Social History Tobacco Use Types Packs/Day Years Used Date Current Every Day Smoker 1 20 Smokeless Tobacco: Never Used Alcohol Use Standard Drinks/Week Comments Not Currently 0 (1 standard drink = 0.6 oz pure alcoho l) Sex Assigned at Date Recorded Not on file documented as of this encounter Last Filed Vital Signs Vital Sign Reading Time Taken Comments Blood Pressure 150/80 11/26/2020 1:14 PM EST Pulse 77 11/26/2020 1:14 PM EST Temperature - - Respiratory Rate - - Oxygen Saturation 97% 11/26/2020 1:14 PM EST Inhaled Oxygen Concentration - - Weight - - Height - - Body Mass Index - - documented in this encounter Progress Notes Faizan Dove MD - 11/26/2020 1:30 PM EST Images from the original note were not included. CC: Howard Perez is a 60 y.o. male with the following problems and medications that is being seen in the clinic for consultation at the request of his surgeon Dr. Alex Cedillo for preoperative riskstratification and management recommendations in anticipation of left total hip revision arthroplasty. HPI - he had multiple dislocations after his primary LISS. He then underwent revision to constrained LISS and had no recurrence. He had evaluation for lower back pain and reported other hip pain with twisting or pivoting at the hip. He had imaging including CT scan and was referred to Dr. Alex Cedillo. He was noted to have lysis of the bipolar head within his constrained liner on the left LISS. He was also noted to have eccentric poly wear. He has since had spine center evaluation for his lower backpain and had PT and is now doing HEP with improvement of those symptoms. He reports no surgical intervention is planned on his lower back as it is not indicated. He presents with plan for left LISS herman ion. He has been taking APAP and Aleve in the morning to cope with the discomfort and manages his self and lives alone. He was working until August. He has COPD, is not contemplative of cessation of smoking but is planning reduction. He reports no recent flare of his COPD in past year and has not nee ded prednisone or antibiotic for that. He reports complying with the Symbicort. Patient Active Problem List Diagnosis Code ??? Obesity (BMI 30-39.9) E66.9 ??? HTN (hypertension) I10 ??? Smokes F17.200 ??? COPD (chronic obstructive pulmonary disease) J44.9 Current Outpatient Medications Medication Sig Dispense Refill ??? hydroCHLOROthiazide (Hydrodiuril) 12.5 mg Tablet Take 12.5 mg by mouth Daily at Noon. ??? lisinopriL (Prinivil;Zestril) 10 mg Tablet Take 10 mg by mouth Daily at Noon. ??? naproxen sodium (ANAPROX) 220 mg Tablet Take 440 mg by mouth every morning. ??? acetaminophen (Tylenol) 500 mg Tablet Take 1,000 mg by mouth every morning. ??? pravastatin (Pravachol) 20 mg Tablet Take 20 mg by mouth daily. ??? Symbicort 160-4.5 mcg/actuation HFA Aerosol Inhaler INL 2 PFS PO BID ??? albuteroL 90 mcg/actuation HFA Aerosol Inhaler INL 1 TO 2 PFS PO Q 4 H PRN No current facility-administered medications for this visit. Social History Occupational History ??? Not on file Tobacco Use ??? Smoking status: Current Every Day Smoker Packs/day: 1.00 Years: 20.00 Pack years: 20.00 ??? Smokeless tobacco: Never Used Substance and Sexual Activity ??? Alcohol use: Not Currently ??? Drug use: Not Currently ??? Sexual activity: Not on file Family History Problem Relation Age of Onset ??? Diabetes Other Review of Systems Constitutional: Negative for chills, diaphoresis and fever. Respiratory: Negative for worsening cough (has chronic minimally productive cough), denies exertional shortness of breath and denies wheezing. Cardiovascular: Negative for chest pain, palpitations and leg swelling. Gastrointestinal: Negative for abdominal pain, anal bleeding and blood in stool. Denies melena. Endocrine: Negative for polydipsia and polyphagia. Genitourinary: Negative for dysuria, flank pain and hematuria. Nocturia 1-2. Skin: Negative for pallor and rash. Allergic/Immunologic: Negative for environmental allergies and immunocompromised state. Neurological: Negative for paresthesia, dysphagia, syncope and speech difficulty. Hematological: Negative for adenopathy. Does not bruise/bleed easily. Psychiatric/Behavioral: Negative for confusion, decreased concentration and dysphoric mood. Allergies: No Known Allergies Physical Exam: Last Set of Vitals and Range over past 24 hours: Last value Range last 24 hrs Heart Rate Heart Rate: 77 Heart Rate: [77] Blood Pressure BP: 150/80 BP: (150)/(80) SpO2 SpO2: 97 % SpO2: [97 %] BP on November 05 2020 137/79 Estimated body mass index is 37.11 kg/m?? as calculated from the following: Height as of an earlier encounter on 11/26/20: 188 cm (6' 2). Weight as of an earlier encounter on 11/26/20: 131.1 kg (289 lb). Physical Exam Constitutional: He is oriented to person, place, and time. He appears well- developed. No distress. HENT: Head: Normocephalic and atraumatic. Eyes: Right eye exhibits no discharge. Left eye exhibits no discharge. No scleral icterus. Neck: Neck supple. No JVD present. Cardiovascular: Normal rate, regular rhythm and normal heart sounds. Exam reveals no gallop and no friction rub. No murmur heard. Pulmonary/Chest: Effort normal and breath sounds with EE wheezes in all lung fox. No stridor. No respiratory distress. He has no rales. He exhibits no tenderness over the chest wall. Abdominal: Soft. Bowel sounds are normal. No HSM percussed or palpated. There is CVA no tenderness. There is no rebound and no guarding. Musculoskeletal: He exhibits no edema. He has no drift with flexion at left hip or dorsiflexion at left ankle. He is ambulatory without assistive device. Neurological: He is alert and oriented to person, place, and time. He exhibits no resting or intentional tremors Skin: Skin is warm and dry. He is not diaphoretic. No pallor. Psychiatric: He has a normal mood and affect. His behavior is normal. Judgment and thought content normal. Lab Results Component Value Date WBC 5.7 11/26/2020 RBC 5.41 11/26/2020 HGB 16.8 (H) 11/26/2020 HCT 51.4 (H) 11/26/2020 MCV 95.0 (H) 11/26/2020 MCH 31.1 11/26/2020 MCHC 32.7 11/26/2020 PLATELET 210 11/26/2020 RDWCV 13.4 11/26/2020 Lab Results Component Value Date NA 141 11/26/2020 K 4.3 11/26/2020 CL 103 11/26/2020 CO2 28 11/26/2020 BUN 14 11/26/2020 CREATININE 0.72 (L) 11/26/2020 GLUCOSE 126 11/26/2020 CALCIUM 9.7 11/26/2020 ESTGFR 101 11/26/2020 Lab Results Component Value Date PT 11.5 11/26/2020 INR 1.0 11/26/2020 PTT 33 11/26/2020 Estimated Creatinine Clearance: 157.1 mL/min (A) (based on SCr of 0.72 mg/dL (L)). EKG (image reviewed): normal EKG, normal sinus rhythm Xray - LISS left with constrained liner A/P 1. Preop examination 2. Failure of left total hip arthroplasty, sequela 3. Essential hypertension He elects to proceed with the left LISS revision. He would like to avoid catastrophic failure and recurrent dislocation. His COPD is stable on current regime with no recent flare and no symptoms limiting his current function. He is not interested in smoking cessation and understands the increased risk a ssociated with smoking and surgery. He is receptive to lifestyle changes to achieve further weight loss and was informed about increased risk of infection and failure of LISS with obesity. His BP is reasonable on current regime with some preoperative excursion noted. Increased H/H likely due to smoking. 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 Major Risk Factor per the Revised Cardiac Risk Index (Bold if present) - There is no history of CAD,CHF, CVA or TIA, DM2 on insulin, or a Creatinine >2 Risk diagnosis for MACE (major adverse cardiovascular event = Myocardial infarction, pulmonary edema, ventricular fibrillation, primary cardiac arrest, or complete heart block.) : Low<1% . 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 ARISCAT/CANET Score - estimates the risk of postoperative pulmonary complications as being low ~3.5%. Per the ACS NSQIP calculator I estimated the following. Patient instructions: Take Symbicort the morning of surgery and bring albuterol to surgery. Do NOT take any of your other medications the morning of surgery. RECOMMENDATION: Continue Symbicort, albuterol, statin, lisinopril (hold if SBP<120), HCTZ (hold if SBP<130) documented in this encounter Plan of Treatment Not on filedocumented as of this encounter Visit Diagnoses Diagnosis Preop examination Preoperative examination, unspecified Failure of left total hip arthroplasty, sequela Essential hypertension Unspecified essential hypertension documented in this encounter Care Teams Cloth Bleaching Supervisor Relationship Specialty Start Date End Date Chapincito Avalos DO PCP - General Family Medicine 03/12/[address] [place] [address] documented as of this encounter
--- OUTSIDE RECORDS SUMMARY | 2022-04-28 00:17 | XMS_ITS | Encounter Summary ---
:1960 Author Organization [facility] [place] [address] Care Team Providers Name Role Phone Chapincito Avalos DO Primary Care Provider Encounter Details Date Type Department Care Team Description 12/10/2020 Anti-Coag Telephone Internal Medicine at [facility] DVT prophylaxis Visit Silvana Sommers LPN [address] [place] [address] Social History Tobacco Use Types Packs/Day Years Used Date Current Every Day Smoker 1 20 Smokeless Tobacco: Never Used Alcohol Use Standard Drinks/Week Comments Not Currently 0 (1 standard drink = 0.6 oz pure alcoho l) Sex Assigned at Date Recorded Not on file documented as of this encounter Progress Notes Katie Reyes LPN - 12/10/2020 2:26 PM EST Anticoagulation Therapy Note: Indication: sp Left revision LISS (acetabular component revision) DVT prophylaxis Duration of treatment: 30 day therapy last dose 12/31/20 Range: 1.7-2.2 INR : 2.1 Monitored by: [facility]/ Ortho Drawn By: / Blaise [facility] [phone] Next INR Due: Sunday, 12/13 [facility] twice weekly INRs Ortho patient 12/10 INR in range today, spoke with Howard this afternoon , denies missed doses of warfarin this week.No changes in diet, health, or medications. Will maintain current warfarin dose . 12/09 New patient referral today from orthopedic department for short term anticoagulation management. [place] [facility] [place], sp Left revision LISS (acetabular component revision) on 12/01 . Patient required 02 therapy post op, Chest Xray revealed possible pneumonia/aspiration pneumonia. [facility] Medicine was consulted and a 5 day [...] questions answered for patient Patient Contact Preference: [phone] (M) Message left on answering machine x E-Mail/fax [employer] [phone] x Spoke with patient / family member: Comment: Warfarin dose : Increased Decreased Maintained Comment: dosed to Sunday [place] Risk Asseessment: Have you had any [...] post op Recent medication changes: Include Prescription/OTC/Herbal x Yes No Comment see above Have you misssed any dose of Coumadin [...] anticoagulants documented in this encounter Care Teams Representative Relationship Specialty Start Date End Date Chapincito Avalos DO PCP - General Family Medicine 03/12/[address] [place] [address] [address] [place] [address] documented as of this encounter
--- OUTSIDE RECORDS SUMMARY | 2022-04-28 00:17 | XMS_ITS | Encounter Summary ---
:1960 [place] [address] Care Team Providers Name Role Phone Chapincito Avalos DO Primary Care Provider Encounter Details Date Type Department Care Team Description 11/26/2020 Notes Only Orthopaedics at [facility] [place] [address] Social History Tobacco Use Types Packs/Day Years Used Date Current Every Day Smoker 1 20 Smokeless Tobacco: Never Used Alcohol Use Standard Drinks/Week Comments Not Currently 0 (1 standard drink = 0.6 oz pure alcoho l) Sex Assigned at Date Recorded Not on file documented as of this encounter Progress Notes Mendez Obrien - 11/26/2020 1:49 PM EST Study Title: Comparative Effectiveness of Pulmonary Embolism Prevention after hip and knee Replacement: Balancing Safety and Effectiveness. Principle Bioinformatics Developer: Dr. Mamadou Diop #: [id number] Informed consent for the above entitled study was reviewed with subject -in detail. The details of the study, length of study, and risks were reviewed with subject. Upon review, subject verbalized adequate understanding of the protocol and signed the consent along with me. No study procedures were initiated prior to signing the consent. A copy was provided to subject, and the original consent will bekept with the study chart. Reviewed initial inclusion and exclusion, will continue to review medical history. Subject meets ALL of the inclusion criteria for entry into this clinical trial: 1) Males and females 21 years of age or older 2) Undergoing elective primary, revision, or second stage re-implantation total hip/knee replacement or uni-compartmental knee replacement or hip resurfacing arthoplasty 3) Patient has necessary mental capacity to participate and is able to comply with study protocol requirements 4) Patient is able to be randomized to at least two of the three study prophylaxis regimens 5) A test done on the day of surgery, or other criteria (i.e. Sex or reproductive potential) will be used to ensure the patient is not 6) Patent was approached, offered participation, and signed the consent form 7) Patient is willing to be randomized and participate in the study Subject does NOT meet any exclusion criteria for entry into this clinical trial: 1) Patients undergoing bilateral hip or knee replacement 2) Patient undergoing total hip or knee replacement who has been enrolled in this study for a priorhip or knee replacement. 3) Women who are or , as well as those of reproductive potential unless thereis a negative urine test on the day of surgery. 4) Patients on chronic (longer than the prior 6 months) anticoagulation other than with antiplatelet medications 5) Patient who is concurrently enrolled in another active interventional clinical trial testing a drug or intervention known or believed to interact with aspirin, warfarin, rivaroxaban. 6) Patients with documented gastrointestinal, cerebral, or other hemorrhage within 3 months of the operation 7) Patients with a known diagnosis of defective hemostasis and past history of clinical bleeding requiring transfusion and treatment. 8) Patients who have had an operative procedure involving the eye, ear, or central nervous system within one month 9) Patient with severe uncontrolled hypertension with systolic BP > 220mmHg and diastolic BP > 120mmHg 10) Patient with an absolute body weight of less than 41 kilograms (90.4 lbs) at baseline visit. 11) Vulnerable patient populations including prisoners and institutionalized individuals. Schedule of events were reviewed with the subject. Verbalized understanding of appointment dates andprocedures, subject agrees to all. Encouraged to call with any questions/concerns. documented in this encounter Plan of Treatment Not on filedocumented as of this encounter Visit Diagnoses Not on filedocumented in this encounter Care Teams Farm Equipment Engine Mechanic Relationship Specialty Start Date End Date Chapincito Avalos DO PCP - General Family Medicine 03/12/[address] [place] [address] documented as of this encounter
--- OUTSIDE RECORDS SUMMARY | 2022-04-28 00:17 | XMS_ITS | Encounter Summary ---
:1960 Author Organization [facility] [place] [address] Care Team Providers Name Role Phone Chapincito Avalso DO Primary Care Provider Encounter Details Date Type Department Care Team Description 12/09/2020 Anti-Coag Telephone [facility] at [facility] [address] [place] [address] Social History Tobacco Use Types Packs/Day Years Used Date Current Every Day Smoker 1 20 Smokeless Tobacco: Never Used Alcohol Use Standard Drinks/Week Comments Not Currently 0 (1 standard drink = 0.6 oz pure alcoho l) Sex Assigned at Date Recorded Not on file documented as of this encounter Progress Notes Katie Reyes LPN - 12/09/2020 1:34 PM EST Anticoagulation Therapy Note: Indication: sp Left revision LISS (acetabular component revision) DVT prophylaxis Duration of treatment: 30 day therapy last dose 12/31/20 Range: 1.7-2.2 INR : 1.7 on 12/09 Monitored by: [facility]/ Ortho Drawn By: / [facility] [phone] Next INR Due: 12/10 [facility] twice weekly INRs Ortho patient 12/09 New patient referral today from orthopedic department for short term anticoagulation management. Was inpatient at [facility] [place] from [place]01-12[place]09, sp Left revision LISS (acetabular [...] questions answered for patient Patient Contact Preference: [phone] (M) Message left on answering machine x E-Mail/fax [employer] [phone] x Spoke with patient / family member: [...] anticoagulants documented in this encounter Care Teams Agricultural Education Teacher Relationship Specialty Start Date End Date Chapincito Avalos DO PCP - General Family Medicine 03/12/[address] [place] [address] [address] [place] [address] documented as of this encounter
--- OUTSIDE RECORDS SUMMARY | 2022-04-28 00:17 | XMS_ITS | Encounter Summary ---
:1960 [place] [address] Care Team Providers Name Role Phone RobbieChapincito lin Primary Care Provider Reason for Visit Auth/Cert Specialty Diagnoses / Procedures Referred By Contact Refer red To Contact Diagnoses Failure of left total hip arthroplasty, sequela failed LISS, massive polywear Procedures PRO REVISE TOTAL HIP REPLACEMENT TOTAL HIP REVISION ARTHROPLASTY, COMPLETE (WRVU 30.28) Referral ID Status Reason Start Date Expiration Date Visits Requ ested Visits Authorized [id number] 1 1 Encounter Details Date Type Department Care Team Description 11/28/[address] [facility] Public Health [facility] COVID-[place] [address] Social History Tobacco Use Types Packs/Day [...] Name Priority Date/Time Associated Diagnosis Comme nts COVID-19 PCR Routine 11/28/2020 2:13 PM COVID-19 ruled out Res ults for this EST procedure are i n the results section . documented in this encounter Results COVID-19 PCR (11/28/2020 2:13 PM EST) [facility] Method Time Signature SARS-CoV-[address] [facility] Comment: This result should be interpreted in com bination with the clinical observations, patient history and epidem iological information in making a final diagnosis. For testing of asymptomatic i ndividuals, assay performance characteristics and clinical utility hav e not been evaluated. Testing for SARS-CoV-2 (Severe acute respiratory syn drome coronavirus 2, formerly known as 2019 novel coronavirus or 2019-nCoV) to aid in the diagnosis of COVID-19 is performed using the [employer] RealTime SARS -CoV-2 Assay as authorized by the FDA Emergency Use Authorization (EUA). This EUA assay is intended for In-vitro Diagnostic (IVD) use with respiratory sp ecimens such as nasopharyngeal swabs collected from individuals during the ac shalini phase of infection. This assay is performed based on the instructions for use provided by [employer] and additional guidance provided by CDC and FDA. Testing is performed in the [facility] within the Department of Pathology and Laboratory Medicine at [facility], certified under the Clinical Laboratory Improvement Amendments of 1988 (CLIA), 42 U.S.C. 263a, to perform high complexi ty tests. Assay performance has been verified according to clinical laborator y regulatory requirements for use with specimens collected from individuals stu pected of COVID-19. Test results are provided above. A result of ? Not Detected? indicates that the viral RNA target is not present above the limit of detect ion, but does not preclude SARS-CoV-2 infection. False negative results may oc cur if a specimen is improperly collected, transported or handled; if am plification inhibitors are present; or if inadequate numbers of viral particles are present in the specimen. When a diagnostic test is negative, the possibi lity of a false negative result should be considered in the context of a patien t? s recent exposures and the presence of clinical signs and symptoms consisten t with COVID-19. A result of ? Detected? indicates that RNA from SARS-CoV-2 was d etected and the patient is infected. As required or requested by public health a uthorities, positive specimens may be sent for additional testing. Positive an d negative predictive values for this test are highly dependent on disease pre valence. A result of ? Invalid? indicates that neither the viral RNA tar gets nor the internal control target was detected. An invalid result suggests the presence of inhibitors. Recollection and re-testing is recommend ed in the case of an invalid result. CDC COVID-19 criteria for testing on hum an specimens and clinical management guidance information are available at [facility] CDC Coronavirus Disease 2019 (COVID-19) webpage under ? Information for Healthcare Professionals? (https://www.cdc.gov/coronavirus/2019-nc ov/hcp/index.html) Additional information about this and ot her EUA tests can be found in provider and patient fact sheets at the following FDA website: https://www.fda.gov/medical-devices/orfmqupxobb-brxpnob-5551-cvxkz-60-jxiprfluo- vwe-xibnuebytwwfle-gonzwte-devices/xwiyx-ebflfildzbh-iabf SARS-Cov-2 RNA Source [employer]PORT [employer]ER Swab [facility] Specimen (Source) Anatomical Collection Method Collection Time Re ceived Time Location / / Volume Laterality Nasopharyngeal swab 11/28/2020 2:13 11/28 (specimen) PM EST 2:13 PM EST Comment: Symptoms->Asymptomatic Resulting Agency Comment Spec In Lab Alex Cedillo MD MICROBIOLOGY - GENERAL ORDER ACE Performing Organization Address City/State/ZIP [place] [address] documented in this encounter Visit Diagnoses Diagnosis COVID-19 ruled out documented in this encounter Care Teams Roll Picker Relationship Specialty Start Date End Date Chapincito Avalos DO PCP - General Family Medicine 03/12/19 [address] [place] [address] documented as of this encounter
--- OUTSIDE RECORDS SUMMARY | 2022-04-28 00:17 | XMS_ITS | Encounter Summary ---
:1960 Author Organization [facility] [place] [address] Care Team Providers Name Role Phone Chapincito Avalos DO Primary Care Provider Reason for Visit Reason Onset Date Comments Prior Authorization 12/01/2020 Encounter Details Date Type Department Care Team Description 12/01/2020 Telephone Orthopaedics at [facility] Alex Cedillo, Prior Authorization [facility] [place] [address] [facility] [phone] ORTHOPAEDIC SURG [place], [place] [address] (Wo rk) Social History Tobacco Use Types Packs/Day Years Used Date Current Every Day Smoker 1 20 Smokeless Tobacco: Never Used Alcohol Use Standard Drinks/Week Comments Not Currently 0 (1 standard drink = 0.6 oz pure alcoho l) Sex Assigned at Date Recorded Not on file documented as of this encounter Miscellaneous Notes Telephone Encounter - Brittni Taylor - 12/01/2020 12:07 PM ESTSummary: authorization Nia I have uploaded the corrected IPI authorization the the chart. Thank you Brittni documented in this encounter Plan of Treatment Not on filedocumented as of this encounter Visit Diagnoses Not on filedocumented in this encounter Care Teams Oil House Attendant Relationship Specialty Start Date End Date Chapincito Avalos DO PCP - General Family Medicine 03/12/[address] [place] [address] documented as of this encounter
--- OUTSIDE RECORDS SUMMARY | 2022-04-28 00:17 | XMS_ITS | Encounter Summary ---
:1960 Author Organization [facility] [place] [address] Care Team Providers Name Role Phone Chapincito Avalos DO Primary Care Provider Encounter Details Date Type Department Care Team Description 12/10/2020 External Results Internal Medicine at [facility] [address] [place] [address] Social History Tobacco Use Types Packs/Day [...] Associated Diagnosis Comme nts EXTERNAL LAB Routine 12/10/2020 Results for thi s HEMATOLOGY/COAG procedure ar e in the RESULTS PANEL results sectio n. documented in this encounter Results Hematology / Coag External Results (12/10/2020) P athologist Signature POC INR 2.1 0.9 - 1.1 VISITING NURSE Comment: [facility] Specimen (Source) Anatomical Location Collection Method / Collectio n Time Received Time / Laterality Volume 12/10/2020 Historical Provider HEMATOLOGY ORDERABLES Performing Organization Address City/State/ZIP Code Phon e Number VISITING NURSE documented in this encounter Visit Diagnoses Not on filedocumented in this encounter Care Teams Snow Maker Relationship Specialty Start Date End Date Chapincito Avalos DO PCP - General Family Medicine 03/12/[address] [place] [address] documented as of this encounter
--- OUTSIDE RECORDS SUMMARY | 2022-04-28 00:17 | XMS_ITS | Encounter Summary ---
:1960 Author Organization [facility] [address] Care Team Providers Name Role Phone Chapincito Avalos DO Primary Care Provider Encounter Details Date Type Department Care Team Description 11/26/2020 Notes Only Orthopaedics at [facility] [place] [address] Social History Tobacco Use Types Packs/Day Years Used Date Current Every Day Smoker 1 20 Smokeless Tobacco: Never Used Alcohol Use Standard Drinks/Week Comments Not Currently 0 (1 standard drink = 0.6 oz pure alcoho l) Sex Assigned at Date Recorded Not on file documented as of this encounter Progress Notes Natalee Galeano - 11/26/2020 2:34 PM EST Study Title: Comparative Effectiveness of Pulmonary Embolism Prevention after hip and knee Replacement: Balancing Safety and Effectiveness. Principle Grade Recorder: Dr. Mamadou Diop #: [id number] Subject #: [id number] Subject has been randomized to arm B for the above named clinical trial. Request sent to provider to place orders for Arm B (Warfarin) drug to be administered pre-op. Note submitted by Natalee Galeano, Clinical Research Coordinator. documented in this encounter Plan of Treatment Not on filedocumented as of this encounter Visit Diagnoses Not on filedocumented in this encounter Care Teams Purchasing Internship Relationship Specialty Start Date End Date Chapincito Avalos DO PCP - General Family Medicine 03/12/[address] [place], [place] [id number] documented as of this encounter
--- OUTSIDE RECORDS SUMMARY | 2022-04-28 00:17 | XMS_ITS | Encounter Summary ---
:1960 [place] [address] Care Team Providers Name Role Phone RobbieChapincito [...] Expiration Date Visits Requ ested Visits Authorized [id number] 1 1 Encounter Details Date Type Department Care Team Description 12/01/2020 Anesthesia Event Main Operating Room Darron Max MD [facility] [place] [address] [facility] Courtney Javier CRNA [facility] [place] [address] [facility] [place] [address] Anesthesia Record Procedure Summary Procedure Name Responsible Anesthesia Start Anesthesia Stop Time Anesthesiologist Time @TOTAL HIP REVISION Darron Avila MD 12/01/20 1513 1816 ARTHROPLASTY, COMPLETE (WRVU 30.28) (Left Hip) Events Date Time Event Comment 12/01/2020 1342 1513 Start 1529 Spinal 1535 AN Verify 1535 An Start Data 1548 Anesthesia Ready 1557 Quick Note 32 Fr NPA placed with ease - Left nare 1602 Procedure Start 1736 an alyse now 1748 Procedure Stop 1809 an stop data 1814 Recovery or ICU Handoff Patient care was transferred to the destination unit staff after review of the patient's medica l history, current anesthetic/surgi brittany status and plan, according to the Provider Handoff Checklist. 1815 Stop Name Total tranexamic acid (Cyklokapron) 2,030 mg in sodium chlor otoniel 0.9% 120.3 mL 2,029.5 mg infusion ceFAZolin (Ancef) 3 g in dextrose 5% 100 mL infusion 3 g Midazolam 2 mg Propofol 30 mg Propofol INF 1,328.7 mg PHENYLephrine 200 mcg BUpivacaine 0.5% 3.5 mL PHENYLephrine INF 3,010 mcg lactated ringers infusion 1,100 mL Agents Name O2 Air N2O Sevoflurane (et) O2 Auxiliary Flowmeter 1 Blood No blood administrations on file. Lines, Drains, and Airways Type Details Placement Removal Incision 12/01/20; 1602; Left, 12/01/20 1602 by posterior; hip; vertical [place], Harriett L, R N PIV 12/01/20; 1418; basilic 12/01/20 1418 by Daron, 1650 by vein (medial side of arm), Lyndsey Reynolds RN Eze son, Christian left; [id number] catheter system; 18 gauge; Lyndsey Neri RN; 0; 07/27/21 (LDA Cleanup utility RA#[id number]); 1650 (LDA Cleanup utility RA#[id number]) documented in this encounter Social History Tobacco Use Types Packs/Day Years Used Date Current Every Day Smoker 1 20 Smokeless Tobacco: Never Used Alcohol Use Standard Drinks/Week Comments Not Currently 0 (1 standard drink = 0.6 oz pure alcoho l) Sex Assigned at Date Recorded Not on file documented as of this encounter OR Notes Anesthesia Postprocedure Evaluation - Darron Avila MD - 12/02/2020 6:56 AM EST Department of Anesthesiology Post-procedure Note Patient: Howard Perez Procedure Summary Date: 12/01/20 Room / Location: [facility] OR [address] [place] [address] MAIN OR Anesthesia Start: 1512 Anesthesia Stop: 1815 Procedure: TOTAL HIP REVISION ARTHROPLASTY, COMPLETE (WRVU 30.28) (Left Hip) Diagnosis: (failed LISS, massive polywear) Surgeons: Alex Cedillo MD Responsible Provider: Darron Avila MD Anesthesia Type: spinal ASA Status: 3 All Anesthesia Providers: Anesthesiologist: Darron Avila MD; Adelaide Stephens MD INTERNATIONAL STUDENT ADVISOR: Courtney Velásquez CRNA Vitals Value Taken Time BP 107/70 12/01/20 2330 Temp 36.8 ??C (98.2 ??F) 12/01/20 2328 Pulse 69 12/01/20 2214 Resp 14 12/01/20 2328 SpO2 96 % 12/01/20 2344 Pain Level 0 12/01/20 2328 Vitals shown include unvalidated device data. Patient Location: PACU/[facility] Level of Consciousness: Awake and Alert Pain Management: Satisfactory Analgesia PONV: None Cardiovascular Status: Hemodynamically Stable Respiratory Status: Stable Respiratory Status Postoperative Fluid Status: Intravascular EUvolemia Possible Anesthetic Complications: NONE apparent at time of evaluation Final Primary Anesthesia Type: Spinal (The anesthetic type performed was the same as planned.) Comments: Anesthesia Procedure Notes - Courtney Velásquez CRNA - 12/01/2020 4:08 PM EST Associated Order(s): Neuraxial Block Procedure: Neuraxial Block Primary Anesthetic Type: Spinal The patient was greeted. The sedation plan, its benefits, risks and alternatives were discussed withthe patient. The patient has consented to the procedure. The medical history and chart were reviewed. The timeout was performed. Start time: 12/01/2020 3:21 PM End time: 12/01/2020 3:29 PM Patient Location: Block Room Patient Prep Position: Sitting Prep: Hand Hygiene, Hat, Mask, Sterile Gloves, Chlorhexidine and Patient Draped Injection technique: single-shot Skin Anesthetic Lidocaine 1% 3 ml Procedure Technique Level of needle insertion: L3-4 Needle approach: midline Needle Type: Sprotte Gauge: 25 Needle length: 3.5 in Number of attempts: 1 Medications: Date/Time: 12/01/2020 3:29 PM BUpivacaine 0.5%, 3.5 mL Events/Notes Events: None Resident/INTERNATIONAL STUDENT ADVISOR: Courtney Velásquez CRNA Second Resident/INTERNATIONAL STUDENT ADVISOR: SRNA: Fellow: Attending Physician: Adelaide Stephens MD ~~~~~~~~~~~~~~~~~~~~~~~~~~~~~~~~~~~~~~~~~~~~~~~~~~~~~~~~~~~~ Anesthesia Preprocedure Evaluation - Adelaide Stephens MD - 12/01/2020 8:13 AM EST Pre-Anesthesia Evaluation for: Howard Perez a 60 y.o. male. Procedure(s): TOTAL HIP REVISION ARTHROPLASTY, COMPLETE (WRVU 30.28) Patient Active Problem List Diagnosis ??? Obesity (BMI 30-39.9) ??? HTN (hypertension) ??? Smokes ??? COPD (chronic obstructive pulmonary disease) Past Medical History: Diagnosis Date ??? COPD (chronic obstructive pulmonary disease) copd ??? High blood pressure ??? Motion sickness Past Surgical History: Procedure Laterality Date ??? HIP SURGERY Bilateral 2000 ??? JOINT REPLACEMENT hip Social History Tobacco Use ??? Smoking status: Current Every Day Smoker Packs/day: 1.00 Years: 20.00 Pack years: 20.00 ??? Smokeless tobacco: Never Used Substance Use Topics ??? Alcohol use: Not Currently Social History Substance and Sexual Activity Drug Use Not Currently No Known Allergies Medications: MAR and/or home medications have been reviewed. Physical Exam: No data found. There is no height or weight on file to calculate BMI. Airway Assessment: Mallampati: III TM distance: >3 FB Neck ROM: full Cardiovascular Assessment: Rhythm: regular Pulmonary Assessment: (+) wheezes PE comment: Bilateral end expiratory wheezing, improved with Duoneb Dental Assessment: Misc Assessment: IV access: Peripheral line Anesthesia Plan: ASA 3 spinal, with a(n) intravenous induction Mr. Perez is a 60 year old male with PMHx of motion sickness, HTN, COPD, tobacco abuse and previousleft LISS now presents for revision LISS on the left. Pt has NKDA. Plan for preoperative Duoneb, SAB. Risks were discussed at length, and all questions and concerns were addressed. Consent was obtained, and the appropriate paperwork was placed in the patient's chart. Region - Other Informed Consent: Anesthetic plan and risks discussed with patient. Use of blood products discussed with patient who consented to blood products. Plan discussed with INTERNATIONAL STUDENT ADVISOR. PAT Clinic Note documented in this encounter Plan of Treatment Not on filedocumented as of this encounter Procedures Procedure Name Priority Date/Time Associated Diagnosis Comme nts ANE NEURAXIAL APS Routine 12/01/2020 4:08 PM Resu lts for this USE EST procedure are i n the results section. documented in this encounter Results Neuraxial Block (12/01/2020 4:08 PM EST) Narrative Courtney Velásquez CRNA - 12/01/2020 4:08 PM EST Courtney Velásquez CRNA ? 12/01/2020 ??4:10 PM Procedure: ?? Neuraxial Block Primary Anesthetic Type: Spinal The patient was greeted. The sedation pl an, its benefits, risks and alternatives were discussed with the pat ient. ??The patient has consented to the procedure. ??The medical history and chart were reviewed. ??The timeout was performed. Start time: 12/01/2020 3:21 PM End time: 12/01/2020 3:29 PM Patient Location: Block Room Patient Prep Position: Sitting Prep: Hand Hygiene, Hat, Mask, Sterile G loves, Chlorhexidine and Patient Draped Injection technique: single-shot Skin Anesthetic Lidocaine 1% ??3 ml Procedure Technique Level of needle insertion: L3-4 Needle approach: midline Needle Type: Sprotte Gauge: 25 Needle length: 3.5 in Number of attempts: 1 Medications: Date/Time: ??12/01/2020 3:29 PM BUpivacaine 0.5%, 3.5 mL Events/Notes Events: ??None Resident/INTERNATIONAL STUDENT ADVISOR: ? Geovanna Velásquez CRNA Second Resident/INTERNATIONAL STUDENT ADVISOR: SRNA: ? Fellow: ? Attending Physician: ? Adelaide Stephens MD ~~~~~~~~~~~~~~~~~~~~~~~~~~~~~~~~~~~~~~~~ ~~~~~~~~~~~~~~~~~~~~ Adelaide Stephens MD SELLING SPECIALIST [facility] documented in this encounter Visit Diagnoses Not on filedocumented in this encounter Administered Medications Inactive Administered Medications - up to 3 most recent administrations Medication Order MAR Action Action Date Dose Rate Site BUpivacaine (pf) (Marcaine) (5 Given 12/01/2020 3:29 PM EST 3.5 mLs mg/mL) 0.5% injection Intrathecal, Starting on Sun12/01/20 at 1529, Until Sun12/01/20 at 1529, Anesthesia Intra-op, Routine ceFAZolin (Ancef) 3 g in dextrose 5% 100 mL Given 12/01/2020 3:5 1 PM EST 3 g infusion 3 g, Intravenous, EVERY 3 HOURS, 1 dose, First dose on Sun12/01/20 at 1415, Administer over 30 Minutes, Redose after 3 hours., Intra-Operative (Intra-Procedure), Indication for (Active or Suspected): Prophylaxis lactated ringers infusion New Bag 12/01/2020 5:01 PM EST 1,000 mL, at 100 mL/hr, Intravenous, CONTINUOUS, Starting on Sun12/01/20 at 1415, Until Sun12/01/20 at 2353, Day of Surgery (Day of Procedure) New Bag 12/01/2020 2:22 PM EST 1,000 mLs 100 mL/hr midazolam (pf) (Versed) (1 mg/mL) multi-dose Given 12/01/2020 3: 23 PM EST 1 mg injection Intravenous, PRN, Starting on Sun12/01/20 at 1518, Until Sun12/01/20 at 1819, Anesthesia Intra-op, Routine Given 12/01/2020 3:18 PM EST 1 mg PHENYLephrine Rate/Dose Change 12/01/2020 5:34 15 mcg/min 11.25 mL/hr (Kaden-Synephrine) (80 mcg/mL) PM EST in sodium chloride 0.9% 250 mL infusion Intravenous, CONTINUOUS PRN, Starting on Sun12/01/20 at 1625, Until Sun12/01/20 at 1819, Anesthesia Intra-op, Routine Rate/Dose Change 12/01/2020 5:29 PM EST 30 mcg/min 22.5 mL/hr Rate/Dose Change 12/01/2020 5:22 PM EST 40 mcg/min 30 mL/hr PHENYLephrine in NS (PF) (KADEN-SYNEPHRINE) 0.8 Given 4:23 PM EST 80 mcg mg/10 mL (80 mcg/mL) multi-dose injection Syrg Intravenous, PRN, Starting on Sun12/01/20 at 1606, Until Sun12/01/20 at 1819, Anesthesia Intra-op, Routine Given 12/01/2020 4:16 PM EST 40 mcg Given 12/01/2020 4:11 PM EST 40 mcg propofoL (Diprivan) 10 mg/mL bolus injection Given 3:57 PM EST 30 mg (Anesthesia) Intravenous, PRN, Starting on Sun12/01/20 at 1557, Until Sun12/01/20 at 1819, Anesthesia Intra-op propofoL (Diprivan) infusion Rate/Dose 12/01/2020 5:33 50 mcg/kg/min 39.33 Intravenous, CONTINUOUS PRN, Change PM EST mL/hr Starting on Sun12/01/20 at 1544, Until Sun12/01/20 at 1819, Anesthesia Intra-op, Routine Rate/Dose Change 12/01/2020 5:22 PM EST 65 mcg/kg/min 51.129 mL/hr Rate/Dose Change 12/01/2020 5:01 PM EST 80 mcg/kg/min 62.928 mL/hr tranexamic acid New Bag 12/01/2020 3:37 PM EST 15 mg/kg/hr 120.27 mL/hr (Cyklokapron) 2,030 mg in sodium chloride 0.9% 120.3 mL infusion 2,030 mg (rounded from 2,029.5 mg = 15 mg/kg/dose ? 135.3 kg), Intravenous, ONCE, 1 dose, On Sun12/01/20 at 1415, Administer over 30 Minutes, Day of Surgery (Day of Procedure) documented in this encounter Care Teams Cook Chief Relationship Specialty Start Date End Date Chapincito Avalos DO PCP - General Family Medicine 03/12/19 [address] [place] [address] documented as of this encounter
--- OUTSIDE RECORDS SUMMARY | 2022-04-28 00:17 | XMS_ITS | Encounter Summary ---
:1960 [place] [address] Care Team Providers Name Role Phone Chapincito Avalos DO Primary Care Provider Reason for Visit Auth/Cert Specialty Diagnoses / Procedures Referred By Contact Refer red To Contact Diagnoses Failure of left total hip arthroplasty, sequela failed LISS, massive polywear Procedures PRO REVISE TOTAL HIP REPLACEMENT TOTAL HIP REVISION ARTHROPLASTY, [facility] ([facility] 30.28) Referral ID Status Reason Start Date Expiration Date Visits Requ ested Visits Authorized [id number] 1 1 Encounter Details Date Type Department Care Team Description 12/01/2020 Surgery Main Operating Room Alex Cedillo, @ TOTAL HIP REVISION Mad[facility] ARTHROPLASTY, [facility] ([facility]U 30.28) [facility] [address] Rivers [place] [address] [place] [address] [phone] (Wo rk) Social History Tobacco Use Types Packs/Day Years Used Date Current Every Day Smoker 1 20 Smokeless Tobacco: Never Used Alcohol Use Standard Drinks/Week Comments Not Currently 0 (1 standard drink = 0.6 oz pure alcoho l) Sex Assigned at Date Recorded Not on file documented as of this encounter Last Filed Vital Signs Vital Sign Reading Time Taken Comments Blood Pressure 162/88 12/01/2020 1:52 PM EST Pulse 84 12/01/2020 1:52 PM EST Temperature 36.3 ??C (97.3 ??F) 12/01/2020 1:52 PM EST Respiratory Rate 18 12/01/2020 1:52 PM EST Oxygen Saturation 95% 12/01/2020 1:52 PM EST Inhaled Oxygen Concentration - - Weight 131.1 kg (289 lb) 12/01/2020 1:52 PM EST Height 188 cm (6' 2) 12/01/2020 1:52 PM EST Body Mass Index 37.11 12/01/2020 1:52 PM EST documented in this encounter Discharge Summaries Connie Rosario MD - 12/09/2020 10:06 AM EST Discharge Summary Patient Name: Howard Perez Patient Age: 60 y.o. Language: Serbian Race: White Ethnicity: Not nor Admit date: [...] Center 12/31/2020 11:00 AM Paco Early MD [facility] [place] [facility] 01/10/2021 10:00 AM [facility] DX ROOM 6 Xray [facility] Rad 01/10/2021 11:00 AM Alex Cedillo MD [facility] [place] 3C [facility] Inpatient Provider Contact Information: Alex Cedillo MD Orthopedics: [phone] After hours and weekends, call [facility] Cushion Padder, , and have the Orthopedic resident paged. [...] Primary * Jae Sprague PA - Physician Centrifugal Supervisor * Madalyn Vuong MD - Resident * [...] want to quit and declined referral to [place] Quit. On POD#8, patient was evaluated by RIG HAND for completion of workup of prior pneumonia [...] Internal Medicine - PGY3 Medicine Consults #[id number] Attestation signed by Lauren Cheng MD at [...] left. PPD smoker, s/p left LISS revision 12/01/2020. TECHNIQUE: PA and lateral viewsof [...] [facility] Nurse at [phone] for further dose instructions. If it is after 5pm or on the weekends, the [facility] Orthopedic Resident (Luis) java solutions architect will be managing your dosing (please call [phone] and ask for them to be paged). Warfarin (Coumadin??) should be taken at the same time every day, usually at 5pm. The following table shows your most recent INR results and Coumadin?? doses: Date Notes INR Coumadin?? dose 12/01 day of operation 2:20 pm 7.5 mg given 12/02 POD#1 1.1 5mg 2 POD#2 1.1 7.5 mg 2/13 POD#3 1.1 [...] not take or discontinue any prescription or psrb-iha-diihjvz medications without asking your doctor or pharmacist [...] bowel movement. You can also take an lcsr-vay-malonhh medication, Miralax if needed to combat constipation. [...] smoke-free lifestyle. You can also call local [place] or [place] quit lines for additional assistance. [place] Quit Line: 1-689-YUHJ-NOW Online at [employer] [place] Quit Line: 9-408-FGGX-NOW Online at [employer] Call your doctor ([phone]) if you develop: 1. Fever greater than [...] 2. You will have follow-up appointments at [facility] as indicated below in Future Appointment and Orders. 3. You will need to have x-rays prior to your follow-up appointment on 01/10/2021. Please come to Radiology, desk 3T, 1 hour BEFORE that appointment for these x-rays. Future Appointments Date Time Provider Department Center 12/31/2020 11:00 AM Paco Early MD [facility] [place] Sp [facility] 01/10/2021 10:00 AM [facility] DX ROOM 6 Xray [facility] Rad 01/10/2021 11:00 AM Alex Cedillo MD [facility] [place] [facility]C [facility] If you have questions or concerns: Sunday [...] Early MD Pain and Spine Center at [facility] Arrive at: Pricing Lead Area 3D [phone] 01/10/2021 10:00 AM [facility] DX ROOM 6 XRay at [facility] Arrive at: Pricing Lead Area 3T [phone] Please go to Pricing Lead Area 3T ([place] Location). 01/10/2021 11:00 AM Alex Cedillo MD Orthopaedics at [facility] Arrive at: Pricing Lead Area 3C [phone] Future Orders Complete By Expires Referral for Anticoagulation Monitoring [PJG053 Custom] As directed Process Instructions: If no progress note charted, please enter Clinical details in comments. Scheduling Instructions: Questions: Risk Factors: My question or request is: Coumadin s/p Left revision LISS 12/01/2020 Referral to Home Health - at DISCHARGE [SNM7577 CPT(R)] As directed Process Instructions: Scheduling Instructions: Comments: DOCUMENTATION FOR VNA SERVICES (INCLUDING PATIENTS WITH MEDICARE COVERAGE BEING DISCHARGED HOME WITH VNA SERVICES AND/OR HOSPICE SERVICES) PATIENT'S LOCATION: Howard Perez Discharge to own home: [address] [place] [address] Registration Manager's Name: self/patient In discussion with the attending physician, it is certified that this patient is under their care and that they, or a nurse practitioner, clinical nurse specialist or physician's web press operator assistant who is working directly with them, had [...] for home health services. HOME HEALTH AGENCY: [facility]. PHONE: [phone] FAX: [phone] Shelter(SN) eval if indicated on admission visit 1. Draw PT/INR as follows: ( Point of care testing is acceptable) Week of discharge: PER MD/LEASING MANAGER/PA ORDERS Thereafter, PT/INR: every Sunday and PT/INR results to be called and faxed as follows: Sun-Sun, 8 am - 5 pm, Anticoagulation (Coumadin) clinic @ [facility] [address] ; Fax: After 5 pm Sun-Sun OR Sat/Sun: if the PT/INR is drawn on the weekend, call the results to the Orthopedic Resident java solutions architect at [phone] for Coumadin dosing Do not lift the [...] Avalos DO [address] [place] [address] All VNA agencies which cover patient's residence area have been reviewed, either verbally or in writing, and patient/family have chosen the indicated home health agency. Questions: [facility] post [facility]: home What services are requested: Physical Therapy Occupational Therapy Home Health Aide Start date: Responsible MD post discharge contact info: Primary Care Provider: Chapincito Avalos DO [phone] Discharge References/Attachments SMOKING: STOPPING (FIJIAN) COPD: GENERAL INFO (FIJIAN) SLEEP APNEA (FIJIAN) SLEEP STUDIES (FIJIAN) documented in this encounter Discharge Instructions Patient [...] [facility] Nurse at [phone] for further dose instructions. If it is after 5pm or on the weekends, the [facility] Orthopedic Resident (Luis) java solutions architect will be managing your dosing (please call [phone] and ask for them to be paged). Warfarin (Coumadin??) should be taken at the same time every day, usually at 5pm. The following table shows your most recent INR results and Coumadin?? doses: Date Notes INR Coumadin?? dose 12/01 day of operation 2:20 pm 7.5 mg given 2/ POD#1 1.1 5mg 2/ POD#2 1.1 7.5 mg 2/ POD#3 1.1 7.5 mg 2/14 POD#4 1.2 [...] not take or discontinue any prescription or ootw-chq-izcqeve medications without asking your doctor or pharmacist [...] bowel movement. You can also take an ayxx-axk-zgxcmkc medication, Miralax if needed to combat constipation. [...] smoke-free lifestyle. You can also call local [place] or [place] quit lines for additional assistance. [place] Quit Line: 5-657-SWUT-NOW Online at [employer] [place] Quit Line: 5-349-AKPN-NOW Online at [employer] Call your doctor ([phone]) if you develop: 1. Fever greater than [...] 2. You will have follow-up appointments at [facility] as indicated below in Future Appointment and Orders. 3. You will need to have x-rays prior to your follow-up appointment on 01/10/2021. Please come to Radiology, desk 3T, 1 hour BEFORE that appointment for these x-rays. Future Appointments Date Time Provider Department Center 12/31/2020 11:00 AM Paco Early MD [facility] [place] Sp [facility] 01/10/2021 10:00 AM [facility] DX ROOM 6 MH Xray [facility] Rad 01/10/2021 11:00 AM Alex Cedillo MD [facility] [place] [address] [place] [address] If you have questions or concerns: Sunday through Sunday, 8 AM - 5 PM, please call Dr. Alex Cedillo MD's office at . If it is after 5 PM, the weekend, or holidays, please call and ask to speak with the Orthopedic resident on-call. AttachmentsThe following attachments cannot be sent through Care Everywhere. SMOKING: STOPPING (FIJIAN)COPD: GENERAL INFO (FIJIAN)SLEEP APNEA (FIJIAN) SLEEP STUDIES (FIJIAN)documented in this encounter Medications at Time of [...] of this encounter Progress Notes German Morgan, TECHNOLOGY EDUCATION INSTRUCTOR - 12/09/2020 11:25 AM EST Physical Therapy [...] 1-2 steps to enter. 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 Pt independent prior to admission with all ADL and IADL routines.? Precautions/Special Considerations:??Enhanced hip precautions; no IR of hip, no hip flexion past 90 degrees, and no adduction of hip past midline,??WBAT LLE, ABD pillow in supine,??at risk for falls,??supplemental oxygen? Interval History: Per MD note 12/09/20 PARTH. On room air during the day, breathing [...] Pt demonstrated ability to don pants using advanced practice professional w/ supervision; Pt able to stand using FWW and hike pants over hips as well as tie waist w/ supervision ?? min A to doaris lang ?? Supervision to don Tshrit ?? Pt declined to doff this institution's outsole scheduler socks; ?? Pt able to don bilateral shoes using various AE (dressing stick, LH advanced practice professional, shoehorn) w/ supervision however required assist to [...] OT: Therapy Frequency (OT): 2-4 times/wk Pager: [phone] EMMETT BLACKWOOD Occupational Therapy Rehabilitation Department Ruby [...] by pneumonia and brief increased oxygen requirement. RIG HAND consulted on day of d/c to assess swallow function. Prior Level of Swallow Function: Pt reports consuming regular diet consistency at baseline, denies hx of dysphagia or GERD. No prior RIG HAND intervention or assessment per [facility] review. Subjective: Pt up to chair, preparing [...] oropharyngeal swallow function. No indication for further RIG HAND intervention, or diet modification. This was relayed to pt and team. Diagnosis: normal appearing oropharyngeal swallow Recommendations: Diet: Regular solids, Thin liquids PO medications: whole with sip of liquid Aspiration precautions: Upright position during meals and for at least 30 mins following Excellent oral care No further RIG HAND intervention is warranted while hospitalized. and Do not anticipate need from RIG HAND services in discharge location. Plan: Therapy Frequency (RIG HAND Eval): evaluation only Pt./family are in agreement with treatment plan. Total Minutes (Speech Language Pathology): 18 Thank you for this consult with this patient. Please feel free to page me with any questions or concerns. Denisa Yanez MS, [facility]-RIG HAND Inpatient Speech Pathologist Pager #[phone] Mami Jo MD - 12/09/2020 6:25 AM [...] Center 12/31/2020 11:00 AM Paco Early MD [facility] [place] Sp [facility] 01/10/2021 10:00 AM [facility] DX ROOM 6 MH Xray [facility] Rad 01/10/2021 11:00 AM Alex Cedillo MD [facility] [place] 3C [facility] Ruby Ceballos RN - 12/08/2020 6:02 PM EST OUTCOME [...] Knowledge Exchangeat Bedside, Bed Alarm Set Rosa Magaña, RN - 12/08/2020 5:14 PM EST This author reviewed a list of Home Health Agencies/DME vendors which serve their preferred geographic area. Affiliations were reviewed with them and they were educated about their right to choose where referrals are placed. Patient requests referral to [facility] PHONE: [phone] FAX: [phone] Expected date of discharge: 12/08/2020 Pepe Perez MSW - 12/08/2020 4:38 PM EST PETROL TANKER DRIVER attempted to contact pts brother Juan ([phone]) in efforts to coordinate Juan's visit for caregiver training, ideally 1000 tomorrow morning. No response, VM left with request to return writerscall. Blister Packing Machine Tender also attempted to contact pts mother Bailey but that number has been disconnected. Betsy Garland R, PT - 12/08/2020 4:00 PM EST Physical Therapy Note Treatment Number PT: 4 ?? Patient profile: Howard Perez??is a 60 y.o.??male??s/p revision left LISS (acetabular component revision) on 12/02/20.? Interval History: Per ortho note 12/06/20 NAEON.??Awaiting rehab. On 1L [place] overnight.?? He denies numbnes/tingling in his L LE. No chest pain, shortness of breath, nausea/vomiting, palpitations.?? Pain controlled but present. Notes it is overall improving since surgery.?? INR 1.2??yesterday,??coumadin (PEPPER trial, goal INR 2-3). ?? Social History: Pt lives alone in a 1 level home with 1-2 steps to enter. 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 Cues for technique to maintain hip precautions. [...] and mobility recommendations discussed with nursing and LEASING MANAGER Pt left in bedside chair. ?? Assessment: [...] he were to d/c home would recommend 24/ for safety and cueing for precautions. Pt [...] ?? Total Minutes, Physical Therapy: 35mins (te-f).?? [phone] ?? 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 Pt independent prior to admission [...] o Pt participated in donning socks using advanced practice professional, sock aid and dressing stick o Pt requiring cues for sequencing and able to thread pants with use of advanced practice professional and don socks with sock aid while [...] OT: Therapy Frequency (OT): 2-4 times/wk Pager: [phone] Cassidy Valentin OT Occupational Therapy Rehabilitation Department Mami Jo MD - 12/08/2020 6:48 AM EST ORTHOPAEDIC SURGERY INPATIENT PROGRESS NOTE Patient Name: Howard Perez Age: 60 y.o. Surgery/Issue: Left Revision Total Hip Arthroplasty Attending: Dr. Cedillo Date of surgery: 12/01/2020 SUBJECTIVE / INTERVAL HISTORY: NAEON. On room air. Insurance denied rehab, plan for erge-cj-gbeo today. Overall progressing well. INR pending today. [...] 600 mg FOLLOWED BY gabapentin (Neurontin) mg ??? sodium chloride 0.9% infusion ??? [...] for rehab DC pending bed availability and dhiy-jt-vpvb today. Metal ion levels (Co, Cr) still [...] Center 12/31/2020 11:00 AM Paco Early MD [facility] [place] Sp [facility] 01/10/2021 10:00 AM [facility] DX ROOM 6 MH Xray [facility] Rad 01/10/2021 11:00 AM Alex Cedillo MD [facility] [place] [facility]C [facility] Dimitrios Alba RN - 12/07/2020 6:59 PM [...] management with scheduled and PRN medications, see MAR. Pt has been OOB tot he toilet. 1 BM and voiding adequallyin the urinal. D/c expected 2/17, will continue to monitor. PLAN MOVING FORWARD: [...] applicable: No CPG GOAL OUTCOME EVALUATION: Rosa Magaña RN - 12/07/2020 3:38 PM EST OFFICE OF CARE MANAGEMENT Production Proofreader Follow-up Note S/O: Discussed plan of care with Primary team and Nursing to assess continuing care and discharge needs. LOS: 6 days Primary Insurance: [facility] Secondary Insurance: N/A DECISION MAKER:self Pt continues to require hospitalization for: persistent O2 requirement overnight, On 5 days of Augmentin for possible aspiration PNA, droplet precautions. Current referrals in place: [facility] ([facility]) [address] [place], [place] [id number] This case was denied. The MD can call [phone] to schedule a peer to peer review. Per to peer phone call completed this am by ortho team, awaiting on final determination on appeal status from [facility]. A: Discharge plan Inpatient rehabilitation facility vs home with VNA pending hospital course, progress with PT/OT and insurance authorization appeal status. P:Production Proofreader to follow with team and family to assist with discharge needs when patient ready for discharge. Rosa Givens, RN,[facility] Nurse Production Proofreader Pager [phone] Mami Pino MD - 12/07/2020 6:11 AM EST ORTHOPAEDIC [...] capsule 600 mg FOLLOWED BY gabapentin (Neurontin) [id number] mg ??? sodium chloride 0.9% infusion ??? [...] Center 12/31/2020 11:00 AM Paco Early MD [facility] [place] Sp [facility] 01/10/2021 10:00 AM [facility] DX ROOM 6 MH Xray [facility] Rad 01/10/2021 11:00 AM Alex Cedillo MD [facility] [place] [address] [place] [address] Stanam Stinson RN - 12/06/2020 11:30 PM EST Transferred care of patient to [facility] at 23:30. VS remain stable and pain 6/10. On 1L NC. Patient placed on droplet precautions at beginning of shift due to concern for pneumonia. All patients belongings were transferred with him to his new room in [facility]. 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 German Morgan, [facility] Pager: [phone] Physical Therapy Inpatient Rehabilitation Department Olivia Marinelli RN - 12/06/2020 8:12 AM EST Office of Care Management - Discharge Planning - RN/CM Service: Ortho e-DH reviewed. [facility] Patient plan of care discussed with Team [...] for discharge to rehab today Referral to PETROL TANKER DRIVER: none noted Discharge planning/referrals: REHAB/SNF [facility] previous [facility] [address] [place] [address] P: [phone] F: [phone] Information forwarded by facility: Please offer bed pending center reopening of perfusionist/CM has spoken with patient - he is amenable to bed offer. Pending [employer] Prior authorization COVID testing - pending information from facility to times needed Pending final word on facility opening ~~~~~~~~~~~~~~~~~~~~~~~~~~~~~~~~~~~~~~~~~~~~~~~~~~~~~~~~~~~~~~~~~~~~~~ Mala [address] [address] RN/CM has spoken with patient - he is amenable to going to [facility] and is aware of pending [employer] Prior [...] assist with discharge planning while hospitalized Elmer Sharon) GIORGI Marinelli RN/CM - Cellphone: [phone] Pager: [phone] Covering Service RN/CM Mami Jo MD - [...] capsule 600 mg FOLLOWED BY gabapentin (Neurontin) [id number] mg ??? sodium chloride 0.9% infusion ??? sodium chloride 0.9% Stopped (12/02/20 1083) OBJECTIVE: Temp: [36.5 ??C (97.7 ??F)-36.7 ??C [...] Center 12/31/2020 11:00 AM Paco Early MD [facility] [place] Sp [facility] 01/10/2021 10:00 AM [facility] DX ROOM 6 MH Xray [facility] Rad 01/10/2021 11:00 AM Alex Cedillo MD [facility] [place] [facility]C [facility] Satnam Stinson RN - 12/06/2020 4:59 AM EST OUTCOME [...] capsule 600 mg FOLLOWED BY gabapentin (Neurontin) [id number] mg ??? sodium chloride 0.9% infusion ??? [...] Center 12/31/2020 11:00 AM Paco Early MD [facility] Pain Sp [facility] 01/10/2021 10:00 AM [facility] DX ROOM 6 MH Xray [facility] Rad 01/10/2021 11:00 AM Alex Cedillo MD [facility] [place] [facility]C [facility] Lesia Houston RN - 12/04/2020 3:50 PM EST OUTCOME [...] deficits provided, if applicable: [X] N/A Marilou Novak, PT - 12/04/2020 2:11 PM EST Physical Therapy Note Treatment Number PT: 2 Patient profile: Howard Perez??is a 60 y.o.??male??s/p revision left LISS (acetabular component revision) on 12/02/20.?? Interval History: KARL Social History: Pt lives alone in a 1 level home with 1-2 steps to enter. 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 Marilou Novak PT DPT 12/04/2020 Pager: [phone] Physical Therapy Inpatient Rehabilitation Department Madyson Ibarra RN - 12/04/2020 9:32 AM EST No bed offers. Will follow up on Sunday. 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 Patient was in agreementto expand the search to: ?? [facility] ([facility]) [address], [place] [id number] [facility] ([facility]) [address] [place], [place] [id number] RS please submit referral [facility] supporting documentation. Bridget Ribera RN - 12/03/2020 7:30 AM EST 0730 Assumed care of pt. O2 maintained at 1.5L NC, lungs with exp and insp wheezes present. Pupils 2mm with PERRLA present. Ag mep to L hip CDI. AM meds administered including pain meds, see MAR. Will continue to monitor. 0900 Care assumed by GIORGI Lara, report given. Mami Jo MD - 12/03/2020 6:45 AM EST ORTHOPAEDIC SURGERY INPATIENT PROGRESS NOTE Patient Name: Howard Perez Age: 60 y.o. Surgery/Issue: Left Revision Total Hip Arthroplasty Attending: Dr. Cedillo Date of surgery: 12/01/2020 SUBJECTIVE / INTERVAL HISTORY: NAEON. Pain improved from yesterday and worked with [...] capsule 600 mg FOLLOWED BY gabapentin (Neurontin) [id number] mg ??? sodium chloride 0.9% infusion ??? [...] Center 12/31/2020 11:00 AM Paco Early MD [facility] [place] [facility] 01/10/2021 10:00 AM [facility] DX ROOM 6 MH Xray [facility] Rad 01/10/2021 11:00 AM Alex Cedillo MD [facility] [place]C [facility] Tanesha Rod RN - 12/02/2020 6:39 PM [...] ADLs]: Hands on Surveillance [continuous indirect monitoring]: MRAC Randle, hourly rounding Patient-specific fall prevention interventions for sensory deficits provided, if applicable: [X] N/A CPG GOAL OUTCOME EVALUATION: Bishop Betsy R, PT - 12/02/2020 11:16 AM EST Physical [...] 1-2 steps to enter. 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 Pain: Number Location At rest 8/10; medicated at start of session L hip With activity 8/10 L hip Vital Signs: At Rest With [...] as outlined in this evaluation. Time IN/OUT: 7830-7010 Total time: 43 evaluation BETSY GARLAND, PT Pager: [phone] Physical Therapy Inpatient Rehabilitation Department Cassidy Valentin, OT - 12/02/2020 10:04 AM EST Occupational Therapy Evaluation Patient profile: Per MD: Howard Collins Chris is a 60 y.o. 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 Pt independent prior to admission [...] Dressing: Pt issued long handled shoe horn, advanced practice professional, sock aid and provided verbal instructions. Bathing: [...] instrument andmeasurable assessment of functional outcome. Pager: [phone] Cassidy Valentin OT 12/02/2020 Occupational Therapy Rehabilitation [...] Center 12/31/2020 11:00 AM Paco Early MD [facility] [place] [facility] 01/10/2021 10:00 AM [facility] DX ROOM 6 MH Xray [facility] Rad 01/10/2021 11:00 AM Alex Cedillo MD [facility] [place]C [facility] Shahla Marsh RN - 12/02/2020 12:05 AM EST Pt arrived to the unit from the PACU. Pt denies any chest pain, SOB, nausea, numbness or tingling. Dressing to left hip cdi. Abductor pillow between legs. VSS, on 2L NC. Pt oriented to the room and call aragon. Will continue to monitor. Shahla Crowder RN Christopher Ventura RN - 12/01/2020 11:36 PM EST 2129- Received report from Ora RAND 2345- Pt awake Nelson Abdalla MD - 12/01/2020 10:00 PM EST ORTHOPAEDIC [...] ??? sodium chloride 0.9% 1,000 mL (12/01/20 8350) OBJECTIVE: Temp: [36 ??C (96.8 ??F)-36.8 ??C [...] Center 12/31/2020 11:00 AM Paco Early MD [facility] [place] Sp [facility] 01/10/2021 10:00 AM [facility] DX ROOM 6 MH Xray [facility] Rad 01/10/2021 11:00 AM Alex Cedillo MD [facility] [place]C [facility] Ora Silva RN - 12/01/2020 7:18 PM [...] breath, nausea, new numbness or tingling. LBM 12/08. Pt pleasant and cooperative throughout shift, sleeping [...] EST Medicine Consults Progress Note Consult Team/Pager: [phone] ID: Howard Perez??is a 60 y.o.??male??who has [...] Procedure Component Value Units Date/Time COVID-19 PCR [[id number]] Collected: 12/06/20 1103 Lab Status: Final result [...] using the Simplexa COVID-19 Direct Assay by [employer] as authorized by the FDA issued Emergency [...] Department of Pathology and Laboratory Medicine at [facility], certified under the Clinical Laboratory Improvement Amendments [...] fact sheets at the following FDA website: https://www.fda.gov/medical-devices/eenuypkrayj-pwtkqzb-3433-ijbnb-55-drsymsyuk- krc-sefosryohvifaf-aygkyot-devices/sojlw-ohtdeujzdde-ziar SARS-CoV-2 Source COST ACCOUNTING MANAGER Swab COVID-19 PCR [[id number]] Collected: 11/28/20 1413 Lab Status: Final result Specimen: Nasopharyngeal Swab Updated: 11/29/20 174 SARS-CoV-2 RNA Not Detected Comment: This result [...] on the instructions for use provided by [employer] and additional guidance provided by [facility] and FDA. Testing is performed in the Clinical Genomics and Advanced Technology Laboratory within the Department of Pathology and Laboratory Medicine at [facility], certified under the Clinical Laboratory Improvement Amendments [...] fact sheets at the following FDA website: https://www.fda.gov/medical-devices/qotdzkyrsfo-xuyzrbl-6449-uevjr-95-gyjxykxeb- fhm-mbttvftvxbvrbp-spsdulg-devices/ohueg-leerovjodrm-yflm SARS-Cov-2 RNA Source COST ACCOUNTING MANAGER Swab Diagnostic Studies: Results for orders placed [...] this report, please contact the number below. Inpatient Medications: Scheduled Meds: ??? amoxicillin-clavulanate 1 [...] changes occur or new questions arise, page 353. Case discussed with Dr. Cheng Associated attestation [...] Cedillo MD PCP: Chapincito Avalos DO PCP#: [phone] Reason for Consult concern for pneumonia History [...] clinical changes occur or newquestions arise, page [phone]. Patient discussed and seen with Dr. Cheng [...] incentive spirometry Plan of Care - Wood Dolan, GIORGI - 12/05/2020 7:05 PM EST OUTCOME EVALUATION [...] given.??Patient is alert and oriented x 4, CAMPO, VSS, denies numbness and tingling. ??Sleeping between [...] independent with urinal ?? Surveillance [continuous indirect monitoring]:?Laurio, Purposeful Rounding, Nurse Knowledge Exchange ?? Patient-specific [...] Patient is alert and oriented x 4, CAMPO, VSS, denies numbness and tingling. Sleeping between [...] independentwith urinal ?? Surveillance [continuous indirect monitoring]: Jer, Purposeful Rounding, Nurse Knowledge Exchange ?? Patient-specific [...] Patient is alert and oriented x 4, CAMPO, VSS. Sleeping between care overnight. Silver dressing [...] Hospitalizations Within the Past 30 Days: no [facility] admits in last 30 days. 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 Home Environment: house, 2 level, able to stay on first floor, [address] [facility] [address] Social & Family Supports/Community Resources: lives alone, brother lives nearby, 10-15 miles from patient's house, can assist with errands. Extended Emergency Contact Information Primary Emergency Contact: Javier Perez [place], [place] Relation: Mother Secondary Emergency Contact: No,One [...] Insurance: N/A Prescription Coverage: Yes Preferred Pharmacy: [id number] AT [address] [address] Other: none Primary Care Provider: Chapincito Avalos DO [phone] Patient/Caregiver Goals of Treatment: return to previous [...] discharge planning needs. I have provided the [facility], Officeof Care Management letter from the Day Trader pertaining to rehab referrals. I have also provided a letter describing our affiliations within the [facility] and educated them about their right to choose where referrals are. ?? Provided patient with CMS Star Quality Rating for SNF, LTAC and/or [...] have requested referrals to: ?? 1. [facility] [address] [place] [address] ?? [phone] ?? 2. [facility] previous [facility] [address] [place] [address] P: [phone] F: [phone] 08/23 No Access to [facility] ?? [address]. [address] [address] ?? PHONE: [phone] FAX: [phone] ? Expected date of discharge: 12/03/2020 Note routed to Prism Measurer who will communicate referrals to facilities and provide any required information. Plan: A member of the Care Management team will continue to monitor progress, follow for continuity of care and assist with transition of care planning. Rosa Givens, RN, [facility] Nurse Production Proofreader Pager [phone] Plan of Care - Shahla Crowder RN [...] on with ADL's Surveillance [continuous indirect monitoring]: Jer, Purposeful Rounding, Nurse Knowledge Exchange Op Note - Alex Cedillo MD - 12/01/2020 4:02 PM EST [facility] Operative Note Patient Name: Howard Perez : [id number] MR#: [id number] Case Date: 12/01/2020 Surgeon: Surgeon(s) and Role: * Alex Cedillo MD - Primary * Jae Sprague PA - Physician Centrifugal Supervisor * Mami Jo MD - Resident Preoperative [...] hip asthe correct operative side. Implants: Acetabulum: Milton Tritanium 70mm multihole Femoral Stem: Retained Liner: [...] guide within the acetabular component. Using the LoopMe EZ out first with a small blade [...] Implant Name Type Inv. Item Serial No. Meter Record Clerk Lot No. LRB No. Used Action Trident II Tritanium Multihole Acetabular Shell, 70mm, I IMPLANTS [id number] Left 1 Implanted Milton 6.5mm Low Profile Hex Screw IMPLANTS [id number] Left 1 Implanted Milton 6.5mm Low Profile Hex Screw 25mm IMPLANTS 2PA Left 1 Implanted Arnaldo 6.5mm Low Profile Hex Screw 30mm IMPLANTS 2EH Left 1 Implanted Milton 6.5mm Low Profile Hex Screw 15mm IMPLANTS [id number] Left 1 Implanted Arnaldo 6.5mm Low Profile Hex Screw 15mm IMPLANTS 36VE Left 1 Implanted Milton MDM Liner Cementless, 54mm, I IMPLANTS [id number] Left 1 Implanted Arnaldo Adventist ADM/MDM X3 Insert for ADM/MDM, 28, 28/60, 54I IMPLANTS [id number] Left 1 Implanted 1 Implanted documented in this encounter Plan of Treatment Scheduled Referrals Name Type Priority Associated Order Schedule Diagnoses Referral for Outpatient Routine s/p left revision Ordered: Anticoagulation Referral LISS (acetabular 1 Monitoring component revision) with Dr. Cedillo 12/01/2020 [...] Signature PT 19.2 (H) 9.4 - 12.5 [facility] LABORATORY INR 1.7 [facility] LABORATORY Comment: An INR <2.0 indicates adequate [...] Cedillo MD HEMATOLOGY ORDERABLES Performing Organization Address [facility] [place] [address] (ABNORMAL) Prothrombin Time (12/08/2020 10:22 AM EST) P athologist Signature PT 18.1 (H) 9.4 - 12.5 [facility] LABORATORY INR 1.6 [facility] LABORATORY Comment: An INR <2.0 indicates adequate [...] Cedillo MD HEMATOLOGY ORDERABLES Performing Organization Address [facility]/[place] [address] (ABNORMAL) Prothrombin Time (12/07/2020 3:21 AM EST) P athologist Signature PT 15.6 (H) 9.4 - 12.5 [facility] LABORATORY INR 1.4 [facility] LABORATORY Comment: An INR <2.0 indicates adequate [...] Organization Address City/State/[place] [address] (ABNORMAL) Differential, Automated (12/06/2020 1:25 PM EST) [facility] gist Method Time Signature Neutrophils % 75.6 % [facility] LABORATORY Neutr Abs (ANC) 4.41 1.70 - [facility] 6.10 [facility] x10(3)/[facility] LABORATORY Lymphocytes % 10.5 % [facility] LABORATORY Lymphocytes Abs 0.6 (L) 0.9 - 3.2 [facility] x10(3)/[facility] LABORATORY Monocytes % 9.9 % [facility] LABORATORY Monocyte Abs 0.6 0.3 - 0.9 [facility] x10(3)/[facility] LABORATORY Eosinophils % 3.1 % [facility] LABORATORY Eosinophils Abs 0.2 0.0 - 0.4 [facility] x10(3)/[facility] LABORATORY Basophils % 0.7 % [facility] LABORATORY Basophils Abs 0.0 0.0 - 0.1 [facility] x10(3)/[facility] LABORATORY Immature Gran % 0.20 % [facility] LABORATORY Comment: Immature granulocytes(IG's)percentage an d absolute count will include metamyelocytes, myelocytes, and promyelo cytes. Blood smears from CBCs yielding IG's will be scanned manually for concor dance. If this scan disagrees with the automated IG or if promyelocytes are not ed, a manual differential will be performed. Fadia Gran Abs 0.01 0.00 - 0.04 x10(3)/[facility] Y [facility] LABORATORY Specimen Anatomical Collection Method Collection Time Receive d Time (Source) Location / / Volume Laterality Blood specimen 12/06/2020 1:25 PM 021 1:51 (specimen) EST PM EST Resulting Agency Comment Spec In Lab Radha Saunders Volodymyr EATON HEMATOLOGY ORDERABLES Performing Organization Address City/[facility]/[place] [address] (ABNORMAL) Hemogram (12/06/2020 1:25 PM EST) Analysis Performed At Patho logist Time Signature WBC 5.8 4.0 - 9.5 [facility] LABORATORY RBC 3.58 (L) 4.58 - [facility] 5.54 [facility] x10(6)/[facility] LABORATORY Hemoglobin 10.9 (L) 13.7 - [facility] 16.5 gm/dL LABORATORY Hematocrit 33.8 (L) 40.5 - [facility] 48.5 % LABORATORY MCV 94.4 (H) 82.9 - [facility] 93.1 [facility] LABORATORY MCH 30.4 27.5 - [facility] 32.1 pg LABORATORY MCHC 32.2 32.0 - [facility] 35.7 gm/dL LABORATORY Platelets 221 145 - 357 [facility] x10(3)/[facility] LABORATORY RDWSD 48.1 (H) 36.0 - [facility] J[facility]PREET 45.0 [facility] LABORATORY RDWCV 13.8 11.4 - [facility] 13.8 % LABORATORY MPV 9.4 7.6 - 12.9 [facility] LABORATORY nRBC % Auto 0.0 % [facility] LABORATORY nRBC Abs Auto 0.000 0.000 - [facility] 0.000 [facility] x10(3)/[facility] LABORATORY Specimen Anatomical Collection Method Collection Time Receive d Time (Source) Location / / Volume Laterality Blood specimen 12/06/2020 1:25 PM 021 1:51 (specimen) EST PM EST Resulting Agency Comment Spec In Lab Radha Nicky Helm APRN HEMATOLOGY ORDERABLES Performing Organization Address City/[facility]/ZIP Code Phon e Number [address] (ABNORMAL) Prothrombin Time (12/06/2020 1:08 PM EST) P athologist Signature PT 14.6 (H) 9.4 - 12.5 [facility] LABORATORY INR 1.3 [facility] LABORATORY Comment: An INR <2.0 indicates adequate [...] Organization Address City/State/[place] [address] COVID-19 PCR (12/06/2020 11:03 AM EST) Patholo gist Method Time Signature SARS-CoV-2 Not Detected Not Detected [facility] RNA PCR [facility] LABORATORY Comment: This result should be interpreted [...] using the Simplexa COVID-19 Direct Assay by [employer] as authorized by the FDA issued Emergency Use Authorization (EUA). This assay is intended for In-vitro Diagnostic (IVD) use with nasopharyngeal swabs collected from individuals meeting the CDC criteria for testing. Th e assay is performed based on the instructions for use and additional guid ance provided by the FDA. Testing is performed in the Microbiology Laboratory within the Department of Pathology and Laboratory Medicine at [facility], certified under the Clinical Laboratory Improvement [...] clinical management guidance information are available at [facility] CDC Coronavirus Disease 2019 (COVID-19) webpage under Information fo r Healthcare Professionals (https://www.cdc.gov/coronavirus/2019-nc ov/hcp/index.html). Additional information about this and ot her EUA tests can be found in provider and patient fact sheets at the following FDA website: https://www.fda.gov/medical-devices/ynvvfagknst-eyeuckr-9777-rvekf-63-iyaxprhiw- akv-kofhsxrphnttoa-oooqsyh-devices/gbeld-yrdtrkkeckr-awfh SARS-CoV-2 Source COST ACCOUNTING MANAGER Swab [facility] LABORATORY Specimen (Source) Anatomical Collection Method Collection Time Re ceived Time Location / / Volume Laterality Nasopharyngeal swab 12/06/2020 11:03 02/02/2021 (specimen) AM EST 11:59 AM EST Comment: Symptoms->Surveillance Resulting Agency Comment Spec In Lab Radha Helm APRN MICROBIOLOGY - GENERAL ORDER ACE Performing Organization Address City/State/[place] [address] XR Chest PA & [...] (ABNORMAL) Prothrombin Time (12/05/2020 8:50 AM EST) athologist Signature PT 13.6 (H) 9.4 - 12.5 [facility] LABORATORY INR 1.2 [facility] LABORATORY Comment: An INR <2.0 indicates adequate [...] Organization Address City/State/[place] [address] Differential, Automated (12/04/2020 2:44 AM EST) P athologist Signature Neutrophils % 70.8 % [facility] LABORATORY Neutr Abs (ANC) 4.75 1.70 - [facility] 6.10 [facility] x10(3)/[facility] LABORATORY Lymphocytes % 15.3 % [facility] LABORATORY Lymphocytes Abs 1.0 0.9 - 3.2 [facility] x10(3)/[facility] LABORATORY Monocytes % 11.2 % [facility] LABORATORY Monocyte Abs 0.8 0.3 - 0.9 [facility] x10(3)/[facility] LABORATORY Eosinophils % 1.9 % [facility] LABORATORY Eosinophils Abs 0.1 0.0 - 0.4 [facility] x10(3)/[facility] LABORATORY Basophils % 0.4 % [facility] LABORATORY Basophils Abs 0.0 0.0 - 0.1 [facility] x10(3)[facility] LABORATORY Immature Gran % 0.40 % [facility] LABORATORY Comment: Immature granulocytes(IG's)percentage an d absolute count will include metamyelocytes, myelocytes, and promyelo cytes. Blood smears from CBCs yielding IG's will be scanned manually for concor dance. If this scan disagrees with the automated IG or if promyelocytes are not ed, a manual differential will be performed. Fadia Gran Abs 0.03 0.00 - 0.04 x10(3)/[facility] Y [facility] LABORATORY Specimen Anatomical Collection Method Collection Time Receive d Time (Source) Location / / Volume Laterality Blood specimen 12/04/2020 2:44 AM 021 3:05 (specimen) EST AM EST Resulting Agency Comment Spec In Lab Mami Jo MD HEMATOLOGY ORDERABLES Performing Organization Address City/State/ZIP Code Phon [place] [address] (ABNORMAL) Hemogram (12/04/2020 2:44 AM EST) Analysis Performed At Patho logist Time Signature WBC 6.7 4.0 - 9.5 [facility] x10(3)/[facility] LABORATORY RBC 3.43 (L) 4.58 - [facility] 5.54 [facility] x10(6)/[facility] LABORATORY Hemoglobin 10.6 (L) 13.7 - [facility] 16.5 gm/dL LABORATORY Hematocrit 33.2 (L) 40.5 - [facility] 48.5 % LABORATORY MCV 96.8 (H) 82.9 - [facility] 93.1 [facility] LABORATORY MCH 30.9 27.5 - [facility] 32.1 pg LABORATORY MCHC 31.9 (L) 32.0 - [facility] 35.7 gm/dL LABORATORY Platelets 149 145 - 357 [facility] x10(3)/[facility] LABORATORY RDWSD 47.9 (H) 36.0 - [facility] 45.0 [facility] LABORATORY RDWCV 13.5 11.4 - [facility] 13.8 % LABORATORY MPV 9.7 7.6 - 12.9 [facility] LABORATORY nRBC % Auto 0.0 % [facility] LABORATORY nRBC Abs Auto 0.000 0.000 - [facility] 0.000 [facility] x10(3)/[facility] LABORATORY Specimen Anatomical Collection Method Collection Time Receive d Time (Source) Location / / Volume Laterality Blood specimen 12/04/2020 2:44 AM 021 3:05 (specimen) EST AM EST Resulting Agency Comment Spec In Lab Mami Jo MD HEMATOLOGY ORDERABLES Performing Organization Address City/State/[place] [address] (ABNORMAL) Prothrombin Time (12/04/2020 2:44 AM EST) P athologist Signature PT 12.9 (H) 9.4 - 12.5 [facility] LABORATORY INR 1.1 [facility] LABORATORY Comment: An INR <2.0 indicates adequate [...] Organization Address City/State/ZIP Code Phon e Number [place] [id number]ORY [address] (ABNORMAL) Basic Metabolic Panel (non-fasting) (12/04/2020 2:44 AM EST) athologist Signature Glucose Lvl 118 65 - 199 [facility] mg/dL LABORATORY Comment: Diabetes: >=200 mg/dL plus symp toms BUN 23 (H) 10 - 20 mg/dL [facility] LABORATORY Creatinine 0.76 (L) 0.80 - 1.50 mg/dL [facility] LABORATORY Sodium 135 135 - 145 mmol/L [facility] LABORATORY Potassium 4.5 3.5 - 5.0 mmol/L [facility] LABORATORY Comment: Please note: ??Patients with WBC >100,00 0 may have falsely elevated Potassium levels. ??For accurate Potassium quantif ication in these patients send serum separator tube (gold top) for subsequent determinations. ??Contact the Clinical Chemistry Laboratory if there are any qu estions. Chloride 101 98 - 107 mmol/L [facility] LABORATORY CO2 27 22 - 31 mmol/L [facility] LABOR[facility] Anion Gap 7 5 - 15 mmol/L [facility] LABORATORY Calcium 8.7 8.5 - 10.5 mg/dL [facility] LABORATORY Estimated GFR 99 >=60 mL/min/1.73 m?? [facility] LABOR[facility] Comment: This patient? s estimated glomerular [...] Organization Address City/State/[place] [address] Chromium level (12/03/2020 8:25 AM EST) P athologist Signature Chromium 0.3 <0.3 ng/mL [facility] LABORATORY Comment: ADDITIONAL INFORMATIO N This test was developed and its performa nce characteristics determined by [facility] in a manner co nsistent with CLIA requirements. This test has not been erin ared or approved by the U.S. Food and Drug Administration. Test Performed by: [facility] [address] [place] [address] Government Affairs Director: Pavel Richards M.D. Ph. D.; CLIA# [id number] Specimen Anatomical Collection Method Collection Time Receive d Time (Source) Location / / Volume Laterality Blood specimen 12/03/2020 8:25 AM 021 (specimen) EST 11:54 AM EST Resulting Agency Comment Spec In Lab Alex Cedillo MD CHEMISTRY ORDERABLES Performing Organization Address City/[facility]/ZIP [facility] [place] Number [address] [place] Lvl (12/03/2020 8:25 AM EST) athologist Signature [place] Lvl 0.2 ng/mL [facility] LABORATORY Comment: REFERENCE VALUE------ 0.0-0.9 <10 (MoM implant) ADDITIONAL INFORMATIO N This test was developed and its performa nce characteristics determined by [facility] in a manner co nsistent with CLIA requirements. This test has not been erin ared or approved by the U.S. Food and Drug Administration. Test Performed by: [facility] [address] [place] [address] Government Affairs Director: Pavel Richards M.D. Ph. D.; CLIA# [id number] Specimen Anatomical Collection Method Collection Time Receive d Time (Source) Location / / Volume Laterality Blood specimen 12/03/2020 8:25 AM 021 (specimen) EST 11:54 AM EST Resulting Agency Comment Spec In Lab Alex Cedillo MD CHEMISTRY ORDERABLES Performing Organization Address City/[facility]/[place]IP [facility] [place] [address] Differential, Automated (12/03/2020 2:52 AM EST) athologist Signature Neutrophils % 73.6 % [facility] LABORATORY Neutr Abs (ANC) 4.81 1.70 - [facility] 6.10 [facility] x10(3)/[facility] LABORATORY Lymphocytes % 13.9 % [facility]OR[facility] Lymphocytes Abs 0.9 0.9 - 3.2 [facility] x10(3)/[facility] LABORATORY Monocytes % 10.6 % [facility] Monocyte Abs 0.7 0.3 - 0.9 [facility] x10(3)/[facility] LABORATORY Eosinophils % 1.4 % [facility] Eosinophils Abs 0.1 0.0 - 0.4 [facility] x10(3)/[facility] LABORATORY Basophils % 0.3 % [facility] Basophils Abs 0.0 0.0 - 0.1 [facility] x10(3)/[facility] LABORATORY Immature Gran % 0.20 % [facility] Comment: Immature granulocytes(IG's)percentage an d absolute count will include metamyelocytes, myelocytes, and promyelo cytes. Blood smears from CBCs yielding IG's will be scanned manually for concor dance. If this scan disagrees with the automated IG or if promyelocytes are not ed, a manual differential will be performed. Fadia Gran Abs 0.01 0.00 - 0.04 x10(3)/[facility] MAR Y [facility] LABORATORY Specimen Anatomical Collection Method Collection Time Receive d Time (Source) Location / / Volume Laterality Blood specimen 12/03/2020 2:52 AM 021 3:06 (specimen) EST AM EST Resulting Agency Comment Spec In Lab Mami Jo MD HEMATOLOGY ORDERABLES Performing Organization Address City/State/[place] [address] (ABNORMAL) Hemogram (12/03/2020 2:52 AM EST) Analysis Performed At Patho logist Time Signature WBC 6.5 4.0 - 9.5 [facility] x10(3)/[facility] LABORATORY RBC 3.85 (L) 4.58 - [facility] 5.54 [facility] x10(6)/[facility] LABORATORY Hemoglobin 11.9 (L) 13.7 - [facility] 16.5 gm/dL [facility] Hematocrit 37.1 (L) 40.5 - [facility] 48.5 % LABORATORY MCV 96.4 (H) 82.9 - [facility] LABORATORY MCH 30.9 27.5 - [facility] 32.1 pg LABORATORY MCHC 32.1 32.0 - [facility] 35.7 gm/dL LABORATORY Platelets 143 (L) 145 - 357 [facility] x10(3)/[facility] LABORATORY RDWSD 47.3 (H) 36.0 - [facility] 45.0 [facility] LABORATORY RDWCV 13.2 11.4 - [facility] 13.8 % LABORATORY MPV 9.4 7.6 - 12.9 [facility] LABORATORY nRBC % Auto 0.0 % [facility] LABORATORY nRBC Abs Auto 0.000 0.000 - [facility] 0.000 [facility] x10(3)/[facility] LABORATORY Specimen Anatomical Collection Method Collection Time Receive d Time (Source) Location / / Volume Laterality Blood specimen 12/03/2020 2:52 AM 021 3:06 (specimen) EST AM EST Resulting Agency Comment Spec In Lab Mami Jo MD HEMATOLOGY ORDERABLES Performing Organization Address City/State/[place] [address] (ABNORMAL) Prothrombin Time (12/03/2020 2:52 AM EST) P athologist Signature PT 12.9 (H) 9.4 - 12.5 [facility] LABORATORY INR 1.1 [facility] LABORATORY Comment: An INR <2.0 indicates adequate [...] Organization Address City/State/[place] [address] (ABNORMAL) Basic Metabolic Panel (non-fasting) (12/03/2020 2:52 AM EST) P athologist Signature Glucose Lvl 123 65 - 199 [facility] mg/dL LABORATORY Comment: Diabetes: >=200 mg/dL plus symp toms BUN 19 10 - 20 mg/dL [facility] LABORATORY Creatinine 0.67 (L) 0.80 - 1.50 mg/dL [facility] LABORATORY Sodium 134 (L) 135 - 145 mmol/L [facility] LABORATORY Potassium 4.5 3.5 - 5.0 mmol/L [facility] LABORATORY Comment: Please note: ??Patients with WBC >100,00 0 may have falsely elevated Potassium levels. ??For accurate Potassium quantif ication in these patients send serum separator tube (gold top) for subsequent determinations. ??Contact the Clinical Chemistry Laboratory if there are any qu estions. Chloride 101 98 - 107 mmol/L [facility] LABORATORY CO2 28 22 - 31 mmol/L [facility]OR[facility] Anion Gap 5 5 - 15 mmol/L [facility] LABORATORY Calcium 9.0 8.5 - 10.5 mg/dL [facility] LABORATORY Estimated GFR 104 >=60 mL/min/1.73 m?? [facility]OR[facility]ORY Comment: This patient? s estimated glomerular [...] Organization Address City/State/[place] [address] (ABNORMAL) Differential, Automated (12/02/2020 3:50 AM EST) [facility] Method Time Signature Neutrophils % 81.6 % [facility] LABORATORY Neutr Abs (ANC) 7.28 (H) 1.70 - [facility] 6.10 [facility] x10(3)/[facility] LABORATORY Lymphocytes % 10.1 % [facility] LABORATORY Lymphocytes Abs 0.9 0.9 - 3.2 [facility] x10(3)/[facility] LABORATORY Monocytes % 6.8 % [facility] LABORATORY Monocyte Abs 0.6 0.3 - 0.9 [facility] x10(3)/[facility] LABORATORY Eosinophils % 0.9 % [facility] LABORATORY Eosinophils Abs 0.1 0.0 - 0.4 [facility] x10(3)/[facility] LABORATORY Basophils % 0.3 % [facility] LABORATORY Basophils Abs 0.0 0.0 - 0.1 [facility] x10(3)/[facility] LABORATORY Immature Gran % 0.30 % [facility] LABORATORY Comment: Immature granulocytes(IG's)percentage an d absolute count will include metamyelocytes, myelocytes, and promyelo cytes. Blood smears from CBCs yielding IG's will be scanned manually for concor dance. If this scan disagrees with the automated IG or if promyelocytes are not ed, a manual differential will be performed. Fadia Gran Abs 0.03 0.00 - 0.04 x10(3)/[facility] MAR Y [facility] LABORATORY Specimen Anatomical Collection Method Collection Time Receive d Time (Source) Location / / Volume Laterality Blood specimen 12/02/2020 3:50 AM 021 4:25 (specimen) EST AM EST Resulting Agency Comment Spec In Lab Mami Jo MD HEMATOLOGY ORDERABLES Performing Organization Address City/State/[place] [address] [facility] LABORATORY Drive (ABNORMAL) Hemogram (12/02/2020 3:50 AM EST) Analysis [facility] Signature WBC 8.9 4.0 - 9.5 [facility] x[facility](3[facility] LABORATORY RBC 4.24 (L) 4.58 - [facility] 5.54 [facility] x10(6)/[facility] LABORATORY Hemoglobin 13.0 (L) 13.7 - [facility] 16.[facility] gm/dL LABORATORY Hematocrit 40.4 (L) 40.5 - [facility] 48.5 % LABORATORY MCV 95.3 (H) 82.9 - [facility] 93.1 [facility] LABORATORY MCH 30.7 27.5 - [facility] 32.1 pg LABORATORY MCHC 32.2 32.0 - [facility] 35.7 gm/dL LABORATORY Platelets 180 145 - 357 [facility] x10(3)/[facility] LABORATORY RDWSD 47.0 (H) 36.0 - [facility] 45.0 [facility] LABORATORY RDWCV 13.2 11.4 - [facility] 13.8 % LABORATORY MPV 9.7 7.6 - 12.9 [facility] LABORATORY nRBC % Auto 0.0 % [facility] LABORATORY nRBC Abs Auto 0.000 0.000 - [facility] 0.000 [facility] x10(3)/[facility] LABORATORY Specimen Anatomical Collection Method Collection Time Receive d Time (Source) Location / / Volume Laterality Blood specimen 12/02/2020 3:50 AM 021 4:25 (specimen) EST AM EST Resulting Agency Comment Spec In Lab Mami Jo MD HEMATOLOGY ORDERABLES Performing Organization Address City/State/[place] [address] [facility] LABORATORY Drive Prothrombin Time (12/02/2020 3:50 AM EST) P athologist Signature PT 12.5 9.4 - 12.5 [facility] LABORATORY INR 1.1 [facility] LABORATORY Comment: An INR <2.0 indicates adequate [...] Organization Address City/State/[place] [address] (ABNORMAL) Basic Metabolic Panel (non-fasting) (12/02/2020 3:50 AM EST) athologist Signature Glucose Lvl 132 65 - 199 [facility] mg/dL LABORATORY Comment: Diabetes: >=200 mg/dL plus symp toms BUN 21 (H) 10 - 20 mg/dL [facility] LABORATORY Creatinine 0.94 0.80 - 1.50 mg/dL [facility] LABORATORY Sodium 137 135 - 145 mmol/L [facility] LABORATORY Potassium 4.7 3.5 - 5.0 mmol/L [facility] LABORATORY Comment: Please note: ??Patients with WBC >100,00 0 may have falsely elevated Potassium levels. ??For accurate Potassium quantif ication in these patients send serum separator tube (gold top) for subsequent determinations. ??Contact the Clinical Chemistry Laboratory if there are any qu estions. Chloride 103 98 - 107 mmol/L [facility] LABORATORY CO2 26 22 - 31 mmol/L [facility] LABORATORY Anion Gap 8 5 - 15 mmol/L [facility] LABORATORY Calcium 8.2 (L) 8.5 - 10.5 mg/dL [facility] LABORATORY Estimated GFR 88 >=60 mL/min/1.73 m?? [facility] LABORATORY Comment: This patient? s estimated glomerular [...] Organization Address City/State/ZIP Code Phon e Number [place] [id number] HOSPITAL LAB[address]ORY Drive XR Pelvis (Generic) (12/01/2020 [...] Component Value Ref Test Analysis Performed At [facility] Signature Surgical [id number] ? Location: [facility]; [facility]; A [facility] Report The signing pathologist has (i) examined [...] Angulo MD Verified: ??12/10/2020 ?Pathologist Performed at: ??-[facility] [place], [place], [place] SPECIMEN(S) SUBMITTED A - Soft tissue, scar and synovium, left hip, excision CLINICAL INFORMATION Failed LISS, massive polywear SPECIMEN PROCESSING A - Labeled/Fixative: Scar and synovium left hip, formalin. Quantity/Size: Fragments, aggregating 5.7 x 4.5 x 2.3 cm. Tissue Description: Irregular, nielson-quintanilla soft to rubbery tiss ues. Sections/Processing: Senior Budget Analyst sections in 4 cassettes labeled A1-A4. ??pps Specimen (Source) Anatomical Collection Method Collection Time Re ceived Time Location / / Volume Laterality 12/01/2020 4:12 PM EST Alex Cedillo MD PATHOLOGY/CYTOLOGY ORDERABLE S Performing Organization Address City/State/ZIP Code Phon e Number [address] Specimen to Pathology (12/01/2020 4:12 PM EST) Specimen Anatomical Collection Method Collection Time Receive d Time (Source) Location / / Volume Laterality AP Specimen 12/01/2020 4:12 PM 4:12 EST PM EST Narrative [facility] LABORAT ORY - 12/01/2020 4:12 PM EST Specimen requisition ordered. ??Separate Pathology report to follow Alex Cedillo MD PATHOLOGY/CYTOLOGY ORDERABLE S Performing Organization Address City/[facility]/ZIP Code Phon e Number [address] SCAN DOC: IMPLANTABLE DEVICES (12/01/2020 12:00 AM EST) Narrative 12/01/2020 12:00 AM EST This result has an attachment that is no t available. Ordered by an unspecified provider. Scanning Provider MEDIA MGR SCAN EXT ORDR/RSLT documented in this encounter Visit Diagnoses Not on filedocumented in this encounter Admitting Diagnoses Diagnosis History of total hip arthroplasty, left documented in this encounter Administered Medications Inactive Administered Medications - up to 3 most recent administrations Medication Order MAR Action Action Date Dose Rate Site acetaminophen (Tylenol) tablet Given 12/09/2020 5:53 AM EST 1,00 0 mg 1,000 mg 1,000 mg, Oral, EVERY 6 [...] TIMES DAILY, 10 doses, First dose on 12/06/20 at 0800, Last dose on Sun12/10/20 at [...] Oral, 2 TIMES DAILY PRN, Starting on Sun12/02/20 at 0037, Until Sun12/09/20 at 1326, Constipation, DO NOT CRUSH OR [...] Given 12/08/2020 9:51 AM EST 2 Inhalation BUpivacaine (pf) (Marcaine) Given 12/01/2020 4:37 PM EST 50 mLs 19- Surgical Site (2.5 mg/mL) 0.25% injection ONCE PRN, Starting on Sun12/01/20 at 1602, Until Sun12/09/20 at 1326, Intra-Operative (Intra-Procedure), Routine Given 12/01/2020 4:02 PM EST 10 mLs 19- S urgical Site calcium carbonate (Tums) chewable tablet Given 12/04/2020 [...] Given 12/02/2020 4:14 PM EST 1,000 mg celecoxib (CeleBREX) capsule 200 mg Given 12/09/2020 9:32 AM EST 200 mg 200 mg, Oral, 2 TIMES DAILY, First dose on Sun12/02/20 at 0900, Until Discontinued, Routine Given 12/08/2020 9:30 PM EST 200 mg Given 12/08/2020 9:51 AM EST 200 mg cloNIDine (pf) (Duraclon) (100 Given 12/01/2020 4:37 PM EST 50 m cg 19- Surgical Site mcg/mL) Epidural injection ONCE PRN, Starting on Sun12/01/20 at 1637, Until Sun12/09/20 at 1326, Intra-Operative (Intra-Procedure), Routine gabapentin (Neurontin) capsule 300 mg Given 12/08/2020 9:30 PM EST 300 mg 300 mg, Oral, NIGHTLY, First dose on Sun12/03/20 at 2100, Until Discontinued, Routine Given 12/07/2020 8:24 PM EST 300 mg Given 12/06/2020 8:43 PM EST 300 mg hydroCHLOROthiazide (Hydrodiuril) tablet Given 12/08/2020 11:42 AM EST 12.5 mg 12.5 mg 12.5 mg, Oral, DAILY AT NOON, First dose on Sun12/02/20 at 1200, Until Discontinued, Hold for SBP <130, Routine Given 12/07/2020 12:05 PM EST 12.5 mg Given 12/05/2020 11:36 AM EST 12.5 mg HYDROmorphone (Dilaudid) tablet 2-4 mg Given 12/09/2020 [...] 11:49 PM EST 3 mLs ketorolac (Toradol) (30 mg/mL) Given 12/01/2020 4:37 PM EST 30 m g 19- Surgical Site injection ONCE PRN, Starting on Sun12/01/20 at 1637, Until Sun12/09/20 at 1326, Intra-Operative (Intra-Procedure), Routine lidocaine (Lidoderm) 5% Patch Applied 12/09/2020 8:09 [...] mg/patch) patch lisinopriL (Prinivil;Zestril) tablet 10 mg Given 12/08/2020 [...] not swallow. Maximum of 48 mg/day., Routine pantoprazole EC (Protonix) tablet 20 mg [...] Given 12/08/2020 9:51 AM EST 17 g povidone-iodine 5 % ophthalmic Given 12/01/2020 4:09 PM EST 30 m Ls 19- Surgical Site solution ONCE PRN, Starting on Sun12/01/20 at 1609, Until Sun12/09/20 at 1326, Intra-Operative (Intra-Procedure), Routine senna-docusate (Pericolace) 8.6-50 mg per Given 2020 [...] Given 12/08/2020 9:53 AM EST 5 mLs warfarin (COUMADIN) daily order reminder Oral, EVERY 24 HOURS, First dose on Sun12/02/20 at 1400, Until Discontinued, If the daily warfarin order has not been placed , contact the Provider to confirm that the order will be written, the dose is held or discontinue d. warfarin (Coumadin) tablet 10 mg 10 mg, [...] Reji Ventura RN)1142 (Given - Provider: Larissa Hartley, GIORGI)1717 (Given - Provider: Larissa Hartley RN)2349 (Given [...] 875-125 mg per tab let 1 tablet 920 (Given - Provider: Dimitrios Alba RN)2023 (Given - Provider: Reji Ventura RN) 075 (Given - Provider: Ruby Ceballos RN)1944 (Given - Provider: Martine Gaston RN) 0810 (Given - Provider: Ruby Chase lt, RN) 1 tablet, Oral, 2 TIMES DAILY, 10 doses, First dose on Sun12/06/20 at 0800, Last dose on Sun12/10/20 at 2000, Routine atorvastatin (Lipitor) tablet 10 mg 1706 (Given - Provider: Dimitrios Alba RN) 171 (Given - Provider: Larissa Hartley RN) 10 mg, Oral, EVERY EVENING, First dose o n Mercedes 12/02/20 at 1700, Until Discontinued budesonide-formoteroL (SYMBICORT) 160-4.5 mcg/actuatio n inhaler 2 Inhalation 09 (Given - Provider: Dimitrios Alba RN)2027 (Given - Provider: Reji Ventura RN) 0951 (Given - Provider: Ruby Chase lt, RN)2129 (Given - Provider: Martine Gaston RN) 0932 (Given - Provider: Ruby Chase lt, RN) 2 Inhalation, Inhalation, 2 TIMES DAILY, First dose on Mercedes 12/02/20 at 0130, Until Discontinued, Routine celecoxib (CeleBREX) capsule 200 mg 09 (Given - Prov ider: Dimitrios Alba RN)2023 (Given - Provider: Reji Ventura RN) 0951 (Given - Provider: Ruby Ceballos RN)2129 (Given - Provider: Martine Gaston RN) 0932 (Given - Provider: Ruby Ceballos RN) 200 mg, Oral, 2 TIMES DAILY, First dose on Sun12/02/20 at 0900, Until Discontinued, Routine gabapentin (Neurontin) capsule 300 mg 2023 (Given - Pr ovider: Reji Ventura RN) 213 (Given - Provider: Martine Gaston RN) 300 [...] 3 mL 0448 (Given - Provider: Jes Smith)0921 (Given - Provider: Dimitrios Alba RN)1206 (Given - Provider: Dimitrios Alba RN)1707 (Given - Provider: Dimitrios Alba RN)202 (Given - Provider: Reji Ventura RN) 0321 (Given - Provider: Reji Ventura RN)0751 (Given - Provider: Ruby Ceballos RN)1143 (Given - Provider: Larissa Hartley, GIORGI)1543 (Given - Provider: Ruby Ceballos RN)1946 (Given - Provider: Martine Gaston RN) 0357 (Given - Provider: Martine Gaston RN)0810 (Given - Provider: Ruby Ceballos RN) 3 mL, Nebulization, EVERY 4 HOURS SCHEDU LED, First dose on Sun12/02/20 at 1100, Until Discontinued, Routine 2328 (Given - Provider: Reji Ventura RN) 234 (Given - Provider: Martine Gaston [...] tablet 0 922 (Given - Provider: Dimitrios Alab RN) 0951 (Given - Provider: Ruby Ceballos [...] Provider: Dimitrios Alba RN - Comment: not present) 09 (Patch Not Removed (add comment) - Provider: Ruby Ceballos RN - Comment: Patch never applied) 09 (Patch Not Removed (add comment) - Provider: Ruby Ceballos RN - Comment: Patch never applied) Transdermal, DAILY, First dose on 10/11 at 0815, Until Discontinued, Remove nicotine 21 mg/24 hr patch nicotine (NICODERM CQ) 21 mg/24 hr patch Patch Verific ation(Linked Group 2) 899 (Patch Not Verified (add comment) - Provider: Dimitrios Alba RN - Comment: not present)2099 (Patch (dose and location) verified - Provider: Reji eVntura RN) 899 (Patch Not Verified (add comment) - Provider: Ruby Ceballos RN - Comment: Patch never applied)2130 (Patch Not Verified (add comment) - Provider: Martine Gaston RN - Comment: not present upon assessent) 899 (Patch Not Verified (add comment) - Provider: Ruby Ceballos RN - Comment: Patch never applied) Transdermal, 2 TIMES DAILY, First dose o n Sun12/02/20 at 2015, Until Discontinued, Verify nicotine 21 mg/24 hr patch pantoprazole EC (Protonix) tablet 20 mg 0921 (Given - Provider: Dimitrios Alba RN) 0951 (Given - Provider: Ruby Ceballos RN) 0932 ( Given - Provider: Ruby Ceballos RN) 20 mg, Oral, DAILY, First dose on 09/11 at 0900, Until Discontinued, DO NOT CRUSH OR OPEN, Routine polyethylene glycoL (Miralax) packet 17 g 0900 (Not Gi lisa - Provider: Dimitrios Alba RN - Reason: See comment - Comment: recent large bm)2023 (Given - Provider: Reji Ventura RN) 0951 (Given - Provider: Ruby Chase lt, RN)2129 (Given - Provider: Martine Gaston RN) 0931 (Given - Provider: Ruby Ceballos RN) 17 g, Oral, 2 TIMES DAILY, First dose on Mercedes 12/02/20 at 0130, Until Discontinued, Routine senna-docusate (Pericolace) 8.6-50 mg per tablet 2 tab let 920 (Given - Provider: Dimitrios Alba RN)2023 (Given - Provider: Reji Ventura RN) 0951 (Given - Provider: Ruby Ceballos RN)2129 (Given - Provider: Martine Gaston RN) 0931 (Given - Provider: Ruby Chase lt, RN) 2 tablet, Oral, 2 TIMES DAILY, First dos e on Mercedes 12/02/20 at 0130, Until Discontinued, Routine sodium chloride 0.9 % (flush) flush 5 mL 921 (Given - Provider: Dimitrios Alba RN)2026 (Given - Provider: Reji Ventura RN) 0953 (Given - Provider: Ruby Ceballos RN)2129 (Given - Provider: Martine Gaston RN) 0932 (Given - Provider: Ruby Ceballos RN) 5 mL, Intravenous, 2 TIMES DAILY, First [...] mg 10 mg, Oral, ONCE, 1 dose, Mercedes 12/09/20 a t 1700, DO NOT SPLIT, CRUSH OR OPEN, Routine PRN Medication Order 12/07/2020 12/08/2020 12/09/2020 albuteroL (PROVENTIL) nebulizer solution 2.5 mg 2.5 mg, Nebulization, EVERY 6 HOURS PRN, Starting 12/01/20 at 1916, Until Mercedes 12/09/20 at 1326, Wheezing, Routine bisacodyL (Dulcolax) suppository 10 mg 10 mg, Rectal, DAILY PRN, Starting Mercedes at 0037, Until Mercedes 12/09/20 at 1326, [...] Reji Ventura RN)0922 (Given - Provider: Dimitrios Alba, GIORGI)1346 (Given - Provider: Dimitrios Alba RN)1806 (Given - Provider: Dimitrios Alba RN) 0321 (Given - Provider: Reji Ventura, R N)0751 (Given - Provider: Ruby Ceballos, GIORGI)1144 (Given - Provider: Larissa Hartley RN)1544 (Given - Provider: Ruby Ceballos, GIORGI)1946 (Given - Provider: Martine Gaston, GIORGI) 0357 (Given - Provider: Martine Gaston, GIORGI)0932 (Given - Provider: Ruby Ceballos RN) 2-4 mg, Oral, EVERY 4 HOURS PRN, Startin g Mercedes 12/02/20 at 0830, Until Mercedes 12/09/20 at 1326, Pain, 2mg for mild - moderate pain 1-6 OR 4mg for severe pain 7-10, Routine 2206 (Given - Provider: Reji Ventura RN) 2349 (Given - Provider: Martine Gaston RN) lidocaine (Xylocaine) 1% (10 mg/mL) injection 3 mg 3 mg (0.3 mL), Subcutaneous, ONCE PRN, 1 dose, Starting Mercedes 12/02/20 at 0037, Until Mercedes 221 at 1326, for discomfort with PIV insertion, Recovery (Recovery-Hospital Unit), Routine nicotine polacrilex (COMMIT) lozenge 4 mg 4 mg, Buccal, EVERY 2 HOURS PRN, Startin g Mercedes 12/02/20 at 0814, Until Mercedes 221 at 1326, Smoking cessation, Do not chew or swallow. Place in mouth and allow to slowly dissolve., Routine nicotine polacrilex (NICORETTE) gum 2 mg 2 mg, Buccal, EVERY 2 HOURS PRN, Startin g Mercedes 12/02/20 at 0814, Until Mercedes 2/21 at 1326, Smoking cessation, Chew gum slowly. [...] rst dose on Sun12/02/20 at 0745, Until Discontinued
Apply patch(es) for 12 hours, and then remove for 12 hours.
Routine And lidocaine (Lidoderm) topical patch REMOVALJump to med Transdermal, EVERY 24 HOURS, First dose on Sun12/02/20 at 1900, Until Discontinued
Remove lidocaine 5 [...] dose o n Sun12/02/20 at 2015, Until Discontinued
Verify nicotine 21 mg/24 hr patch
And nicotine (NICODERM CQ) 21 mg/24 hr patch Patch RemovalJump to med Transdermal, DAILY, First dose on 10/11 at 0815, Until Discontinued
Remove nicotine 21 mg/24 hr patch
documented in this encounter Care Teams Cement Car Dumper Relationship Specialty Start Date End Date Chapincito Avalos DO PCP - General Family Medicine [birth year][address] [place] [address] documented as of this encounter
--- OUTSIDE RECORDS SUMMARY | 2022-04-28 00:18 | XMS_ITS | Encounter Summary ---
:1960 Author Organization [facility] [place] [address] Care Team Providers Name Role Phone Robbie Chapincito KIM Primary Care Provider Encounter Details Date Type Department Care Team Description 11/05/2020 Hospital Encounter XRay at [facility] Paco Early, Low back pain, non-specific; [address] [facility] [address] QUICK Lumbar spondylosis [facility] [id number] [place] [phone] [place] [address] Social History Tobacco Use Types Packs/Day Years [...] 3,000 mg of Tylenol in 24 hours. pravastatin (Pravachol) 20 Take 20 mg by [...] needed for Pain (acute post-op surgical pain). lisinopriL-hydrochlorothiazi TAKE 1 TABLET BY 0 0 06/18/2020 11/26/2020 de (PRINZIDE;ZESTORETIC) MOUTH ONCE DAILY 10-12.5 mg Tablet lisinopriL TK 1 T PO D 0 09/18/2020 11/26/2020 (Prinivil;Zestril) 10 mg Tablet hydroCHLOROthiazide TK 1 T PO D 0 09/18/2020 02/0 02/2021 (Hydrodiuril) 12.5 mg Tablet naproxen sodium (ALEVE) 220 Take by mouth. 0 11/26/2020 mg Capsule acetaminophen (TYLENOL) 325 0 03/01/20 05 11/26/2020 mg tablet documented as of this encounter Plan of Treatment Not on filedocumented as of this encounter Procedures Procedure Name Priority Date/Time Associated Diagnosis Comme nts XR LUMBAR SPINE 2 Routine 11/05/2020 10:11 AM Low back pain, R esults for this OR 3 VIEWS EST non-specific procedure are in Lumbar spondylosis the resul ts section. documented in this encounter Results XR Lumbar Spine 2 Or 3 Views (Generic) (11/05/2020 10:11 AM EST) Anatomical Region Laterality Modality L-spine N/A Digital Radiography Specimen (Source) Anatomical Location Collection Method / Collectio n Time Received Time / Laterality Volume Impressions 11/05/2020 10:33 AM EST Multilevel degenerative disc disease and facet arthropathy lumbar spine. Thank you for letting us participate in the care of this patient. For questions regarding this report, please contact e number below. ? Electronically signed by: Tootie Cunha, [facility] ([phone]), at 11/05/2020 10:33 AM Narrative 11/05/2020 10:33 AM EST EXAMINATION: XR LUMBAR SPINE 2 OR 3 VIEWS (GENERIC) CLINICAL HISTORY: Evaluate for lumbar sp ondylosis, spondylolisthesis (as entered by ordering provider in the order requis ition) TECHNIQUE: AP and lateral views of the lumbar spine . COMPARISON: None FINDINGS: Taking the last rib-bearing vertebral meka dy be T12, there are 5 nonrib-bearing lumbar-type vertebral bodies. No focal v ertebral body height loss. There is disc space narrowing at L2-3 and L4-5. There is sclerotic endplate change and marginal osteophyte formation at multipl e levels. There is facet arthropathy at all levels between L3 and S1. Trace retr olisthesis of L3 on L4. Procedure Note Amarilis Rutherford MD - 11/05/2020Formattin g of this note might be different from the original. EXAMINATION: XR LUMBAR SPINE 2 OR 3 VIEW S (GENERIC) CLINICAL HISTORY: Evaluate for lumbar sp ondylosis, spondylolisthesis (as entered by ordering provider in the order requis ition) TECHNIQUE: AP and lateral views of the lumbar spine . COMPARISON: None FINDINGS: Taking the last rib-bearing vertebral meka dy be T12, there are 5 nonrib-bearing lumbar-type vertebral bodies. No focal v ertebral body height loss. There is disc space narrowing at L2-3 and L4-5. There is sclerotic endplate change and marginal osteophyte formation at multipl e levels. There is facet arthropathy at all levels between L3 and S1. Trace retr olisthesis of L3 on L4. IMPRESSION Multilevel degenerative disc disease and facet arthropathy lumbar spine. Thank you for letting us participate in the care of this patient. For questions regarding this report, please contact e number below. Paco Early MD IMG DX ORDERABLES documented in this encounter Visit Diagnoses Diagnosis Low back pain, non-specific Lumbar spondylosis Lumbosacral spondylosis without myelopat hy documented in this encounter Care Teams Gamewell Operator Relationship Specialty Start Date End Date Chapincito Avalos DO PCP - General Family Medicine 03/12/19 [address] [place] [address] documented as of this encounter
--- OUTSIDE RECORDS SUMMARY | 2022-04-28 00:18 | XMS_ITS | Encounter Summary ---
:1960 Author Organization [facility] [place] [address] Care Team Providers Name Role Phone Chapincito Aavlos DO Primary Care Provider Encounter Details Date Type Department Care Team Description 05/28/2019 Telephone Dermatology at [facility] Call, Howard Kim MD [address] [facility] [place] [address] [facility] [phone] [place], [place] [address] (Wo rk) Social History Tobacco Use Types Packs/Day Years Used Date Never Assessed Sex Assigned at Date Recorded Not on file documented as of this encounter Miscellaneous Notes Telephone Encounter - Jami Pena - 05/28/2019 8:37 AM EDT Called and spoke to Howard, he will call back to schedule if he feels he needs an appointment documented in this encounter Plan of Treatment Not on filedocumented as of this encounter Visit Diagnoses Not on filedocumented in this encounter Care Teams Registered Nurses Relationship Specialty Start Date End Date Chapincito Avalos DO PCP - General Family Medicine 03/12/[address] [place] [address] documented as of this encounter
--- OUTSIDE RECORDS SUMMARY | 2022-04-28 00:18 | XMS_ITS | Encounter Summary ---
:1960 [place] [address] Care Team Providers Name Role Phone Chapincito Avalos DO Primary Care Provider Encounter Details Date Type Department Care Team Description 09/23/2020 Ancillary Procedure Radiology Library at Kannan Cedillo [facility] [place] [address] ORTHOPAEDIC SURGERY [phone] [place], [place] [address] (Wo rk) Social History Tobacco Use Types Packs/Day Years Used Date Never Assessed Sex Assigned at Date Recorded Not on file documented as of this encounter Plan of Treatment Not on filedocumented as of this encounter Procedures Procedure Name Priority Date/Time Associated Diagnosis Comme nts FILM LIBRARY Routine 09/23/2020 12:00 AM Results for this STORAGE ONLY DX HIP EST procedur e are in the results section. documented in this encounter Results Film Library- Storage Only DX Hip (09/23/2020 12:00 AM EST) Specimen (Source) Anatomical Location Collection Method / Collectio n Time Received Time / Laterality Volume Narrative RAD - 10/11/2020 7:30 PM EST This exam is auto-finalizing. It's purpo se is for storage only. Alex Cedillo MD G FILM LIBRARY ORDERABLES Performing Organization Address City/State/ZIP Code Phon e Number RAD [place], [place] documented in this encounter Visit Diagnoses Not on filedocumented in this encounter Care Teams Levelman Relationship Specialty Start Date End Date Chapincito Avalos DO PCP - General Family Medicine 03/12/[address] [place] [address] documented as of this encounter
--- OUTSIDE RECORDS SUMMARY | 2022-04-28 00:18 | XMS_ITS | Encounter Summary ---
:1960 Author Organization [facility] [place] [address] Care Team Providers Name Role Phone Chapincito Avalos DO Primary Care Provider Reason for Visit Reason Onset Date Comments Letter for School/Work 11/10/2020 Encounter Details Date Type Department Care Team Description 11/10/2020 Telephone Orthopaedics at [facility] Alex Cedillo Letter for School/Work [facility] [place] [address] [facility] [phone] ORTHOPAEDIC SURGERY [place], [place] [address] Social History Tobacco Use Types Packs/Day Years Used Date Current Every Day Smoker 1 Smokeless Tobacco: Never Used Alcohol Use Standard Drinks/Week Comments Not Currently 0 (1 standard drink = 0.6 oz pure alcoho l) Sex Assigned at Date Recorded Not on file documented as of this encounter Miscellaneous Notes Telephone Encounter - Sherry Grewal - 11/11/2020 6:30 AM EST Letter created and faxed. Telephone Encounter - Denisa Todd - 11/10/2020 12:50 PM EST Provider last seen by? Dr. Cedillo What type of letter is needed? Letter for Work Return to work/school/sports, out of work/school/sports, other He would like a letter stating that he will be out of work until at least he has surgery which is scheduled for 12/01/2020 and for the time being afterwards. Would you like to chart picker your letter, fax, mail, or myD-H? MyD-H and Fax please To what address/fax#? [phone] To whose attention? Gabi Jeong documented in this encounter Plan of Treatment Not on filedocumented as of this encounter Visit Diagnoses Not on filedocumented in this encounter Care Teams Certified Medical Dosimetrist Relationship Specialty Start Date End Date Chapincito Avalos DO PCP - General Family Medicine 03/12/[address] [place] [address] documented as of this encounter
--- OUTSIDE RECORDS SUMMARY | 2022-04-28 00:18 | XMS_ITS | Encounter Summary ---
:1960 Author Organization [place] [address] Care Team Providers Name Role Phone RobbieChapincito Primary Care Provider Reason for Referral Physical Therapy (Routine) - Specialty Diagnoses / Procedures Referred By Contact Refer red To Contact Physical Therapy Diagnoses Low back pain, non-specific Lumbar spondylosis Segmental and somatic dysfunction of lumbar region [place] [address] Referral ID Status Reason Start Date Expiration Date Visits V isits Requested Authorized [id number] Evaluate and 11/05/2020 05/04/2021 12 12 Treat Reason for Visit Reason Comments Back Pain lower back Bilateral Hip Pain Consultation (Routine) - Closed Specialty Diagnoses / Procedures Referred By Contact Refer red To Contact [facility] Diagnoses Pain of left lower extremity Spine - Hip & LE pain/ ?spine pathology/ XR(pelvis) 09/2020 in eD Nneka/Jose Womack MD [facility] Spine [facility] ORTHOPAEDIC SURGERY [place], [place] [id number] [place] [phone] Phone: Fax: Referral ID Status Reason Start Date Expiration Date Visits V isits Requested Authorized [id number] Closed Pain Consult 10/18/2020 10/18/2021 3 3 Encounter Details Date Type Department Care Team Description 11/05/2020 Office Visit [facility] Matty Early dd, MD Low back pain, non-specific; at [facility] Lumbar spondylosis; [facility] [address] Segmental and somatic dysfunction of lum bar region; [place] [address] History of bilateral total hip arthropla SALLY Ramos [phone] [phone] (Work) [phone] Social History Tobacco Use Types Packs/Day Years Used Date Current Every Day Smoker 1 Smokeless Tobacco: Never Used Alcohol Use Standard Drinks/Week Comments Not Currently 0 (1 standard drink = 0.6 oz pure alcoho l) Sex Assigned at Date Recorded Not on file documented as of this encounter Last Filed Vital Signs Vital Sign Reading Time Taken Comments Blood Pressure 137/79 11/04/2020 9:23 AM EST Pulse 64 11/04/2020 9:23 AM EST Temperature 37.1 ??C (98.7 ??F) 11/04/2020 9:23 AM EST Respiratory Rate - - Oxygen Saturation 94% 11/04/2020 9:23 AM EST Inhaled Oxygen Concentration - - Weight 131.5 kg (290 lb) 11/04/2020 9:23 AM EST Height 188 cm (6' 2) 11/04/2020 9:23 AM EST Body Mass Index 37.23 11/04/2020 9:23 AM EST documented in this encounter Progress Notes Paco Early MD - 11/05/2020 8:30 AM EST Chief Complaint Patient presents with ??? Back Pain lower back ??? Bilateral Hip Pain Subjective: oHward Perez is a 60 y.o. male who presents for Physical Medicine and Rehabilitation consultation,at the request of Jose Perez MD. The patient reports primary symptoms of a binding or ratchetingfeeling in the right hip with slow velocity ambulation or the initiation of ambulation from static standing. He denies any pain in right hip or groin, however. Patient also reports generalized low lumbosacral pain with prolonged static standing. This pain does not radiate. It resolves with general physical activity or sitting. Symptom onset: The patient developed sudden onset of instability at the right hip approximately 3 months ago. This was accompanied by pain deep to the right hip and was associated with stopping, staticstanding, twisting, turning or initiation of ambulation. He was taken out of work one month later, due to pain. He reports a gradual improvement in right hip pain since that time. Pain has decreased infrequency and intensity. The pain is intermittent and activity related. It is dull in quality. He has no pain at present in seated position. Exacerbating factors: Right side-lying and prolonged static standing. Both low back and hip pain is increased by sit to stand transfers and the initiation of ambulation. Alleviating factors: Sitting. The patient denies contiguous lower extremity pain radiation, although he can experience occasional anterior thigh discomfort, right greater than left. He denies lower extremity numbness, tingling or bowel/bladder dysfunction. He denies focal lower extremity weakness, but reports generalized lower extremity weakness. Past medical history includes cervical discectomy and fusion in 2004. He gives a few year history ofintermittent axial low back pain, noted most frequently with periods of prolonged sitting. He deniesany history of low back injury. Clinical materials reviewed: Clinical office note of Jose Perez MD and Alex Cedillo MD, 10/18/2020. The patient was noted to have a remote history of bilateral total hip arthroplasty approximately 20 years prior. He went on to develop recurrent anterior dislocations on the left side, but did well following placement of a constrained liner. He presented with complaints of low back, left buttock and right hip pain with occasional clicking in the right hip. 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 The changes werenoted as demonstrating near catastrophic failure. There was excess anteversion of the acetabular cuff. Revision left total hip arthroplasty was recommended. The etiology of low back and right buttock pain were unclear, but spinal etiology could not be excluded. The right total hip arthroplasty showed no significant wear or evidence of complications. No past medical history on file. Past Surgical History: Procedure Laterality Date ??? HIP SURGERY Bilateral 2000 Current Outpatient Medications on File Prior to Visit Medication Sig Dispense Refill ??? pravastatin (Pravachol) 20 mg Tablet TK 1 T PO D ??? lisinopriL (Prinivil;Zestril) 10 mg Tablet TK 1 T PO D ??? hydroCHLOROthiazide (Hydrodiuril) 12.5 mg Tablet TK 1 T PO D ??? Symbicort 160-4.5 mcg/actuation HFA Aerosol Inhaler INL 2 PFS PO BID ??? albuteroL 90 mcg/actuation HFA Aerosol Inhaler INL 1 TO 2 PFS PO Q 4 H PRN ??? naproxen sodium (ALEVE) 220 mg Capsule Take by mouth. ??? acetaminophen (TYLENOL) 325 mg tablet ??? lisinopriL-hydrochlorothiazide (PRINZIDE;ZESTORETIC) 10-12.5 mg Tablet TAKE 1 TABLET BY MOUTH ONCE DAILY No current facility-administered medications on file prior to visit. No Known Allergies Review of Systems: As above. Objective: BP 137/79 Pulse 64 Temp 37.1 ??C (98.7 ??F) (Oral) Ht 188 cm (6' 2) Wt 131.5 kg (290 lb) SpO2 94% BMI 37.23 kg/m?? Obese male in no apparent distress. Alert and oriented x3. Affect is appropriate. Emory's signs are absent. Gait and station: Patient exhibits a left lateral trunk lean at mid stance phase. He is able to perform bilateral toe walking. He cannot walk on the heels or perform toe rises. Bilateral genu valgum and pes planus deformities are noted. There is mild left lateral trunk flexion. Lumbar motion: Lumbosacral excursion measures 6.5 cm on modified Nicol's testing. Patient reports central lumbosacral pain with active lumbar extension. Pelvic alignment/motion: The pelvis is shifted posteriorly and is anteriorly rotated. Interval between ribs and pelvis is minimal bilaterally. Standing iliac crest palpation is level. Standing flexion test is positive on the left. Palpation: Tenderness is present over sacrum, left sacroiliac joint and left quadratus lumborum. LE flexibility: Marked tightness is present in bilateral hamstrings, glutei, right iliotibial band, right rectus femoris and left hip flexors. Additional tightness is noted in left rectus femoris, although to a lesser degree. Patient complains of pain deep to the right hip with ipsilateral hip internal and external rotation. He complains of pain deep to the left hip at end range ipsilateral hip external rotation. Pelvic/SI provocation: Sacral pain to pelvic compression and shear. Motor: Bilateral hip abductors 3+/5 right, 3-3+/5 left. Lower extremity motor examination otherwise 5/5 throughout. Sensation: Intact to light touch throughout the lower extremities. Straight leg raising: Negative bilaterally in sitting and supine. Muscle stretch reflexes: 2+ bilaterally for quadriceps and Achilles tendon. Tone normal throughout the lower extremities. No ankle clonus. Assessment: Encounter Diagnoses Name Primary? Low back pain, non-specific ??? Lumbar spondylosis ??? Segmental and somatic dysfunction of lumbar region ??? History of bilateral total hip arthroplasty The patient is a 60-year-old male with a history of chronic axial low back pain and more recent symptoms of subjective instability involving the right hip. While instability has resolved, the patient reports a residual binding or restricted feeling in the right hip. He is status post remote bilateral total hip arthroplasties. According to Dr. Cedillo, the left side is in danger of mechanical failure and revision surgery has been scheduled for November. The right total hip arthroplasty has been found to be intact, despite primary right- sided symptoms. There is some localization of pain on today's examination to the sacrum, but there are no focal right pelvic or sacroiliac findings to support the joint as the primary pain generator. There is some evidence of sacroiliac mechanical dysfunction. The patient also demonstrates broader postural dysfunction and decompensation that, I suspect, is likely of longstanding. There are likely postural, mechanical and myofascial components to the patient's low back pain. I believe that these problems are amenable to outpatient physical therapy. The imaging studies available have been focused on hip and pelvis. They demonstrate lower lumbar facet degeneration. While these changes are undoubtedly age-related, it is possible that the patient's pain has a facet-mediated component. Lumbosacral radiographs will be ordered today to assess bony align ment and the current extent of spondylotic change. I recommend outpatient physical therapy and have explained the rationale for such treatment to the patient. A prescription has been written for postural training, manual therapy to the pelvis and sacroiliac joints as needed to restore normal lumbopelvic rhythm and pelvic motion, flexibility training with attention to iliopsoas, quadratus lumborum, bilateral hamstrings, glutei, right iliotibial band and quadriceps and progression to pelvic stabilization and core strengthening. Plan: 1. Lumbosacral radiographs to be completed today. 2. Outpatient physical therapy. A prescription has been provided to the patient for treatment in hislocal area. 3. Consideration will be given to diagnostic/therapeutic interventional procedures of lumbar facet and/or sacroiliac joints, depending on the response to PT treatment and the further evolution of the patient's symptoms and examination. Dr. Perez's consultation request is greatly appreciated. Total time spent on date of encounter = 67 minutes Paco Early MD, MS 11/05/2020 Amalia Aguila LNA - 11/05/2020 8:30 AM EST Confirmed with pt that a detailed line by line medication and allergy review was performed by Jesus as documented on as part of the telephone Intake process. Confirmed with pt that there have been no medication/allergy additions or changes over the previous 2 days. documented in this encounter Plan of Treatment Scheduled Referrals Name Type Priority Associated Diagnoses Order S chedule Referral to Outpatient Referral Routine Low back pain, Ordere d: Physical Therapy non-specific 11/05/2020 Lumbar spondylos is Segmental and somatic dysfunction of lumbar region documented as of this encounter Results XR Lumbar Spine 2 [...] please contact e number below. ? Narrative 11/05/2020 10:33 AM EST EXAMINATION: XR [...] Lumbar spondylosis Lumbosacral spondylosis without myelopat hy Segmental and somatic dysfunction of lum bar region Nonallopathic lesion of lumbar region, n ot elsewhere classified History of bilateral total hip arthropla sty Low back pain, non-specific Lumbar spondylosis Lumbosacral spondylosis without myelopat hy documented in this encounter Care Teams Registered Phlebotomist Part Time Relationship Specialty Start Date End Date Chapincito Avalos DO PCP - General Family Medicine 03/12/[address] [place] [address] documented as of this encounter
--- OUTSIDE RECORDS SUMMARY | 2022-04-28 00:18 | XMS_ITS | Encounter Summary ---
:1960 [place] [address] Care Team Providers Name Role Phone Chapincito Avalos DO Primary Care Provider Encounter Details Date Type Department Care Team Description 10/05/2020 Ancillary Procedure Radiology Library at Kannan Cedillo [facility] [place] [address] ORTHOPAEDIC SURGERY [phone] [place], [place] [address] (Wo rk) Social History Tobacco Use Types Packs/Day Years Used Date Never Assessed Sex Assigned at Date Recorded Not on file documented as of this encounter Plan of Treatment Not on filedocumented as of this encounter Procedures Procedure Name Priority Date/Time Associated Diagnosis Comme nts FILM LIBRARY Routine 10/05/2020 12:00 AM Results for this STORAGE ONLY EST procedure are i n NUCLEAR MEDICINE the results section. documented in this encounter Results Film Library- Storage Only nuclear medicine (10/05/2020 12:00 AM EST) Specimen (Source) Anatomical Location Collection Method / Collectio n Time Received Time / Laterality Volume Narrative RAD - 10/11/2020 7:31 PM EST This exam is auto-finalizing. It's purpo se is for storage only. Alex Cedillo MD Rosa FILM LIBRARY ORDERABLES Performing Organization Address City/State/ZIP Code Phon e Number RAD [place], [place] documented in this encounter Visit Diagnoses Not on filedocumented in this encounter Care Teams Loan Originator Relationship Specialty Start Date End Date Chapincito Avalos DO PCP - General Family Medicine 03/12/[address] [place] [address] documented as of this encounter
--- OUTSIDE RECORDS SUMMARY | 2022-04-28 00:18 | XMS_ITS | Encounter Summary ---
:1960 Author Organization [facility] [place] [address] Care Team Providers Name Role Phone Chapincito Avalos DO Primary Care Provider Reason for Visit Reason Comments Rash Consultation (Routine) - Closed Specialty Diagnoses / Procedures Referred By Contact Refer red To Contact Dermatology Diagnoses Chronci pruritic rash Chapincito Avalos DO [facility] [address] [place], [place] [address] [address] [place] [address] Fax: Referral ID Status Reason Start Date Expiration Date Visits V isits Requested Authorized [id number] Closed Consult, 03/12/2019 03/11/2020 1 1 [facility] Encounter Details Date Type Department Care Team Description 05/26/2019 Office Visit Dermatology at [facility] Road CallHoward MD Dermatitis [address] [facility] [place] [address] [facility] [address]-DERMATOLOGY [phone] [place], [place] [address] (Wo rk) Social History Tobacco Use Types Packs/Day Years Used Date Never Assessed Sex Assigned at Date Recorded Not on file documented as of this encounter Progress Notes Howard Matos - 05/26/2019 1:00 PM EDT Images from the original note were not included. DERMATOLOGY - NEW PATIENT NOTE Date of service: 05/26/2019 Howard Perez : 1960, 59 y.o. Chief Complaint: Chief Complaint Patient presents with ??? Rash HPI: Howard Perez is a 59 y.o. male referred by Chapincito Avalos with the following concerns: Patient is here today for a rash in his groin and under his pannus that has been present for about 6months. He treated with antibiotics about 4 months ago and it improved slightly then reoccurred. Therash is itchy. He has not tried treating with any creams or lotions. He does not have a hx of psoriasis or have rashes elsewhere on his body. Relevant Skin History: - Okay to leave detailed message with results? 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 hydroCODone-acetaminophen (VICODIN) 5-500 mg per tablet 1 Tablet(s), PO, Q6H-8H PRN ??? acetaminophen (TYLENOL) 325 mg tablet No current facility-administered medications for this visit. Allergies: No Known Allergies Review of Systems: - General: Feels well. - Skin: No other skin concerns. Examination: - Constitutional: Patient was alert, well-appearing and in no noticeable distress. - Skin: Skin examination of the scalp, face, ears, neck, back, chest, axillae, abdomen, right and left upper extremities, right and left lower extremities, hands, feet, and buttocks was normal with theexception of the findings listed below. Genitalia examined with patient consent. - A female nurse was present and on standby during my examination. Diagnosis/Skin findings/Assessment/Plan: # Tinea cruris vs. inverse psoriasisvs vs. candidiasis vs intertrigo? - Scaly erythematous plaque onthe groin involving bilateral thighs, suprapubic area. GIORGI testing of the skin scraping was negativefor fungal elements. - Rx: Clotrimazole 1% cream - Apply to affected areas of the groin twice daily for 3 weeks. - If no improvement after 3 weeks of clotrimazole, start treating with alclometasone. - Rx: Alclometasone 0.05% cream - Apply to affected areas of the groin twice daily for 14 days, thentake 1 week off. Repeat the cycle as needed. RTC: 4-6 weeks for rash follow up, sooner if needed. Scheduled upon exiting. Note initiated by STEPHANIE BARKER LPN. I, Justina Benjamin, have performed the documentation for this encounter in the presence of and acting as a scribe for Howard Matos MD. I performed the services which were documented by the scribe, and I agree with the accuracy of the documentation in this encounter. Howard Matos MD Reviewed and signed by Howard Matos MD Resident in Dermatology [facility] Patient seen in conjunction with staff manager social: Addis Bertrand MD Section of Dermatology [facility] Addis Bertrand MD - 05/26/2019 1:00 PM EDT I directly supervised Dr. Matos in the care of this patient. I saw and evaluated this patient with Dr. Matos. He presented the history and physical exam details to me, then we saw the patient together and I confirmed these findings. I agree with details as written. My physical examination confirms Dr. Matos's findings. The assessment and plan were formulated in discussion with me at the time of visit and I agree with them as documented. ADDIS BERTRAND MD FAAD Staff Physician documented in this encounter Plan of Treatment Not on filedocumented as of this encounter Visit Diagnoses Diagnosis Dermatitis Contact dermatitis and other eczema, due to unspecified cause documented in this encounter Care Teams Recreational Aide Relationship Specialty Start Date End Date Chapincito Avalos DO PCP - General Family Medicine 03/12/[address] [place] [address] documented as of this encounter
--- OUTSIDE RECORDS SUMMARY | 2022-04-28 00:18 | XMS_ITS | Encounter Summary ---
:1960 Author Organization [facility] [place] [address] Care Team Providers Name Role Phone RobbieChapincito lin Primary Care Provider Reason for Referral Consultation (Routine) - Closed Specialty Diagnoses / Procedures Referred By Contact Refer red To Contact [facility] Diagnoses Pain of left lower extremity Spine - Hip & LE pain/ ?spine pathology/ XR(pelvis) 09/2020 in [facility] Nneka/Jose Womack MD [facility] Spine DR [facility] ORTHOPAEDIC SURGERY [address] [address] Phone: Fax: Referral ID Status Reason Start Date Expiration Date Visits V isits Requested Authorized [id number] Closed Pain Consult 10/18/2020 10/18/2021 3 3 hysical Therapy (Routine) - Specialty Diagnoses / Procedures Referred By Contact Refer red To Contact Physical Therapy Diagnoses History of bilateral total hip arthroplasty Jose Perez MD [facility] D [place] [address] Referral ID Status Reason Start Date Expiration Date Visits V isits Requested Authorized [id number] Evaluate and 10/18/2020 04/16/2021 12 12 Treat Reason for Visit Reason Comments Establish Care NXR-MARIO HIP POLYETHYLENE EXC HANGE/ REVISION-S/P, [id number] ([facility]) Consultation (Routine) - Closed Specialty Diagnoses / Procedures Referred By Contact Refer red To Contact Orthopaedics Diagnoses Other mechanical complication of other internal orthopedic devices, implants and grafts, initial encounter MARIO HIP POLYETHYLENE EXCHANGE/ REVISION Natalee Thompson Moschetti, Way ne E, MD RECORDING STUDIO INTERN [facility] DR Marcano [facility]IR[facility] [place] [address] [place] [address] Fax: Referral ID Status Reason Start Date Expiration Date Visits V isits Requested Authorized [id number] Closed Consult, Test 10/06/2020 10/06/2021 6 6 & [facility] PCP Updated and/or Approved Encounter Details Date Type Department Care Team Description 10/18/2020 Office Visit Orthopaedics at [facility] Alex Cedillo History of bilateral total h ip arthroplasty; [facility] MD Julio Debility; [facility] Pain of left lower extremity ; [place] [address] CENTER Polyethylene liner wear following total hip arthroplasty requiring isolated polyethylene liner exchange, initial encounter [phone] ORTHOPAEDIC SURGERY [place] [id number] Social History Tobacco Use Types Packs/Day Years Used Date Current Every Day Smoker 1 Smokeless Tobacco: Never Used Alcohol Use Standard Drinks/Week Comments Not Currently 0 (1 standard drink = 0.6 oz pure alcoho l) Sex Assigned at Date Recorded Not on file documented as of this encounter Last Filed Vital Signs Vital Sign Reading Time Taken Comments Blood Pressure 108/72 10/18/2020 8:36 AM EST Pulse 84 10/18/2020 8:36 AM EST Temperature - - Respiratory Rate - - Oxygen Saturation - - Inhaled Oxygen Concentration - - Weight 135.3 kg (298 lb 3.2 oz) 10/18/2020 8:36 AM EST Height 185 cm (6' 0.84) 10/18/2020 8:36 AM EST Body Mass Index 39.52 10/18/2020 8:36 AM EST documented in this encounter Progress Notes Vadim Fermin - 10/18/2020 9:00 AM EST I saw the patient and reviewed the pre-operative process with the patient per Dr. Cedillo. The patient is pursuing a left total hip revision . he will need to see Dr. Dove for pre-operative clearance and discuss post operative anticoagulation plan before undergoing surgery. We discussed the risks of a total hip arthroplasty: Bleeding, infection, scar formation, dislocation, leg length inequality, persistent pain, stiffness, bursitis, failure/wear/loosening/breakage of implants, implant malposition, need for additional/future surgery, fracture, clot formation, embolus, stroke, nerve palsy, blood vessel injury, skin numbness, anesthetic and/or medical complications, . We also reviewed their preferences regarding use of blood products and confirmed that while we wouldendeavor to minimize the risks of needing any transfusions, if circumstances were such that one or more were indeed required, he would NOT refuse a blood transfusion. We reviewed options for postoperative DVT prophylaxis, based on AAOS guidelines. We discussed the pros and cons of different anticoagulants in terms of effectiveness and clot / embolus preventions vs. risks of bleeding and wound complications. I reviewed risks associated with taking opioid pain medication, and Howard signed the acute opioid pain management contract with no other questions at this time. Howard personal risk assessment was completed. Opioid PDMP 10/18/2020 [place] PDMP Query Date 10/18/2020 [place] PDMP Query Date 10/18/2020 [place] PDMP Query Date 10/18/2020 Clotting and Bleeding Assessment Genetic predisposition or history of DVT or PE: No Hypercoaguable state?: No History of bleeding disorder?: No GI bleed or history of hemorrhagic stroke within the past 2 years: No Patient on lifelong anticoagulant for other reasons: No Discharge anticoagulation plan: ASA 81mg BID for 30 days Infection Prevention Patient demonstrated appropriate skin integrity/infection knowledge level after instructions provided: Yes Patient demonstrated appropriate dental prophylaxis knowledge level after instructions provided: Yes Patient demonstrated appropriate understanding of chlorhexideine wash and mupirocin ointment: Yes General Assessment Total joint preparedness for surgery: 1:1 Patient understands when to call the office pre-op and post-op: Verbalizes understanding Assistive device(s) used pre-op: None Patient currently on narcotics: No Patient has narcotic agreement signed: Claudia Lawrence was given nasal Mupirocin to use twice daily for five days prior to surgery, along with chlorhexidine soap to use the night before and the morning of surgery. Additional instructions were given tothe patient if they had other questions as well. The patient prefers two-wheeled walker to help with post-operative ambulation. A DME order has been placed. Prep for Surgery Advance Directive: Would like to complete at another time Recommend referral to Patient Financial Services: No Living arrangement: House Home layout: Two level, Able to live on main level, Stairs to enter w/ rails Number of stairs within home: 0 Who will provide post-op care and support: Self Who will provide transportation home: Brother Patient's desired discharge disposition: Home Top 3 nursing choice facilities: n/a VNA preference: No Preference Outpatient PT preference: [facility] Discharge barriers and challenges: None at this time Post operative orthopaedic anti-coagulation plan: ASA 81 mg BID for 30 days Chronic anti-coagulation: no Expedited Discharge Candidate?: NO Patient is planning to be discharged home with VNA. We discussed using Celebrex while in house. Upon discharge we will give the patient Naprosyn to takefor 6 weeks after surgery for post-operative pain management. Juani Thomas LAT Jose Mukherjee MD - 10/18/2020 9:00 AM EST Arthroplasty History/Previous Hip Surgery: 1. Right LISS [address] [place]) 2. Left LISS [address] [place]) 3. Revision Left LISS to hooded liner in setting of immediate post-op anterior dislocations [place] 4. Revision L LISS to constrained liner [address] [place]) Chief Complaint: Chief Complaint Patient presents with ??? Establish Care NXR-MARIO HIP POLYETHYLENE EXCHANGE/ REVISION-S/P, [id number] ([place]) This patient was referred from Natalee Thompson, RECORDING STUDIO INTERN [address] [place] [address] I.D.: Howard Perez is a 60 y.o. year old male being seen today to discuss his bilateral hip. He has medical history significant for hypertension and COPD, active smoker (1ppd), cervical spine spondylosis status post ACDF. 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 He has a complex arthroplasty history dating back to 2000. At that time he underwent as well right andleft hip replacements. His left hip replacement was complicated by early recurrent dislocations. This prompted transition to a hooded liner, however this did not stop the instability events. Due to therecurrent dislocations, he was then transition to a constrained liner. He reports that since the time of his last surgery of the hips is served him reasonably well. Although, he does state that he is never returned to the same levels of walking or activity that he had prior to his surgery. He states they are intimately uncomfortable, however he has not required any further surgery since 2000. He states that a couple months ago he began having pain in his lower back. He states this radiated to his bilateral proximal hips. This is worse on the right side, however he also feels it on his left side. Hewas seen for this by an outside provider, and imaging work-up was obtained which identified advancedwear of the left, constrained liner total hip component. This prompted referral to our clinic. He denies any other recent acute changes in his health. He states that the pain continues to be most pronounced on the right side. He states that the pain does appear to radiate from his lower back to his hips. It is worsened by activity. He has been relatively more inactive over the past couple weeks and this is somewhat diminished his symptoms. He denies numbness or tingling radiating down the lower extremities. He denies any prior major issues or surgery on his lumbar spine. ASSOCIATED DIAGNOSES: He does not report problems with his knees and does have a history of spine or back issues. ALLERGIES No Known Allergies Allergies to metals: None. SOCIAL HISTORY: reports that he has been smoking. He has been smoking about 1.00 pack per day. He has never used smokeless tobacco. He reports previous alcohol use. 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 VITALS: BP Readings from Last 1 Encounters: No data found for BP Pulse Readings from Last 1 Encounters: No data found for Pulse There is no height or weight on file to calculate BMI. PHYSICAL EXAM: Constitution: Patient sits in the clinic today in no apparent distress. The patient is alert and oriented x 3. Appearance is age-appropriate, affect is similarly appropriate. I have made the following determinations: Hip Exam: LEFT Prior surgery on this joint:Yes Leg Length: Longer leg: equal Limb Length discrepancy: 0cm Motion: Flexion contracture: 0 Total degrees of Flexion: 85 Total degrees of Abduction: 45 Total degrees of Ext Rotation: 30 Total degrees of Internal Rotation: 10 Gait Abnormality: Normal Skin Integrity: Normal Pulses Palpable: Left PT: Yes Left DP: Yes Motor/Sensory: Left Distal Motor: Normal Distal Sensory: Normal Hip Abductors: 5 I have made the following determinations: Hip Exam: RIGHT Prior surgery on this joint: Yes Leg length: Longer leg: equal Limb Length discrepancy: 0cm Motion: Flexion contracture: 0 Total degrees of Flexion:90 Total degrees of Abduction:45 Total degrees of Ext Rotation: 30 Total degrees of Internal Rotation: 10 Gait Abnormality: Normal Skin Integrity: Normal Pulses Palpable: Right PT: Yes Right DP:Yes Motor/Sensory: Right Distal Motor: Normal Distal Sensory: Normal Hip Abductors: 5 Questionnaire Responses: General Health, Prior Treatments, PreExisting Condition, Health Habits, About You 10/18/2020 HOOS JR Scores 36.36 Weight (lbs) 285 Height (feet) 6 feet Height (Inches) 2 BMI 36.58 (Obese) Ever used tobacco products Yes Live Alone Yes Marital situation / Schooling High school graduate or GED Combined Household Income $35,000 to less than $50,000 # People Supported 1 Guinean, , No, not Guinean// Race White Health Literacy Somewhat Currently working No Not working because: Not working due to disability Orthope[facility]ics [facility] Response 10/18/2020 HOOS JR Scores 36.36 Spine [facility] Response 10/18/2020 HOOS JR Scores 36.36 Imaging: Nuclear medicine bone scan 10/05/20: No evidence of prosthetic component loosening Xray 09/23/20: Bilateral total hip arthroplasty components in place. Right side component with no evidence of loosening or acute complication. Left side component demonstrates eccentric positioning of femoral head within constrained lined acetabular component concerning for advanced component wear. CT pelvis 09/28/20: CT of the pelvis further demonstrates bilateral prosthetic hip components in place. The Left side demonstrates eccentric positioning of the femoral head with apparent full or near full thickness wear through the polyethylene component. The cup is also noted to be in a high degree of anteversion. No evidence of loosening or acute complication of the Right side. ASSESSMENT AND PLAN: Mr. Perez is a 60 y.o. year old male with bilateral hip pain. Complaints. The exact etiology of hispain in his lower back proximal aspect of his hips bilaterally is not quite clear. Given his stated symptoms and exam today it is most likely that the pain radiating from his lower back to his bilateral hips, more prominent on the right side is likely most related to his lower back. We do not have stool imaging of his lower back at this time, but on the CT of his pelvis it is evident that there are some degenerative changes of his lumbar spine and sacroiliac joints. Given this, we did suggest a referral to the spine center for evaluation of his lower back. The patient was in agreement with that. This was provided today. With regard to his right hip it does appear that the cup in his position relatively, flat position, but there is no overt indication from his imaging as to why that would be causing him discomfort. Again, it is felt that his discomfort in areas most likely related to his lower back. He may benefit from physical therapy, and this may improve his mobility. Discomfort. He did express interest in pursuing this option. A prescription for physical therapy was provided.With regard to the advanced wear of the left hip component this was discussed with him at length. We discussed that this could proceed to catastrophic failure. We discussed that revision for could be performed, and liss t we would recommend likely revising the cuff to a less anteverted position with likely transition to a dual mobility construct, versus replacement with a constrained liner. The patient was in agreement with this plan, and expressed interest in proceeding with surgery. Risk of surgery including but not limited to risk of infection as well as recurrent instability were discussed with the patient at length. We will have the patient talk with the chief crew scheduler to set up a time for surgery, and return for apreoperative visit with history and physical performed by her hospital medicine physician prior to surgery. In the interim, we will also obtain inflammatory markers to evaluate for infection. If these are elevated we would likely then proceed with a fluoroscopy guided aspiration. Furthermore, will obtain metal ions in case these are elevated due to component wear. Orders for these labs were placed today. He was instructed to have these performed prior to leaving the facility today. In addition, the following is relevant to their care: Active smoker (1ppd) BMI 39.52 Alex Melendrez MD - 10/18/2020 9:00 AM EST Images from the original note were not included. Department of Orthopaedics Division of Adult Joint Reconstructive Surgery October 18, 2020 I had the pleasure of evaluating Howard Perez in clinic in conjunction with Dr. Perez. I have seen the patient and reviewed the history/physical and I agree with the details as written. The assessment and plan were formulated in discussion with me and I agree with them as documented. 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 Unfortunately his hip immediately began dislocating and he was revised to a 20 degree liner with the grey placed anterior as he was having anterior dislocations. All the surgeries were performed in [facility] by Dr. De La Fuente. Unfortunately he continued to have instability despite the hooded liner and underwent another operation and conversion toa constrained liner. He had a excessively anteverted cup which I measured to be about 45 degrees anddespite this has done well with his constrained liner for almost 20 years. He was seen up in [place] where they ordered x-rays and a CT scan and subsequently referred him to me. The patient was unsure of why he was referred but was told to come to [facility]. His complaint really is of low back pain and right hip pain. He occasionally describes a click in the right hip. He has some left buttock discomfort but no real significant left-sided hip pain. We reviewed his x-rays together. He also has a CT scan of the left hip. 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 This is near catastrophic failure. He has some significant osteolysis of the actual bearing surface within the constrained liner in a ddition to the poly within the bipolar head. I do not appreciate significant bony osteolysis but there is certainly significant polywear. We reviewed this and I outlined this is a concern. I explained that he is nearing catastrophic failure of his poly and he may develop squeaking or metal wear from the polyfailing. We discussed revision surgery and the risks associated with revision surgery specifically bleeding, infection, leg length discrepancy and dislocation. Because of the excessive anteversion of his cup I think is reasonable to revise the cup and convert him to a dual mobility head. I thinkif we can decrease his anteversion and increase the size of his femoral head the chance of instability is low. I am actually quite surprised that his constrained liner is lasted as long as it has without failure especially with a malposition cup. In regards to his low back and right-sided buttock pain. I think some of this may be related to his back. He has radiographic changes of arthritis in his low back on his pelvis x-ray and carries extra weight in his abdomen. We discussed the merits of weightreduction to try to benefit some of his back discomfort and hip discomfort. We also discussed physical therapy in anticipation for surgery to try to improve his overall strength and mobility. His righthip x-rays do not appear with any significant wear or complication. He does have a small head on that side but I do not see significant osteolysis. At this point the patient would like to proceed with surgery on the left side to avoid catastrophic failure of his poly and I think this is reasonable. All questions were answered. Alex Cedillo MD, MS Graphic Pre Press Trades Worker, Division of Adult Reconstructive Bundler [employer] Planner of Orthopaedics Department of Orthopaedics [facility] [phone] documented in this encounter Plan of Treatment Scheduled Referrals Name Type Priority Associated Diagnoses Order S chedule Referral to Outpatient Referral Routine History of bilateral Ordered: Physical Therapy total hip 10/18/2020 arthroplasty Referral to Pain Outpatient Referral Routine Pain of left lowe r Ordered: and Spine Center extremity 10/18/2020 (Internal only) documented as of this encounter Results XR Pelvis and Hip [...] ? Electronically signed by: Lainey Pena MD, [facility] ([phone]), at 01/10/2021 1:05 PM Procedure Note Lainey [...] below. Alex Cedillo MD IMG DX ORDERABLES Protein, total (11/26/2020 12:44 PM EST) athologist Signature Total Protein 7.4 6.1 - 8.0 [facility] LABORATORY Specimen Anatomical Collection Method Collection Time Receive d Time (Source) Location / / Volume Laterality Blood specimen 11/26/2020 12:44 1 1:09 (specimen) PM EST PM EST Resulting Agency Comment Spec In Lab Alex Cedillo MD CHEMISTRY ORDERABLES Performing Organization Address City/[facility]/ZIP [facility] [place] [address] Albumin Level (11/26/2020 12:44 PM EST) athologist Signature Albumin 4.7 3.2 - 5.2 [facility] LABORATORY Specimen Anatomical Collection Method Collection Time Receive d Time (Source) Location / / Volume Laterality Blood specimen 11/26/2020 12:44 1 1:09 (specimen) PM EST PM EST Resulting Agency Comment Spec In Lab Alex Cedillo MD CHEMISTRY ORDERABLES Performing Organization Address City/[facility] Phon e Number [address] APTT (11/26/2020 12:44 PM EST) athologist Signature PTT 33 25 - 37 sec [facility] Comment: The PTT is NOT [...] Cedillo MD HEMATOLOGY ORDERABLES Performing Organization Address [facility] [place] [address] Prothrombin Time (11/26/2020 12:44 PM EST) P athologist Signature PT 11.5 9.4 - 12.5 [facility] LABORATORY INR 1.0 [facility] Comment: An INR <2.0 indicates [...] Cedillo MD HEMATOLOGY ORDERABLES Performing Organization Address [facility] [place] [address] (ABNORMAL) Basic Metabolic Panel (non-fasting) (11/26/2020 12:44 PM EST) P athologist Signature Glucose Lvl 126 65 - 199 [facility] mg/dL [facility] Comment: Diabetes: >=200 mg/dL plus symp toms BUN 14 10 - 20 mg/dL [facility]OR[facility] Creatinine 0.72 (L) 0.80 - 1.50 mg/dL [facility] Sodium 141 135 - 145 [...] estions. Chloride 103 98 - 107 mmol/L [facility] CO2 28 22 - 31 mmol/L [facility] Anion Gap 10 5 - 15 mmol/L [facility]ORY Calcium 9.7 8.5 - 10.5 mg/dL [facility] Estimated GFR 101 >=60 mL/min/1.73 m?? [facility] Comment: This patient? s estimated [...] Organization Address City/State/ZIP [place] [address] EKG 12 Lead (11/26/2020 12:41 PM EST) [facility] gist Method Time Signature Ventricular rate 68 BPM MUSE SYSTEM Atrial Rate 68 BPM MUSE SYSTEM P-R Interval 182 ms MUSE SYSTEM QRS Duration 98 ms MUSE SYSTEM Q-T Interval 386 ms MUSE SYSTEM QTC Calculated 410 ms MUSE SYSTEM (Bezet) Calculated P [employer] 50 degrees MUSE SYSTEM Calculated R [employer] 65 degrees MUSE SYSTEM Calculated T [employer] 71 degrees MUSE SYSTEM INTERPRETATION Normal sinus rhythm MUSE SYSTEM Normal ECG No previous ECGs available Confirmed by MD Mary Jane, Eliel ([id number]) on 11/26/2020 1:21: 21 PM Specimen Anatomical Collection Method Collection Time Receive d Time (Source) Location / / Volume Laterality 11/26/2020 12:41 11/26/2020 1:21 PM EST PM EST Alex Cedillo MD ECG ORDERABLES Performing Organization Address City/State/ZIP Code Phon e Number MUSE SYSTEM documented in this encounter Visit Diagnoses Diagnosis History of bilateral total hip arthropla sty Debility Debility, unspecified 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 requiring isolated polyethylene liner exchange, initial enc ounter History of bilateral total hip arthropla sty Debility Debility, unspecified 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 requiring isolated polyethylene liner exchange, initial enc ounter documented in this encounter Care Teams Customer Support Coordinator Relationship Specialty Start Date End Date Chapincito Avalos DO PCP - General Family Medicine 03/12/[address] [place] [address] documented as of this encounter
--- OUTSIDE RECORDS SUMMARY | 2022-04-28 00:18 | XMS_ITS | Encounter Summary ---
:1960 [place] [address] Care Team Providers Name Role Phone Chapincito Avalos DO Primary Care Provider Reason for Visit Reason Onset Date Comments Public Health Screening 11/04/2020 pre-op Encounter Details Date Type Department Care Team Description 11/04/2020 Telephone Public Health Madyson Nany [facility] Health Screening [facility] (pre-op) [place] [address] Social History Tobacco Use Types Packs/Day Years Used Date Current Every Day Smoker 1 Smokeless Tobacco: Never Used Alcohol Use Standard Drinks/Week Comments Not Currently 0 (1 standard drink = 0.6 oz pure alcoho l) Sex Assigned at Date Recorded Not on file documented as of this encounter Miscellaneous Notes Telephone Encounter - Nany Parmar LNA - 11/04/2020 11:40 AM EST Call placed to schedule pre-op COVID test mailbox full and no there numbers on file. documented in this encounter Plan of Treatment Not on filedocumented as of this encounter Visit Diagnoses Not on filedocumented in this encounter Care Teams Vp Ancillary Relationship Specialty Start Date End Date Chapincito Avalos DO PCP - General Family Medicine 03/12/[address] [place], [place] [id number] documented as of this encounter
--- OUTSIDE RECORDS SUMMARY | 2022-04-28 00:18 | XMS_ITS | Encounter Summary ---
:1960 [place] [address] Care Team Providers Name Role Phone Chapincito Avalos DO Primary Care Provider Encounter Details Date Type Department Care Team Description 09/28/2020 Ancillary Procedure Radiology Library at Kannan Cedillo [facility] [place] [address] ORTHOPAEDIC SURGERY [phone] [place], [place] [address] (Wo rk) Social History Tobacco Use Types Packs/Day Years Used Date Never Assessed Sex Assigned at Date Recorded Not on file documented as of this encounter Plan of Treatment Not on filedocumented as of this encounter Procedures Procedure Name Priority Date/Time Associated Diagnosis Comme nts FILM LIBRARY Routine 09/28/2020 12:00 AM Results for this STORAGE ONLY CT EST procedure ar e in PELVIS the results section. documented in this encounter Results Film Library- Storage Only CT Pelvis (09/28/2020 12:00 AM EST) Specimen (Source) Anatomical Location Collection Method / Collectio n Time Received Time / Laterality Volume Narrative RAD - 10/11/2020 7:33 PM EST This exam is auto-finalizing. It's purpo se is for storage only. Alex Cedillo MD G FILM LIBRARY ORDERABLES Performing Organization Address City/State/ZIP Code Phon e Number RAD [place], [place] documented in this encounter Visit Diagnoses Not on filedocumented in this encounter Care Teams Wrapper Stemmer Operator Relationship Specialty Start Date End Date Chapincito Avalos DO PCP - General Family Medicine 03/12/[address] [place] [address] documented as of this encounter
--- OUTSIDE RECORDS SUMMARY | 2022-04-28 00:19 | XMS_ITS | Clinical Summary ---
:1960 Author Organization [facility] Address [address] [place] [address] Care Team Providers Name Role Phone Unknown, Provider Primary Care Provider Social History Tobacco Use Types Packs/Day Years Used Date Never Assessed Sex Assigned at Date Recorded Not on file Plan of Treatment Health Maintenance Due Date Last Done Comments COVID-19 Vaccine (1) 1965 Hepatitis C Screen Completed 01/13/2022 Care Teams Information Assurance Analyst Relationship Specialty Start Date End Date Unknown, Provider, PCP - General 08/30/15
--- OUTSIDE RECORDS SUMMARY | 2022-04-28 00:19 | XMS_ITS | Encounter Summary ---
:1960 Author Organization [facility] Address [address] [place] [address] Care Team Providers Name Role Phone Unknown, Provider Primary Care Provider Encounter Details Date Type Department Care Team Description 01/13/2022 Lab Requisition [facility] Outr Resulting Lab, Pathology & Laboratory Provider [facility] [address] [place] [address] Social History Tobacco Use Types Packs/Day Years Used Date Never Assessed Sex Assigned at Date Recorded Not on file documented as of this encounter Plan of Treatment Not on filedocumented as of this encounter Procedures Procedure Name Priority Date/Time Associated Comments Diagnosis HOLD SST Today 01/13/2022 13:42 Results for this EDT procedure are i n the results section. HEPATITIS C AB W Today 01/13/2022 13:42 Results for this REFLEX TO HCV RNA BY EDT procedu re are in PCR the results section. PSA TOTAL, Today 01/13/2022 13:42 Results for this DIAGNOSTIC EDT procedure are i n the results section. documented in this encounter Results HOLD SST (01/13/2022 13:42 EDT) Pathologist Sig nature Hold Hold [facility] Specimen Blood - Venous blood (substance) Performing Organization Address City/State/ZIP Code Phon e Number [facility] [address] [place] [address] SERVICES PSA TOTAL, DIAGNOSTIC (01/13/2022 13:42 EDT) Pathologist Sig nature PSA 1.5 0.0 - 4.5 ng/mL [facility] Specimen Blood - Venous blood (substance) Narrative [facility] - 01/13/2022 22:25 EDT NOTE: Serum PSA concentration should not be in terpreted as absolute evidence for the presence or absence of malignant disease. Assayed on Siemens ADVIA Calendargodaur XPT usi ng chemiluminescent technology.??Values obtained by using different assay methods cannot be used interchangeably. Performing Organization Address City/State/ZIP Code Phon e Number [facility] [address] [place] [address] SERVICES HEPATITIS C AB W REFLEX TO HCV RNA BY PCR (01/13/2022 13:42 EDT) Pathologist Sig nature Hep C Antibody Negative Negative [facility] Specimen Blood - Venous blood (substance) Performing Organization Address City/State/ZIP Code Phon e Number [facility] [address] [place] [address] SERVICES documented in this encounter Visit Diagnoses Not on filedocumented in this encounter Care Teams Legal Intern Relationship Specialty Start Date End Date Unknown, Provider, PCP - General 08/30/15 documented as of this encounter
--- OUTSIDE RECORDS SUMMARY | 2022-04-28 00:19 | XMS_ITS | Encounter Summary ---
:1960 Author Organization [facility] Address [address] [place] [address] Care Team Providers Name Role Phone Unavailable Primary Care Provider Unavailable Encounter Details Date Type Department Care Team Description 11/16/2000 Results Only [facility] - Anila Kennedy MD [address] [place] [phone] (Wo rk) Social History Tobacco Use Types Packs/Day Years Used Date Never Assessed Sex Assigned at Date Recorded Not on file documented as of this encounter Plan of Treatment Not on filedocumented as of this encounter Procedures Procedure Name Priority Date/Time Associated Diagnosis Comme nts SURGICAL PATHOLOGY Routine 11/16/2000 0:00 EST Re sults for this procedure are i n the results section. documented in this encounter Results SURGICAL PATHOLOGY (11/16/2000 0:00 EST) Pathology Report: SURGICAL PATHOLOGY REPORT JACKIE ZAMBRANO Reports generated via electronic interface contain neelam ginal data; LAB however they are lacking the format of the original re port. Caution should be taken when reading/interpreting unfo rmatted reports. Name: ? MADDIE JETT ? Accession #: ? [id number] ? : ? 1960 (Age: 40) ??M ? Collect Date: ? 11/16/2000 ? Location: ? [facility] ? Receive Date: ? 001 ? Provider: ANILA KIM MD Copy to: ELLIS PAYTON DO ? Final Pathologic Diagnosis: ? Femur head, right, excision: - Necrotic bone, consistent with avascular necrosis. Document reviewed and electronically signed by: Dax Loredo MD Report ??Date: 11/22/2000 16:12 By the signature above, the attending physician certif ies that he/she has personally conducted a gross and/or microscopic examin ation of the described specimens and rendered or confirmed the above diagnosi s. Specimen(s) Received: ? A. ??Right femoral head (#1) Clinical History: ? AVN of femoral head Gross Description: ? Received in formalin labelled Chris and right femoral head is a 6.0 x 6.0 x 6.0 cm femur head incl uding the head and a portion of the neck. ??The head measures about 6.0 cm in diameter. ??The articular ajay face appears to be irregular with grooves, fold s and depressed areas. ??Most of the medulla of the neck has been taken out surgically leaving the c ortex of the bone of the neck which measures about 4.0 cm in maximum dimension on one side. ??A piece of muscle attached one side of the fem ur head measures 2.4 x 1.3 x 1.0 cm. ??The femur head is bisected to reveal a pink-nielson cut surface. ??On one peripheral area which measures about 3.8 x 2.0 cm, there appears to be yello wish-nielson cystic degeneration. ??No hemorrhagic or soft areas are prese nt. ??The articular cartilage varies in thickness from 0.1 to 0.3 cm. ??Wi thin the yellowish-nielson area, the articular cartilage with thin underlying bon e, appears to be disassociated with underlying bone tissue forming a cy stic structure (like a flap). ??The specimen is fur ther sectioned to reveal that the nielson-yellowish area accounts for about 30-40% of the bone tissue of the femur head. ??Most of the yellowish-nielson area are present at the periphery underl jolly the articular cartilage. ??Barrow Worker Helper sections are submitted in cassettes (A1) to (A3) after decalcification. ??(Dr. Byrd)/[facility] End of Report Specimen Performing Organization Address City/State/ZIP Code Phon e Number [facility] [address] [place] [address] SERVICES [facility] [address] [place] [address] documented in this encounter Visit Diagnoses Not on filedocumented in this encounter
--- OUTSIDE RECORDS SUMMARY | 2022-04-28 00:19 | XMS_ITS | Encounter Summary ---
:1960 Author Organization [facility] Address [address] [place] [address] Care Team Providers Name Role Phone Unknown, Provider Primary Care Provider Encounter Details Date Type Department Care Team Description 01/13/2022 Lab Requisition [facility] Outr Resulting Lab, Pathology & Laboratory Provider [facility] [address] [place] [address] Social History Tobacco Use Types Packs/Day Years Used Date Never Assessed Sex Assigned at Date Recorded Not on file documented as of this encounter Plan of Treatment Not on filedocumented as of this encounter Procedures Procedure Name Priority Date/Time Associated Comments Diagnosis HIV 1/2 ANTIGEN AND Routine 01/13/2022 13:42 Resu lts for this ANTIBODY, 4TH EDT procedure are in GENERATION the results section. documented in this encounter Results HIV 1/2 ANTIGEN AND ANTIBODY, 4TH GENERATION (01/13/2022 13:42 EDT) HIV 1 and 2 NegativeComment: If Negative [facility] Antibody/p24 acute HIV-1 LABORATORY Antigen, 4th infection is SERVICES Generation suspected in a high risk patient, submit plasma specimen for HIV-1 RNA quantitation test. Specimen Blood - Venous blood (substance) Narrative [facility] - 01/16/2022 10:24 EDT Fourth Generation assay performed on the Siemens Novalactaur XPT. Performing Organization Address City/State/ZIP Code Phon e Number [facility] [address] [place] [address] SERVICES documented in this encounter Visit Diagnoses Not on filedocumented in this encounter Care Teams Career Development Specialist Relationship Specialty Start Date End Date Unknown, Provider, PCP - General 08/30/15 documented as of this encounter
--- NOTE | 2022-04-28 09:00 | DI.MRI_ITS ---
Exam(s) MR UPPER JOINT RT WO EXAM: MR UPPER JOINT RT WO CLINICAL HISTORY: ? ROTATOR CUFF TEAR,shoulder injury, pain,y99.0,s49.90xa. TECHNIQUE: Multiplanar multisequence MRI was performed. COMPARISON: 10 Mar 2022 plain films FINDINGS: BONES: There is no fracture or contusion pattern. JOINTS: The acromioclavicular joint shows inferior spurring. There is spurring at the tip of the acr omion. There is fluid in the subacromial subdeltoid bursa as well as a small amount in the subcoraco id bursa and glenohumeral joint space. Fluid is also noted in the biceps tendon sheath. TENDONS: Supraspinatus: Full-thickness tear with retraction to the level of the glenoid. Severe muscle atroph y. Infraspinatus: Full-thickness tear and retraction. Severe muscle atrophy. Subscapularis: Mild thickening but no evidence of a tear. Teres Minor: Unremarkable. Biceps and [place]: Unremarkable. GLENOID LABRUM: Degenerative changes. SOFT TISSUES: Unremarkable. IMPRESSION: Full-thickness tears with retraction of the supraspinatus and infraspinatus tendons with severe muscl e atrophy, consistent with chronic tears. Tendinosis of the scalp subscapularis. DATA REPOSITORY:
== END ==
PROVIDERS: PCP Family Medicine; Visit Provider Student in an Organized Health Care Education/Training Program
DX: Y99.0 Civilian activity done for income or pay; X58.XXXA Exposure to other specified factors, initial encounter; S46.011A Strain of muscle(s) and tendon(s) of the rotator cuff of right shoulder, initial encounter; M62.511 Muscle wasting and atrophy, not elsewhere classified, right shoulder
CPT/HCPCS: 73221

== ENCOUNTER 2023-12-06 04:50 | Outpatient (CLI) | payer OTHER, MEDICAID, SELFPAY ==
--- NOTE | 2023-12-06 13:42 | W.PFT ---
Date of service: 12/06/23 Time of Service: 12:52 Pulmonary Function Test Result Indications: Disability Interpretation Spirometry: There is severe airflow limitation. There is significant bronchodilator response. Impression Severe airflow obstruction with a bronchodilator response. Clinical Correlation therefore is recommended.
[2023-12-06] MEDS: Inhaler, Assist Device 1 EACH MC (13:44)
[2023-12-06] MEDS: Levalbuterol HFA 15 GM INH 4 PUFF IH (13:44)
== END 2023-12-06 04:51 | disposition home or self-care (01) ==
LOC: RT 04:50
PROVIDERS: PCP Nurse Practitioner Family; Visit Provider Pediatrics Pediatric Rheumatology
DX: Z02.71 Encounter for disability determination (principal)
CPT/HCPCS: 94060

== ENCOUNTER 2024-08-13 02:01 | Outpatient (CLI) | payer MEDICAID, SELFPAY ==
--- NOTE | 2024-08-13 07:00 | DI.CTLCSR_ITS ---
Exam(s) CT CHEST LUNG CANCER SCREEN EXAM: CT CHEST LUNG CANCER SCREEN CLINICAL HISTORY: Screening for lung cancer,current smoker, f17.210,copd. TECHNIQUE: Imaging Protocol: Low Dose Technique CONTRAST MATERIAL: None COMPARISON: CT CT CHEST LUNG CANCER SCREEN from 05/25/2023 FINDINGS: CHEST: LUNGS: Again noted is an unchanged 5 millimeter nodule in the right lung apex, again unchanged. No o ther significant focal right lung findings.. Biapical scarring is unchanged. Benign-appearing increased markings in the inferior lingular segment of the left lung are unchanged. Tiny cyst calcified granulomas left lower lobe unchanged. No new s ignificant left lung findings. No pleural effusions. MEDIASTINUM: There is no obvious hilar nor mediastinal adenopathy. CARDIAC: Heart size is normal. There is no pericardial effusion.The ascending thoracic aorta is enla rged measuring 4.3 cm. The diameter of the mid aortic arch is also enlarged measuring 3.1 cm. The d iameter of the proximal descending thoracic aorta is also enlarged measuring 3 cm. The diameter of t he mid descending thoracic aorta is enlarged measuring 3.1 cm. Diameter of the distal descending tho racic aorta is upper normal. OTHER: No obvious findings in the partially visualized upper abdomen. OSSEOUS: Right shoulder prosthesis again noted. No acute fractures. No significant osseous lesions. . IMPRESSION: 1. Continued stable appearance of previously described bilateral findings. 2. There is enlargement of the thoracic aorta with measurements as above. Requires appropriate follo w-up. 3. Lung RADS Cat 2S - Benign Appearance / Behavior: Nodules with a very low likelihood of becoming a clinically active caner due to size or lack of growth. Other: Clinically Significant or Potentially C linically Significant Findings (non lung cancer) Lung-RADS 1.0 CATEGORIES: Category 0 - Prior chest CT exam(s) being located for comparison. Category 1 - Annual screening in 12 months. No nodules or definitely benign nodules. Category 2 - Annual screening in 12 months. Benign appearance. Nodules with low likelihood of becomin g active cancer. Category 3 - 6-month follow-up. Probably benign. Short-term follow-up suggested. Nodules with low lik elihood of becoming active cancer. Category 4A - 3-month follow-up and CT/PET if >8 mm in size. Suspicious finding. Findings which requi re additional testing. Category 4B - Findings which require additional testing and tissue sampling. Category 4X - Category 3 or 4 nodules with additional features or imaging findings that increases the suspicion of malignancy. Modifier S- Potentially clinically significant findings (non lung cancer) RADIATION DOSE DELIVERED: 113.7mGy.cm Total DLP DATA REPOSITORY: All CT scans at this facility are submitted to the National Radiology Data Registry (NRDR) Dose Index Registry (DIR) with the [employer] (ACR). RADIATION OPTIMIZATION: All CT scans at this facility use at least one of these dose optimization te chniques: automated exposure control; mA and/or kV adjustment per patient size (includes targeted exa ms where dose is matched to clinical indication); or iterative reconstruction.
== END 2024-08-13 02:21 ==
LOC: DI 02:01
PROVIDERS: PCP Nurse Practitioner Family; Visit Provider Physician Assistant Surgical
DX: J44.9 Chronic obstructive pulmonary disease, unspecified (principal); F17.210 Nicotine dependence, cigarettes, uncomplicated
CPT/HCPCS: 71271

== ENCOUNTER 2024-09-25 15:58 | Outpatient (CLI) | payer MEDICAID, SELFPAY ==
[2024-09-25 15:03] LABS: Hemoglobin A1C 5.9 % (<5.7)
[2024-09-25 15:20] LABS: Anion Gap 7.8 mmol/L (3-11); BUN 14 mg/dL (7-18); CO2 29.2 mmol/L (21.0-32.0); Calcium 9.5 mg/dL (8.5-10.1); Calculated LDL 104 mg/dL (<100); Chloride 100 mmol/L (98-107); Cholesterol 174 mg/dL (<200); Estimated GFR 84.05 (mL/min/1.73m2); Glucose 92 mg/dL (74-106); HDL Cholesterol 51 mg/dL (40-60); Potassium 4.3 mmol/L (3.5-5.1); Sodium 137 mmol/L (136-145); TSH (W/Ref FT4) 0.71 uIU/mL (0.36-3.74); Triglyceride 98 mg/dL (<150)
== END 2024-09-25 15:59 | disposition home or self-care (01) ==
LOC: LBO 15:59
PROVIDERS: PCP Nurse Practitioner Family; Visit Provider Nurse Practitioner Family
DX: Z13.220 Encounter for screening for lipoid disorders (principal); E78.5 Hyperlipidemia, unspecified; Z13.1 Encounter for screening for diabetes mellitus; E66.9 Obesity, unspecified; I10 Essential (primary) hypertension
CPT/HCPCS: 36415; 80048; 80061; 83036; 84443

== ENCOUNTER 2025-02-27 01:27 | Outpatient (CLI) | payer MEDICAID, SELFPAY ==
[2025-02-27 12:08] LABS: Abs Immature Grans 0.02 10^3/uL (0.0-0.06); Absolute Basophil Count 0.04 10^3/uL (0.0-0.2); Absolute Eosinophil Count 0.11 10^3/uL (0.0-0.7); Absolute Lymphocyte Count 1.03 10^3/uL (1.2-3.4); Absolute Monocyte Count 0.44 10^3/uL (0.1-0.8); Absolute Neutrophil Count 4.43 10^3/uL (1.2-6.7); Basophils % 0.7 %; Eosinophils % 1.8 %; HCT 49.4 % (40.0-50.0); HGB 16.5 g/dL (13.5-17.5); Immature Grans % 0.3 %; MCH 31.3 pg (27.0-33.0); MCHC 33.4 % (32.0-36.0); MCV 94 fL (80-95); Monocytes % 7.2 %; Platelet Count 206 10^3/uL (130-400); RBC 5.27 10^6/uL (4.36-5.78); RDW 13.2 % (11.8-14.1); RDW-SD 45.8 fL; WBC 6.07 10^3/uL (4.4-10.8)
== END 2025-02-27 01:28 | disposition home or self-care (01) ==
LOC: LBO 01:27
PROVIDERS: PCP Nurse Practitioner Family; Visit Provider Physician Assistant Surgical
DX: J44.9 Chronic obstructive pulmonary disease, unspecified (principal)
CPT/HCPCS: 36415; 85025

== ENCOUNTER 2025-02-27 01:40 | Outpatient (CLI) | payer MEDICAID, SELFPAY ==
[2025-02-27] MEDS: Levalbuterol HFA 15 GM INH 4 PUFF IH (11:05)
[2025-02-27] MEDS: Inhaler, Assist Device 1 EACH MC (11:05)
--- NOTE | 2025-03-02 13:45 | W.PFT ---
Date of service: 02/27/25 Time of Service: 09:58 Pulmonary Function Test Result Indications: COPD Interpretation Spirometry: There is severe airflow limitation. There is a significant bronchodilator response. Lung Volumes: There is hyperinflation and air trapping Diffusion Capacity: Reduced diffusion Airway Pressure: Increased airways resistance Impression Severe airflow obstruction with air trapping and a mildly reduced diffusion. Clinical Correlation therefore is recommended.
== END 2025-02-27 01:41 | disposition home or self-care (01) ==
LOC: RT 01:40
PROVIDERS: PCP Nurse Practitioner Family; Visit Provider Student in an Organized Health Care Education/Training Program
DX: J44.89 Other specified chronic obstructive pulmonary disease (principal); R91.8 Other nonspecific abnormal finding of lung field
CPT/HCPCS: 94060; 94726; 94729

== ENCOUNTER 2025-05-18 16:51 | Outpatient (REF) | payer MEDICARE, SELFPAY | END 2025-05-18 16:52 | disposition home or self-care (01) | LOC: LBN 16:51 | PROVIDERS: PCP Nurse Practitioner Family; Visit Provider Nurse Practitioner Family | DX: L98.9 Disorder of the skin and subcutaneous tissue, unspecified (principal) | CPT/HCPCS: 87077; 87070; 87205 ==